=== PATIENT | male | born 1940 | race Caucasian/White ===

== ENCOUNTER 2018-11-08 16:32 | Inpatient (IN) ==
[2018-11-08] MEDS ORDERED: ONDANSETRON INJ 2 MG/ML 2 ML VIAL IV STA (17:02)
[2018-11-08] MEDS ORDERED: PIPERACILLIN/TAZOBACTAM 4.5 GM/120 ML BAG IV STA (17:02)
[2018-11-08] MEDS ORDERED: ACETAMINOPHEN 500 MG TAB PO STA (17:02)
[2018-11-08] MEDS ORDERED: SODIUM CHLORIDE 0.9% 1000ML 1,000 ML IV STA (17:05)
[2018-11-08] MEDS ORDERED: HYDROmorphone INJ 0.5 MG/0.5 ML SYR IV PRN (17:07)
[2018-11-08] MEDS ORDERED: SODIUM CHLORIDE 0.9% 1000ML 500 ML IV ONE (17:08)
[2018-11-08] MEDS ORDERED: SODIUM CHLORIDE 0.9% 500 ML IV SCH (17:15)
[2018-11-08] MEDS ORDERED: CLINDAMYCIN 900 MG in DEXTROSE 5% 50 ML IV ONE (17:30)
--- NOTE | 2018-11-08 17:55 | XRay Report ---
XR chest 1V portable HISTORY: 78 years-old Male fever acute fever COMPARISON: None available TECHNIQUE: Portable AP view of the chest FINDINGS: Cardiomediastinal and hilar silhouettes are within normal limits. Calcification of the thoracic arch. No pneumothorax, pleural effusion, focal airspace consolidation or overt pulmonary edema. Degenerati ve changes of the shoulders and spine. IMPRESSION: No acute process. The above report was generated using voice recognition software. It may contain grammatical, syntax o r spelling errors. Electronically signed by: Skyler Crooks M.D. 11/08/2018 5:54 PM
--- NOTE | 2018-11-08 17:55 | XRay Report ---
XR foot LT min 3V routine HISTORY: 78 years-old Male left great toe gangrene and foot cellulitis chronic wound of the left eliceo t COMPARISON: None available TECHNIQUE: 3 views of the left foot FINDINGS: Moderate degenerative changes about the first MTP joint. There are mild degenerative changes noted ab out the interphalangeal joints. Healed remote fracture about the mid shaft third metatarsal. No acute fracture, dislocation or opaque foreign body. There is mild to moderate soft tissue swelling about t he first digit with associated deep tissue air surrounding the first proximal phalanx. No bony erosiv e changes to suggest acute osteomyelitis. Pes planus deformity with marginal spurring noted about the calcaneus and midfoot. Peripheral arterial calcifications are noted. Small ankle joint effusion. IMPRESSION: 1. Mild to moderate soft tissue swelling about the first digit with deep tissue air surrounding the f irst proximal phalanx suggestive of gas forming organism. 2. No acute fracture, dislocation or bony erosive changes to suggest acute osteomyelitis. 3. Healed remote third metatarsal fracture. 4. Degenerative changes as above with pes planus deformity. The above report was generated using voice recognition software. It may contain grammatical, syntax o r spelling errors. Electronically signed by: Skyler Crooks M.D. 11/08/2018 5:53 PM
[2018-11-08 18:07] LABS: Albumin Level 2.5 gm/dl (3.4-5.0); BUN Creatinine Ratio 16.6 (10-20); Calcium 8.9 mg/dl (8.5-10.1); Creatinine Clr Calc Pharmacy 42.5 ml/min; Est GFR (African American) 51.8; Est GFR (Non-African American) 44.7; Potassium 4.3 mmol/L (3.5-5.1)
[2018-11-08] MEDS: DAPTOmycin 500 MG in SYRINGE 0 ML IV STA ×2 (18:11→18:47)
[2018-11-08 18:12] LABS: Albumin Globulin Ratio 0.5 (0.9-2); Bilirubin,Total 0.7 mg/dl (0.2-1); C Reactive Protein 18.1 mg/dl (0-0.29); Globulin 4.7 gm/dl (2.5-4.0); Total Protein 7.2 gm/dl (6.4-8.2); Troponin I 0.022 ng/ml (0-0.045)
[2018-11-08 18:22] LABS: Hematocrit (blood only) 33.7 % (42-52); Hemoglobin 11.5 g/dL (14.0-18.0); Mean Corpuscular Hgb Conc 34.1 g/dL (32-36); Mean Corpuscular Volume 85.1 fL (80-100); Mean Platelet Volume 10.1 fL (7.4-10.4); Platelet Count 367 K/uL (130-400); RDW Coefficient of Variation 13.3 % (11.5-14.5); RDW Standard Deviation 41.4 fL (36.4-46.3); Red Blood Count 3.96 M/uL (4.7-6.1); White Blood Count 14.55 K/uL (4.8-10.8)
[2018-11-08 18:53] LABS: Basophils # (auto) 0.03 K/uL (0-0.2); Basophils % (auto) 0.2 %; Eosinophils # (auto) 0.02 K/uL (0-0.5); Eosinophils % (auto) 0.1 %; Immature Granulocytes # (auto) 0.06 K/uL (0.00-0.02); Immature Granulocytes % (auto) 0.4 %; Lymphocytes # (auto) 0.77 K/uL (1.2-3.4); Lymphocytes % (auto) 5.3 %; Monocytes # (auto) 0.75 K/uL (0.11-0.59); Monocytes % (auto) 5.2 %; Neutrophils # (auto) 12.92 K/uL (1.4-6.5); Neutrophils % (auto) 88.8 %
--- NOTE | 2018-11-08 19:26 | CT Scan Report ---
CT OF THE LEFT FOOT WITHOUT CONTRAST CLINICAL HISTORY: Left great toe gangrene, cellulitis. COMPARISON STUDY: Left foot radiograph November 08, 2018. TECHNIQUE: Axial images of the left foot were obtained without IV contrast. Sagittal and coronal danuta nstructions were viewed. Study was performed utilizing automated exposure control for dose reduction and according to ALARA principles. FINDINGS: Tarsometatarsal joints are intact. There is no acute fracture within the left foot. There i s moderate soft tissue gas within the left first toe that extends to the level of the metatarsophalan geal joint. There is a wound of the left first toe. In addition, there is gas within the distal phala nx of the left first toe. There is no gas within the proximal phalanx. No bony destruction is identif ied. No abscess is identified although sensitivity is diminished on this unenhanced CT. There is jacob a of the left first toe which suggests cellulitis. There is extensive vascular calcification. IMPRESSION: 1. Wound of the left first toe with soft tissue gas that extends to the level of the metatarsophalang eal joint which suggest a gas-forming infectious organism. In addition, gas within the medullary spac e of the distal phalanx of the left first toe consistent with osteomyelitis. 2. Left first toe edema consistent with cellulitis. No abscess identified on this unenhanced CT. Electronically signed by: Ruben Tenorio M.D. 11/08/2018 7:25 PM
--- NOTE | 2018-11-08 21:14 | History & Physical Report ---
Date of Service November 08, 2018 Assessment & Plan (1) Gangrene of left foot: Patient febrile, hemodynamically stable. Non-toxic in appearance. Presence of rigors from earlier today concerning. Patient with history of IDDM. No known CAD, CHF or arrhythmia. Active and independent, no exertional CP or SOB. Will obtain pre-operative EKG. Patient medically optimized for surgery. -Admit to medical floor -Follow results of blood cultures -Zosyn, Daptomycin and Clindamycin -Consult ID for assistance with antibiotic management - appreciate assistance -Consult Podiatry for possible amputation in the AM. -Obtain EKG -Keep NPO after midnight for possible surgery tomorrow Present on Admission?: Yes (2) Cellulitis of left foot: As above. -Marcial area of cellulitis daily to assess for progression -Dapto/Clinda/Zosyn -ID and Podiatry consults Present on Admission?: Yes (3) Osteomyelitis: As above Present on Admission?: Yes (4) Diabetes: Patient reports poor blood sugar control. Is presenlty on Lantus 22u qHS and Humalog sliding scale. States that his sugars are typically over 300. He was on 36u of Lantus but reported feeling weak with that dose. -Lantus 11u BID -Insulin sliding scale -Check AIC -Consider diabetes education consultation F/E/N - NSS at 125mL/hr x 1 liter, monitor electrolytes and replete as needed, CC diet as tolerated for dinner and NPO after midnight for possible surgery in AM Ppx - ambulation, IVF Code - Full Dispo - Admit to med/surge Case management to assist with establishing PCP from [facility] system at family request History of Present Illness Chief Complaint: gangrene, left great toe Primary Care Provider: José Manuel Esparza Mr. Jacobo is a 78yo C male with history of DM on insulin presenting with gangrene of the left great toe. Patient states that on 10/15/18 after fishing he noted a small black spot on his toe. Denies trauma or break in the skin of his foot. He reports soaking his feet in iodine solution and bandaging his toe twice daily since that time, however, the black spot continued to expand. Also with redness on the dorsum of the foot. Minimal amount of pain. +foul smell and occasional discharge. Patient had episode of fever and rigors today. Otherwise no complaints. ER Course: Tylenol, Clindamycin, Daptomycin, Zosyn, Dilaudid, NSS, Zofran Allergies Allergy/AdvReac Type Severity Reaction Status Date / Time No Known Allergies Allergy Verified 11/08/18 17:32 Home Medications Home Medications Medication Instructions Recorded Confirmed Type acetaminophen [Tylenol Extra 500 - 1,000 mg PO DIRECTED PRN 11/08/18 11/08/18 History Strength] ibuprofen [Advil] 200 - 400 mg PO DIRECTED PRN 11/08/18 11/08/18 History insulin aspart U-100 [Novolog 10 - 12 unit SUBCUT TIDM 11/08/18 11/08/18 History U-100 Insulin aspart] insulin glargine [Lantus U-100 22 unit SUBCUT HS 11/08/18 11/08/18 History Insulin] Past Med/Surg History Medical History Diabetes (Chronic) Surgical History S/P carotid endarterectomy Family History Other Coronary heart disease Diabetes Social History Preferred Language: [place]an marital status: current occupational status: retired Review of Systems Review of Systems: All systems reviewed & are unremarkable except as noted in HPI & below +rigors, fevers, chills +difficulty ambulating +leg cramping Physical Exam Physical Exam: General: patient resting comfortably, NAD, non-toxic in appearance, AA&O x 4 Skin: warm, dry, intact, see extremity exam below for foot exam HEENT: NC/AT, PERRL, EOMI, anicteric sclera, conjunctiva without injection, external ear normal to inspection and nontender, nares patent, moist mucus membranes, dentition intact, no oropharyngeal lesions, neck supple, trachea midline, no LAD, no thyromegaly, no JVD Heart: +S1/S2, regular, no m/r/g Lungs: equal air entry bilaterally, no rales/rhonchi/wheezes Abd: +BS, soft, NT/ND, no masses/organomegaly/ascites, small reducible umbilical hernia Ext: warm, 2+ pulses in UE and 1+ pulses in LE bilaterally. Left foot with black/necrotic gangrene of the great toe, foul smelling, no discharge or exposed bone appreciated, warmth and redness of the dorsum of the foot, small area of fluctuance on arch which was aspirated by ER physician, no crepitus/bullae/streaking or pain in the leg/thigh Neuro: nonfocal, patient AA&O x 4, speech intact, no facial droop, moving all extremities on command with equal strength 5/5 Results & Data Vital Signs (Past 12 Hours) Vital Signs Temp Pulse Pulse Resp BP BP Pulse Ox 11/08/18 18:56 88 16 132/69 97 11/08/18 16:36 38.9 C H 111 H 20 108/63 99 Laboratory Results Lab Results 11/08/18 11/08/18 11/08/18 Range/Units 17:18 17:18 17:18 WBC 14.55 H (4.8-10.8) K/uL RBC 3.96 L (4.7-6.1) M/uL Hgb 11.5 L (14.0-18.0) g/dL Hct 33.7 L (42-52) % MCV 85.1 (80-100) fL MCH 29.0 (25-34) pg MCHC 34.1 (32-36) g/dL RDW Std Deviation 41.4 (36.4-46.3) fL RDW Coeff of Deepak 13.3 (11.5-14.5) % Plt Count 367 (130-400) K/uL MPV 10.1 (7.4-10.4) fL Immature Gran % (Auto) 0.4 % Neut % (Auto) 88.8 % Lymph % (Auto) 5.3 % [place] % (Auto) 5.2 % Eos % (Auto) 0.1 % Baso % (Auto) 0.2 % Immature Gran # (Auto) 0.06 H (0.00-0.02) K/uL Neut # (Auto) 12.92 H (1.4-6.5) K/uL Lymph # (Auto) 0.77 L (1.2-3.4) K/uL [place] # (Auto) 0.75 H (0.11-0.59) K/uL Eos # (Auto) 0.02 (0-0.5) K/uL Baso # (Auto) 0.03 (0-0.2) K/uL ESR 78 H (0-14) mm/hr Sodium 133 L (136-145) mmol/L Potassium 4.3 (3.5-5.1) mmol/L Chloride 101 (98-107) mmol/L Carbon Dioxide 26 (21-32) mmol/L Anion Gap 6.0 (3-11) BUN 25 H (7-18) mg/dl Creatinine 1.48 H (0.6-1.4) mg/dl Est Cr Clr Drug Dosing 42.5 ml/min Est GFR ( Amer) 51.8 Est GFR (Non-Af Amer) 44.7 BUN/Creatinine Ratio 16.6 (10-20) Glucose 145 H (70-99) mg/dl POC Lactic Acid Chase (0.90-1.70) mmol/L Calcium 8.9 (8.5-10.1) mg/dl Total Bilirubin 0.7 (0.2-1) mg/dl AST 24 (15-37) U/L ALT 31 (12-78) U/L Alkaline Phosphatase 109 (45-117) U/L Troponin I 0.022 (0-0.045) ng/ml C-Reactive Protein 18.10 H (0-0.29) mg/dl Total Protein 7.2 (6.4-8.2) gm/dl Albumin 2.5 L (3.4-5.0) gm/dl Globulin 4.7 H (2.5-4.0) gm/dl Albumin/Globulin Ratio 0.5 L (0.9-2) 11/08/18 Range/Units 17:32 WBC (4.8-10.8) K/uL RBC (4.7-6.1) M/uL Hgb (14.0-18.0) g/dL Hct (42-52) % MCV (80-100) fL MCH (25-34) pg MCHC (32-36) g/dL RDW Std Deviation (36.4-46.3) fL RDW Coeff of Deepak (11.5-14.5) % Plt Count (130-400) K/uL MPV (7.4-10.4) fL Immature Gran % (Auto) % Neut % (Auto) % Lymph % (Auto) % [place] % (Auto) % Eos % (Auto) % Baso % (Auto) % Immature Gran # (Auto) (0.00-0.02) K/uL Neut # (Auto) (1.4-6.5) K/uL Lymph # (Auto) (1.2-3.4) K/uL [place] # (Auto) (0.11-0.59) K/uL Eos # (Auto) (0-0.5) K/uL Baso # (Auto) (0-0.2) K/uL ESR (0-14) mm/hr Sodium (136-145) mmol/L Potassium (3.5-5.1) mmol/L Chloride (98-107) mmol/L Carbon Dioxide (21-32) mmol/L Anion Gap (3-11) BUN (7-18) mg/dl Creatinine (0.6-1.4) mg/dl Est Cr Clr Drug Dosing ml/min Est GFR ( Amer) Est GFR (Non-Af Amer) BUN/Creatinine Ratio (10-20) Glucose (70-99) mg/dl POC Lactic Acid Chase 1.94 H (0.90-1.70) mmol/L Calcium (8.5-10.1) mg/dl Total Bilirubin (0.2-1) mg/dl AST (15-37) U/L ALT (12-78) U/L Alkaline Phosphatase (45-117) U/L Troponin I (0-0.045) ng/ml C-Reactive Protein (0-0.29) mg/dl Total Protein (6.4-8.2) gm/dl Albumin (3.4-5.0) gm/dl Globulin (2.5-4.0) gm/dl Albumin/Globulin Ratio (0.9-2) Diagnostic Findings CT OF THE LEFT FOOT WITHOUT CONTRAST CLINICAL HISTORY: Left great toe gangrene, cellulitis. COMPARISON STUDY: Left foot radiograph November 08, 2018. TECHNIQUE: Axial images of the left foot were obtained without IV contrast. Sagittal and coronal reconstructions were viewed. Study was performed utilizing automated exposure control for dose reduction and according to ALARA principles. FINDINGS: Tarsometatarsal joints are intact. There is no acute fracture within the left foot. There is moderate soft tissue gas within the left first toe that extends to the level of the metatarsophalangeal joint. There is a wound of the left first toe. In addition, there is gas within the distal phalanx of the left first toe. There is no gas within the proximal phalanx. No bony destruction is identified. No abscess is identified although sensitivity is diminished on this unenhanced CT. There is edema of the left first toe which suggests cellulitis. There is extensive vascular calcification. IMPRESSION: 1. Wound of the left first toe with soft tissue gas that extends to the level of the metatarsophalangeal joint which suggest a gas-forming infectious organism. In addition, gas within the medullary space of the distal phalanx of the left first toe consistent with osteomyelitis. 2. Left first toe edema consistent with cellulitis. No abscess identified on this unenhanced CT. Electronically signed by: Ruben Tenorio M.D. 11/08/2018 7:25 PM Dictated: 11/08/181916 Transcribed: 11/08/181916 XR foot LT min 3V routine HISTORY: 78 years-old Male left great toe gangrene and foot cellulitis chronic wound of the left foot COMPARISON: None available TECHNIQUE: 3 views of the left foot FINDINGS: Moderate degenerative changes about the first MTP joint. There are mild degenerative changes noted about the interphalangeal joints. Healed remote fracture about the mid shaft third metatarsal. No acute fracture, dislocation or opaque foreign body. There is mild to moderate soft tissue swelling about the first digit with associated deep tissue air surrounding the first proximal phalanx. No bony erosive changes to suggest acute osteomyelitis. Pes planus deformity with marginal spurring noted about the calcaneus and midfoot. Peripheral arterial calcifications are noted. Small ankle joint effusion. IMPRESSION: 1. Mild to moderate soft tissue swelling about the first digit with deep tissue air surrounding the first proximal phalanx suggestive of gas forming organism. 2. No acute fracture, dislocation or bony erosive changes to suggest acute osteomyelitis. 3. Healed remote third metatarsal fracture. 4. Degenerative changes as above with pes planus deformity. The above report was generated using voice recognition software. It may contain grammatical, syntax or spelling errors. Electronically signed by: Skyler Crooks M.D. 11/08/2018 5:53 PM Dictated: 11/08/181750 Transcribed: 11/08/181750 XR chest 1V portable HISTORY: 78 years-old Male fever acute fever COMPARISON: None available TECHNIQUE: Portable AP view of the chest FINDINGS: Cardiomediastinal and hilar silhouettes are within normal limits. Calcification of the thoracic arch. No pneumothorax, pleural effusion, focal airspace consolidation or overt pulmonary edema. Degenerative changes of the shoulders and spine. IMPRESSION: No acute process. The above report was generated using voice recognition software. It may contain grammatical, syntax or spelling errors. Electronically signed by: Skyler Crooks M.D. 11/08/2018 5:54 PM Dictated: 11/08/181752 Transcribed: 11/08/181752 Code Status & VTE Plan Code Status FULL VTE Prophylaxis Plan VTE Prophylaxis will be ordered: Yes Critical Care Time Critical Care Time: No (1) Osteomyelitis Laterality: left Osteomyelitis location: foot Osteomyelitis type: unspecified type Qualified Code(s): M86.9 - Osteomyelitis, unspecified (2) Diabetes Diabetes mellitus type: type 2 Diabetes mellitus test borer insulin use: with test borer use Diabetes mellitus complication status: with unspecified complications Qualified Code(s): E11.8 - Type 2 diabetes mellitus with unspecified complications; Z79.4 - penitentiary (current) use of insulin
--- NOTE | 2018-11-08 21:24 | Anesthesiology Consultation ---
Date of Service November 08, 2018 Assessment & Plan Chart Review Chart Review: Acceptable Risk for Surgery (emergency; pt with gagrene of toe) and Patient NOT seen in Pre Admission Testing Consults Requested none ASA [id number] Proposed Anesthesia Anesthesia Type: General Risk / Benefits Reviewed With: PT / POA / Parent / Guardian, Accepts Plan and Informed Consent Obtained History Surgery Operation Date: 11/08/18 21:15 Proposed Procedures p Amputation Toe - Adarsh Mirza MD Height/Weight Height: 1.78 m Weight: 84 kg Allergies Allergy/AdvReac Type Severity Reaction Status Date / Time No Known Allergies Allergy Verified 11/08/18 17:32 Medications Home Medications Medication Instructions Recorded Confirmed Last Taken acetaminophen [Tylenol Extra 500 - 1,000 mg PO DIRECTED PRN 11/08/18 11/08/18 Unknown Strength] ibuprofen [Advil] 200 - 400 mg PO DIRECTED PRN 11/08/18 11/08/18 Unknown insulin aspart U-100 [Novolog 10 - 12 unit SUBCUT TIDM 11/08/18 11/08/18 Unknown U-100 Insulin aspart] insulin glargine [Lantus U-100 22 unit SUBCUT HS 11/08/18 11/08/18 Unknown Insulin] Active Medications Generic Name Dose Route Start Last Admin Trade Name Freq PRN Reason Stop Dose Admin Hydromorphone HCl 0.5 mg 11/08/18 17:07 11/08/18 17:47 Dilaudid IV 11/22/18 17:06 0.5 mg Q15M PRN Administration Pain NPO Date Last Intake of Fluids: 11/08/18 Time Last Intake of Fluids: 15:30 Date Last Intake of Solids: 11/08/18 Time Last Intake of Solids: 15:00 Past Medical History Medical History Gangrene of left foot (Acute) Cellulitis of left foot (Acute) Sepsis (Acute) Osteomyelitis (Acute) Diabetes (Chronic) Ingrown nail Denies h/o stroke. Took 12 units of insulin this am Exercise / Class Metabolic Activity II 4-5 Yardwork/Stairs/Walk up hill (Working carrying rios) Past Family History Family History Other Coronary heart disease Diabetes Past Surgical History Surgical History H/O lumbar discectomy S/P carotid endarterectomy 2017 S/P knee surgery Right knee Past Anesthesia History No Hx of Anesthesia Complications and No Family Hx of Anesthesia Complications History of PONV No Hx of PONV and No Hx of Motion Sickness Social History Smoking Status: Never smoker Do You Dip or Chew Tobacco: No Hx Alcohol Use: No Hx Substance Use: No Review of Systems Respiratory: no dyspnea Cardiovascular: no chest pain with activity and no dyspnea on exertion Gastrointestinal: no nausea and no vomiting Physical Exam Vital Signs Last Vital Signs Temp 38.9 C H 11/08/18 16:36 Pulse 88 11/08/18 18:56 Resp 16 11/08/18 18:56 BP 132/69 11/08/18 18:56 Pulse Ox 97 11/08/18 18:56 ENMT Mouth: + dentures (Full upper and lower) and + edentulous; no TMJ abnormality and no TMJ clicking Thyromental Distance: > or= 3.5 Finger Breadths Mallampati Class: II Neck normal visual inspection; neck extension not limited Respiratory Auscultation: lungs clear to auscultation bilaterally Cardiovascular Rate/Rhythm: regular rate and regular rhythm Psychiatric Orientation: alert and oriented x 3 Testing Electrocardiogram Date: 11/08/18 Findings: + NSR @ (94 bpm) Chest X-Ray Date: 11/08/18 Findings: + NAD Laboratory Results 11/08/18 17:18 11/08/18 17:18
[2018-11-08] MEDS ORDERED: BUPIVACAINE 0.5 % 5 MG/1 ML MPF 30ML VIAL ONE (21:28)
[2018-11-08] MEDS ORDERED: LIDOCAINE HCL 1% 20 ML VIAL ONE (21:28)
[2018-11-08] MEDS ORDERED: MIDAZOLAM HCL 1 MG/ML 2ML VIAL ONE (21:31)
[2018-11-08] MEDS ORDERED: fentaNYL citrate 100 MCG/2 ML VIAL ONE (21:31)
[2018-11-08] MEDS ORDERED: ePHEDrine sulfate 50 MG/ML AMP IV PRN (21:36)
[2018-11-08] MEDS ORDERED: HYDROmorphone INJ 1 MG/ML SYRINGE IV PRN (21:36)
[2018-11-08] MEDS ORDERED: fentaNYL citrate 100 MCG/2 ML VIAL IV PRN (21:36)
[2018-11-08] MEDS ORDERED: ONDANSETRON INJ 2 MG/ML 2 ML VIAL IV PRN ×3 (21:36→23:31)
[2018-11-08] MEDS ORDERED: ATROPINE SULFATE 0.1 MG/ML 10ML SYR IV PRN (21:36)
[2018-11-08] MEDS ORDERED: PHENYLEPHRINE 100MCG/ML 5ML SYR IV PRN (21:36)
--- NOTE | 2018-11-08 21:57 | History and Physical Report ---
DATE OF ADMISSION: 11/08/2018 I was consulted to see the patient for a problem involving his left big toe. The patient reports approximately 3 weeks ago he developed a black spot on the tip of his toe. He thought it was a callus and treated it with some creams. It seemed to be get better, but then gradually got worse. He at one point thought he might have hurt his foot fishing, but at this point is denying any type of traumatic injury. He reports feeling feverish but has not taken a temperature. He has had some chills at night and nausea with loss of appetite. He came to the ER because of increased pain, foul smell and redness. PAST MEDICAL HISTORY: Significant for diabetes. PAST SURGICAL HISTORY: Carotid endarterectomy on the right side last year. He has no allergies. MEDICATIONS: He takes insulin and baby aspirin. He denies problems with bleeding, blood clots, infections, metal sensitivity, heart attack, stroke, lung, liver, kidney disease or cancer. PHYSICAL EXAMINATION: Exam of the foot reveals black discoloration of the toe from about the proximal phalanx and distal. He can wiggle the toe, but it actually appears a little shriveled. The toe has a foul smell to it. There is a blister proximal and dorsal. There are no palpable pulses. He can wiggle his toes and flex and extend the ankle. There is some erythema on the dorsum of the foot. I do not palpate any gas or bubbles within the viable soft tissues of the dorsal or plantar foot. There is mild swelling and some erythema on the dorsum of the foot. There is nothing going proximal. He has intact sensation in the foot. He can flex and extend the ankle and toes with normal or nearly normal strength. He does not move the big toe much. Radiographs show no acute bony injury, but there is a suggestion of gas in the soft tissues. This is actually confirmed on the CT scan where there is abundant gas within the soft tissue surrounding the proximal phalanx and there is actually gas within the distal phalanx of the big toe. 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 PLAN: My findings are discussed with the patient. I spoke with his daughter, Dr. Ortiz as well as Dr. Gao. I recommend that he have an urgent amputation of his big toe as he has a gas gangrene consistent with Clostridium perfringens or a group B strep infection. He has received Zosyn, daptomycin and clindamycin which I am told should cover the clostridial and strep organisms. He agrees to proceed and informed consent is obtained, and will be taken to the operating room for debridement. The plan moving forward would be to do an amputation through the zone of viable tissue. At this point, it seems like this will be in the distal to mid portion of the metatarsal. I discussed with the patient that this is potentially a life threatening infection and that further surgery could be necessary, which could include amputation at a higher level. Further surgery would likely be necessary to at least close the wound if not perform further debridements. The wound will be packed and left open. He will likely need a vascular consultation for potential revascularization of the foot. Poor circulation I think has contributed to the gangrene of the big toe.
[2018-11-08] MEDS ORDERED: ACETAMINOPHEN 1,000 MG/100 ML VIAL IV ONE (22:00)
[2018-11-08] MEDS ORDERED: POVIDONE-IODINE OP SOLN 30 ML BTL ONE (22:19)
[2018-11-08] MEDS ORDERED: ONDANSETRON INJ 2 MG/ML 2 ML VIAL ONE (22:24)
[2018-11-08] MEDS ORDERED: SUCCINYLCHOLINE CHLORIDE 20 MG/ML 10 ML VIAL ONE (22:25)
[2018-11-08] MEDS ORDERED: LIDOCAINE HCL 2% 2 ML VIAL/AMP(20MG/ML) INFIL ONE (22:25)
[2018-11-08] MEDS ORDERED: PROPOFOL IV EMULSION 10 MG/ML 20 ML VIAL IV ONE (22:25)
[2018-11-08] MEDS ORDERED: BACITRACIN INJ 50,000 UNIT VIAL ONE (22:39)
[2018-11-08] MEDS ORDERED: DEXTROSE 50% 50 ML SYRINGE IV PRN (23:16)
[2018-11-08] MEDS ORDERED: GLUCAGON FOR INJ 1 MG VIAL SQ PRN (23:16)
[2018-11-08] MEDS ORDERED: PIPERACILL/TAZOBAC CONSULT ACTIVE PRN (23:16)
[2018-11-08] MEDS ORDERED: LANTUS PER UNIT CHARGE SQ SCH (23:16)
[2018-11-08] MEDS ORDERED: CARBOHYDRATES FOR HYPOGLYCEMIA PO PRN (23:16)
[2018-11-08] MEDS ORDERED: GLUCOSE 10 TABS/TUBE PO PRN (23:16)
[2018-11-08] MEDS ORDERED: POLYETHYLENE (MIRALAX) 17 GM PACK PO PRN (23:16)
[2018-11-08] MEDS ORDERED: GLUCOSE 40% GEL 15 GM TUBE PO PRN (23:16)
[2018-11-08] MEDS ORDERED: BISACODYL 10 MG SUPP PR PRN (23:31)
[2018-11-08] MEDS ORDERED: SODIUM CHLORIDE 0.9% 1000ML 1,000 ML IV SCH (23:31)
[2018-11-08] MEDS ORDERED: MAGNESIUM HYDROXIDE SUSP 30 ML UDC PO PRN (23:31)
[2018-11-08] MEDS ORDERED: METOCLOPRAMIDE HCL INJ 5 MG/ML 2 ML VIAL IV PRN (23:31)
[2018-11-08] MEDS ORDERED: DiphenhydrAMINE HCL 50 MG/ML VIAL IV PRN (23:31)
[2018-11-08] MEDS ORDERED: PHARMACY GLYCEMIC MGMT CONSULT STA (23:31)
[2018-11-08] MEDS ORDERED: NALOXONE HCL 0.4 MG/1 ML VIAL/CARP IV PRN (23:31)
--- NOTE | 2018-11-08 23:32 | Post Operative Brief Note ---
Immediate Post Op Note v1 Date of Surgery November 08, 2018 Pre & Post Diagnosis Operation Date: 11/08/18 21:15 Pre-Op Diagnosis: Gangrene of left toe Post-Op Diagnosis: Gangrene of left toe Procedure Operation Date: 11/08/18 21:15 Actual Procedures p Amputation of Left Toe(Left) - Adarsh Mirza MD Surgeon Adarsh Mirza MD Digester Operator rohan noel Estimated Blood Loss 1 Findings Consistent with Post-Op Diagnosis Specimens left big toe, culture Anesthesia Type General Complications none Disposition Accompanied Patient To Recovery: No Disposition: Recovery Room
--- NOTE | 2018-11-08 23:37 | Operative Report ---
Post Operative Report Pre & Post Diagnosis Operation Date: 11/08/18 21:15 Pre-Op Diagnosis: Gangrene of left toe Post-Op Diagnosis: Gangrene of left toe Procedure Operation Date: 11/08/18 21:15 Actual Procedures p Amputation of Left Toe(Left) - Adarsh Mirza MD Surgeon Adarsh Mirza Sander [employer] Buffer rohan noel Estimated Blood Loss 1 Findings Consistent with Post-Op Diagnosis Specimens bone and soft tissue Complications none Indications See Dr Mirza operative report for full details. Description of Procedure See Dr Mirza operative report for full details. I was desk assistant during entire case to include, prepping, draping, limb and instrument handling, wound p acking, dressings. I attest to the content of the Intraoperative Record and any orders documented therein. Any exceptions are noted below.
[2018-11-09] MEDS ORDERED: SODIUM CHLORIDE 0.9% 1000ML 1,000 ML IV SCH
--- NOTE | 2018-11-09 00:02 | Emergency Department Note ---
Entered by Milena Chavarria acting as a scribe for ED Provider Note CHIEF COMPLAINT: Foot infection HISTORY OF PRESENT ILLNESS: The patient is a 78 year old male with a history of diabetes who presents to the Emergency Room with complaints of a worsening left foot infection starting 2 weeks ago. The patient reports that he was out fishing with his family when he stumbled on a root while walking down a muddy bank to the [place]. He states that he noticed his left foot turn red 3 days later and subsequently turn black and f oul-smelling within a week. He notes that he has been soaking and cleaning it nearly every day in addition to taking Tylenol and Advil. He states that his last dose of Tylenol was 4-5 days ago and that he has not taken Advil yet today. He further reports that he is able to ambulate on his foot, and he currently rates his pain a 5/10. The patient also complains of some left leg discomfort, nausea, shakes, fevers, lightheadedness, and a loss of appetite. He notes that he has not urinated for the past day. He states that his PCP is Dr. José Manuel Esparza in [place]. He denies being admitted to [facility] before. Pt denies LOC, headache, chills, diaphoresis, visual changes, neck pain, chest pain, breathing difficulties, vomiting, abdominal pain, back pain, melena, hematochezia, urinary symptoms, numbness, weakness, lymphadenopathy, rash, or other complaints. REVIEW OF SYSTEMS: See HPI for pertinent positives and negatives. A total of ten systems were reviewed and were otherwise negative. PMHx/PSHx: Diabetes SOCIAL HISTORY: Patient lives at home. He is and retired. PHYSICAL EXAM: GENERAL: Awake, alert, uncomfortable-appearing, in no distress. HENT: Normocephalic, atraumatic. Oropharynx unremarkable. EYES: PERRL. Normal conjunctiva. Sclera non-icteric. NECK: Inspection normal. Non-tender. Supple. No nuchal rigidity. FROM. No masses. RESPIRATORY: Clear to auscultation. No wheezes. No rales. Normal respiratory effort. CARDIAC: Borderline tachycardic rate. Normal rhythm. No murmurs. No rubs. Extremities warm and well perfused. Pulses equal. No JVD. GI: Soft, non-distended. No tenderness to palpation. No rebound or guarding. No masses. RECTAL: Deferred. MUSCULOSKELETAL: Atraumatic. Chest examination reveals no tenderness. The back is symmetrical on inspection without obvious abnormality. There is no CVA tenderness to palpation. No joint edema. LOWER EXTREMITIES: Calves are equal size bilaterally and non-tender. Gangrenous, erythematous, and fluctuant over the first MTP joint of the left foot. Streaking erythema going up the left leg. NEURO: Normal sensorium. No sensory or motor deficits noted. SKIN: No other rash or jaundice noted. EMERGENCY DEPARTMENT COURSE: 1647: Past medical records reviewed. The patient was evaluated in room A9B, and a complete history and physical examination were performed. I also performed an I&D procedure at this time. 1734: I reassessed the patient. His IVs and blood work are done and he is currently receiving antibiotics. His lactate is 1.94. 1829: I called out to the [facility] hospitalist at this time. 183: On reevaluation, the patient is resting. I discussed the results and admission with him. He verbalized agreement of the treatment plan. 0: I reviewed the patient's case with Dr. Mirza - Orthopedic Surgery, [facility]. Dr. Mirza agrees with antibiotics. 1900: I reviewed the patient's case with Dr. Gao - Hospitalist, [facility]. Dr. Gao will evaluate the patient for further management. PROCEDURE: Incision & Drainage Indication: Abscess. Location: Foot Verbal consent was obtained after the risks and benefits were explained, including but not limited to bleeding, scarring, infection, pain, and bone/joint/nerve damage. At this time, the risks of the procedure are less than the risks of NOT performing the procedure. A time out was taken and the correct patient and site identified. The skin was prepped with alcohol and a sterile field set. The fluid cavity was entered with a number 18 gauge needle and purulent material expressed. Debridement was not performed. No complications and the patient tolerated the procedure well. MEDICAL DECISION MAKING: Triage Nursing notes reviewed and agree them. Additional history obtained from the family. The patient's history was concerning for swelling and redness of the skin. Differential diagnosis: Etiologies such as cellulitis, necrotizing fasciitis, abscess, MRSA infection, ischemia, as well as others were entertained.. Physical examination: The physical examination was consistent with cellulitis and gangrene ER treatment provided: IV saline hydration IV Dilaudid IV daptomycin IV Zosyn IV clindamycin On reassessment the patient felt better. Diagnostics interpreted by me: The labs revealed a moderate leukocytosis on CBC. Mild anemia. Chemistry panel revealed mild hyperglycemia. Inflammatory markers are markedly elevated. Cultures are pending. Lactate is mildly elevated. Imaging studies: X-ray imaging revealed subcutaneous air around the first toe. CT imaging was performed. Cellulitis and osteomyelitis noted. Subcutaneous air noted. Consultation: Consultation was placed with orthopedics. Case was discussed. Patient was evaluated by orthopedics in the emergency department. A consultation was placed with the hospitalist. The case was discussed and diagnostics were reviewed. The patient was evaluated in the ER for further treatment. Due to the gas-forming infection orthopedics took the patient to the operating room and internal medicine will admit. IMPRESSION: Gangrene of left foot, cellulitis of left foot, sepsis, osteomyelitis PLAN: Admitted as inpatient CRITICAL CARE: I have personally spent 30 minutes of critical care time in the direct management of this patient. This includes bedside care, interpretation of diagnostic studies, and testing, discussion with consultants, patient, and family members, and other required patient management activities. This 30 minutes is in excess of all separately billable procedures. The scribe's documentation has been prepared under my direction and personally reviewed by me in its entirety. I confirm that the note above accurately reflects all work, treatment, procedures, and medical decision making performed by me. Impression & Plan Gangrene of left foot, Cellulitis of left foot, Sepsis, Osteomyelitis Past Med/Surg History Medical History Gangrene of left foot (Acute) Cellulitis of left foot (Acute) Sepsis (Acute) Osteomyelitis (Acute) Diabetes (Chronic) Ingrown nail Surgical History H/O lumbar discectomy S/P carotid endarterectomy 2017 S/P knee surgery Right knee Family History Other Coronary heart disease Diabetes Social History Preferred Language: Hebrew marital status: current occupational status: retired Smoking Status: Never smoker Do You Dip or Chew Tobacco: No Hx Alcohol Use: No Hx Substance Use: No Results & Data Vital Signs Vital Signs - 24 hr 11/08/18 16:36 11/08/18 18:56 11/08/18 23:20 Temperature 38.9 C H 37.0 C Temperature Source Oral Temporal Artery Scan Sepsis Recent Fever Within 48 Hours No Sepsis Action Taken by Nursing No Action Required Pulse Rate 111 H Pulse Rate [Right Finger] 88 95 H Pulse Rhythm [Right Finger] Regular Pulse Strength [Right Finger] Normal Respiratory Rate 20 16 16 Respiratory Effort / Characteristics Non-Labored Spontaneous Non-Labored Respiratory Depth Normal Normal Respiratory Pattern Regular Blood Pressure 108/63 Blood Pressure [Right Arm] 132/69 160/89 H Blood Pressure Mean 78 Blood Pressure Mean [Right Arm] 90 112 Blood Pressure Position [Right Arm] Lying Pulse Oximetry 99 97 99 Oxygen Delivery Method Room Air Room Air Oxymask Oxygen Flow Rate 6 11/08/18 23:30 11/08/18 23:40 Temperature Temperature Source Sepsis Recent Fever Within 48 Hours Sepsis Action Taken by Nursing Pulse Rate Pulse Rate [Right Finger] 96 H 111 H Pulse Rhythm [Right Finger] Pulse Strength [Right Finger] Respiratory Rate 18 18 Respiratory Effort / Characteristics Respiratory Depth Respiratory Pattern Blood Pressure Blood Pressure [Right Arm] 152/73 H 148/84 H Blood Pressure Mean Blood Pressure Mean [Right Arm] 99 105 Blood Pressure Position [Right Arm] Pulse Oximetry 100 100 Oxygen Delivery Method Oxymask Oxymask Oxygen Flow Rate 6 3 Home Medications Current Medication List: was personally reviewed by me Laboratory Data Attestation: I reviewed the patient's lab results. Result diagrams: 11/08/18 17:18 11/08/18 17:18 Lab Results 11/08/18 11/08/18 11/08/18 Range/Units 17:18 17:18 17:18 WBC 14.55 H (4.8-10.8) K/uL RBC 3.96 L (4.7-6.1) M/uL Hgb 11.5 L (14.0-18.0) g/dL Hct 33.7 L (42-52) % MCV 85.1 (80-100) fL MCH 29.0 (25-34) pg MCHC 34.1 (32-36) g/dL RDW Std Deviation 41.4 (36.4-46.3) fL RDW Coeff of Deepak 13.3 (11.5-14.5) % Plt Count 367 (130-400) K/uL MPV 10.1 (7.4-10.4) fL Immature Gran % (Auto) 0.4 % Neut % (Auto) 88.8 % Lymph % (Auto) 5.3 % [place] % (Auto) 5.2 % Eos % (Auto) 0.1 % Baso % (Auto) 0.2 % Immature Gran # (Auto) 0.06 H (0.00-0.02) K/uL Neut # (Auto) 12.92 H (1.4-6.5) K/uL Lymph # (Auto) 0.77 L (1.2-3.4) K/uL [place] # (Auto) 0.75 H (0.11-0.59) K/uL Eos # (Auto) 0.02 (0-0.5) K/uL Baso # (Auto) 0.03 (0-0.2) K/uL ESR 78 H (0-14) mm/hr Sodium 133 L (136-145) mmol/L Potassium 4.3 (3.5-5.1) mmol/L Chloride 101 (98-107) mmol/L Carbon Dioxide 26 (21-32) mmol/L Anion Gap 6.0 (3-11) BUN 25 H (7-18) mg/dl Creatinine 1.48 H (0.6-1.4) mg/dl Est Cr Clr Drug Dosing 42.5 ml/min Est GFR ( Amer) 51.8 Est GFR (Non-Af Amer) 44.7 BUN/Creatinine Ratio 16.6 (10-20) Glucose 145 H (70-99) mg/dl POC Glucose (70-99) POC Lactic Acid Chase (0.90-1.70) mmol/L Calcium 8.9 (8.5-10.1) mg/dl Total Bilirubin 0.7 (0.2-1) mg/dl AST 24 (15-37) U/L ALT 31 (12-78) U/L Alkaline Phosphatase 109 (45-117) U/L Troponin I 0.022 (0-0.045) ng/ml C-Reactive Protein 18.10 H (0-0.29) mg/dl Total Protein 7.2 (6.4-8.2) gm/dl Albumin 2.5 L (3.4-5.0) gm/dl Globulin 4.7 H (2.5-4.0) gm/dl Albumin/Globulin Ratio 0.5 L (0.9-2) 11/08/18 11/08/18 Range/Units 17:32 23:29 WBC (4.8-10.8) K/uL RBC (4.7-6.1) M/uL Hgb (14.0-18.0) g/dL Hct (42-52) % MCV (80-100) fL MCH (25-34) pg MCHC (32-36) g/dL RDW Std Deviation (36.4-46.3) fL RDW Coeff of Deepak (11.5-14.5) % Plt Count (130-400) K/uL MPV (7.4-10.4) fL Immature Gran % (Auto) % Neut % (Auto) % Lymph % (Auto) % [place] % (Auto) % Eos % (Auto) % Baso % (Auto) % Immature Gran # (Auto) (0.00-0.02) K/uL Neut # (Auto) (1.4-6.5) K/uL Lymph # (Auto) (1.2-3.4) K/uL [place] # (Auto) (0.11-0.59) K/uL Eos # (Auto) (0-0.5) K/uL Baso # (Auto) (0-0.2) K/uL ESR (0-14) mm/hr Sodium (136-145) mmol/L Potassium (3.5-5.1) mmol/L Chloride (98-107) mmol/L Carbon Dioxide (21-32) mmol/L Anion Gap (3-11) BUN (7-18) mg/dl Creatinine (0.6-1.4) mg/dl Est Cr Clr Drug Dosing ml/min Est GFR ( Amer) Est GFR (Non-Af Amer) BUN/Creatinine Ratio (10-20) Glucose (70-99) mg/dl POC Glucose 168 H (70-99) POC Lactic Acid Chase 1.94 H (0.90-1.70) mmol/L Calcium (8.5-10.1) mg/dl Total Bilirubin (0.2-1) mg/dl AST (15-37) U/L ALT (12-78) U/L Alkaline Phosphatase (45-117) U/L Troponin I (0-0.045) ng/ml C-Reactive Protein (0-0.29) mg/dl Total Protein (6.4-8.2) gm/dl Albumin (3.4-5.0) gm/dl Globulin (2.5-4.0) gm/dl Albumin/Globulin Ratio (0.9-2) Administered Medications Discontinued Medications Acetaminophen (Tylenol) 1,000 mg PO ONE STA Stop: 11/08/18 17:03 Last Admin: 11/08/18 18:30 Dose: Not Given Documented by: [id number] Bacitracin (Bacitracin) Confirm Administered Dose 50,000 units .ROUTE .STK-MED ONE Stop: 11/08/18 22:40 Last Admin: 11/08/18 22:59 Dose: 50,000 units Documented by: [id number] Bupivacaine HCl (Marcaine 0.5% Mpf) Confirm Administered Dose 30 ml .ROUTE .STK- MED ONE Stop: 11/08/18 21:29 Last Admin: 11/08/18 23:05 Dose: Not Given Documented by: [id number] Hydromorphone HCl (Dilaudid) 0.5 mg IV Q15M PRN PRN Reason: Pain Stop: 11/22/18 17:06 Last Admin: 11/08/18 17:47 Dose: 0.5 mg Documented by: [id number] Piperacillin Sod/Tazobactam Sod (Zosyn) 4.5 gm in 120 mls @ 200 mls/hr IV NOW STA Stop: 11/08/18 17:37 Last Infusion: 11/08/18 18:35 Dose: 0 mls/hr Documented by: [id number] Admin: 11/08/18 17:47 Dose: 200 mls/hr Documented by: [id number] Sodium Chloride (Nss) 500 mls @ 999 mls/hr IV .Q31M EMELINA Stop: 11/08/18 17:45 Last Admin: 11/08/18 19:03 Dose: Not Given Documented by: [id number] Daptomycin 500 mg/ Syringe 10 mls @ 0 mls/min IV NOW STA; Protocol Stop: 11/08/18 17:03 Last Admin: 11/08/18 18:47 Dose: 6 mls/min Documented by: [id number] Sodium Chloride (Nss 1000ml) 500 mls @ 999 mls/hr IV .Q31M ONE Stop: 11/08/18 17:38 Last Admin: 11/08/18 19:03 Dose: Not Given Documented by: [id number] Clindamycin Phosphate 900 mg/ (Dextrose) 56 mls @ 112 mls/hr IV ONE ONE Stop: 11/08/18 17:59 Last Infusion: 11/08/18 18:58 Dose: 0 mls/hr Documented by: [id number] Admin: 11/08/18 18:11 Dose: 112 mls/hr Documented by: [id number] Acetaminophen (Ofirmev) 1,000 mg in 100 mls @ 400 mls/hr IV ONE ONE Stop: 11/08/18 22:14 Last Admin: 11/08/18 23:49 Dose: 400 mls/hr Documented by: [id number] Lidocaine HCl (Xylocaine 1% (Local)) Confirm Administered Dose 20 ml .ROUTE .STK-MED ONE Stop: 11/08/18 21:29 Last Admin: 11/08/18 23:05 Dose: Not Given Documented by: [id number] Ondansetron HCl (Zofran) 4 mg IV NOW STA Stop: 11/08/18 17:03 Last Admin: 11/08/18 17:47 Dose: 4 mg Documented by: [id number] Povidone Iodine (Betadine Ophthalmic Prep) Confirm Administered Dose 30 ml .ROUTE .STK-MED ONE Stop: 11/08/18 22:20 Last Admin: 11/08/18 22:58 Dose: 30 ml Documented by: [id number] Imaging Data Radiologist's Impression: Radiology results as stated below per my review and the radiologist's interpretation: XR chest 1V portable HISTORY: 78 years-old Male fever acute fever COMPARISON: None available TECHNIQUE: Portable AP view of the chest FINDINGS: Cardiomediastinal and hilar silhouettes are within normal limits. Calcification of the thoracic arch. No pneumothorax, pleural effusion, focal airspace consolidation or overt pulmonary edema. Degenerative changes of the shoulders and spine. IMPRESSION: No acute process. The above report was generated using voice recognition software. It may contain grammatical, syntax or spelling errors. Electronically signed by: Skyler Crooks M.D. 11/08/2018 5:54 PM XR foot LT min 3V routine HISTORY: 78 years-old Male left great toe gangrene and foot cellulitis chronic wound of the left foot COMPARISON: None available TECHNIQUE: 3 views of the left foot FINDINGS: Moderate degenerative changes about the first MTP joint. There are mild degenerative changes noted about the interphalangeal joints. Healed remote fracture about the mid shaft third metatarsal. No acute fracture, dislocation or opaque foreign body. There is mild to moderate soft tissue swelling about the first digit with associated deep tissue air surrounding the first proximal phalanx. No bony erosive changes to suggest acute osteomyelitis. Pes planus deformity with marginal spurring noted about the calcaneus and midfoot. Peripheral arterial calcifications are noted. Small ankle joint effusion. IMPRESSION: 1. Mild to moderate soft tissue swelling about the first digit with deep tissue air surrounding the first proximal phalanx suggestive of gas forming organism. 2. No acute fracture, dislocation or bony erosive changes to suggest acute osteomyelitis. 3. Healed remote third metatarsal fracture. 4. Degenerative changes as above with pes planus deformity. The above report was generated using voice recognition software. It may contain grammatical, syntax or spelling errors. Electronically signed by: Skyler Crooks M.D. 11/08/2018 5:[address] OF THE LEFT FOOT WITHOUT CONTRAST CLINICAL HISTORY: Left great toe gangrene, cellulitis. COMPARISON STUDY: Left foot radiograph November 08, 2018. TECHNIQUE: Axial images of the left foot were obtained without IV contrast. Sagittal and coronal reconstructions were viewed. Study was performed utilizing automated exposure control for dose reduction and according to ALARA principles. FINDINGS: Tarsometatarsal joints are intact. There is no acute fracture within the left foot. There is moderate soft tissue gas within the left first toe that extends to the level of the metatarsophalangeal joint. There is a wound of the left first toe. In addition, there is gas within the distal phalanx of the left first toe. There is no gas within the proximal phalanx. No bony destruction is identified. No abscess is identified although sensitivity is diminished on this unenhanced CT. There is edema of the left first toe which suggests cellulitis. There is extensive vascular calcification. IMPRESSION: 1. Wound of the left first toe with soft tissue gas that extends to the level of the metatarsophalangeal joint which suggest a gas-forming infectious organism. In addition, gas within the medullary space of the distal phalanx of the left first toe consistent with osteomyelitis. 2. Left first toe edema consistent with cellulitis. No abscess identified on this unenhanced CT. Electronically signed by: Ruben Tenorio M.D. 11/08/2018 7:25 PM ECG Data Attestation: I personally reviewed and interpreted this ECG as follows: Indication: other (foot infection) Rate (beats per minute): 94 Rhythm: normal sinus Findings: no PAC, no PVC, no ST depression and no ST elevation Blood Pressure Blood Pressure Findings: Normal blood pressure Discharge Plan Visit Data *Final* Discharge Date/Time: 11/08/18 21:41 Chief Complaint: Hyperglycemia Stated Complaint: BLACK TOES- HX DIABETIC ED Provider: Cj Ortiz Discharge Problem: Gangrene of left foot, Cellulitis of left foot, Sepsis, Osteomyelitis Patient Disposition: Admitted As Inpatient Discharge Instructions Interventions: ED Discharge Assessment Last Done: 11/08/18 21:41 Discharge Problem: Sepsis Qualifiers: Sepsis type: sepsis due to unspecified organism Qualified Code(s): A41.9 - Sepsis, unspecified organism Osteomyelitis Qualifiers: Osteomyelitis type: unspecified type Osteomyelitis location: foot Laterality: left Qualified Code(s): M86.9 - Osteomyelitis, unspecified The scribe's documentation has been prepared under my direction and personally reviewed by me in its entirety. I confirm that the note above accurately reflects all work, treatment, procedures, and medical decision making performed by me.
[2018-11-09 00:13] LABS: Magnesium 2.2 mg/dl (1.8-2.4); Phosphorus 2.7 mg/dl (2.5-4.9)
--- NOTE | 2018-11-09 00:33 | Anesthesiology Progress Note ---
Date of Service November 09, 2018 Anesthesia Post Procedure Vital Signs Vital Signs: Temp Pulse Pulse Resp BP BP Pulse Ox 11/09/18 00:19 38.4 C H 94 H 18 117/52 L 93 11/08/18 23:50 37.5 C 112 H 18 155/77 H 96 11/08/18 23:40 111 H 18 148/84 H 100 11/08/18 23:30 96 H 18 152/73 H 100 11/08/18 23:20 37.0 C 95 H 16 160/89 H 99 11/08/18 18:56 88 16 132/69 97 11/08/18 16:36 38.9 C H 111 H 20 108/63 99 Transfer of Care Handoff Completed per policy Notes Mental Status: alert / awake / arousable Patient Amnestic to Procedure: Yes Nausea / Vomiting: adequately controlled Pain: adequately controlled Airway Patency, RR, SpO2: stable & adequate BP & HR: stable & adequate Hydration State: stable & adequate Anesthetic Complications: no major complications apparent
[2018-11-09] MEDS: PIPERACILLIN/TAZOBACTAM 3.375 GM in DEXTROSE 5% 100 ML IV SCH ×4 (00:35→23:53)
[2018-11-09] MEDS: OXYCODONE HCL IR 5 MG TAB (IMMEDIATE RELEASE) PO PRN (00:36)
[2018-11-09] MEDS: INSULIN ASPART 100 UNITS/ML 3 ML PEN SC SCH ×5 (00:40→20:28)
[2018-11-09] MEDS: INSULIN GLARGINE SOLOSTAR 100 UNITS/ML 3 ML PEN SC SCH ×4 (00:41→22:15)
--- NOTE | 2018-11-09 01:49 | Operative Report ---
DATE OF OPERATION: 11/08/2018 PREOPERATIVE DIAGNOSIS: Gas gangrene of the left big toe. POSTOPERATIVE DIAGNOSIS: Gas gangrene of the left big toe. PROCEDURE: Partial amputation of the left big toe. SURGEON: Adarsh Mirza MD EMBOSSED OR IMPRESSED LETTERING PAINTER: LOUANN Son ANESTHESIA: General. INDICATIONS OF PROCEDURE: The patient is a 78-year-old male with a three-week history of progressive necrosis of the left big toe. In the past several days, he has experienced chills and sweats, particularly yesterday and has had a loss of appetite. Clinical examination shows a black discoloration with atrophy of the big toe. There is erythema on the dorsum of the foot. There are bullae forming on the proximal portion of the big toe near the metatarsophalangeal joint. Radiographs and CT scan show evidence of osteomyelitis of the distal phalanx with gas within the bone and gas within the subcutaneous tissues extending to the distal portion of the metatarsal. I think the patient potentially could have gas gangrene secondary to beta strep or Clostridium species. I have recommended an urgent amputation and he and his family agreed to proceed. I have coordinated care with the Emergency Room physician as well as Medicine. PROCEDURE IN DETAIL: Informed consent was obtained. The patient was identified. He identified the operative site as the left big toe, which I marked with my initials. A preoperative surgical time out was performed and a preoperative dose of I.V. antibiotics was given in the Emergency Room to cover multiple organisms including beta strep and Clostridium species. The examination is as mentioned above. He was positioned supine with a tourniquet on the left thigh, which was not inflated during the case. The leg was prepped with Betadine after Betadine scrubb. Deep venous thrombosis prophylaxis will be done with early mobility and mechanical devices postoperatively. I made a longitudinal incision down the medial border of the foot paralleling the first ray and then a hockey stick incision around the first ray at the level of the metatarsophalangeal joint. I excised all of the blackened tissue as well as all of the bullae that had formed on the medial side. Bleeding was scant throughout the entire procedure. I carried this sharply down to the bone. I dissected out the flexor and extensor tendons and resected them proximally. I identified the junction of the middle and distal third of the metatarsal and amputated it here and beveled the bone. I took a culture of the deep tissues, particularly in the webspace and then up underneath the proximal phalanx and metatarsal from proximally and deep. The toe was then resected and sent for specimen. The sesamoids were sent were resected with the specimen Bleeding as I mentioned was scant. I did not encounter any purulence. The tissue overall did not appear to be very healthy particularly in the webspace area where further sharp excisional debridement was performed. There was some punctate bleeding throughout the wound including the bone. I then irrigated with Betadine lavage 500 mL followed by a liter of sterile saline with antibiotics. I then dried and packed with one inch iodoform gauze leaving the wound open and covering this with ABDs, gauze and an Jamie wrap. A postoperative shoe was applied. The patient was sent to the Recovery Room in a stable condition. He was awakened from anesthesia without difficulty. The resected toe was sent for specimen along with a culture. Counts were correct. Blood loss was approximately 1 mL. At the conclusion of the operation, I spoke to the patient's family and informed them of my findings. Postoperative instructions were given. We discussed the postoperative plan. He will be admitted to Medicine Service under either Intensive Care or Telemetry Care per Medicine. He will continue his antibiotics. Infectious Disease will be consulted along with Vascular Surgery. No dishwater pus or abcess, some first webspace fat looked necrotic and was debrided, visualized veins in wound looked thrombosed. I attest to the content of the Intraoperative Record and any orders documented therein. Any exceptions are noted below. MICHELLE
[2018-11-09] MEDS: CLINDAMYCIN 600 MG in DEXTROSE 5% 50 ML IV SCH ×3 (02:08→17:19)
[2018-11-09] MEDS ORDERED: INSULIN ASPART 100 UNITS/ML 3 ML PEN SC SCH (04:00)
[2018-11-09 06:05] LABS: Basophils # (auto) 0.02 K/uL (0-0.2); Basophils % (auto) 0.2 %; Eosinophils # (auto) 0.08 K/uL (0-0.5); Eosinophils % (auto) 0.8 %; Hematocrit (blood only) 29.3 % (42-52); Hemoglobin 9.8 g/dL (14.0-18.0); Immature Granulocytes # (auto) 0.02 K/uL (0.00-0.02); Immature Granulocytes % (auto) 0.2 %; Lymphocytes # (auto) 1.35 K/uL (1.2-3.4); Lymphocytes % (auto) 13.7 %; Mean Corpuscular Hgb Conc 33.4 g/dL (32-36); Mean Corpuscular Volume 85.4 fL (80-100); Mean Platelet Volume 9.6 fL (7.4-10.4); Monocytes # (auto) 0.63 K/uL (0.11-0.59); Monocytes % (auto) 6.4 %; Neutrophils # (auto) 7.78 K/uL (1.4-6.5); Neutrophils % (auto) 78.7 %; Platelet Count 299 K/uL (130-400); RDW Coefficient of Variation 13.6 % (11.5-14.5); RDW Standard Deviation 42.6 fL (36.4-46.3); Red Blood Count 3.43 M/uL (4.7-6.1); White Blood Count 9.88 K/uL (4.8-10.8)
--- NOTE | 2018-11-09 06:38 | Fluoroscopy Report ---
FL toe LT 2V CLINICAL HISTORY: LT. GREATER TOE AMPUTATION COMPARISON STUDY: 11/08/2018 FLUOROSCOPY TIME: 2 seconds. NUMBER OF FLUOROSCOPIC IMAGES: 1 FINDINGS: A single intraoperative fluoroscopic spot image demonstrates amputation of the great toe at the mid to distal metatarsal level. IMPRESSION: Transmetatarsal amputation of the great toe. Electronically signed by: Tony Vazquez M.D. 11/09/2018 6:37 AM
[2018-11-09 06:47] LABS: BUN Creatinine Ratio 14.7 (10-20); Creatinine Clr Calc Pharmacy 48.9 ml/min; Est GFR (African American) 55.4; Est GFR (Non-African American) 47.8; Potassium 3.9 mmol/L (3.5-5.1)
[2018-11-09] MEDS ORDERED: DAPTOmycin 500 MG VIAL IV SCH (09:00)
--- NOTE | 2018-11-09 09:03 | Orthopedic Progress Note ---
Date of Service November 09, 2018 Assessment & Plan (1) Gangrene of left foot: POD 1 - s/p transmetatarsal amputation left great toe performed by Dr. Mirza 11/08/18 May be out of bed, weight bear as tolerated left lower extremity Post op shoe on left foot at all times. Use walker to assist with ambulation. PT/OT. Regular diet as ordered. Encouraged strict elevation left foot Will keep dressings on left foot today. Possibly plan for repeat I&D left great toe with Dr. Mirza on 03/23. Will discuss findings with Dr. Mirza. All questions answered. Will plan to make NPO p MN if plans for repeat surgery tomorrow. Depending on Dr Miller's plan we may postpone surgery. conversion to transmet possible. today no further bullae or sub q air on exam. some marginal wound necrosis dorsally, no red streaking, swelling minimal, redness dorsal foot slightly better to the same, other toes ok. cultures pending, continue antibiotics. Subjective Sitting up in chair at bedside. Feeling fine, tolerating regular diet. Elevated left foot. Post op shoe in place. Physical Exam Physical Exam: Dressings clean, dry, intact left foot, post op shoe in place. Did not remove dressings. Readjusted post op shoe. Elevated on stool. Results & Data Vital Signs (Past 12 Hours) Vital Signs Temp Pulse Resp BP BP Pulse Ox 11/09/18 07:11 38.1 C H 87 13 122/92 96 11/09/18 03:44 37.0 C 73 16 94 11/09/18 02:01 109/52 L 11/09/18 01:14 76 16 84/32 L 97 11/09/18 00:45 37.4 C 92 H 18 109/51 L 94 11/09/18 00:30 92 H 18 108/57 L 96 11/09/18 00:19 38.4 C H 94 H 18 117/52 L 93 11/08/18 23:50 37.5 C 112 H 18 155/77 H 96 11/08/18 23:40 111 H 18 148/84 H 100 11/08/18 23:30 96 H 18 152/73 H 100 11/08/18 23:20 37.0 C 95 H 16 160/89 H 99 Laboratory Results 11/09/18 11/09/18 11/09/18 Range/Units 07:16 05:35 05:35 WBC (4.8-10.8) K/uL RBC (4.7-6.1) M/uL Hgb (14.0-18.0) g/dL Hct (42-52) % MCV (80-100) fL MCH (25-34) pg MCHC (32-36) g/dL RDW Std Deviation (36.4-46.3) fL RDW Coeff of Deepak (11.5-14.5) % Plt Count (130-400) K/uL MPV (7.4-10.4) fL Immature Gran % (Auto) % Neut % (Auto) % Lymph % (Auto) % Toole % (Auto) % Eos % (Auto) % Baso % (Auto) % Immature Gran # (Auto) (0.00-0.02) K/uL Neut # (Auto) (1.4-6.5) K/uL Lymph # (Auto) (1.2-3.4) K/uL Toole # (Auto) (0.11-0.59) K/uL Eos # (Auto) (0-0.5) K/uL Baso # (Auto) (0-0.2) K/uL ESR (0-14) mm/hr Sodium 136 (136-145) mmol/L Potassium 3.9 (3.5-5.1) mmol/L Chloride 106 (98-107) mmol/L Carbon Dioxide 25 (21-32) mmol/L Anion Gap 5.0 (3-11) BUN 21 H (7-18) mg/dl Creatinine 1.40 (0.6-1.4) mg/dl Est Cr Clr Drug Dosing 48.9 ml/min Est GFR ( Amer) 55.4 Est GFR (Non-Af Amer) 47.8 BUN/Creatinine Ratio 14.7 (10-20) Glucose 159 H (70-99) mg/dl POC Glucose 175 H (70-99) Estimat Average Glucose Pending Hemoglobin A1c Pending POC Lactic Acid Chase (0.90-1.70) mmol/L Calcium 8.0 L (8.5-10.1) mg/dl Phosphorus (2.5-4.9) mg/dl Magnesium (1.8-2.4) mg/dl Total Bilirubin (0.2-1) mg/dl AST (15-37) U/L ALT (12-78) U/L Alkaline Phosphatase (45-117) U/L Total Creatine Kinase (39-308) U/L Troponin I (0-0.045) ng/ml C-Reactive Protein (0-0.29) mg/dl Total Protein (6.4-8.2) gm/dl Albumin (3.4-5.0) gm/dl Globulin (2.5-4.0) gm/dl Albumin/Globulin Ratio (0.9-2) 11/09/18 11/09/18 11/09/18 Range/Units 05:35 03:49 00:29 WBC 9.88 (4.8-10.8) K/uL RBC 3.43 L (4.7-6.1) M/uL Hgb 9.8 L (14.0-18.0) g/dL Hct 29.3 L (42-52) % MCV 85.4 (80-100) fL MCH 28.6 (25-34) pg MCHC 33.4 (32-36) g/dL RDW Std Deviation 42.6 (36.4-46.3) fL RDW Coeff of Deepak 13.6 (11.5-14.5) % Plt Count 299 (130-400) K/uL MPV 9.6 (7.4-10.4) fL Immature Gran % (Auto) 0.2 % Neut % (Auto) 78.7 % Lymph % (Auto) 13.7 % Toole % (Auto) 6.4 % Eos % (Auto) 0.8 % Baso % (Auto) 0.2 % Immature Gran # (Auto) 0.02 (0.00-0.02) K/uL Neut # (Auto) 7.78 H (1.4-6.5) K/uL Lymph # (Auto) 1.35 (1.2-3.4) K/uL Toole # (Auto) 0.63 H (0.11-0.59) K/uL Eos # (Auto) 0.08 (0-0.5) K/uL Baso # (Auto) 0.02 (0-0.2) K/uL ESR (0-14) mm/hr Sodium (136-145) mmol/L Potassium (3.5-5.1) mmol/L Chloride (98-107) mmol/L Carbon Dioxide (21-32) mmol/L Anion Gap (3-11) BUN (7-18) mg/dl Creatinine (0.6-1.4) mg/dl Est Cr Clr Drug Dosing ml/min Est GFR ( Amer) Est GFR (Non-Af Amer) BUN/Creatinine Ratio (10-20) Glucose (70-99) mg/dl POC Glucose 162 H 163 H (70-99) Estimat Average Glucose Hemoglobin A1c POC Lactic Acid Chase (0.90-1.70) mmol/L Calcium (8.5-10.1) mg/dl Phosphorus (2.5-4.9) mg/dl Magnesium (1.8-2.4) mg/dl Total Bilirubin (0.2-1) mg/dl AST (15-37) U/L ALT (12-78) U/L Alkaline Phosphatase (45-117) U/L Total Creatine Kinase (39-308) U/L Troponin I (0-0.045) ng/ml C-Reactive Protein (0-0.29) mg/dl Total Protein (6.4-8.2) gm/dl Albumin (3.4-5.0) gm/dl Globulin (2.5-4.0) gm/dl Albumin/Globulin Ratio (0.9-2) 11/08/18 11/08/18 11/08/18 Range/Units 23:29 17:32 17:18 WBC (4.8-10.8) K/uL RBC (4.7-6.1) M/uL Hgb (14.0-18.0) g/dL Hct (42-52) % MCV (80-100) fL MCH (25-34) pg MCHC (32-36) g/dL RDW Std Deviation (36.4-46.3) fL RDW Coeff of Deepak (11.5-14.5) % Plt Count (130-400) K/uL MPV (7.4-10.4) fL Immature Gran % (Auto) % Neut % (Auto) % Lymph % (Auto) % Toole % (Auto) % Eos % (Auto) % Baso % (Auto) % Immature Gran # (Auto) (0.00-0.02) K/uL Neut # (Auto) (1.4-6.5) K/uL Lymph # (Auto) (1.2-3.4) K/uL Toole # (Auto) (0.11-0.59) K/uL Eos # (Auto) (0-0.5) K/uL Baso # (Auto) (0-0.2) K/uL ESR (0-14) mm/hr Sodium 133 L (136-145) mmol/L Potassium 4.3 (3.5-5.1) mmol/L Chloride 101 (98-107) mmol/L Carbon Dioxide 26 (21-32) mmol/L Anion Gap 6.0 (3-11) BUN 25 H (7-18) mg/dl Creatinine 1.48 H (0.6-1.4) mg/dl Est Cr Clr Drug Dosing 42.5 ml/min Est GFR ( Amer) 51.8 Est GFR (Non-Af Amer) 44.7 BUN/Creatinine Ratio 16.6 (10-20) Glucose 145 H (70-99) mg/dl POC Glucose 168 H (70-99) Estimat Average Glucose Hemoglobin A1c POC Lactic Acid Chase 1.94 H (0.90-1.70) mmol/L Calcium 8.9 (8.5-10.1) mg/dl Phosphorus 2.7 (2.5-4.9) mg/dl Magnesium 2.2 (1.8-2.4) mg/dl Total Bilirubin 0.7 (0.2-1) mg/dl AST 24 (15-37) U/L ALT 31 (12-78) U/L Alkaline Phosphatase 109 (45-117) U/L Total Creatine Kinase 51 (39-308) U/L Troponin I 0.022 (0-0.045) ng/ml C-Reactive Protein 18.10 H (0-0.29) mg/dl Total Protein 7.2 (6.4-8.2) gm/dl Albumin 2.5 L (3.4-5.0) gm/dl Globulin 4.7 H (2.5-4.0) gm/dl Albumin/Globulin Ratio 0.5 L (0.9-2) 11/08/18 11/08/18 Range/Units 17:18 17:18 WBC 14.55 H (4.8-10.8) K/uL RBC 3.96 L (4.7-6.1) M/uL Hgb 11.5 L (14.0-18.0) g/dL Hct 33.7 L (42-52) % MCV 85.1 (80-100) fL MCH 29.0 (25-34) pg MCHC 34.1 (32-36) g/dL RDW Std Deviation 41.4 (36.4-46.3) fL RDW Coeff of Deepak 13.3 (11.5-14.5) % Plt Count 367 (130-400) K/uL MPV 10.1 (7.4-10.4) fL Immature Gran % (Auto) 0.4 % Neut % (Auto) 88.8 % Lymph % (Auto) 5.3 % Toole % (Auto) 5.2 % Eos % (Auto) 0.1 % Baso % (Auto) 0.2 % Immature Gran # (Auto) 0.06 H (0.00-0.02) K/uL Neut # (Auto) 12.92 H (1.4-6.5) K/uL Lymph # (Auto) 0.77 L (1.2-3.4) K/uL Toole # (Auto) 0.75 H (0.11-0.59) K/uL Eos # (Auto) 0.02 (0-0.5) K/uL Baso # (Auto) 0.03 (0-0.2) K/uL ESR 78 H (0-14) mm/hr Sodium (136-145) mmol/L Potassium (3.5-5.1) mmol/L Chloride (98-107) mmol/L Carbon Dioxide (21-32) mmol/L Anion Gap (3-11) BUN (7-18) mg/dl Creatinine (0.6-1.4) mg/dl Est Cr Clr Drug Dosing ml/min Est GFR ( Amer) Est GFR (Non-Af Amer) BUN/Creatinine Ratio (10-20) Glucose (70-99) mg/dl POC Glucose (70-99) Estimat Average Glucose Hemoglobin A1c POC Lactic Acid Chase (0.90-1.70) mmol/L Calcium (8.5-10.1) mg/dl Phosphorus (2.5-4.9) mg/dl Magnesium (1.8-2.4) mg/dl Total Bilirubin (0.2-1) mg/dl AST (15-37) U/L ALT (12-78) U/L Alkaline Phosphatase (45-117) U/L Total Creatine Kinase (39-308) U/L Troponin I (0-0.045) ng/ml C-Reactive Protein (0-0.29) mg/dl Total Protein (6.4-8.2) gm/dl Albumin (3.4-5.0) gm/dl Globulin (2.5-4.0) gm/dl Albumin/Globulin Ratio (0.9-2) Diagnostic Findings FL toe LT 2V CLINICAL HISTORY: LT. GREATER TOE AMPUTATION COMPARISON STUDY: 11/08/2018 FLUOROSCOPY TIME: 2 seconds. NUMBER OF FLUOROSCOPIC IMAGES: 1 FINDINGS: A single intraoperative fluoroscopic spot image demonstrates amputation of the great toe at the mid to distal metatarsal level. IMPRESSION: Transmetatarsal amputation of the great toe.
[2018-11-09] MEDS: DOCUSATE SODIUM 100 MG CAP PO SCH ×2 (09:09→20:19)
[2018-11-09] MEDS: SACCHAROMYCES BOULARDII 250 MG CAP PO SCH (09:09)
[2018-11-09] MEDS: MULTIVITAMIN TAB PO SCH (09:09)
[2018-11-09 09:12] LABS: Estimated Average Glucose 329 mg/dl; Hemoglobin A1C 13.1 % (4.5-5.6)
[2018-11-09] MEDS: SODIUM CHLORIDE 0.9% 1000ML 1,000 ML IV SCH ×2 (09:35→22:16)
--- NOTE | 2018-11-09 11:22 | Infectious Disease Consult ---
Date of Consultation November 09, 2018 Assessment & Plan (1) Gangrene of left foot: continue IV abx for now pending OR cultures, blood cultures. undergoing ultrasound to assess blood supply, await results. will follow. (2) Osteomyelitis: History of Present Illness Attending Physician: Masoud Cade pt admitted with rigors x 1 day. Has had black left first toe x 3 weeks, states he has been taking care of this at home on his own and has not sought medicial care for this. 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 He states he was told that once someone reaches the age of 75 they are no longer able to properly control diabetes and that it will "take over their body", states he was expecting that he would have problems with his feet and his circulation so was not worried about discoloration in toe. Prior to yesterday, no f/c, became concerned when he had fever, came to Er. underwent ct foot, gas in first toe, with extension and evidence for osteo. ESR elevated. Was evaluated by ortho in ER and taken to OR for partial amp, tolerated well. blood cultures pending, OR cultures pending as well, gpc on gram stain. Started on broad spectrum abx, tolerating well. currently denies fevers, but has had fever since admission. States pain in foot well controlled, had dressing change this am. Exam in ultrasound today. 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 denies abd pain, no n/v/d, no cp, sob, parisi, wheeze. eating well. no gu symptoms. wbc initially 14, now 9. Allergies Allergy/AdvReac Type Severity Reaction Status Date / Time No Known Allergies Allergy Verified 11/08/18 17:32 Home Medications Home Medications Medication Instructions Recorded Confirmed Type acetaminophen [Tylenol Extra 500 - 1,000 mg PO DIRECTED PRN 11/08/18 11/08/18 History Strength] ibuprofen [Advil] 200 - 400 mg PO DIRECTED PRN 11/08/18 11/08/18 History insulin aspart U-100 [Novolog 10 - 12 unit SUBCUT TIDM 11/08/18 11/08/18 History U-100 Insulin aspart] insulin glargine [Lantus U-100 22 unit SUBCUT HS 11/08/18 11/08/18 History Insulin] Patient History Medical History Gangrene of left foot (Acute) Cellulitis of left foot (Acute) Sepsis (Acute) Osteomyelitis (Acute) Diabetes (Chronic) Ingrown nail Surgical History H/O lumbar discectomy S/P carotid endarterectomy 2017 S/P knee surgery Right knee Family History Other Coronary heart disease Diabetes Social History Preferred Language: Honduran Communication Ability: Effective Beliefs That Will Affect Care: Spiritism Spiritism Beliefs: mu-ism marital status: Current Living Situation: Alone current occupational status: retired Other Information That Helps Us Care for You: No Feels Safe at Home: Yes Safety Concerns: Feels Safe At This Time Smoking Status: Never smoker Do You Dip or Chew Tobacco: No Hx Alcohol Use: No Hx Substance Use: No Review of Systems Review of Systems: All systems reviewed & are unremarkable except as noted in HPI & below Physical Exam Constitutional: WD/WN, vitals as above Eyes: PERRL, conjunctivae normal, anicteric sclerae ENMT: external ear and nose normal, oropharynx normal Neck: normal visual inspection Respiratory: normal respiratory effort, lungs clear to auscultation Cardiovascular: RRR, no murmur, no edema Gastrointestinal (Abdomen): normal bowel sounds, soft, nontender, no hepatosplenomegaly Musculoskeletal: no cyanosis or clubbing, extremities motor strength 5/5 Skin: no rashes, warm and dry left foot dressing c/d/i Psychiatric: A+Ox3, euthymic affect Results & Data Vital Signs (Past 12 Hours) Vital Signs Temp Pulse Resp BP BP Pulse Ox 11/09/18 07:11 38.1 C H 87 13 122/92 96 11/09/18 03:44 37.0 C 73 16 94 11/09/18 02:01 109/52 L 11/09/18 01:14 76 16 84/32 L 97 11/09/18 00:45 37.4 C 92 H 18 109/51 L 94 11/09/18 00:30 92 H 18 108/57 L 96 11/09/18 00:19 38.4 C H 94 H 18 117/52 L 93 11/08/18 23:50 37.5 C 112 H 18 155/77 H 96 11/08/18 23:40 111 H 18 148/84 H 100 11/08/18 23:30 96 H 18 152/73 H 100 11/08/18 23:20 37.0 C 95 H 16 160/89 H 99 (1) Osteomyelitis Laterality: left Osteomyelitis location: foot Osteomyelitis type: unspecified type Qualified Code(s): M86.9 - Osteomyelitis, unspecified
[2018-11-09] MEDS: ACETAMINOPHEN 325 MG TAB PO PRN ×2 (12:46→23:04)
--- NOTE | 2018-11-09 12:55 | Consultation ---
Date of Consultation November 09, 2018 Assessment & Plan (1) Peripheral arterial disease: LLE with likely PAD. Arterial US reviewed, shows significant disease, mostly infrapopliteal. Pt also seen by Dr Hicks today. Recommends LLE angio with intervention on WEDNESDAY, 11/11. Pt agreeable. Patient was seen, examined, and chart reviewed. Agree with exam and treatment plan of the Vascular PA. ejs Present on Admission?: Yes History of Present Illness Reason for Consultation: PAD, L toe gangrene Attending Physician: Masoud Cade History of Present Illness 78 yo m with hx of DMII, admitted with L great toe gangrene, seen in consultation today for probable PAD d/t minimal bleeding noted during L great toe amputation yesterday. Pt admits pain in L toe surgical area now, but states did not cause him severe pain at home [employer]. Pt states has been outside doing a lot of work outside and did not have calf claudication. States he noted a small black spot on his L great toe about 2-3 weeks ago. He attempted to treat this at home himself, but noted worsening of the toe. He finally came to [facility] d/t worsening of his toe. Underwent amputation L great toe yesterday by Dr Mirza, who noted only minimal bleeding during surgery. Consulted vascular d/t likely PAD. Denies HOFF, fever, chills, chest pain, sOB,, abd pain, N/V, rest pain, claudication, other complaints. Pt just returned from arterial US, will be reviewed by Dr Hicks. Allergies Allergy/AdvReac Type Severity Reaction Status Date / Time No Known Allergies Allergy Verified 11/08/18 17:32 Home Medications Home Medications Medication Instructions Recorded Confirmed Type acetaminophen [Tylenol Extra 500 - 1,000 mg PO DIRECTED PRN 11/08/18 11/08/18 History Strength] ibuprofen [Advil] 200 - 400 mg PO DIRECTED PRN 11/08/18 11/08/18 History insulin aspart U-100 [Novolog 10 - 12 unit SUBCUT TIDM 11/08/18 11/08/18 History U-100 Insulin aspart] insulin glargine [Lantus U-100 22 unit SUBCUT HS 11/08/18 11/08/18 History Insulin] Patient History Medical History Gangrene of left foot (Acute) Cellulitis of left foot (Acute) Sepsis (Acute) Osteomyelitis (Acute) Diabetes (Chronic) Poorly controlled. Atrial flutter with RVR. Requiring cardioversion Ingrown nail PVD (peripheral vascular disease) Surgical History S/P carotid endarterectomy 2016 H/O lumbar discectomy S/P knee surgery Right knee History of cardioversion 11/10/18x 3. Pt back in AFib and on cardizem drip Status post amputation of left great toe 11/08/18 under GETA. Mac 3, gr I Family History Other Coronary heart disease Diabetes Social History Preferred Language: Spanish Communication Ability: Effective Beliefs That Will Affect Care: Taoism Taoism Beliefs: cheondoism marital status: Current Living Situation: Alone current occupational status: retired Other Information That Helps Us Care for You: No Feels Safe at Home: Yes Safety Concerns: Feels Safe At This Time Smoking Status: Never smoker Do You Dip or Chew Tobacco: No Hx Alcohol Use: No Hx Substance Use: No Review of Systems Constitutional: no fever, no chills, no sweats, no fatigue, no malaise and no weight loss Eyes: no blind spots and no problem reported Ear, Nose, Mouth, Throat: no hearing loss and no sore throat Respiratory: no cough, no dyspnea, no dyspnea on exertion and no hemoptysis Cardiovascular: no chest pain, no palpitations, no syncope, no claudication and no problem reported Gastrointestinal: no abdominal pain, no nausea, no vomiting, no change in bowel habits and no blood in stools Musculoskeletal: no back pain Integumentary: + non-healing lesions (L great toe) and + change in skin color (l great toe); no rash Neurologic: + numbness; no localized weakness, no generalized weakness, no paralysis, no tingling, no paresthesia, no syncope, no headache(s) and no confusion Psychiatric: as per Subjective / HPI Hematologic / Lymphatic: no easy bleeding, no easy bruising, no coagulopathy, no night sweats and no unexplained weight loss Physical Exam Constitutional: WD/WN, vitals as above well developed, well nourished, healthy appearing, well groomed, cooperative and comfortable; not disheveled, not in distress and not combative Eyes: PERRL, conjunctivae normal, anicteric sclerae EOM intact bilaterally ENMT: external ear and nose normal, oropharynx normal Ears: no hearing impairment Nose: no nasal discharge Neck: trachea midline, no thyromegaly no tracheal deviation, no neck crepitus and neck nontender Respiratory: normal respiratory effort, lungs clear to auscultation able to speak in complete sentences; does not use accessory muscles and no cough Auscultation: lungs clear to auscultation bilaterally and + diminished lung sounds; no rhonchi and no wheezes Cardiovascular: RRR, no murmur, no edema Heart Sounds: no gallop and no murmur Vessels: femoral pulses present, posterior tibial pulses present (unable to palpate LLE d/t dressing), dorsalis pedis pulses present (unable to palpate LLE d/t dressings), brachial pulses present and radial pulses present; no carotid bruit, no femoral bruit and + abnormal peripheral pulses Extremities: + abnormal capillary refill (delayed to LLE toes) and no pedal edema Gastrointestinal (Abdomen): normal bowel sounds, soft, nontender, no hepatosplenomegaly Inspection/Auscultation: abdomen normal to inspection and normal bowel sounds; abdomen not distended Percussion/Palpation: abdomen soft; abdomen nontender, no guarding, abdomen not rigid and no abdominal mass Musculoskeletal: no cyanosis or clubbing, extremities motor strength 5/5 Head/Neck/Chest: normocephalic, head atraumatic and neck supple Extremities: + limited ROM of extremities (L toes) and + amputation noted (L great toe); no lower leg abnormality and no foot abnormality Skin: no rashes, warm and dry normal turgor and + wound (L foot); no rashes, no lesions, no erythema, no eschar and no mottling Neurologic: moves all extremities and awake; no focal motor deficits and not confused Speech / Cognition: no expressive aphasia and no receptive aphasia Motor/Sensory: no tremor and no sensory deficit Cranial Nerves: EOM intact bilaterally and normal facial strength Gait: not gait assisted Psychiatric: Orientation: alert, oriented x 3 and cooperative Apperance: appropriately dressed, appropriately groomed and appeared stated age; not disheveled Affect: + anxious affect, + irritable affect and + angry affect Thought Process: goal directed thought process, linear/logical thought process and clear/coherent thought process Cognition: recent memory grossly intact, r emote memory grossly intact, attention grossly intact and language grossly intact Estimated Intelligence: average estimated intelligence Results & Data Vital Signs (Past 12 Hours) Vital Signs Temp Pulse Resp BP BP Pulse Ox 11/09/18 07:11 38.1 C H 87 13 122/92 96 11/09/18 03:44 37.0 C 73 16 94 11/09/18 02:01 109/52 L 11/09/18 01:14 76 16 84/32 L 97 11/09/18 00:45 37.4 C 92 H 18 109/51 L 94
[2018-11-09] MEDS ORDERED: METOPROLOL TARTRATE 1 MG/ML VIAL IV STA (13:13)
--- NOTE | 2018-11-09 13:24 | Ultrasound Report ---
US arterial duplex LE BI CLINICAL HISTORY: Left toe gangrene COMPARISON STUDY: No previous studies for comparison. FINDINGS: The left brachial artery systolic pressure measured 140 mmHg. The right posterior tibial artery was occluded. The left posterior tibial artery systolic pressure me asured 131 mmHg. The right dorsalis pedis arterial pressure measured 115 mmHg. The left dorsalis pedis arterial pressu re measured 122 mmHg. This yields ankle brachial indices of 1.1 on the right and 0.9 on the left. On the right there is triphasic flow within the common femoral superficial femoral and popliteal zachary ry. On the left there was triphasic flow within the left common femoral, superficial femoral, and pop liteal arteries. The mid and distal right anterior tibial artery are occluded. The mid and distal right posterior tibi al artery are occluded. There is a focal occlusion of the mid right peroneal artery with distal recon stitution. The left mid and distal anterior tibial artery are occluded. The left posterior tibial artery is occl uded with distal reconstitution. IMPRESSION: 1. Peripheral vascular disease with areas of occlusion involving both anterior tibial arteries and dallin th posterior tibial arteries. 2. No ultrasonographic evidence of hemodynamically significant stenosis within either common femoral, superficial femoral or popliteal artery. 3. Ankle brachial indices measuring 1.1 on the right and 0.9 on the left Electronically signed by: Tony Vazquez M.D. 11/09/2018 1:23 PM
[2018-11-09] MEDS ORDERED: METOPROLOL TARTRATE 1 MG/ML VIAL IV ONE (13:29)
[2018-11-09] MEDS ORDERED: dilTIAZem HCl 5 MG/ML 5 ML VIAL IV STA (14:26)
[2018-11-09] MEDS ORDERED: dilTIAZem HCl 125 MG in DEXTROSE 5% 100 ML IV SCH (14:30)
[2018-11-09] MEDS: DAPTOmycin 425 MG in SYRINGE 0 ML IV SCH (17:19)
[2018-11-09] MEDS ORDERED: AMIODARONE IV BOLUS / DRIP IV STA (17:49)
--- NOTE | 2018-11-09 17:50 | Hospitalist Progress Note ---
Date of Service November 09, 2018 Assessment & Plan (1) Gangrene of left foot: left great toe s/p amputation by Dr Mirza - POD#1. Continue broad-spectrum IV abx including daptomycin, clindamycin, and zosyn. Add probiotics. Possibly more surgical intervention tomorrow by Dr Mirza (TMA, washout, etc). (2) Atrial flutter with rapid ventricular response: Was in NSR since admission then converted to a.flutter with variable block at fast rates of up to 160 BPM at about 1245pm today. He has had NO response to AV didi agents including lopressor IV and IV cardizem. Spoke with cardiology - plan to start amiodarone drip with bolus since we know the exact start time of his rapid a flutter. Stop IV cardizem. Plan to check troponins and TSH. K and mag have been normal. ECHO pending. His BP is mildly low but fortunately he is not symptomatic from such and largely does not feel the rapid a flutter either. (3) Peripheral arterial disease: As seen on arterial dopplers today. Dr Miller has seen - arteriogram with possible intervention on Wednesday of this week. Check lipids in am. At minimum should be on aspirin therapy as well. (4) Sepsis: 2nd to gangrene of left great toe s/p amputation. Blood cx's thus far negative. (5) Osteomyelitis: Left great toe s/p amputation. See above. (6) Diabetes mellitus type 2, uncontrolled: Tighten lantus to 13 units BID. Leave novolog as is. DM education. Patient quite reluctant to change his lifestyle, glycemic goals, etc. (7) DVT prophylaxis: Post-op add heparin SC. Family updated. Subjective resting comfortably in bed during the visit. multiple family at bedside. mild left foot pain. no palpitations, cp, dyspnea, or other chest symptoms. at 1245pm today - shortly after returning from u/s - patient went from NSR into rapid a flutter never has had a.fib/flutter to his knowledge Review of Systems Constitutional: + fever and + sweats; no anorexia Respiratory: no cough, no dyspnea and no dyspnea on exertion Cardiovascular: no chest pain Gastrointestinal: no abdominal pain, no nausea and no vomiting Physical Exam Constitutional: well developed and well nourished; no acute distress and not ill appearing ENMT: external ear and nose normal, oropharynx normal Respiratory: normal respiratory effort, lungs clear to auscultation Cardiovascular: Rate/Rhythm: + tachycardic; + abnormal rhythm (irregular) Heart Sounds: normal S1 and normal S2; no murmur Vessels: no JVD Extremities: normal capillary refill (toes left foot) DP/post tib pulses 2+ on right, 1+ or less on left Gastrointestinal (Abdomen): normal bowel sounds, soft, nontender, no hepat osplenomegaly Musculoskeletal: left foot wrapped in dressing along with surgical shoe Psychiatric: A+Ox3, euthymic affect Results & Data Vital Signs (Past 12 Hours) Vital Signs Temp Pulse Pulse Resp BP BP Pulse Ox 11/09/18 15:40 37.4 C 138 H 18 95/62 L 95 11/09/18 13:31 160 H 174/84 H 11/09/18 07:11 38.1 C H 87 13 122/92 96 Laboratory Results Laboratory Results - last 24 hr 11/08/18 11/08/18 11/09/18 17:18 23:29 00:29 WBC RBC Hgb Hct MCV MCH MCHC RDW Std Deviation RDW Coeff of Deepak Plt Count MPV Immature Gran % (Auto) Neut % (Auto) Lymph % (Auto) [place] % (Auto) Eos % (Auto) Baso % (Auto) Immature Gran # (Auto) Neut # (Auto) Lymph # (Auto) [place] # (Auto) Eos # (Auto) Baso # (Auto) Sodium Potassium Chloride Carbon Dioxide Anion Gap BUN Creatinine Est Cr Clr Drug Dosing Est GFR ( Amer) Est GFR (Non-Af Amer) BUN/Creatinine Ratio Glucose POC Glucose 168 H 163 H Estimat Average Glucose Hemoglobin A1c Calcium Phosphorus 2.7 Magnesium 2.2 Total Creatine Kinase 51 11/09/18 11/09/18 11/09/18 03:49 05:35 05:35 WBC 9.88 RBC 3.43 L Hgb 9.8 L Hct 29.3 L MCV 85.4 MCH 28.6 MCHC 33.4 RDW Std Deviation 42.6 RDW Coeff of Deepak 13.6 Plt Count 299 MPV 9.6 Immature Gran % (Auto) 0.2 Neut % (Auto) 78.7 Lymph % (Auto) 13.7 [place] % (Auto) 6.4 Eos % (Auto) 0.8 Baso % (Auto) 0.2 Immature Gran # (Auto) 0.02 Neut # (Auto) 7.78 H Lymph # (Auto) 1.35 [place]kin # (Auto) 0.63 H Eos # (Auto) 0.08 Baso # (Auto) 0.02 Sodium 136 Potassium 3.9 Chloride 106 Carbon Dioxide 25 Anion Gap 5.0 BUN 21 H Creatinine 1.40 Est Cr Clr Drug Dosing 48.9 Est GFR ( Amer) 55.4 Est GFR (Non-Af Amer) 47.8 BUN/Creatinine Ratio 14.7 Glucose 159 H POC Glucose 162 H Estimat Average Glucose Hemoglobin A1c Calcium 8.0 L Phosphorus Magnesium Total Creatine Kinase 11/09/18 11/09/18 11/09/18 05:35 07:16 12:49 WBC RBC Hgb Hct MCV MCH MCHC RDW Std Deviation RDW Coeff of Deepak Plt Count MPV Immature Gran % (Auto) Neut % (Auto) Lymph % (Auto) [place] % (Auto) Eos % (Auto) Baso % (Auto) Immature Gran # (Auto) Neut # (Auto) Lymph # (Auto) [place] # (Auto) Eos # (Auto) Baso # (Auto) Sodium Potassium Chloride Carbon Dioxide Anion Gap BUN Creatinine Est Cr Clr Drug Dosing Est GFR ( Amer) Est GFR (Non-Af Amer) BUN/Creatinine Ratio Glucose POC Glucose 175 H 216 H Estimat Average Glucose 329 Hemoglobin A1c 13.1 H Calcium Phosphorus Magnesium Total Creatine Kinase 11/09/18 11/09/18 16:20 20:01 WBC RBC Hgb Hct MCV MCH MCHC RDW Std Deviation RDW Coeff of Deepak Plt Count MPV Immature Gran % (Auto) Neut % (Auto) Lymph % (Auto) [place] % (Auto) Eos % (Auto) Baso % (Auto) Immature Gran # (Auto) Neut # (Auto) Lymph # (Auto) [place] # (Auto) Eos # (Auto) Baso # (Auto) Sodium Potassium Chloride Carbon Dioxide Anion Gap BUN Creatinine Est Cr Clr Drug Dosing Est GFR ( Amer) Est GFR (Non-Af Amer) BUN/Creatinine Ratio Glucose POC Glucose 211 H 208 H Estimat Average Glucose Hemoglobin A1c Calcium Phosphorus Magnesium Total Creatine Kinase (1) Sepsis Sepsis type: sepsis due to unspecified organism Qualified Code(s): A41.9 - Sepsis, unspecified organism (2) Osteomyelitis Laterality: left Osteomyelitis location: foot Osteomyelitis type: unspecified type Qualified Code(s): M86.9 - Osteomyelitis, unspecified (3) Diabetes mellitus type 2, uncontrolled Glycemic state: with hyperglycemia Qualified Code(s): E11.65 - Type 2 diabetes mellitus with hyperglycemia
[2018-11-09] MEDS ORDERED: AMIODARONE / D5W 150 MG/100 ML BAG IV ONE (18:15)
[2018-11-09] MEDS ORDERED: AMIODARONE / D5W 360 MG/200 ML BAG IV SCH (18:25)
[2018-11-09] MEDS: SENNA 8.6 MG TAB PO SCH (20:19)
[2018-11-09] MEDS ORDERED: INSULIN GLARGINE SOLOSTAR 100 UNITS/ML 3 ML PEN SC ONE (21:00)
[2018-11-09 21:58] LABS: Troponin I 0.017 ng/ml (0-0.045)
[2018-11-10] MEDS ORDERED: AMIODARONE / D5W 360 MG/200 ML BAG IV SCH (00:25)
[2018-11-10] MEDS: CLINDAMYCIN 600 MG in DEXTROSE 5% 50 ML IV SCH ×3 (02:10→17:17)
[2018-11-10 07:01] LABS: Hematocrit (blood only) 31.9 % (42-52); Hemoglobin 10.7 g/dL (14.0-18.0); Mean Corpuscular Hgb Conc 33.5 g/dL (32-36); Mean Corpuscular Volume 84.8 fL (80-100); Mean Platelet Volume 9.5 fL (7.4-10.4); Platelet Count 303 K/uL (130-400); RDW Coefficient of Variation 13.4 % (11.5-14.5); RDW Standard Deviation 41.6 fL (36.4-46.3); Red Blood Count 3.76 M/uL (4.7-6.1); White Blood Count 12.27 K/uL (4.8-10.8)
[2018-11-10 07:29] LABS: Basophils # (auto) 0.02 K/uL (0-0.2); Basophils % (auto) 0.2 %; Echinocytes 1+; Eosinophils # (auto) 0.18 K/uL (0-0.5); Eosinophils % (auto) 1.5 %; Immature Granulocytes # (auto) 0.03 K/uL (0.00-0.02); Immature Granulocytes % (auto) 0.2 %; Lymphocytes # (auto) 1.38 K/uL (1.2-3.4); Lymphocytes % (auto) 11.2 %; Monocytes # (auto) 0.97 K/uL (0.11-0.59); Monocytes % (auto) 7.9 %; Neutrophils # (auto) 9.69 K/uL (1.4-6.5)
[2018-11-10 07:33] LABS: BUN Creatinine Ratio 9.4 (10-20); Calcium 7.9 mg/dl (8.5-10.1); Creatinine Clr Calc Pharmacy 52.8 ml/min; Est GFR (Non-African American) 51.8; Potassium 3.5 mmol/L (3.5-5.1)
[2018-11-10 07:37] LABS: T4 Free Thyroxine 1.53 ng/dl (0.8-1.6); Troponin I 0.018 ng/ml (0-0.045)
[2018-11-10] MEDS: INSULIN ASPART 100 UNITS/ML 3 ML PEN SC SCH ×4 (08:34→21:07)
[2018-11-10] MEDS: DOCUSATE SODIUM 100 MG CAP PO SCH ×2 (08:35→21:05)
[2018-11-10] MEDS: MULTIVITAMIN TAB PO SCH (08:36)
[2018-11-10] MEDS: SACCHAROMYCES BOULARDII 250 MG CAP PO SCH (08:36)
[2018-11-10] MEDS: PIPERACILLIN/TAZOBACTAM 3.375 GM in DEXTROSE 5% 100 ML IV SCH ×3 (08:39→22:42)
[2018-11-10] MEDS: INSULIN GLARGINE SOLOSTAR 100 UNITS/ML 3 ML PEN SC SCH ×2 (08:39→21:08)
--- NOTE | 2018-11-10 08:50 | Anesthesiology Consultation ---
Date of Service November 10, 2018 Assessment & Plan Chart Review Chart Review: Acceptable Risk for Surgery and Patient NOT seen in Pre Admission Testing Consults Requested none Pt is under Dr. Calvillo care for his AFib. Was cardioverted x 3 this am but was unsuccessful and went back to Afib. Currently on cardizem drip. Spoke to Dr. Page and he feels that the patient is optimized for sugery. Pt is currently NSR with HR of 76. ASA ASA3 Proposed Anesthesia Anesthesia Type: General Risk / Benefits Reviewed With: PT / POA / Parent / Guardian, Accepts Plan and Informed Consent Obtained History Surgery Operation Date: 11/08/18 21:15 Proposed Procedures p Amputation Toe - Adarsh Mirza MD Operation Date: 11/10/18 10:00 Proposed Procedures p Cardioversion Retail Business Manager w/Anesthesia - Escobar Page MD Operation Date: 11/10/18 10:30 Proposed Procedures p Left Foot Incision and Drainage, Wound Closure, Possible Wound Vac, - Adarsh Mirza MD s Possible Transmetatarsal Amputation - Adarsh Mirza MD Operation Date: 11/11/18 09:50 Proposed Procedures p Left Lower Extremity Angiogram with Intervention - Richie Miller MD Height/Weight Height: 1.78 m Weight: 91.3 kg Allergies Allergy/AdvReac Type Severity Reaction Status Date / Time No Known Allergies Allergy Verified 11/08/18 17:32 Medications Home Medications Medication Instructions Recorded Confirmed Last Taken acetaminophen [Tylenol Extra 500 - 1,000 mg PO DIRECTED PRN 11/08/18 11/08/18 Unknown Strength] ibuprofen [Advil] 200 - 400 mg PO DIRECTED PRN 11/08/18 11/08/18 Unknown insulin aspart U-100 [Novolog 10 - 12 unit SUBCUT TIDM 11/08/18 11/08/18 Unknown U-100 Insulin aspart] insulin glargine [Lantus U-100 22 unit SUBCUT HS 11/08/18 11/08/18 Unknown Insulin] Active Medications Generic Name Dose Route Start Last Admin Trade Name Freq PRN Reason Stop Dose Admin Acetaminophen 650 mg 11/08/18 23:16 11/09/18 23:04 Tylenol PO 12/08/18 23:15 650 mg Q4H PRN Administration pain/fever Docusate Sodium 100 mg 11/09/18 09:00 11/10/18 08:35 Colace PO 12/09/18 08:59 100 mg BID EMELINA Administration Clindamycin Phosphate 600 mg/ 54 mls @ 100 mls/hr 11/09/18 00:00 11/10/18 11:11 Dextrose IV 12/21/18 00:00 Infused Q8H EMELINA Infusion Piperacillin Sod/Tazobactam 115 mls @ 30 mls/hr 11/09/18 00:00 11/10/18 12:11 Sod 3.375 gm/ Dextrose IV 12/21/18 00:00 Infused Q8H EMELINA Infusion Protocol Daptomycin 425 mg/ Syringe 8.5 mls @ 4.25 mls/min 11/09/18 18:00 11/09/18 17:19 IV 12/21/18 17:59 4.25 mls/min Q24H EMELINA Administration Protocol Sodium Chloride 1,000 mls @ 80 mls/hr 11/09/18 09:15 11/10/18 08:51 Nss 1000ml IV 12/09/18 09:14 80 mls/hr .[id number] EMELINA Administration Diltiazem HCl 125 mg/ Dextrose 125 mls @ 5 mls/hr 11/10/18 11:30 11/10/18 12:29 IV 12/10/18 11:29 5 mg/hr .Q24H EMELINA 5 mls/hr Titration Protocol 5 MG/HR Insulin Aspart 0 units 11/09/18 00:00 11/10/18 11:13 Novolog Flexpen SC 12/09/18 00:00 3 units ACHS EMELINA Administration Insulin Glargine 13 units 11/09/18 21:00 11/10/18 08:39 Lantus Solostar Pen SC 12/09/18 20:59 Not Given BID EMELINA Multivitamins 1 tab 11/09/18 09:00 11/10/18 08:36 Multivitamin Tab PO 12/09/18 08:59 1 tab QAM EMELINA Administration Oxycodone HCl 5 - 10 mg 11/08/18 23:31 11/09/18 00:36 Roxicodone Immediate Rel PO 11/22/18 23:30 10 mg Q4H PRN Administration Pain Saccharomyces Boulardii 250 mg 11/09/18 09:00 11/10/18 08:36 Florastor PO 12/09/18 08:59 250 mg DAILY EMELINA Administration Sennosides 17.2 mg 11/09/18 21:00 11/09/18 20:19 Senokot PO 12/09/18 20:59 17.2 mg HS EMELINA Administration NPO Date Last Intake of Fluids: 11/10/18 Time Last Intake of Fluids: 09:00 Last Intake of Fluids Comment: Sips of water with meds Date Last Intake of Solids: 11/09/18 Time Last Intake of Solids: 22:00 Past Medical History Medical History Gangrene of left foot (Acute) Cellulitis of left foot (Acute) Sepsis (Acute) Osteomyelitis (Acute) Diabetes (Chronic) Poorly controlled. Atrial flutter with RVR. Requiring cardioversion Ingrown nail PVD (peripheral vascular disease) Exercise / Class Metabolic Activity II 4-5 Yardwork/Stairs/Walk up hill (Active; working carrying [employer]) Past Family History Family History Other Coronary heart disease Diabetes Past Surgical History Surgical History S/P carotid endarterectomy 2016 H/O lumbar discectomy S/P knee surgery Right knee History of cardioversion 11/10/18x 3. Pt back in AFib and on cardizem drip Status post amputation of left great toe 11/08/18 under GETA. Mac 3, gr I Past Anesthesia History No Hx of Anesthesia Complications and No Family Hx of Anesthesia Complications History of PONV No Hx of PONV and No Hx of Motion Sickness Social History Smoking Status: Never smoker Do You Dip or Chew Tobacco: No Hx Alcohol Use: No Hx Substance Use: No Physical Exam Vital Signs Last Vital Signs Temp 37.1 C 11/10/18 10:35 Pulse 96 H 11/10/18 12:21 Resp 20 11/10/18 12:21 BP 135/71 11/10/18 12:21 Pulse Ox 98 11/10/18 11:15 ENMT Mouth: + dentures (Full upper and lower) and + edentulous; no TMJ abnormality and no TMJ clicking Thyromental Distance: > or= 3.5 Finger Breadths Mallampati Class: II Neck normal visual inspection; neck extension not limited Respiratory Auscultation: lungs clear to auscultation bilaterally Cardiovascular Rate/Rhythm: regular rate and regular rhythm Psychiatric Orientation: alert and oriented x 3 Testing Electrocardiogram Date: 11/08/18 Findings: + NSR @ (94 bpm) Chest X-Ray Date: 11/08/18 Findings: + NAD Laboratory Results 11/10/18 06:27 11/10/18 06:27 Hemoglobin A1c 13.1 % (4.5-5.6) H 11/09/18 05:35 11/08/18 17:40 Gram Stain - Final Foot Wound Culture - Preliminary Coag negative Staphylococcus Gram positive cocci 11/08/18 22:50 Gram Stain - Final Toe,Left Great Aerobic and Anaerobic Culture - Preliminary Gram negative bacilli Staphylococcus aureus Streptococcus species 11/08/18 17:25 Blood Culture - Preliminary Blood No growth to date. 11/08/18 17:32 Blood Culture - Preliminary Blood No growth to date. 11/10/18 11/10/18 11:10 07:19 POC Glucose 191 H 187 H
[2018-11-10] MEDS: SODIUM CHLORIDE 0.9% 1000ML 1,000 ML IV SCH (08:51)
--- NOTE | 2018-11-10 08:52 | Cardiology Consultation ---
Date of Consultation November 10, 2018 Assessment & Plan (1) Atrial flutter with rapid ventricular response: He has been identified as having fibrillation and flutter (at times it looks very regular like atrial flutter but other times quite irregular like atrial fibrillation) but quite fast even on amiodarone drip. His symptoms are very difficult to sort out, he is not really having a lot of symptoms now and what he describes as "hyperventilating" which he relates to his heart and which has evidently occurred ever since his carotid surgery year and a half ago could be paroxysmal atrial arrhythmias. In any case this episode started promptly at 1245 yesterday and he is remained in it. He is not a good anticoagulation candidate at the moment due to his recent surgery and need for further surgery. I discussed options with him, there is a stroke risk if we convert him now but it is low, if we wait several days and either he converts on his we convert him electrically the risk will be higher. We could try to control the rate although that might be problematic and if he converts he could be very slow. It may be preferable to cardiovert now. I discussed this with him and he is agreeable. I will try to arrange that for this morning anesthesia. As a long-term consideration he should be on an anticoagulant, he was on warfarin past and that could be used or 1 of the newer agents. We should also try to get some idea of how often he has atrial fibrillation or flutter, that may require some sort of. For now in the perioperative. I would continue amiodarone to minimize the risk of recurrence of his arrhythmia following cardioversion. 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 Although he has not had a microinfarction based on symptoms and electrocardiography I suspect he probably has coronary artery disease to some extent. At this point I do not think we need to do stress testing since he does not have symptoms, however would like to get an echocardiogram since it seems that he has not had that in some time and he should be on risk factor modification for his atherosclerosis. This would normally include high-dose statins and aspirin, neither of which he seems to be on. As far as I know he does not have intolerance to statins. I do not think these things need to be started now perhaps shortly after surgery we should do so. History of Present Illness Reason for Consultation: Atrial fibrillation and flutter Attending Physician: Masoud Cade History of Present Illness This is a very pleasant 78-year-old gentleman who seems to be a very poor historian with a history of diabetes mellitus and vascular disease including carotid disease (endarterectomy in the past) and peripheral vascular disease. As far as I know he has not been diagnosed with coronary artery disease. He presented with gangrene of the left great toe for which he had surgery on November 08, 2018 with an amputation. When asked about his cardiac history he does not recall having any recent cardiac tests such as echocardiography or stress testing. He denies exertional symptoms. He tells me that ever since he had his carotid surgery which he believes was May 2017 he has been having what he describes as "hyperventilating" which he relates to his heart. He describes a rapid heart rate at those times, he is not very clear about actual cardiac symptoms and he thinks the episodes last 15 minutes to half an hour it is possible this represents paroxysmal atrial arrhythmias. When asked if he is having symptoms now he is not at all clear, he states that he was "hyperventilating" when he came into the hospital but he does not seem to be now. I do not know if these actually represent prior episodes of atrial fibrillation or not, evidently they were not diagnosed in any case. He had been in sinus rhythm on admission, however at 12:45 PM yesterday he went into fibrillation and atrial flutter (he seems to switch between these rhythms). Amiodarone was tried through the night to control his rate and rhythm however he remains in atrial fibrillation this morning. The rate has been fast. Allergies Allergy/AdvReac Type Severity Reaction Status Date / Time No Known Allergies Allergy Verified 11/08/18 17:32 Home Medications Home Medications Medication Instructions Recorded Confirmed Type acetaminophen [Tylenol Extra 500 - 1,000 mg PO DIRECTED PRN 11/08/18 11/08/18 History Strength] ibuprofen [Advil] 200 - 400 mg PO DIRECTED PRN 11/08/18 11/08/18 History insulin aspart U-100 [Novolog 10 - 12 unit SUBCUT TIDM 11/08/18 11/08/18 History U-100 Insulin aspart] insulin glargine [Lantus U-100 22 unit SUBCUT HS 11/08/18 11/08/18 History Insulin] Patient History Medical History Gangrene of left foot (Acute) Cellulitis of left foot (Acute) Sepsis (Acute) Osteomyelitis (Acute) Diabetes (Chronic) Ingrown nail Surgical History H/O lumbar discectomy S/P carotid endarterectomy 2017 S/P knee surgery Right knee Status post amputation of left great toe 11/08/18 under GETA. Mac 3, gr I Family History Other Coronary heart disease Diabetes Social History Preferred Language: Y[place]ut Communication Ability: Effective Beliefs That Will Affect Care: Worship Worship Beliefs: muslim marital status: Current Living Situation: Alone current occupational status: retired Other Information That Helps Us Care for You: No Feels Safe at Home: Yes Safety Concerns: Feels Safe At This Time Smoking Status: Never smoker Do You Dip or Chew Tobacco: No Hx Alcohol Use: No Hx Substance Use: No Review of Systems Review of Systems: All systems reviewed & are unremarkable except as noted in HPI & below Foot pain Physical Exam Physical Exam: Constitutional: Alert, cooperative and in no distress. HEENT: Unremarkable Neck: No jugular venous distention, carotid pulses are irregular but otherwise normal and equal bilaterally without bruits. Pulmonary: Clear to auscultation bilaterally. Cardiac: Irregular rapid rhythm with no murmur, gallop or rub. Abdomen: Soft, nontender with normal bowel sounds. Extremities: No edema. Left foot bandaged. Neurologic: No focal findings. Gait not tested. Skin: No rash, ecchymoses or petechiae. Results & Data Vital Signs (Past 12 Hours) Vital Signs Temp Pulse Resp BP Pulse Ox 11/10/18 08:23 37.4 C 133 H 20 115/79 96 11/10/18 03:17 37.1 C 127 H 18 115/67 97 11/09/18 23:52 38.3 C H 11/09/18 23:24 37.9 C H 153 H 23 104/70 95 11/09/18 22:58 38.4 C H 147 H 18 114/74 95 Diagnostic Findings His electrocardiogram done November 08, 2018 at 1712 shows sinus rhythm at 94 bpm and is normal. His electrocardiogram done November 09, 2018 at 1324 shows atrial flutter with a variable and rapid heart rate of 148 bpm. Telemetry: Sinus rhythm initially, atrial fibrillation flutter with a rapid heart rate starting at 1245 on November 09, 2018. Heart rate in the 140 bpm range, no significant drop on IV amiodarone.
--- NOTE | 2018-11-10 09:51 | Anesthesiology Consultation ---
Date of Service November 10, 2018 Assessment & Plan (1) Encounter for pre-operative examination: Chart Review Chart Review: Acceptable Risk for Surgery and Patient NOT seen in Pre Admission Testing Consults Requested none History Surgery Operation Date: 11/08/18 21:15 Proposed Procedures p Amputation Toe - Adarsh Mirza MD Operation Date: 11/10/18 10:30 Proposed Procedures p Left Foot Incision and Drainage, Wound Closure, Possible Wound Vac, - Adarsh Mirza MD s Possible Transmetatarsal Amputation - Adarsh Mirza MD Operation Date: 11/11/18 09:50 Proposed Procedures p Left Lower Extremity Angiogram with Intervention - Richie Miller MD Height/Weight Height: 5 ft 10 in Weight: 91.3 kg Allergies Allergy/AdvReac Type Severity Reaction Status Date / Time No Known Allergies Allergy Verified 11/08/18 17:32 Medications Home Medications Medication Instructions Recorded Confirmed Last Taken acetaminophen [Tylenol Extra 500 - 1,000 mg PO DIRECTED PRN 11/08/18 11/08/18 Unknown Strength] ibuprofen [Advil] 200 - 400 mg PO DIRECTED PRN 11/08/18 11/08/18 Unknown insulin aspart U-100 [Novolog 10 - 12 unit SUBCUT TIDM 11/08/18 11/08/18 Unknown U-100 Insulin aspart] insulin glargine [Lantus U-100 22 unit SUBCUT HS 11/08/18 11/08/18 Unknown Insulin] Active Medications Generic Name Dose Route Start Last Admin Trade Name Freq PRN Reason Stop Dose Admin Acetaminophen 650 mg 11/08/18 23:16 11/09/18 23:04 Tylenol PO 12/08/18 23:15 650 mg Q4H PRN Administration pain/fever Docusate Sodium 100 mg 11/09/18 09:00 11/10/18 08:35 Colace PO 12/09/18 08:59 100 mg BID EMELINA Administration Clindamycin Phosphate 600 mg/ 54 mls @ 100 mls/hr 11/09/18 00:00 11/10/18 02:53 Dextrose IV 12/21/18 00:00 Infused Q8H EMELINA Infusion Piperacillin Sod/Tazobactam 115 mls @ 30 mls/hr 11/09/18 00:00 11/10/18 08:39 Sod 3.375 gm/ Dextrose IV 12/21/18 00:00 30 mls/hr Q8H EMELINA Administration Protocol Daptomycin 425 mg/ Syringe 8.5 mls @ 4.25 mls/min 11/09/18 18:00 11/09/18 17:19 IV 12/21/18 17:59 4.25 mls/min Q24H EMELINA Administration Protocol Sodium Chloride 1,000 mls @ 80 mls/hr 11/09/18 09:15 11/10/18 08:51 Nss 1000ml IV 12/09/18 09:14 80 mls/hr .[id number] EMELINA Administration Amiodarone HCl/Dextrose 360 mg in 200 mls @ 16.667 mls/hr 11/10/18 00:25 11/10/18 07:27 Nexterone / D5w IV 12/10/18 00:24 0.5 mg/min .Q12H EMELINA 16.7 mls/hr Infusion 0.5 MG/MIN Insulin Aspart 0 units 11/09/18 00:00 11/10/18 08:34 Novolog Flexpen SC 12/09/18 00:00 2 units ACHS EMELINA Administration Insulin Glargine 13 units 11/09/18 21:00 11/10/18 08:39 Lantus Solostar Pen SC 12/09/18 20:59 Not Given BID EMELINA Multivitamins 1 tab 11/09/18 09:00 11/10/18 08:36 Multivitamin Tab PO 12/09/18 08:59 1 tab QAM EMELINA Administration Oxycodone HCl 5 - 10 mg 11/08/18 23:31 11/09/18 00:36 Roxicodone Immediate Rel PO 11/22/18 23:30 10 mg Q4H PRN Administration Pain Saccharomyces Boulardii 250 mg 11/09/18 09:00 11/10/18 08:36 Florastor PO 12/09/18 08:59 250 mg DAILY EMELINA Administration Sennosides 17.2 mg 11/09/18 21:00 11/09/18 20:19 Senokot PO 12/09/18 20:59 17.2 mg HS EMELINA Administration NPO Date Last Intake of Fluids: 11/08/18 Time Last Intake of Fluids: 15:30 Date Last Intake of Solids: 11/08/18 Time Last Intake of Solids: 15:00 Past Medical History Medical History Gangrene of left foot (Acute) Cellulitis of left foot (Acute) Sepsis (Acute) Osteomyelitis (Acute) Diabetes (Chronic) Poorly controlled. Atrial flutter with RVR. 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 Mac 3, gr I Past Anesthesia History No Hx of Anesthesia Complications and No Family Hx of Anesthesia Complications History of PONV No Hx of PONV and No Hx of Motion Sickness Social History Smoking Status: Never smoker Do You Dip or Chew Tobacco: No Hx Alcohol Use: No Hx Substance Use: No Physical Exam Vital Signs Last Vital Signs Temp 37.4 C 11/10/18 08:23 Pulse 133 H 11/10/18 08:23 Resp 20 11/10/18 08:23 BP 115/79 11/10/18 08:23 Pulse Ox 96 11/10/18 08:23 Testing Electrocardiogram Date: 11/08/18 Findings: + NSR @ (94 bpm) Patient currently in A flutter with RVR. Chest X-Ray Date: 11/08/18 Findings: + NAD Laboratory Results 11/10/18 06:27 11/10/18 06:27 Hemoglobin A1c 13.1 % (4.5-5.6) H 11/09/18 05:35 11/08/18 22:50 Gram Stain - Final Toe,Left Great Aerobic and Anaerobic Culture - Preliminary Gram negative bacilli Staphylococcus aureus Streptococcus species 11/08/18 17:25 Blood Culture - Preliminary Blood No growth to date. 11/08/18 17:32 Blood Culture - Preliminary Blood No growth to date. 11/08/18 17:40 Gram Stain - Final Foot Wound Culture - Preliminary Coag negative Staphylococcus 11/10/18 07:19 POC Glucose 187 H
[2018-11-10] MEDS ORDERED: PROPOFOL IV EMULSION 10 MG/ML 20 ML VIAL IV ONE ×2 (09:53→13:59)
[2018-11-10] MEDS ORDERED: fentaNYL citrate 100 MCG/2 ML VIAL ONE ×2 (10:15→14:28)
--- NOTE | 2018-11-10 10:17 | Cardioversion ---
Date of Service November 10, 2018 Electrical Cardioversion Rpt Electrical Cardioversion Report The patient was brought to the laboratory being NPO after midnight and was identified in the laboratory, connected to the recording apparatus including electrocardiographic monitoring, noninvasive blood pressure monitoring and pulse oximetry. Anteroposterior patch electrodes were placed. The patient was anesthetized by the anesthesia department. Once adequate anesthesia was obtained a synchronized biphasic shock was delivered using 200 J with conversion to a sinus rhythm with frequent atrial ectopy, this held for perhaps 20 to 30 seconds before he went back into his atrial arrhythmia. Another 200 J shock was delivered with no success. A 360 J shock was therefore delivered with conversion to sinus rhythm with frequent atrial ectopy. The patient awoke from the anesthetic without sequela, will be observed briefly and then returned to his room.
--- NOTE | 2018-11-10 10:26 | Anesthesiology Progress Note ---
Date of Service November 10, 2018 Anesthesia Post Procedure Vital Signs Vital Signs: Temp Pulse Pulse Resp BP BP Pulse Ox 11/10/18 08:23 37.4 C 133 H 20 115/79 96 11/10/18 03:17 37.1 C 127 H 18 115/67 97 11/09/18 23:52 38.3 C H 11/09/18 23:24 37.9 C H 153 H 23 104/70 95 11/09/18 22:58 38.4 C H 147 H 18 114/74 95 11/09/18 19:14 37.5 C 141 H 18 101/75 96 11/09/18 15:40 37.4 C 138 H 18 95/62 L 95 11/09/18 13:31 160 H 174/84 H Transfer of Care Handoff Completed per policy Notes Mental Status: alert / awake / arousable and participated in evaluation Patient Amnestic to Procedure: Yes Nausea / Vomiting: adequately controlled Pain: adequately controlled Airway Patency, RR, SpO2: stable & adequate BP & HR: stable & adequate Hydration State: stable & adequate Anesthetic Complications: no major complications apparent and Pt Satisfied with anesthetic care
[2018-11-10] MEDS ORDERED: LIDOCAINE HCL 1% 20 ML VIAL ONE (10:52)
[2018-11-10] MEDS ORDERED: BACITRACIN INJ 50,000 UNIT VIAL ONE (10:52)
[2018-11-10] MEDS ORDERED: BUPIVACAINE/EPINEPHRINE 0.5% MPF 1:200,000 30 ML VIAL ONE (10:52)
--- NOTE | 2018-11-10 11:07 | Infectious Disease Progress Nt ---
Date of Service November 10, 2018 Assessment & Plan (1) Gangrene of left foot: continue current abx pending additional micro data. blood cultures remain negative (2) Osteomyelitis: Subjective pt remains on broad spectrum abx for gangrene/osteo. s/p amputation. fevers overnight ,tmax 38.4, currently afebrile. found to have afib with rvr, cardio eval, s/p conversion earlier today. OR cutlures growing ADMISSION LIAISON and GNR, final pending. blood cultures negative to date. tolerating abx [id number]. 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 Results & Data Vital Signs (Past 12 Hours) Vital Signs Temp Pulse Resp BP Pulse Ox 11/10/18 11:01 112 H 109/64 95 11/10/18 10:50 116 H 110/88 11/10/18 10:46 84/66 L 11/10/18 10:42 127 H 20 114/85 92 11/10/18 10:35 37.1 C 110 H 20 88/67 L 97 11/10/18 08:23 37.4 C 133 H 20 115/79 96 11/10/18 03:17 37.1 C 127 H 18 115/67 97 11/09/18 23:52 38.3 C H 11/09/18 23:24 37.9 C H 153 H 23 104/70 95 Laboratory Results Microbiology 11/08/18 22:50 Toe,Left Great Gram Stain - Final 11/08/18 22:50 Toe,Left Great Aerobic and Anaerobic Culture - Preliminary Gram negative bacilli Staphylococcus aureus Streptococcus species 11/08/18 17:25 Blood Blood Culture - Preliminary No growth to date. 11/08/18 17:32 Blood Blood Culture - Preliminary No growth to date. 11/08/18 17:40 Foot Gram Stain - Final 11/08/18 17:40 Foot Wound Culture - Preliminary Coag negative Staphylococcus (1) Osteomyelitis Laterality: left Osteomyelitis location: foot Osteomyelitis type: unspecified type Qualified Code(s): M86.9 - Osteomyelitis, unspecified
[2018-11-10] MEDS ORDERED: dilTIAZem HCl 5 MG/ML 5 ML VIAL IV STA (11:19)
[2018-11-10] MEDS: dilTIAZem HCl 125 MG in DEXTROSE 5% 100 ML IV SCH (11:31)
[2018-11-10] MEDS ORDERED: Nursing to Pharmacy Communication ONE (12:10)
--- NOTE | 2018-11-10 12:47 | History & Physical Bridge Note ---
Date of Service November 10, 2018 History & Physical Bridge Note I have examined the patient, reviewed the History & Physical and in the interval since the performance of the History & Physical I have noted the following changes of clinical significance: no changes noted events noted. arrythmia s/p cardioversion. spoke w dr whitley. hemodynamically stable and rate controlled. plan to proceed with surgery.
[2018-11-10] MEDS ORDERED: ATROPINE SULFATE 0.1 MG/ML 10ML SYR IV PRN (12:50)
[2018-11-10] MEDS ORDERED: HYDROmorphone INJ 1 MG/ML SYRINGE IV PRN (12:50)
[2018-11-10] MEDS ORDERED: ONDANSETRON INJ 2 MG/ML 2 ML VIAL IV PRN (12:50)
[2018-11-10] MEDS ORDERED: PHENYLEPHRINE 100MCG/ML 5ML SYR IV PRN (12:50)
[2018-11-10] MEDS ORDERED: ePHEDrine sulfate 50 MG/ML AMP IV PRN (12:50)
[2018-11-10] MEDS ORDERED: POVIDONE-IODINE OP SOLN 30 ML BTL ONE (13:03)
[2018-11-10] MEDS ORDERED: PHENYLEPHRINE HCL 10 MG/ML VIAL ONE (13:59)
[2018-11-10] MEDS ORDERED: ONDANSETRON INJ 2 MG/ML 2 ML VIAL ONE (13:59)
[2018-11-10] MEDS ORDERED: ESMOLOL HCL INJ 10 MG/ML 10ML VIAL IV ONE (14:17)
--- NOTE | 2018-11-10 14:34 | Post Operative Brief Note ---
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 Post-Op Diagnosis: Left Foot Gas Gangrene Status Post Left Big Toe Amputation Operation Date: 11/11/18 09:50 <No data on this case meets the specified criteria> Procedure Operation Date: 11/08/18 21:15 Actual Procedures p Amputation of Left Toe(Left) - Adarsh Mirza MD Operation Date: 11/10/18 10:00 Actual Procedures p Cardioversion - Escobar Page MD Operation Date: 11/10/18 10:30 Actual Procedures p Left Foot Incision and Drainage, Wound Closure(Left) - Adarsh Mirza MD s Left 2nd Transmetatarsal Amputation(Left) - Adarsh Mirza MD Operation Date: 11/11/18 09:50 <No data on this case meets the specified criteria> Surgeon Adarsh Mirza MD Photographic Plate Maker lorrie marinelli Estimated Blood Loss 5 Findings Consistent with Post-Op Diagnosis Specimens left second toe Drains Hemovac Drain Anesthesia Type General Complications none Disposition Accompanied Patient To Recovery: No Disposition: Recovery Room
--- NOTE | 2018-11-10 14:42 | Operative Report ---
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 Post-Op Diagnosis: Left Foot Gas Gangrene Status Post Left Big Toe Amputation Operation Date: 11/11/18 09:50 <No data on this case meets the specified criteria> Procedure Operation Date: 11/08/18 21:15 Actual Procedures p Amputation of Left Toe(Left) - Adarsh Mirza MD Operation Date: 11/10/18 10:00 Actual Procedures p Cardioversion - Escobar Page MD Operation Date: 11/10/18 10:30 Actual Procedures p Left Foot Incision and Drainage, Wound Closure(Left) - Adarsh Mirza MD s Left 2nd Transmetatarsal Amputation(Left) - Adarsh Mirza MD Operation Date: 11/11/18 09:50 <No data on this case meets the specified criteria> Surgeon Adarsh Mirza MD Warehouse Operations Manager lorrie marinelli Estimated Blood Loss 5 Findings Consistent with Post-Op Diagnosis Specimens Left second metatarsal Drains Hemovac drain placed Complications none Disposition Accompanied Patient To Recovery: Yes Disposition: Recovery Room Description of Procedure I was present during the entire case assisting with wound closure and dressing application. Please see Dr. Mirza procedure note for specifics of the case. I attest to the content of the Intraoperative Record and any orders documented therein. Any exceptions are noted below.
--- NOTE | 2018-11-10 15:11 | Operative Report ---
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 Post-Op Diagnosis: Left Foot Gas Gangrene Status Post Left Big Toe Amputation Operation Date: 11/11/18 09:50 <No data on this case meets the specified criteria> Procedure Operation Date: 11/08/18 21:15 Actual Procedures p Amputation of Left Toe(Left) - Adarsh Mirza MD Operation Date: 11/10/18 10:00 Actual Procedures p Cardioversion - Escobar Page MD Operation Date: 11/10/18 10:30 Actual Procedures p Left Foot Incision and Drainage, Wound Closure(Left) - Adarsh Mirza MD s Left 2nd Transmetatarsal Amputation(Left) - Adarsh Mirza MD Operation Date: 11/11/18 09:50 <No data on this case meets the specified criteria> Surgeon Adarsh Mirza MD Wire Stitcher Operator lorrie marinelli Estimated Blood Loss 5 Findings Consistent with Post-Op Diagnosis Specimens Left second toe Drains Hemovac Anesthesia Type General Complications none Disposition Accompanied Patient To Recovery: No Indications Patient is 78 years old. He is 2 days status post partial amputation of the left foot great toe secondary to gas gangrene. The wound is been left open. He is taken back to the OR today for exploration irrigation debridement wound closure possible wound VAC and possible revision amputation. I discussed with the patient and his family preoperatively that in order to close the wound if indicated further amputation surgery may be necessary to balance the bone and soft tissue. He had cardiac arrhythmia yesterday. He had a cardioversion this morning. I coordinated care with Dr. Foster and Dr. Page and it was felt that it was okay to proceed. He is scheduled for revascularization evaluation tomorrow with Dr. Miller. He is on antibiotics ID and medicine have been evaluating the patient as well. Description of Procedure Informed consent obtained. Patient identified. He identified the operative site of the left foot. I marked with my initials. Preoperative surgical timeout performed. Preop dose of IV antibiotics was given as he was already on intravenous antibiotics. He was positioned supine on the OR table with a tourniquet on the left thigh which was not inflated. A bump was placed under the left hip. The dressing on the left leg was removed. There was some marginal necrosis mostly dorsally and this was 1 to 2 mm of the wound margin. There is no purulence or foul smell and no significant drainage. There is no notable bleeding and I did not see any obvious tissue necrosis. Erythema on the foot had largely dissipated. The packing was removed and the foot was scrubbed with Betadine. It was then sterilely prepped with Betadine paint including the wound. DVT prophylaxis with foot pumps intraoperatively and postoperatively with early mobility and mechanical devices. The necrotic wound margins 1 to 2 mm in the midportion and distal portion of the dorsal skin flap was debrided. There was some darkish discoloration of the midportion of the dorsal flap measuring about 1 to 1-1/2 cm wide and 3 cm long. Some sloughed epidermal tissue was removed dorsally and volarly. The options were to close as is which would easily cover the first metatarsal but because of the demarcation of healthy tissue within the first webspace immediately adjacent to the second toe prior to the first surgery this would relieve a large area 3 to 4 cm long and 2 to 3 cm essentially the medial portion of the second metatarsal phalangeal joint with some fatty tissue and joint capsule to heal over with a wound VAC. Another option would be to do a transmetatarsal amputation. I elected to proceed with more minimal surgery and to achieve adeq uate soft tissue coverage by doing a transmetatarsal amputation of the second toe. 6 L of pulse lavage were done for the irrigation followed by debriding with rongeur and curette. The muscle tissue plantar lead did not bleed well. I then outlined a tennis racquet style incision over the second toe out to about the level of the PIP joint. I made a circumferential incision down to the extensor mechanism at this level and then a medial mid lateral incision back down towards the base. I then elevated full-thickness flaps up dorsally and volarly dissected between the subcutaneous tissues and joint capsule. The flexor and extensor tendons were identified and transected as far proximal as possible. The second metatarsal was subperiosteally exposed through the medial incision. The level resection was based upon fluoroscopic imaging just distal to the first ray resection. This cut was made angle plantar wart. It was a smooth cut. The remainder of the second ray was then subperiosteally removed at the level of the metatarsal and in the joint capsule was dissected free of the subcutaneous tissues about the level of the distal amputation and the digit was removed. This was sent for specimen. No cultures were done. I did not think that stimulan beads would be of any assistance. I beveled the first ray resection with a rasp and saw to smooth out the edges further. It was just distal to this area where the dorsal marginal wound necrosis was. I then irrigated with Betadine lavage and then followed that up with 3 more liters of sterile saline. There was actually decent bleeding involving the second ray resection to the point where I need to do to do some electrocautery. I then trimmed the skin flap distally and ended a primary closure over a medium Hemovac drain. A left spaces in between the incision stitches for drainage to occur. The foot seem to be in a good plantigrade position without any excessive pressure at any area. 3-0 nylon was utilized to close the skin. Fluffs were placed between the toes Xeroform 4 x 4's ABD wrap with Mary and Jamie wrap followed by postop shoe. The second toe sent for specimen. There were no complications. Counts were correct. Blood loss was 5 cc. At the conclusion operation I spoke patient's family informed of my findings and give detailed postoperative instructions. He will elevate. He may weight-bear as tolerated for limited mobility using postop shoe and walker. PT will be consulted. Wound will be monitored and there is certainly the the of needing further surgery or even a revision amputation. I attest to the content of the Intraoperative Record and any orders documented therein. Any exceptions are noted below.
[2018-11-10] MEDS: fentaNYL citrate 100 MCG/2 ML VIAL IV PRN ×4 (15:13→15:35)
--- NOTE | 2018-11-10 15:22 | Fluoroscopy Report ---
FL foot LT 2V CLINICAL HISTORY: LEFT TRAMSMETATARSAL AMPUTATION COMPARISON STUDY: 11/08/2018 FLUOROSCOPY TIME: 0 seconds. NUMBER OF FLUOROSCOPIC IMAGES: 1 FINDINGS: A single intraoperative fluoroscopic spot image reveals interval transmetatarsal amputation of the second toe. IMPRESSION: Interval transmetatarsal amputation of the second toe. Electronically signed by: Tony Vazquez M.D. 11/10/2018 3:20 PM
--- NOTE | 2018-11-10 15:25 | Anesthesiology Progress Note ---
Date of Service November 10, 2018 Anesthesia Post Procedure Vital Signs Vital Signs: Temp Pulse Pulse Resp BP Pulse Ox 11/10/18 14:55 67 15 154/77 H 100 11/10/18 14:45 68 14 157/73 H 100 11/10/18 14:39 36.4 C L 69 16 141/73 H 100 11/10/18 12:21 96 H 20 135/71 11/10/18 12:00 113 H 20 113/76 11/10/18 11:45 93 H 119/72 11/10/18 11:42 110 H 20 143/65 H 11/10/18 11:36 115 H 116/74 11/10/18 11:15 118 H 20 98/65 L 98 11/10/18 11:01 112 H 109/64 95 11/10/18 10:50 116 H 110/88 11/10/18 10:46 84/66 L 11/10/18 10:42 127 H 20 114/85 92 11/10/18 10:35 37.1 C 110 H 20 88/67 L 97 11/10/18 08:23 37.4 C 133 H 20 115/79 96 11/10/18 03:17 37.1 C 127 H 18 115/67 97 11/09/18 23:52 38.3 C H 11/09/18 23:24 37.9 C H 153 H 23 104/70 95 11/09/18 22:58 38.4 C H 147 H 18 114/74 95 11/09/18 19:14 37.5 C 141 H 18 101/75 96 11/09/18 15:40 37.4 C 138 H 18 95/62 L 95 Pain Intensity Left Foot: Pain Intensity: 0 Transfer of Care Handoff Completed per policy Notes Mental Status: alert / awake / arousable Patient Amnestic to Procedure: Yes Nausea / Vomiting: adequately controlled Pain: adequately controlled Airway Patency, RR, SpO2: stable & adequate BP & HR: stable & adequate Hydration State: stable & adequate Anesthetic Complications: no major complications apparent Notes: Awake, doing well, no complaints. VSS. Currently still in NSR
[2018-11-10] MEDS ORDERED: ACETAMINOPHEN 500 MG TAB PO PRN (16:50)
[2018-11-10] MEDS ORDERED: NON-FORMULARY MEDICATION (Insulin Aspart U-100 0 UNITS) SQ SCH (17:00)
[2018-11-10] MEDS: HYDROmorphone INJ 0.5 MG/0.5 ML SYR IV PRN ×2 (17:17→22:41)
[2018-11-10] MEDS: DAPTOmycin 425 MG in SYRINGE 0 ML IV SCH (17:17)
--- NOTE | 2018-11-10 20:19 | Progress Note ---
DATE: 11/10/2018 He is resting comfortably in bed. Appetite is good. Heart is irregular but the rate is controlled. I discussed with him the findings of the operation. His remaining toes appear pink and viable. Plan is for him to undergo revascularization tomorrow if possible.
[2018-11-10] MEDS: dilTIAZem HCL 30 MG TAB PO SCH (21:04)
[2018-11-10] MEDS: POLYETHYLENE (MIRALAX) 17 GM PACK PO SCH (21:04)
[2018-11-10] MEDS: SENNA 8.6 MG TAB PO SCH (21:06)
--- NOTE | 2018-11-10 22:01 | Hospitalist Progress Note ---
Date of Service November 10, 2018 Assessment & Plan (1) Gangrene of left foot: left great toe s/p amputation by Dr Mirza - POD#2. s/p TMA of 2nd digit today -- also by Dr. Mirza. Continue broad-spectrum IV abx including daptomycin, clindamycin, and zosyn. Continue probiotics. Intra-op cultures from 48 hours ago growing GPC and GNR - await final ID. (2) Atrial flutter with rapid ventricular response: Was in NSR since admission then converted to a.flutter with variable block at fast rates of up to 160 BPM starting 11/09/2018. NO response to AV didi agents including lopressor IV and IV cardizem. Did not chemically cardiovert with amiodarone drip. Elective cardioversion performed by Dr Page today. Multiple attempts performed. A. flutter resolved but he remained in a.fib following the procedure. Then, post-cardioversion, he was placed back on cardizem infusion for a.fib rate control. fortunately he has converted back to NSR this afternoon. can stop cardizem drip. use cardizem 30mg q6h by mouth - this should provide some rate control if he converts back to rapid a.fib. defer on anticoagulation for now. appreciate Dr Page's expertise. (3) Peripheral arterial disease: As seen on arterial dopplers. Dr Miller has seen - arteriogram with possible intervention tomorrow. LDL on lipids check today -- 77. Would initiate statin and aspirin. (4) Sepsis: 2nd to gangrene of left great toe s/p amputation. Blood cx's thus far negative. sepsis resolved. (5) Osteomyelitis: Left great toe s/p amputation. See above. (6) Diabetes mellitus type 2, uncontrolled: Improving with lantus and novolog. DM education. Patient quite reluctant to change his lifestyle, glycemic goals, etc. (7) DVT prophylaxis: Post-op tomorrow add heparin SC. IVC was dilated on echo - he is 5+ liters of fluid positive since admission. would stop basal fluids to avoid fluid overload state. Subjective saw the patient post-op from his left 2nd TMA procedure he converted to NSR this afternoon he reported feeling well except mild pain of his left foot again no chest pain, dyspnea or abdominal pain has not had a bowel movement in several days events of this AM (attempts at cardioversion) reviewed Review of Systems Constitutional: no fever and no chills Respiratory: no cough and no dyspnea Cardiovascular: no chest pain, no orthopnea and no paroxysmal nocturnal dyspnea Gastrointestinal: no abdominal pain Physical Exam Constitutional: well developed and well nourished; no acute distress and not ill appearing ENMT: external ear and nose normal, oropharynx normal Respiratory: normal respiratory effort, lungs clear to auscultation Cardiovascular: Rate/Rhythm: regular rate and regular rhythm Heart Sounds: normal S1 and normal S2; no murmur Vessels: no JVD Extremities: normal capillary refill (toes left foot) pulses left foot about 1+ Gastrointestinal (Abdomen): normal bowel sounds, soft, nontender, no hepatosplenomegaly Inspection/Auscultation: + abdomen distended (mild) Skin: left foot dressings intact; remaining 3 digits left foot with <2 sec cap refill Psychiatric: A+Ox3, euthymic affect Results & Data Vital Signs (Past 12 Hours) Vital Signs Temp Pulse Pulse Resp BP Pulse Ox 11/10/18 19:40 36.8 C 72 20 101/49 L 96 11/10/18 18:06 36.9 C 79 18 106/54 L 99 11/10/18 17:28 79 20 116/66 99 11/10/18 17:04 74 20 122/66 95 11/10/18 16:42 73 20 117/56 L 96 11/10/18 16:33 71 20 127/68 99 11/10/18 16:23 36.7 C 74 20 125/62 97 11/10/18 15:55 36.6 C 70 15 130/75 97 11/10/18 15:45 67 12 142/68 H 96 11/10/18 15:35 67 12 142/89 H 96 11/10/18 15:25 71 12 142/77 H 95 11/10/18 15:15 74 12 150/73 H 98 11/10/18 15:05 67 19 139/81 100 11/10/18 14:55 67 15 154/77 H 100 11/10/18 14:45 68 14 157/73 H 100 11/10/18 14:39 36.4 C L 69 16 141/73 H 100 11/10/18 12:21 96 H 20 135/71 11/10/18 12:00 113 H 20 113/76 11/10/18 11:45 93 H 119/72 11/10/18 11:42 110 H 20 143/65 H 11/10/18 11:36 115 H 116/74 11/10/18 11:15 118 H 20 98/65 L 98 11/10/18 11:01 112 H 109/64 95 11/10/18 10:50 116 H 110/88 11/10/18 10:46 84/66 L 11/10/18 10:42 127 H 20 114/85 92 11/10/18 10:35 37.1 C 110 H 20 88/67 L 97 Laboratory Results Laboratory Results - last 24 hr 11/10/18 11/10/18 11/10/18 06:27 06:27 06:27 WBC 12.27 H RBC 3.76 L Hgb 10.7 L Hct 31.9 L MCV 84.8 MCH 28.5 MCHC 33.5 RDW Std Deviation 41.6 RDW Coeff of Deepak 13.4 Plt Count 303 MPV 9.5 Immature Gran % (Auto) 0.2 Neut % (Auto) 79.0 Lymph % (Auto) 11.2 Winn % (Auto) 7.9 Eos % (Auto) 1.5 Baso % (Auto) 0.2 Immature Gran # (Auto) 0.03 H Neut # (Auto) 9.69 H Lymph # (Auto) 1.38 Winn # (Auto) 0.97 H Eos # (Auto) 0.18 Baso # (Auto) 0.02 Echinocytes 1+ Sodium 136 Potassium 3.5 Chloride 106 Carbon Dioxide 25 Anion Gap 5.0 BUN 12 Creatinine 1.31 Est Cr Clr Drug Dosing 52.8 Est GFR ( Amer) 60.0 Est GFR (Non-Af Amer) 51.8 BUN/Creatinine Ratio 9.4 L Glucose 174 H POC Glucose Calcium 7.9 L Magnesium 2.0 Troponin I 0.018 Triglycerides 179 H Cholesterol 137 LDL Cholesterol, Calc 77 VLDL Cholesterol, Calc 36 HDL Cholesterol 24 Cholesterol/HDL Ratio 6 Free T4 1.53 11/10/18 11/10/18 11/10/18 07:19 11:10 14:47 WBC RBC Hgb Hct MCV MCH MCHC RDW Std Deviation RDW Coeff of Deepak Plt Count MPV Immature Gran % (Auto) Neut % (Auto) Lymph % (Auto) Winn % (Auto) Eos % (Auto) Baso % (Auto) Immature Gran # (Auto) Neut # (Auto) Lymph # (Auto) Winn # (Auto) Eos # (Auto) Baso # (Auto) Echinocytes Sodium Potassium Chloride Carbon Dioxide Anion Gap BUN Creatinine Est Cr Clr Drug Dosing Est GFR ( Amer) Est GFR (Non-Af Amer) BUN/Creatinine Ratio Glucose POC Glucose 187 H 191 H 168 H Calcium Magnesium Troponin I Triglycerides Cholesterol LDL Cholesterol, Calc VLDL Cholesterol, Calc HDL Cholesterol Cholesterol/HDL Ratio Free T4 11/10/18 11/10/18 16:22 20:45 WBC RBC Hgb Hct MCV MCH MCHC RDW Std Deviation RDW Coeff of Deepak Plt Count MPV Immature Gran % (Auto) Neut % (Auto) Lymph % (Auto) Winn % (Auto) Eos % (Auto) Baso % (Auto) Immature Gran # (Auto) Neut # (Auto) Lymph # (Auto) Winn # (Auto) Eos # (Auto) Baso # (Auto) Echinocytes Sodium Potassium Chloride Carbon Dioxide Anion Gap BUN Creatinine Est Cr Clr Drug Dosing Est GFR ( Amer) Est GFR (Non-Af Amer) BUN/Creatinine Ratio Glucose POC Glucose 174 H 218 H Calcium Magnesium Troponin I Triglycerides Cholesterol LDL Cholesterol, Calc VLDL Cholesterol, Calc HDL Cholesterol Cholesterol/HDL Ratio Free T4 (1) Diabetes mellitus type 2, uncontrolled Glycemic state: with hyperglycemia Qualified Code(s): E11.65 - Type 2 diabetes mellitus with hyperglycemia (2) Sepsis Sepsis type: sepsis due to unspecified organism Qualified Code(s): A41.9 - Sepsis, unspecified organism (3) Osteomyelitis Laterality: left Osteomyelitis location: foot Osteomyelitis type: unspecified type Qualified Code(s): M86.9 - Osteomyelitis, unspecified
[2018-11-11] MEDS: CLINDAMYCIN 600 MG in DEXTROSE 5% 50 ML IV SCH ×3 (02:16→19:54)
[2018-11-11] MEDS: HYDROmorphone INJ 0.5 MG/0.5 ML SYR IV PRN ×4 (04:50→23:29)
[2018-11-11 05:43] LABS: Hemoglobin 9.3 g/dL (14.0-18.0); Mean Corpuscular Hgb Conc 33.2 g/dL (32-36); Mean Corpuscular Volume 85.1 fL (80-100); Mean Platelet Volume 9.4 fL (7.4-10.4); Platelet Count 289 K/uL (130-400); RDW Coefficient of Variation 13.6 % (11.5-14.5); RDW Standard Deviation 42.5 fL (36.4-46.3); Red Blood Count 3.29 M/uL (4.7-6.1); White Blood Count 12.54 K/uL (4.8-10.8)
[2018-11-11 06:14] LABS: BUN Creatinine Ratio 10.1 (10-20); Creatinine Clr Calc Pharmacy 50.9 ml/min; Est GFR (African American) 57.4; Est GFR (Non-African American) 49.5; Potassium 3.8 mmol/L (3.5-5.1)
[2018-11-11] MEDS ORDERED: SODIUM CHLORIDE 0.9% 1000ML 1,000 ML IV SCH (08:00)
--- NOTE | 2018-11-11 09:02 | Infectious Disease Progress Nt ---
Date of Service November 11, 2018 Assessment & Plan (1) Gangrene of left foot: suspect both culture with grow MSSA but will maintain broad spectrum abx for now. If both cultures grow MSSA can change abx to clinda and rocephin, 2 g daily, await final. for vascular intervention today. (2) Osteomyelitis: Subjective pt seen in followup, some pain in foot but controlled with pain meds. isolated fever overnight, tmax 37.7. tolerating abx, remains on broad spectrum abx. s/p tma yesterday, drain in place. Initial blood cultures negative, OR cultures now growing MSSA, garcia sensitive E. coli, and strep species. second OR culture initally reported as [employer]IC[employer] now identified as s. aureus and strep, final pending. denies abd pain, no n/v/d, no cp, sob, afib s/p cardioversion yesterday. denies f/c. all remaining ros reviewed and are negative. Review of Systems Review of Systems: All systems reviewed & are unremarkable except as noted in HPI & below Physical Exam Constitutional: WD/WN, vitals as above Eyes: PERRL, conjunctivae normal, anicteric sclerae ENMT: external ear and nose normal, oropharynx normal Neck: normal visual inspection Respiratory: normal respiratory effort, lungs clear to auscultation Cardiovascular: RRR, no murmur, no edema Gastrointestinal (Abdomen): normal bowel sounds, soft, nontender, no he patosplenomegaly Musculoskeletal: no cyanosis or clubbing, extremities motor strength 5/5 Skin: no rashes, warm and dry foot dressing c/d/i, drain in place, bloody fluid Psychiatric: A+Ox3, euthymic affect Results & Data Vital Signs (Past 12 Hours) Vital Signs Temp Pulse Pulse Resp BP Pulse Ox 11/11/18 07:00 37.2 C 71 18 125/62 93 11/11/18 03:44 37.7 C H 76 20 111/58 L 94 11/11/18 00:42 72 11/10/18 23:03 37.2 C 78 16 132/61 98 Laboratory Results Microbiology 11/08/18 22:50 Toe,Left Great Gram Stain - Final 11/08/18 22:50 Toe,Left Great Aerobic and Anaerobic Culture - Preliminary Escherichia coli Staphylococcus aureus Streptococcus species 11/08/18 17:40 Foot Gram Stain - Final 11/08/18 17:40 Foot Wound Culture - Preliminary Staphylococcus aureus Streptococcus species 11/08/18 17:25 Blood Blood Culture - Preliminary No growth to date. 11/08/18 17:32 Blood Blood Culture - Preliminary No growth to date. (1) Osteomyelitis Laterality: left Osteomyelitis location: foot Osteomyelitis type: unspecified type Qualified Code(s): M86.9 - Osteomyelitis, unspecified
[2018-11-11] MEDS: PIPERACILLIN/TAZOBACTAM 3.375 GM in DEXTROSE 5% 100 ML IV SCH ×3 (09:05→23:23)
--- NOTE | 2018-11-11 10:15 | History & Physical Bridge Note ---
Date of Service November 11, 2018 History & Physical Bridge Note Patient for a left lower extremity arteriogram with intervention. I have discussed the risks options and benefits of the procedure with the patient. The patient understands the risks options and benefits and agrees to the procedure. I have examined the patient, reviewed the History & Physical and in the interval since the performance of the History & Physical I have noted the following changes of clinical significance: no changes noted
--- NOTE | 2018-11-11 10:16 | Pre Anesthesia Assessment ---
Date of Service November 11, 2018 Pre Sedation Assessment Vital Signs Temp Pulse Pulse Pulse Pulse Resp BP 11/11/18 09:45 37.2 C 81 20 137/67 11/11/18 08:30 68 11/11/18 07:00 37.2 C 71 18 125/62 11/11/18 03:44 37.7 C H 76 20 111/58 L 11/11/18 00:42 72 11/10/18 23:03 37.2 C 78 16 132/61 11/10/18 19:40 36.8 C 72 20 101/49 L 11/10/18 18:06 36.9 C 79 18 106/54 L 11/10/18 17:28 79 20 116/66 11/10/18 17:04 74 20 122/66 11/10/18 16:42 73 20 117/56 L 11/10/18 16:33 71 20 127/68 11/10/18 16:23 36.7 C 74 20 125/62 11/10/18 15:55 36.6 C 70 15 130/75 11/10/18 15:45 67 12 142/68 H 11/10/18 15:35 67 12 142/89 H 11/10/18 15:25 71 12 142/77 H 11/10/18 15:15 74 12 150/73 H 11/10/18 15:05 67 19 139/81 11/10/18 14:55 67 15 154/77 H 11/10/18 14:45 68 14 157/73 H 11/10/18 14:39 36.4 C L 69 16 141/73 H 11/10/18 12:21 96 H 20 135/71 11/10/18 12:00 113 H 20 113/76 11/10/18 11:45 93 H 119/72 11/10/18 11:42 110 H 20 143/65 H 11/10/18 11:36 115 H 116/74 11/10/18 11:15 118 H 20 98/65 L 11/10/18 11:01 112 H 109/64 11/10/18 10:50 116 H 110/88 11/10/18 10:46 84/66 L 11/10/18 10:42 127 H 20 114/85 11/10/18 10:35 37.1 C 110 H 20 88/67 L Pulse Ox 11/11/18 09:45 95 11/11/18 08:30 11/11/18 07:00 93 11/11/18 03:44 94 11/11/18 00:42 11/10/18 23:03 98 11/10/18 19:40 96 11/10/18 18:06 99 11/10/18 17:28 99 11/10/18 17:04 95 11/10/18 16:42 96 11/10/18 16:33 99 11/10/18 16:23 97 11/10/18 15:55 97 11/10/18 15:45 96 11/10/18 15:35 96 11/10/18 15:25 95 11/10/18 15:15 98 11/10/18 15:05 100 11/10/18 14:55 100 11/10/18 14:45 100 11/10/18 14:39 100 11/10/18 12:21 11/10/18 12:00 11/10/18 11:45 11/10/18 11:42 11/10/18 11:36 11/10/18 11:15 98 11/10/18 11:01 95 11/10/18 10:50 11/10/18 10:46 11/10/18 10:42 92 11/10/18 10:35 97 Cardiovascular RRR, no murmur, no edema Respiratory normal respiratory effort, lungs clear to auscultation Pre-Sedation Airway Assessment Smoking Status: Never smoker Hx Sleep Apnea: No Short, Thick Neck: No Thyromental Distance: > or= 3.5 Finger Breadths Oral Cavity: + Dentures Mallampati Class: I ASA: ASA3 NPO Status Date of Last Intake of Fluids: 11/10/18 Time of Last Intake of Fluids: 21:00 Date of Last Intake of Solid Food: 11/10/18 Time of Last Intake of Solid Foods: 21:00 Procedure Planning Contraindications for Sedation: none Current Medications Reviewed: Yes Notes The planned sedation has been discussed with the patient. Informed Consent was obtained. I have identified the patient, determined the appropriateness of sedation and have assessed the patient immediately prior to the procedure. All medicine(s) and interventions are by my order.
[2018-11-11] MEDS ORDERED: MIDAZOLAM HCL 1 MG/ML 2ML VIAL ONE (10:23)
[2018-11-11] MEDS ORDERED: HEPARIN SOD (PORCINE) 1000 UNIT/ML 10 ML VIAL ONE (10:23)
[2018-11-11] MEDS ORDERED: fentaNYL citrate 100 MCG/2 ML VIAL ONE (10:23)
[2018-11-11] MEDS: dilTIAZem HCL 30 MG TAB PO SCH ×2 (10:45→13:52)
[2018-11-11] MEDS: DOCUSATE SODIUM 100 MG CAP PO SCH ×2 (10:45→19:57)
[2018-11-11] MEDS: POLYETHYLENE (MIRALAX) 17 GM PACK PO SCH ×2 (10:46→19:59)
[2018-11-11] MEDS: SACCHAROMYCES BOULARDII 250 MG CAP PO SCH (10:46)
--- NOTE | 2018-11-11 10:47 | Surgery Progress Note ---
Date of Service November 11, 2018 Assessment & Plan (1) Atrial flutter with rapid ventricular response: The arteriogram was canceled. Patient was transferred the back to the PCU. Radiology was notified. His case was rescheduled for Wednesday at around 10:00. Subjective Patient was placed on the angios table. He was hooked up to the monitor he was found to be in rapid A. fib again at a rate of 140-150. He claims that he felt a funny sensation but was not having any chest pain. Physical Exam Physical Exam: Patient was awake alert oriented x3. His heart rate was 140- 150 and a what appeared to be A. fib. He had not become hypotensive at this point. Results & Data Vital Signs (Past 12 Hours) Vital Signs Temp Pulse Pulse Resp BP Pulse Ox 11/11/18 09:45 37.2 C 81 20 137/67 95 11/11/18 08:30 68 11/11/18 07:00 37.2 C 71 18 125/62 93 11/11/18 03:44 37.7 C H 76 20 111/58 L 94 11/11/18 00:42 72 11/10/18 23:03 37.2 C 78 16 132/61 98
[2018-11-11] MEDS: INSULIN GLARGINE SOLOSTAR 100 UNITS/ML 3 ML PEN SC SCH ×2 (10:53→21:03)
[2018-11-11] MEDS: INSULIN ASPART 100 UNITS/ML 3 ML PEN SC SCH ×4 (10:54→21:03)
[2018-11-11] MEDS: MULTIVITAMIN TAB PO SCH (10:57)
[2018-11-11] MEDS: dilTIAZem HCl 125 MG in DEXTROSE 5% 100 ML IV SCH (11:49)
[2018-11-11] MEDS: OXYCODONE HCL IR 5 MG TAB (IMMEDIATE RELEASE) PO PRN (11:55)
[2018-11-11] MEDS: AMIODARONE / D5W 360 MG/200 ML BAG IV SCH (14:09)
--- NOTE | 2018-11-11 16:06 | Progress Note ---
DATE: 11/11/2018 He has gone back into a cardiac arrhythmia and his vascular procedure has been rescheduled to Wednesday. Foot feels fine. He has been afebrile. His white count is elevated at 12, but hematocrit remains fairly stable at about 28. Drain only put out 5 mL and has pulled and the dressing was changed. There is some purplish discoloration along the margin of the wound. There is some maceration present. No black or obvious ischemia. The remainder of the toes are warm with good capillary refill. The drains pulled and the dressing is changed with a dry dressing to combat the maceration. He will continue to elevate, wear his postop shoe. We will monitor the wound and look forward to hopefully improve the blood supply for his leg. He can be up in a limited fashion and may weightbear as tolerated on his heel with an assistive device. Continue IV antibiotics. SCDs for DVT prophylaxis.
[2018-11-11] MEDS ORDERED: DIGOXIN 125 MCG in SYRINGE 9.5 ML IV STA (16:56)
--- NOTE | 2018-11-11 17:07 | Cardiology Progress Note ---
Date of Service November 11, 2018 Assessment & Plan (1) Atrial flutter with rapid ventricular response: He has been identified as having fibrillation and flutter (at times it looks very regular like atrial flutter but other times quite irregular like atrial fibrillation) but quite fast even on amiodarone drip. His symptoms are very difficult to sort out, he is not really having a lot of symptoms now and what he describes as "hyperventilating" which he relates to his heart and which has evidently occurred ever since his carotid surgery year and a half ago could be paroxysmal atrial arrhythmias. He is not a good anticoagulation candidate at the moment due to his recent surgery and need for further surgery. On the morning of November 10, 2018 we converted his rhythm, it took several tries to maintain sinus rhythm but even then he quickly reverted back to atrial fibrillation. On IV Cardizem and IV amiodarone we were able to control his rate well enough for him to go to surgery. After surgery with discontinuation of his amiodarone he remained in sinus rhythm overnight but this morning went back into atrial fibrillation or flutter, he continues to have these regular rates which might actually be some form of SVT. As a long-term consideration he should be on an anticoagulant, he was on warfarin past and that could be used or one of the newer agents. We should also try to get some idea of how often he has atrial fibrillation or flutter, that may require some sort of monitoring after discharge. For now I would continue amiodarone to try to control his arrhythmia. I am also going to add digoxin to his regimen and he is on intravenous diltiazem. If we are unsuccessful over the weekend we may want to consider electrophysiologic study and ablation looking for a reentrant arrhythmia as well as atrial flutter. 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 Although he has not had a myocardial infarction based on symptoms, echocardiography and electrocardiography I suspect he probably has coronary artery disease to some extent. At this point I do not think we need to do stress testing since he does not have symptoms, he should be on risk factor modification for his atherosclerosis. This would normally include high-dose statins and aspirin, neither of which he seems to be on. As far as I know he does not have intoler ance to statins. I do not think these things need to be started now but perhaps shortly after surgery we should do so. Subjective He is feeling relatively well although he is disappointed that his arteriogram was canceled today. He is aware of going back into his atrial arrhythmia today but does not have hemodynamic symptoms and no chest discomfort. Physical Exam Physical Exam: Constitutional: Alert, cooperative and in no distress. Pulmonary: Clear to auscultation bilaterally. Cardiac: Irregular rapid rhythm with no murmur, gallop or rub. Abdomen: Soft, nontender with normal bowel sounds. Extremities: No edema. Left leg bandaged. Skin: No rash, ecchymoses or petechiae. Results & Data Vital Signs (Past 12 Hours) Vital Signs Temp Pulse Pulse Pulse Resp BP Pulse Ox 11/11/18 16:46 146 H 84/71 L 11/11/18 16:02 116 H 16 99/74 L 95 11/11/18 15:52 152 H 11/11/18 15:27 36.6 C 124 H 22 110/78 96 11/11/18 11:15 152 H 11/11/18 11:09 37.1 C 151 H 22 102/63 94 11/11/18 10:24 142 H 18 124/78 98 11/11/18 09:45 37.2 C 81 20 137/67 95 11/11/18 08:30 68 11/11/18 07:00 37.2 C 71 18 125/62 93 Diagnostic Findings Telemetry: He reverted to sinus rhythm yesterday after his surgery, however this morning after going down for his arteriogram he evidently went into atrial fibrillation down there resulting in a fast heart rate. His heart rate has been fast since despite restarting amiodarone and intravenous diltiazem.
[2018-11-11 17:41] LABS: Appearance Urine Clear (Clear); Bilirubin Urine Negative (Negative); Blood Urine Negative (Negative); Color Urine Yellow; Glucose Urine UA 3+ (Negative); Ketones Urine 1+ (Negative); Leukocyte Esterase Urine Negative (Negative); Nitrite Urine Negative (Negative); Protein Urine Trace (Negative); RBC Urine Automated 0-4 /hpf (0-4); Specific Gravity Urine 1.022 (1.000-1.030); Urobilinogen Urine Negative (Negative)
[2018-11-11] MEDS: DAPTOmycin 425 MG in SYRINGE 0 ML IV SCH (17:43)
[2018-11-11 17:59] LABS: Bacteria Urine Automated 1+ (Negative)
--- NOTE | 2018-11-11 19:01 | Hospitalist Progress Note ---
Date of Service November 11, 2018 Assessment & Plan (1) Gangrene of left foot: left great toe s/p amputation by Dr Mirza - POD#3. s/p TMA of left 2nd digit - POD #1 - also by Dr. Mirza. Continue broad-spectrum IV abx including daptomycin, clindamycin, and zosyn. Culture results noted; ID to narrow the abx selection soon. Appreciate ortho/vascular/ID consults and recs. Continue probiotics. (2) Atrial flutter with rapid ventricular response: Has been difficult to control despite AV didi agents, cardioversion, and amiodarone. Spoke with Dr Page - some how amiodarone infusion got inadvertantly canceled. Will restart amiodarone drip. Restart cardizem infusion. Also adding digoxin. Keep mag/K wnl. Dig level am. (3) Atrial fibrillation with rapid ventricular response: as above in "a flutter w/ RVR" fortunately echo shows preserved EF and no significant valvular disease additionally he remains compensated from volume standpoint appreciate cardiology assistance could potentially need EP study (4) Peripheral arterial disease: As seen on arterial dopplers. Dr Miller has seen - arteriogram planned for WEDNESDAY (today's case cancelled due to a.fib w/ RVR). LDL on lipids check today -- 77. Would initiate statin and aspirin this admission. (5) Sepsis: 2nd to gangrene of left great toe s/p amputation. Blood cx's negative. sepsis resolved. (6) Osteomyelitis: Left great toe s/p amputation. See above. (7) Diabetes mellitus type 2, uncontrolled: Improving but still not optimal. Increase lantus tomorrow am to 17 units BID. Adjust novolog again. (8) DVT prophylaxis: add heparin SC. Subjective patient had remained in NSR all night then, when he went to pre-op area for arteriogram with Dr Miller, he was found to be in rapid a.fib and his case was canceled rates have been very fast -- up to 170s with minimal activity and even at rest looks to be combination of a flutter (2:1?) and a.fib patient w/ good appetite denies cp or dyspnea but seems to have, albeit intermittently, palpitations at times mild left foot pain Review of Systems Constitutional: no fever and no chills Respiratory: no cough and no dyspnea Cardiovascular: no chest pain Gastrointestinal: + constipation (but did have small BM this am); no abdominal pain Physical Exam Constitutional: well developed and well nourished; no acute distress and not ill appearing ENMT: external ear and nose normal, oropharynx normal Respiratory: normal respiratory effort, lungs clear to auscultation Cardiovascular: Rate/Rhythm: + tachycardic and + irregularly irregular Heart Sounds: normal S1 and normal S2; no murmur Vessels: no JVD pulses right foot 2+; left foot 1+ Gastrointestinal (Abdomen): normal bowel sounds, soft, nontender, no hepatosplenomegaly Inspection/Auscultation: + abdomen distended (mild) Skin: cap refill left foot <2 seconds 1st/2nd digits removed left foot Psychiatric: A+Ox3, euthymic affect Results & Data Vital Signs (Past 12 Hours) Vital Signs Temp Pulse Pulse Pulse Resp BP Pulse Ox 11/11/18 17:41 120 H 115 H 110/65 11/11/18 16:46 146 H 84/71 L 11/11/18 16:02 116 H 16 99/74 L 95 11/11/18 15:52 152 H 11/11/18 15:27 36.6 C 124 H 22 110/78 96 11/11/18 11:15 152 H 11/11/18 11:09 37.1 C 151 H 22 102/63 94 11/11/18 10:24 142 H 18 124/78 98 11/11/18 09:45 37.2 C 81 20 137/67 95 11/11/18 08:30 68 Laboratory Results Laboratory Results - last 24 hr 11/10/18 11/11/18 11/11/18 20:45 05:30 05:30 WBC 12.54 H RBC 3.29 L Hgb 9.3 L Hct 28.0 L MCV 85.1 MCH 28.3 MCHC 33.2 RDW Std Deviation 42.5 RDW Coeff of Deepak 13.6 Plt Count 289 MPV 9.4 Sodium 138 Potassium 3.8 Chloride 106 Carbon Dioxide 25 Anion Gap 7.0 BUN 14 Creatinine 1.36 Est Cr Clr Drug Dosing 50.9 Est GFR ( Amer) 57.4 Est GFR (Non-Af Amer) 49.5 BUN/Creatinine Ratio 10.1 Glucose 191 H POC Glucose 218 H Calcium 8.0 L Urine Color Urine Appearance Urine pH Ur Specific [place] Urine Protein Urine Glucose (UA) Urine Ketones Urine Blood Urine Nitrite Urine Bilirubin Urine Urobilinogen Ur Leukocyte Esterase Urine WBC (Auto) Urine RBC (Auto) U Hyaline Cast (Auto) U Epithel Cells (Auto) Urine Bacteria (Auto) Urine Yeast 11/11/18 11/11/18 11/11/18 07:23 11:08 16:43 WBC RBC Hgb Hct MCV MCH MCHC RDW Std Deviation RDW Coeff of Deepak Plt Count MPV Sodium Potassium Chloride Carbon Dioxide Anion Gap BUN Creatinine Est Cr Clr Drug Dosing Est GFR ( Amer) Est GFR (Non-Af Amer) BUN/Creatinine Ratio Glucose POC Glucose 190 H 208 H 162 H Calcium Urine Color Urine Appearance Urine pH Ur Specific [place] Urine Protein Urine Glucose (UA) Urine Ketones Urine Blood Urine Nitrite Urine Bilirubin Urine Urobilinogen Ur Leukocyte Esterase Urine WBC (Auto) Urine RBC (Auto) U Hyaline Cast (Auto) U Epithel Cells (Auto) Urine Bacteria (Auto) Urine Yeast 11/11/18 17:10 WBC RBC Hgb Hct MCV MCH MCHC RDW Std Deviation RDW Coeff of Deepak Plt Count MPV Sodium Potassium Chloride Carbon Dioxide Anion Gap BUN Creatinine Est Cr Clr Drug Dosing Est GFR ( Amer) Est GFR (Non-Af Amer) BUN/Creatinine Ratio Glucose POC Glucose Calcium Urine Color Yellow Urine Appearance Clear Urine pH 5.0 Ur Specific [place] 1.022 Urine Protein Trace H Urine Glucose (UA) 3+ H Urine Ketones 1+ H Urine Blood Negative Urine Nitrite Negative Urine Bilirubin Negative Urine Urobilinogen Negative Ur Leukocyte Esterase Negative Urine WBC (Auto) 1-5 Urine RBC (Auto) 0-4 U Hyaline Cast (Auto) 1-5 U Epithel Cells (Auto) 10-20 H Urine Bacteria (Auto) 1+ H Urine Yeast Not Reportable Diagnostic Findings cultures left foot - MSSA, garcia-sens enterococcus, garcia-sens e.coli, bacteroides (1) Diabetes mellitus type 2, uncontrolled Glycemic state: with hyperglycemia Qualified Code(s): E11.65 - Type 2 diabetes mellitus with hyperglycemia (2) Sepsis Sepsis type: sepsis due to unspecified organism Qualified Code(s): A41.9 - Sepsis, unspecified organism (3) Osteomyelitis Laterality: left Osteomyelitis location: foot Osteomyelitis type: unspecified type Qualified Code(s): M86.9 - Osteomyelitis, unspecified
[2018-11-11] MEDS: SENNA 8.6 MG TAB PO SCH (19:57)
[2018-11-11] MEDS ORDERED: DIGOXIN 0.25 MG TAB PO SCH (21:00)
[2018-11-12] MEDS: AMIODARONE / D5W 360 MG/200 ML BAG IV SCH ×3 (00:48→23:47)
[2018-11-12] MEDS: dilTIAZem HCl 125 MG in DEXTROSE 5% 100 ML IV SCH ×2 (02:32→15:29)
[2018-11-12] MEDS: CLINDAMYCIN 600 MG in DEXTROSE 5% 50 ML IV SCH ×3 (02:40→17:48)
[2018-11-12] MEDS: HYDROmorphone INJ 0.5 MG/0.5 ML SYR IV PRN ×4 (06:46→20:37)
[2018-11-12 07:09] LABS: Hematocrit (blood only) 28.2 % (42-52); Hemoglobin 9.7 g/dL (14.0-18.0); Mean Corpuscular Hgb Conc 34.4 g/dL (32-36); Mean Corpuscular Volume 83.2 fL (80-100); Mean Platelet Volume 9.4 fL (7.4-10.4); Platelet Count 314 K/uL (130-400); RDW Coefficient of Variation 13.7 % (11.5-14.5); RDW Standard Deviation 42.3 fL (36.4-46.3); Red Blood Count 3.39 M/uL (4.7-6.1); White Blood Count 11.95 K/uL (4.8-10.8)
[2018-11-12 07:16] LABS: INR 1.5 (0.9-1.1)
[2018-11-12 07:43] LABS: BUN Creatinine Ratio 9.1 (10-20); Calcium 8.2 mg/dl (8.5-10.1); Est GFR (African American) 62.9; Est GFR (Non-African American) 54.3; Potassium 3.4 mmol/L (3.5-5.1)
[2018-11-12] MEDS: INSULIN ASPART 100 UNITS/ML 3 ML PEN SC SCH ×4 (09:25→20:39)
[2018-11-12] MEDS: INSULIN GLARGINE SOLOSTAR 100 UNITS/ML 3 ML PEN SC SCH ×2 (09:27→20:38)
[2018-11-12] MEDS: MULTIVITAMIN TAB PO SCH (09:27)
[2018-11-12] MEDS: SACCHAROMYCES BOULARDII 250 MG CAP PO SCH (09:28)
[2018-11-12] MEDS: DOCUSATE SODIUM 100 MG CAP PO SCH ×2 (09:28→20:42)
[2018-11-12] MEDS: POLYETHYLENE (MIRALAX) 17 GM PACK PO SCH ×2 (09:29→20:42)
[2018-11-12] MEDS: PIPERACILLIN/TAZOBACTAM 3.375 GM in DEXTROSE 5% 100 ML IV SCH ×3 (09:32→23:46)
[2018-11-12] MEDS ORDERED: POTASSIUM CHLORIDE 10 MEQ TABCR PO STA (09:53)
--- NOTE | 2018-11-12 10:49 | Cardiology Progress Note ---
Date of Service November 12, 2018 Assessment & Plan (1) Atrial flutter with rapid ventricular response: He has been identified as having fibrillation and flutter (at times it looks very regular like atrial flutter but other times quite irregular like atrial fibrillation) but quite fast even on amiodarone drip. His symptoms are very difficult to sort out, he is not really having a lot of symptoms now and what he describes as "hyperventilating" which he relates to his heart and which has evidently occurred ever since his carotid surgery year and a half ago could be paroxysmal atrial arrhythmias. He is not a good anticoagulation candidate at the moment due to his recent surgery and need for further surgery. On the morning of November 10, 2018 we converted his rhythm, it took several tries to maintain sinus rhythm but even then he quickly reverted back to atrial fibrillation. On IV Cardizem and IV amiodarone we were able to control his rate well enough for him to go to surgery. After surgery with discontinuation of his amiodarone he remained in sinus rhythm overnight but this morning went back into atrial fibrillation or flutter, he continues to have these regular rates which might actually be some form of SVT. As a long-term consideration he should be on an anticoagulant, he was on warfarin past and that could be used or one of the newer agents. We should also try to get some idea of how often he has atrial fibrillation or flutter, that may require some sort of monitoring after discharge. For now I would continue amiodarone to try to control his arrhythmia. I did add digoxin to his regimen (his level is 0.4 this morning) and he is on intravenous diltiazem to titrate (c urrently 10 mg/hr). I will give additional digoxin today and add a daily dose. If we are unsuccessful in controlling his rate or rhythm over the weekend we may want to consider electrophysiologic study and ablation looking for a reentrant arrhythmia as well as atrial flutter, possibly Wednesday. 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 Although he has not had a myocardial infarction based on symptoms, echocardiography and electrocardiography I suspect he probably has coronary artery disease to some extent. At this point I do not think we need to do stress testing since he does not have symptoms, he should be on risk factor modification for his atherosclerosis. This would normally include high-dose statins and aspirin, neither of which he seems to be on. As far as I know he does not have intolerance to statins. I do not think these things need to be started now but perhaps shortly after surgery we should do so. Subjective He feels pretty well, no cardiovascular complaints. Physical Exam Physical Exam: Constitutional: Alert, cooperative and in no distress. Pulmonary: Clear to auscultation bilaterally. Cardiac: Irregular rapid rhythm with no murmur, gallop or rub. Abdomen: Soft, nontender with normal bowel sounds. Extremities: No edema. Left leg bandaged. Skin: No rash, ecchymoses or petechiae. Results & Data Vital Signs (Past 12 Hours) Vital Signs Temp Pulse Pulse Resp BP Pulse Ox 11/12/18 07:47 36.6 C 69 20 106/46 L 95 11/12/18 03:07 100 H 11/12/18 02:45 37.1 C 99 H 18 129/71 94 11/11/18 23:23 106/69 11/11/18 23:08 37.7 C H 100 H 18 97/74 L 95 Diagnostic Findings Telemetry: Still in and out of SR, rate still fast when in AF but better. Dig level 0.4
[2018-11-12] MEDS ORDERED: DIGOXIN 0.25 MG TAB PO ONE (11:00)
--- NOTE | 2018-11-12 13:42 | Orthopedic Progress Note ---
Date of Service November 12, 2018 Assessment & Plan (1) Gangrene of left foot: POD 2 - s/p I&D, revision transmetatarsal amputation left great toe/left 2nd toe performed by Dr. Mirza 11/10/18 May be out of bed, weight bear as tolerated left lower extremity Post op shoe on left foot at all times. Use walker to assist with ambulation. PT/OT. Regular diet as ordered. Encouraged strict elevation left foot Dressings changed today. Findings discussed with Dr. Mirza. Pain medication as ordered. All questions answered. Will continue to follow during hospitalization. Subjective Patient lying in bed, complaining of pain in left foot today, but improved with oral pain medication. Tolerating regular diet. Gets out of bed to bathroom as needed. Physical Exam Physical Exam: Left foot elevated on pillows, dressings, post op shoe in place. Dressings removed today. Incision clean, dry, intact. Scant bloody drainage on dressings, skin/incision less macerated today, sutures retained, skin edges approximated, mild edema, tenderness with palpation around incision, but not evidence of surrounding fluctuance suggesting seroma, abscess or hematoma. Deep purplish bruising. New dressings applied. Results & Data Vital Signs (Past 12 Hours) Vital Signs Temp Pulse Pulse Resp BP Pulse Ox 11/12/18 12:00 116 H 11/12/18 11:20 37.1 C 113 H 18 115/80 96 11/12/18 07:47 36.6 C 69 20 106/46 L 95 11/12/18 03:07 100 H 11/12/18 02:45 37.1 C 99 H 18 129/71 94
[2018-11-12] MEDS: HEPARIN SOD 5,000 UNIT/0.5 ML VIAL SQ SCH ×2 (16:05→20:38)
[2018-11-12] MEDS: DIGOXIN 0.125 MG TAB PO SCH (16:37)
[2018-11-12] MEDS: DAPTOmycin 425 MG in SYRINGE 0 ML IV SCH (17:48)
[2018-11-12] MEDS: SENNA 8.6 MG TAB PO SCH (20:42)
--- NOTE | 2018-11-12 21:47 | Hospitalist Progress Note ---
Date of Service November 12, 2018 Assessment & Plan (1) Gangrene of left foot: left great toe s/p amputation by Dr Mirza - POD#4. s/p TMA of left 2nd digit - POD #2 - also by Dr. Mirza. Continue broad-spectrum IV abx including daptomycin, clindamycin, and zosyn. Culture results - MSSA, pansensitive enterococcus, bacteroides. pansensitive e.coli - defer final abx selection to ID. Cont probiotics. Vascular to perform arteriogram tomorrow AM if a.fib is controlled. Appreciate ortho/vascular/ID consults and recs. (2) Atrial flutter with rapid ventricular response: Has been difficult to control despite AV didi agents, cardioversion, and amiodarone. Fortunately it appears most of his tachycardia is a.fib at this time. Remains on amiodarone, cardizem, and digoxin. Appreciate Dr Page's recommendations. (3) Atrial fibrillation with rapid ventricular response: continue amiodarone, cardizem and digoxin. rates improved today. ultimately will need anticoagulation following all of his procedures. fortunately echo shows preserved EF and no significant valvular disease additionally he remains compensated from volume standpoint appreciate cardiology assistance could potentially need EP study if atrial dysrhythmia proves difficult to control (4) Peripheral arterial disease: As seen on arterial dopplers. Dr Miller has seen - arteriogram planned for WEDNESDAY. LDL on lipids check today -- 77. Would initiate statin and aspirin this admission. (5) Sepsis: 2nd to gangrene of left great toe s/p amputation. Blood cx's negative. sepsis resolved. (6) Osteomyelitis: Left great toe s/p amputation. See above. (7) Diabetes mellitus type 2, uncontrolled: Still uncontrolled. Increase lantus. Increase novolog. (8) DVT prophylaxis: heparin SC q8h. daughter updated by phone. Subjective patient w/o significant complaints. had bowel movement today. a. fib rates much better on amiodarone/cardizem. was in NSR for brief period of time early today. mild left foot pain. Review of Systems Constitutional: no fever and no chills Respiratory: no cough and no dyspnea Cardiovascular: no chest pain Gastrointestinal: no abdominal pain, no nausea and no vomiting Physical Exam Constitutional: well developed and well nourished; no acute distress and not ill appearing ENMT: external ear and nose normal, oropharynx normal Respiratory: normal respiratory effort, lungs clear to auscultation Cardiovascular: Rate/Rhythm: regular rate and + irregularly irregular Heart Sounds: normal S1 and normal S2; no murmur Vessels: no JVD Extremities: normal capillary refill (toes left foot) pulses left foot 1+ Gastrointestinal (Abdomen): normal bowel sounds, soft, nontender, no hepatosplenomegaly Musculoskeletal: left foot - dressings intact; 1st/2nd toes absent; no bl eeding; cap refill brisk Psychiatric: A+Ox3, euthymic affect Results & Data Vital Signs (Past 12 Hours) Vital Signs Temp Pulse Pulse Resp BP Pulse Ox 11/12/18 19:47 37.2 C 84 16 126/65 93 11/12/18 16:37 106 H 11/12/18 15:09 37.2 C 77 18 110/69 96 11/12/18 12:30 116 H 11/12/18 12:00 116 H 11/12/18 11:20 37.1 C 113 H 18 115/80 96 Laboratory Results Laboratory Results - last 24 hr 11/12/18 11/12/18 11/12/18 06:39 06:39 06:39 WBC 11.95 H RBC 3.39 L Hgb 9.7 L Hct 28.2 L MCV 83.2 MCH 28.6 MCHC 34.4 RDW Std Deviation 42.3 RDW Coeff of Deepak 13.7 Plt Count 314 MPV 9.4 PT INR Sodium 137 Potassium 3.4 L Chloride 106 Carbon Dioxide 24 Anion Gap 8.0 BUN 12 Creatinine 1.26 Est Cr Clr Drug Dosing 55.0 Est GFR ( Amer) 62.9 Est GFR (Non-Af Amer) 54.3 BUN/Creatinine Ratio 9.1 L Glucose 205 H POC Glucose Calcium 8.2 L Digoxin 0.4 L 11/12/18 11/12/18 11/12/18 06:39 07:27 11:17 WBC RBC Hgb Hct MCV MCH MCHC RDW Std Deviation RDW Coeff of Deepak Plt Count MPV PT 15.0 H INR 1.5 H Sodium Potassium Chloride Carbon Dioxide Anion Gap BUN Creatinine Est Cr Clr Drug Dosing Est GFR ( Amer) Est GFR (Non-Af Amer) BUN/Creatinine Ratio Glucose POC Glucose 207 H 335 H* Calcium Digoxin 05/11/19 05/11/19 05/11/19 11:17 13:52 16:12 WBC RBC Hgb Hct MCV MCH MCHC RDW Std Deviation RDW Coeff of Deepak Plt Count MPV PT INR Sodium Potassium Chloride Carbon Dioxide Anion Gap BUN Creatinine Est Cr Clr Drug Dosing Est GFR ( Amer) Est GFR (Non-Af Amer) BUN/Creatinine Ratio Glucose POC Glucose 334 H* 204 H 123 H Calcium Digoxin 11/12/18 20:04 WBC RBC Hgb Hct MCV MCH MCHC RDW Std Deviation RDW Coeff of Deepak Plt Count MPV PT INR Sodium Potassium Chloride Carbon Dioxide Anion Gap BUN Creatinine Est Cr Clr Drug Dosing Est GFR ( Amer) Est GFR (Non-Af Amer) BUN/Creatinine Ratio Glucose POC Glucose 153 H Calcium Digoxin (1) Diabetes mellitus type 2, uncontrolled Glycemic state: with hyperglycemia Qualified Code(s): E11.65 - Type 2 diabetes mellitus with hyperglycemia (2) Sepsis Sepsis type: sepsis due to unspecified organism Qualified Code(s): A41.9 - Sepsis, unspecified organism (3) Osteomyelitis Laterality: left Osteomyelitis location: foot Osteomyelitis type: unspecified type Qualified Code(s): M86.9 - Osteomyelitis, unspecified
[2018-11-13] MEDS: HYDROmorphone INJ 0.5 MG/0.5 ML SYR IV PRN ×5 (00:31→20:57)
[2018-11-13] MEDS: CLINDAMYCIN 600 MG in DEXTROSE 5% 50 ML IV SCH ×3 (01:49→16:39)
[2018-11-13] MEDS: HEPARIN SOD 5,000 UNIT/0.5 ML VIAL SQ SCH ×3 (05:17→20:58)
[2018-11-13] MEDS: dilTIAZem HCl 125 MG in DEXTROSE 5% 100 ML IV SCH ×2 (05:23→21:28)
[2018-11-13 06:58] LABS: BUN Creatinine Ratio 7.6 (10-20); Calcium 7.9 mg/dl (8.5-10.1); Creatinine Clr Calc Pharmacy 58.2 ml/min; Est GFR (African American) 68.1; Est GFR (Non-African American) 58.8; Potassium 3.2 mmol/L (3.5-5.1)
[2018-11-13] MEDS ORDERED: POTASSIUM CHLORIDE 10 MEQ TABCR PO STA (07:26)
[2018-11-13] MEDS: DOCUSATE SODIUM 100 MG CAP PO SCH ×2 (07:58→20:52)
[2018-11-13] MEDS: POLYETHYLENE (MIRALAX) 17 GM PACK PO SCH ×2 (07:58→20:53)
[2018-11-13] MEDS: SACCHAROMYCES BOULARDII 250 MG CAP PO SCH (07:59)
[2018-11-13] MEDS: MULTIVITAMIN TAB PO SCH (07:59)
[2018-11-13] MEDS: INSULIN GLARGINE SOLOSTAR 100 UNITS/ML 3 ML PEN SC SCH ×2 (08:00→20:58)
[2018-11-13] MEDS: INSULIN ASPART 100 UNITS/ML 3 ML PEN SC SCH ×4 (08:01→20:57)
[2018-11-13] MEDS: PIPERACILLIN/TAZOBACTAM 3.375 GM in DEXTROSE 5% 100 ML IV SCH ×3 (08:07→23:43)
[2018-11-13] MEDS: AMIODARONE / D5W 360 MG/200 ML BAG IV SCH (11:52)
[2018-11-13] MEDS: POTASSIUM CHLORIDE 20 MEQ TABCR PO SCH ×2 (15:29→20:57)
[2018-11-13] MEDS: DIGOXIN 0.125 MG TAB PO SCH (15:31)
[2018-11-13] MEDS: DAPTOmycin 425 MG in SYRINGE 0 ML IV SCH (16:39)
--- NOTE | 2018-11-13 19:21 | Hospitalist Progress Note ---
Date of Service November 13, 2018 Assessment & Plan (1) Gangrene of left foot: left great toe s/p amputation by Dr Mirza - POD#5. s/p TMA of left 2nd digit - POD #3 - also by Dr. Mirza. Culture results - MSSA, pansensitive enterococcus, bacteroides, pansensitive e.coli. Can d/c daptomycin since no MRSA. Can d/c clindamycin. Will continue zosyn - will cover above pathogens including anaerobes. Defer final abx selection to ID tomorrow - alternatives? unasyn? other? Vascular to perform arteriogram tomorrow AM if a.fib is controlled. Appreciate ortho/vascular/ID consults and recs. (2) Atrial flutter with rapid ventricular response: Has been difficult to control despite AV didi agents, cardioversion, and amiodarone. Last 36 hours or so has been mainly a.fib. Remains on amiodarone, cardizem, and digoxin. Appreciate Dr Page's recommendations. (3) Atrial fibrillation with rapid ventricular response: continue amiodarone, cardizem and digoxin. rates controlled overnight. ultimately will need anticoagulation following all of his procedures. fortunately echo shows preserved EF and no significant valvular disease additionally he continues to remain compensated from volume standpoint appreciate cardiology assistance (4) Peripheral arterial disease: Left leg - PAD inferior to the popliteal artery. See arterial doppler report. Dr Miller to perform arteriogram on 11/14/18. Would initiate statin and aspirin this admission. (5) Sepsis: 2nd to gangrene of left great toe s/p amputation. Blood cx's negative. sepsis resolved. (6) Osteomyelitis: Left great toe s/p amputation. See above. (7) Diabetes mellitus type 2, uncontrolled: Still uncontrolled. Increase novolog correction. Leave lantus as is. (8) Hypokalemia: Replace - 20meq Kdur TID. Repeat BMP and mag in am. (9) Other symptoms involving respiratory system and chest: Patient refers to numerous episodes at home of vague chest discomfort, legs giving way, and occasional left arm pain. He "hyperventilates" with these spells. Difficult to say if these symptoms are from rapid a.fib/flutter or ischemic. Echo w/o wall motion abnormalities. However, in light of carotid disease, PAD of legs, uncontrolled T2DM - recommend statin/asa and ultimately outpatient stress test. (10) DVT prophylaxis: heparin SC q8h. daughter updated by phone - 11/12/18. Subjective a fib rates largely accepted over last 24 hours. minimal pain left foot. ambulating to bathroom. denies dyspnea or cough. denies chest pain. some mild abdominal bloating but no nausea or emesis. had BM yesterday. Review of Systems Constitutional: no fever, no chills, no fatigue and no anorexia Respiratory: no cough and no dyspnea Cardiovascular: no chest pain, no orthopnea and no paroxysmal nocturnal dyspnea Gastrointestinal: no abdominal pain and no diarrhea/loose stools Physical Exam Constitutional: well developed and well nourished; no acute distress and not ill appearing ENMT: external ear and nose normal, oropharynx normal Respiratory: normal respiratory effort, lungs clear to auscultation Auscultation: + diminished lung sounds (with slight crackle bases) Cardiovascular: Rate/Rhythm: regular rate and + irregularly irregular Heart Sounds: normal S1 and normal S2; no murmur Vessels: no JVD Extremities: normal capillary refill (toes left foot) pulses left foot 1+; right foot 2+ Gastrointestinal (Abdomen): normal bowel sounds, soft, nontender, no hepatosplenomegaly Inspection/Auscultation: + abdomen distended (mild - no change from prior exam) Psychiatric: A+Ox3, euthymic affect Results & Data Vital Signs (Past 12 Hours) Vital Signs Temp Pulse Pulse Pulse Resp BP Pulse Ox 11/13/18 18:58 36.6 C 107 H 92 H 20 115/73 98 11/13/18 15:31 94 H 11/13/18 15:16 37.2 C 86 20 124/61 97 11/13/18 11:58 113/73 11/13/18 11:32 36.7 C 103 H 18 89/67 L 94 11/13/18 07:45 36.7 C 106 H 18 128/75 95 (1) Diabetes mellitus type 2, uncontrolled Glycemic state: with hyperglycemia Qualified Code(s): E11.65 - Type 2 diabetes mellitus with hyperglycemia (2) Sepsis Sepsis type: sepsis due to unspecified organism Qualified Code(s): A41.9 - Sepsis, unspecified organism (3) Osteomyelitis Laterality: left Osteomyelitis location: foot Osteomyelitis type: unspecified type Qualified Code(s): M86.9 - Osteomyelitis, unspecified
[2018-11-13] MEDS: SENNA 8.6 MG TAB PO SCH (20:53)
[2018-11-14] MEDS: AMIODARONE / D5W 360 MG/200 ML BAG IV SCH ×3 (01:01→22:45)
[2018-11-14] MEDS: HYDROmorphone INJ 0.5 MG/0.5 ML SYR IV PRN ×4 (01:04→22:46)
[2018-11-14] MEDS ORDERED: CEFAZOLIN 2000MG 2,000 MG/15 ML SYR IV SCH (06:00)
[2018-11-14 06:18] LABS: INR 1.5 (0.9-1.1); Prothrombin Time 14.5 Seconds (9.0-12.0)
[2018-11-14 06:21] LABS: BUN Creatinine Ratio 6.8 (10-20); Calcium 8.4 mg/dl (8.5-10.1); Creatinine Clr Calc Pharmacy 52.5 ml/min; Est GFR (Non-African American) 51.8; Magnesium 1.9 mg/dl (1.8-2.4); Potassium 3.8 mmol/L (3.5-5.1)
[2018-11-14] MEDS: HEPARIN SOD 5,000 UNIT/0.5 ML VIAL SQ SCH ×3 (06:39→20:46)
--- NOTE | 2018-11-14 08:38 | Hospitalist Progress Note ---
Date of Service November 14, 2018 Assessment & Plan (1) Gangrene of left foot: left great toe s/p amputation by Dr Mirza - 11/08 s/p TMA of left 2nd digit -11/10 - also by Dr. Mirza. Culture results - MSSA, pansensitive enterococcus, bacteroides, pansensitive e.coli. Can d/c daptomycin since no MRSA. Can d/c clindamycin. Will continue zosyn - will cover above pathogens including anaerobes. Defer final abx selection to ID Vascular to perform arteriogram however this is been postponed patient remains in sinus rhythm Appreciate ortho/vascular/ID consults and recs. (2) Atrial flutter with rapid ventricular response: Has been difficult to control despite AV didi agents, cardioversion, and amiodarone. Has converted to sinus rhythm Remains on amiodarone, cardizem, and digoxin. Dr Page's is following (3) Atrial fibrillation with rapid ventricular response: continue amiodarone, cardizem and digoxin. ultimately will need anticoagulation following all of his procedures. fortunately echo shows preserved EF and no significant valvular disease remains compensated from volume standpoint (4) Peripheral arterial disease: Left leg - PAD inferior to the popliteal artery. Dr Miller to perform arteriogram with possible intervention initiate statin and aspirin (5) Sepsis: 2nd to gangrene of left great toe s/p amputation. Blood cx's negative. sepsis resolved. (6) Osteomyelitis: Left great toe s/p amputation. See above. (7) Diabetes mellitus type 2, uncontrolled: basal bolus insulin with adjustment (8) Hypokalemia: replete and follow (9) Other symptoms involving respiratory system and chest: Patient refers to numerous episodes at home of vague chest discomfort, legs giving way, and occasional left arm pain. He "hyperventilates" with these spells. Difficult to say if these symptoms are from rapid a.fib/flutter or ischemic, however cardiology feels no need to puruse in patient stress testing but will have outpt event monitoring Echo w/o wall motion abnormalities. However, in light of carotid disease, PAD of legs, uncontrolled T2DM - recommend statin/asa (10) DVT prophylaxis: heparin SC q8h. Subjective Patient has no new complaints or problems he is scheduled for a left leg angiogram today by Dr. Miller however Dr. Miller became ill and canceled the surgical day. This is to try to improve blood flow and healing to his left leg for which he had a recent diabetic surgery x2 to anastomotic feet Review of Systems Review of Systems: ROS: well nourished well developed. No double vision blurry vision No problems with speech or swallowing No palpitations, chest pain or pressure No Wheezing or breathing issues No abdominal pain nausea vomiting diarrhea changes in appetite or weight No burning urine urine frequency or changes in color No skin rashes or oral lesions No unusual bruising or bleeding No focused back pain or diabetic neuropathy No changes in memory or confusion Physical Exam Physical Exam: The patient appeared well nourished and normally developed. Vital signs as documented. Head exam is unremarkable. normocephalic, atraumatic Neck is without jugular venous distension, thyromegaly, or lymphademopathy Lungs are clear to auscultation and percussion. Cardiac exam reveals Rhythm is regular. He is in sinus rhythm on the monitor first and second heart sounds normal. Abdominal exam reveals normal bowel sounds, no masses, no organomegaly Extremities are nonedematous bandage in postop boot is in place in the left foot from which he had his amputations Neurologic exam is A&Ox3, diabetic neuropathy is in place to bilateral lower extremities Psychologically seems neither anxious or depressed Results & Data Vital Signs (Past 12 Hours) Vital Signs Temp Pulse Resp BP Pulse Ox 11/14/18 07:57 37.1 C 81 18 119/48 L 94 11/14/18 03:49 37.4 C 96 H 16 138/57 L 91 11/13/18 23:46 36.6 C 96 H 16 123/83 95 (1) Diabetes mellitus type 2, uncontrolled Glycemic state: with hyperglycemia Qualified Code(s): E11.65 - Type 2 diabetes mellitus with hyperglycemia (2) Sepsis Sepsis type: sepsis due to unspecified organism Qualified Code(s): A41.9 - Sepsis, unspecified organism (3) Osteomyelitis Laterality: left Osteomyelitis location: foot Osteomyelitis type: unspecified type Qualified Code(s): M86.9 - Osteomyelitis, unspecified
[2018-11-14] MEDS: POLYETHYLENE (MIRALAX) 17 GM PACK PO SCH ×2 (09:27→20:35)
[2018-11-14] MEDS: SODIUM CHLORIDE 0.9% 1000ML 1,000 ML IV SCH ×2 (09:27→16:57)
[2018-11-14] MEDS: DOCUSATE SODIUM 100 MG CAP PO SCH ×2 (09:27→20:35)
[2018-11-14] MEDS: SACCHAROMYCES BOULARDII 250 MG CAP PO SCH (09:30)
[2018-11-14] MEDS: MULTIVITAMIN TAB PO SCH (09:30)
[2018-11-14] MEDS: POTASSIUM CHLORIDE 20 MEQ TABCR PO SCH (09:30)
[2018-11-14] MEDS: INSULIN GLARGINE SOLOSTAR 100 UNITS/ML 3 ML PEN SC SCH ×2 (09:31→20:45)
[2018-11-14] MEDS: INSULIN ASPART 100 UNITS/ML 3 ML PEN SC SCH ×4 (09:32→20:46)
[2018-11-14] MEDS: PIPERACILLIN/TAZOBACTAM 3.375 GM in DEXTROSE 5% 100 ML IV SCH ×3 (09:33→23:40)
--- NOTE | 2018-11-14 09:45 | Communication Note ---
Date of Service: November 14, 2018 Pt procedure cx today d/t unforeseen circumstances. Will reschedule as soon as possible. Pt aware and agreeable.
--- NOTE | 2018-11-14 10:06 | Progress Note ---
DATE: 11/14/2018 His rate has been relatively well controlled. Unfortunately, due to circumstances beyond control, his vascular procedure is postponed today. White count is 12, hemoglobin 10, hematocrit 28. INR 1.5. PRP is noted. Dressing is changed. There is some erythema on the dorsum of the foot, but no palpable pulses. The remaining toes are warm. There is a purplish to black discoloration along the entire wound margin. There is some serous drainage present. Wound margins are of questionable viability. His sensation is diminished. He can wiggle his toes and move the ankle. He is getting subQ heparin for DVT prophylaxis. Mechanical device is SCDs. We will continue to monitor and do dressing changes. Await the vascular intervention to try to improve blood flow. It is possible that further amputation surgery at a higher level may be necessary if the wound necrosis is substantial. Continue IV antibiotics. His cultures are noted and they have grown out E. coli, Staph aureus, methicillin-sensitive Enterococcus and bacteroides.
--- NOTE | 2018-11-14 10:09 | Infectious Disease Progress Nt ---
Date of Service November 14, 2018 Assessment & Plan (1) Gangrene of left foot: would continue with zosyn for now. can consider po options upon d/c but somewhat limited with on amiodarone due to ddi, would give 21 post op total. blood cultures negative (2) Osteomyelitis: Subjective pt seen in followup, remains on zosyn. polymicrobial culture from foot. blood cultures remain negative, afebrile since 11/11. wbc normal. awaiting angiogram. some pain in foot. well controlled. no f/c. no abd pain, no n/v/d. no cp, sob, cough. still in afib on amio drip. all remaining ros reviewed and are negative. Review of Systems Review of Systems: All systems reviewed & are unremarkable except as noted in HPI & below Physical Exam Constitutional: WD/WN, vitals as above Eyes: PERRL, conjunctivae normal, anicteric sclerae ENMT: external ear and nose normal, oropharynx normal Neck: normal visual inspection Respiratory: normal respiratory effort, lungs clear to auscultation Cardiovascular: RRR, no murmur, no edema Gastrointestinal (Abdomen): normal bowel sounds, soft, nontender, no hepatosplenomegaly Musculoskeletal: no cyanosis or clubbing, extremities motor strength 5/5 Skin: no rashes, warm and dry Psychiatric: A+Ox3, euthymic affect Results & Data Vital Signs (Past 12 Hours) Vital Signs Temp Pulse Resp BP Pulse Ox 11/14/18 07:57 37.1 C 81 18 119/48 L 94 11/14/18 03:49 37.4 C 96 H 16 138/57 L 91 11/13/18 23:46 36.6 C 96 H 16 123/83 95 Laboratory Results Microbiology 11/08/18 17:32 Blood Blood Culture - Final No growth 11/08/18 17:25 Blood Blood Culture - Final No growth 11/08/18 22:50 Toe,Left Great Gram Stain - Final 11/08/18 22:50 Toe,Left Great Aerobic and Anaerobic Culture - Preliminary Escherichia coli Staphylococcus aureus Enterococcus faecalis Bacteroides fragilis 11/11/18 17:10 Urine,Clean Catch Urine Culture - Final No growth - less than 1,000 colonies/mL. 11/08/18 17:40 Foot Gram Stain - Final 11/08/18 17:40 Foot Wound Culture - Final Staphylococcus aureus Enterococcus faecalis (1) Osteomyelitis Laterality: left Osteomyelitis location: foot Osteomyelitis type: unspecified type Qualified Code(s): M86.9 - Osteomyelitis, unspecified
[2018-11-14] MEDS: DIGOXIN 0.125 MG TAB PO SCH (16:56)
[2018-11-14] MEDS ORDERED: DIGOXIN 0.125 MG TAB PO ONE (17:43)
--- NOTE | 2018-11-14 17:48 | Cardiology Progress Note ---
Date of Service November 14, 2018 Assessment & Plan (1) Atrial flutter with rapid ventricular response: He has been identified as having fibrillation and flutter (at times it looks very regular like atrial flutter but other times quite irregular like atrial fibrillation) but quite fast even on amiodarone drip. His symptoms are very difficult to sort out, he is not really having a lot of symptoms now and what he describes as "hyperventilating" which he relates to his heart and which has evidently occurred ever since his carotid surgery year and a half ago could be paroxysmal atrial arrhythmias. He is not a good anticoagulation candidate at the moment due to his recent surgery and need for further surgery. On the morning of November 10, 2018 we converted his rhythm, it took several tries to maintain sinus rhythm but even then he quickly reverted back to atrial fibrillation. On IV Cardizem and IV amiodarone we were able to control his rate well enough for him to go to surgery. After surgery with discontinuation of his amiodarone he remained in sinus rhythm overnight but this morning went back into atrial fibrillation or flutter, he continues to have these regular rates which might actually be some form of SVT. As a long-term consideration he should be on an anticoagulant, he was on warfarin past and that could be used or one of the newer agents. For now I would continue amiodarone to try to control his arrhythmia. I did add digoxin to his regimen (his level is 0.8 this morning) and he is no longer on diltiazem. I will give additional digoxin today. I am also going to add diltiazem as a low dosage orally tomorrow morning. Soon we may be able to transition his IV amiodarone to oral. 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 Although he has not had a myocardial infarction based on symptoms, echocardiography and electrocardiography I suspect he probably has coronary artery disease to some extent. At this point I do not think we need to do stress testing since he does not have symptoms, he should be on risk factor modification for his atherosclerosis. This would normally include high-dose statins and aspirin, neither of which he seems to be on. As far as I know he does not have intolerance to statins. I do not think these things need to be started now but perhaps shortly after surgery we should do so. Subjective From the cardiovascular standpoint he has been feeling well the last several days. He no longer has any sensation of his atrial arrhythmia. He is still awaiting his arteriogram. Physical Exam Physical Exam: Constitutional: Alert, cooperative and in no distress. Pulmonary: Clear to auscultation bilaterally. Cardiac: Irregular rapid rhythm with no murmur, gallop or rub. Abdomen: Soft, nontender with normal bowel sounds. Extremities: No edema. Left leg bandaged. Skin: No rash, ecchymoses or petechiae. Results & Data Vital Signs (Past 12 Hours) Vital Signs Temp Pulse Pulse Resp BP Pulse Ox 11/14/18 16:56 84 11/14/18 15:23 37.2 C 85 16 149/70 H 98 11/14/18 11:14 37.0 C 79 17 129/95 97 11/14/18 07:57 37.1 C 81 18 119/48 L 94 Diagnostic Findings Telemetry: Sinus rhythm and paroxysmal atrial fibrillation and probably flutter, rate much better controlled than before but still a little bit rapid at times. Digoxin level this morning 0.8
[2018-11-14] MEDS: SENNA 8.6 MG TAB PO SCH (20:35)
[2018-11-15] MEDS: HYDROmorphone INJ 0.5 MG/0.5 ML SYR IV PRN ×5 (03:45→20:59)
[2018-11-15] MEDS: HEPARIN SOD 5,000 UNIT/0.5 ML VIAL SQ SCH ×3 (05:42→20:24)
[2018-11-15 07:28] LABS: Hematocrit (blood only) 28.3 % (42-52); Hemoglobin 9.4 g/dL (14.0-18.0); Mean Corpuscular Hgb Conc 33.2 g/dL (32-36); Mean Corpuscular Volume 85.2 fL (80-100); Platelet Count 377 K/uL (130-400); Red Blood Count 3.32 M/uL (4.7-6.1)
[2018-11-15] MEDS: SACCHAROMYCES BOULARDII 250 MG CAP PO SCH (08:18)
[2018-11-15] MEDS: DOCUSATE SODIUM 100 MG CAP PO SCH ×2 (08:18→20:23)
[2018-11-15] MEDS: MULTIVITAMIN TAB PO SCH (08:19)
[2018-11-15] MEDS: INSULIN ASPART 100 UNITS/ML 3 ML PEN SC SCH ×4 (08:25→20:22)
[2018-11-15] MEDS: INSULIN GLARGINE SOLOSTAR 100 UNITS/ML 3 ML PEN SC SCH ×2 (08:26→20:23)
--- NOTE | 2018-11-15 08:26 | Cardiology Progress Note ---
Date of Service November 15, 2018 Assessment & Plan (1) Atrial flutter with rapid ventricular response: He has been identified as having fibrillation and flutter (at times it looks very regular like atrial flutter but other times quite irregular like atrial fibrillation) but quite fast even on amiodarone drip. His symptoms are very difficult to sort out, he is not really having a lot of symptoms now and what he describes as "hyperventilating" which he relates to his heart and which has evidently occurred ever since his carotid surgery year and a half ago could be paroxysmal atrial arrhythmias. He is not a good anticoagulation candidate at the moment due to his recent surgery and need for further surgery. On the morning of November 10, 2018 we converted his rhythm, it took several tries to maintain sinus rhythm but even then he quickly reverted back to atrial fibrillation. On IV Cardizem and IV amiodarone we were able to control his rate well enough for him to go to surgery. After surgery with discontinuation of his amiodarone he remained in sinus rhythm overnight but this morning went back into atrial fibrillation or flutter, he continues to have these regular rates which might actually be some form of SVT. As a long-term consideration he should be on an anticoagulant, he was on warfarin past and that could be used or one of the newer agents. For now I would continue amiodarone to try to control his arrhythmia, however I would like to convert him to oral. I am going to start 200 mg twice daily today and overlap with intravenous until tomorrow. I did add digoxin to his regimen (his level is 0.8 on his current dose) and I started oral diltiazem this morning. 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 Although he has not had a myocardial infarction based on symptoms, echocardiography and electrocardiography I suspect he probably has coronary artery disease to some extent. At this point I do not think we need to do stress testing since he does not have symptoms, he should be on risk factor modification for his atherosclerosis. This would normally include high-dose statins and aspirin, neither of which he seems to be on. As far as I know he does not have intolerance to statins. I do not think these things need to be started now but perhaps shortly after surgery we should do so. Subjective He is feeling quite well, he has no cardiovascular complaints. No palpitations or chest discomfort. Physical Exam Physical Exam: Constitutional: Alert, cooperative and in no distress. Pulmonary: Clear to auscultation bilaterally. Cardiac: Irregular rapid rhythm with no murmur, gallop or rub. Abdomen: Soft, nontender with normal bowel sounds. Extremities: No edema. Left leg bandaged. Skin: No rash, ecchymoses or petechiae. Results & Data Vital Signs (Past 12 Hours) Vital Signs Temp Pulse Resp BP Pulse Ox 11/15/18 07:14 37 C 72 18 139/80 95 11/15/18 03:36 37.2 C 73 20 142/73 H 96 11/14/18 23:42 37.2 C 80 20 150/74 H 96 Diagnostic Findings Telemetry: His rhythm has been stable for about 48 hours, he has been in sinus rhythm. Rate controlled.
[2018-11-15] MEDS: POLYETHYLENE (MIRALAX) 17 GM PACK PO SCH ×2 (08:27→20:23)
[2018-11-15] MEDS: PIPERACILLIN/TAZOBACTAM 3.375 GM in DEXTROSE 5% 100 ML IV SCH ×3 (08:41→23:45)
[2018-11-15] MEDS: dilTIAZem HCL 120 MG CAPCR PO SCH (08:41)
--- NOTE | 2018-11-15 10:19 | Surgery Progress Note ---
Date of Service November 15, 2018 Assessment & Plan (1) Peripheral arterial disease: Pt with PAD and poorly healing surgical wound. Unfortunately, Dr Miller will be unable to perform pt's procedure in near future, so consult placed to Dr Feliciano Guillen for possible LLE angio this week. Discussed with Dr Guillen, he will see pt later today. Also discussed with Dr Klein and pt. Please call if needed. Subjective 78 yo m with multiple medical problems, admitted with severe L foot gangrene, seen in f/u today regarding LLE PAD. Pt underwent LLE great toe TMA and debridement by ortho last week, and poor bleeding was noted. Poor healing has been noted since. Pt also with new onset a fib with RVR, currently under control with meds. Plan was for LLE angio yesterday by Dr Miller, however, this was cx d/t Dr Miller having a medical emergency. Pt denies any new complaints today. Review of Systems Integumentary: + non-healing lesions (L great toe) and + change in skin color (l great toe); no rash Neurologic: + numbness; no localized weakness, no generalized weakness, no paralysis, no tingling, no paresthesia, no syncope, no headache(s) and no confusion Psychiatric: as per Subjective / HPI Physical Exam Constitutional: WD/WN, vitals as above Cardiovascular: Vessels: femoral pulses present, posterior tibial pulses present (unable to palpate LLE d/t dressing), dorsalis pedis pulses present (unable to palpate LLE d/t dressings), brachial pulses present and radial pulses present; no carotid bruit, no femoral bruit and + abnormal peripheral pulses Extremities: + abnormal capillary refill (delayed to LLE toes) and no pedal edema Musculoskeletal: Extremities: + limited ROM of extremities (L toes) and + amputation noted (L great toe) Skin: + wound (L foot) Psychiatric: Orientation: alert, oriented x 3 and cooperative Results & Data Vital Signs (Past 12 Hours) Vital Signs Temp Pulse Resp BP Pulse Ox 11/15/18 07:14 37 C 72 18 139/80 95 11/15/18 03:36 37.2 C 73 20 142/73 H 96 11/14/18 23:42 37.2 C 80 20 150/74 H 96
[2018-11-15] MEDS: AMIODARONE / D5W 360 MG/200 ML BAG IV SCH ×2 (10:57→20:58)
[2018-11-15] MEDS: AMIODARONE 200 MG TAB PO SCH ×2 (10:59→20:23)
--- NOTE | 2018-11-15 11:29 | Infectious Disease Progress Nt ---
Date of Service November 15, 2018 Assessment & Plan (1) Gangrene of left foot: would continue with zosyn for now. can consider po options upon d/c but somewhat limited with on amiodarone due to ddi, would give 21 post op total. blood cultures negative (2) Osteomyelitis: Subjective remains on zosyn, tolerating well. afebrile. remains on amio, converting to po for afib with rvr. wbc 10 today. awating angiogram. no new micro to review. Results & Data Vital Signs (Past 12 Hours) Vital Signs Temp Pulse Pulse Resp BP Pulse Ox 11/15/18 10:35 37.1 C 82 14 121/72 96 11/15/18 10:00 75 11/15/18 07:14 37 C 72 18 139/80 95 11/15/18 03:36 37.2 C 73 20 142/73 H 96 11/14/18 23:42 37.2 C 80 20 150/74 H 96 Laboratory Results Microbiology 11/08/18 22:50 Toe,Left Great Gram Stain - Final 11/08/18 22:50 Toe,Left Great Aerobic and Anaerobic Culture - Final Escherichia coli Staphylococcus aureus Enterococcus faecalis Bacteroides fragilis 11/08/18 17:32 Blood Blood Culture - Final No growth 11/08/18 17:25 Blood Blood Culture - Final No growth 11/11/18 17:10 Urine,Clean Catch Urine Culture - Final No growth - less than 1,000 colonies/mL. 11/08/18 17:40 Foot Gram Stain - Final 11/08/18 17:40 Foot Wound Culture - Final Staphylococcus aureus Enterococcus faecalis (1) Osteomyelitis Laterality: left Osteomyelitis location: foot Osteomyelitis type: unspecified type Qualified Code(s): M86.9 - Osteomyelitis, unspecified
--- NOTE | 2018-11-15 12:56 | Hospitalist Progress Note ---
Date of Service November 15, 2018 Assessment & Plan (1) Gangrene of left foot: left great toe s/p amputation by Dr Mirza - 11/08 s/p TMA of left 2nd digit -11/10 - also by Dr. Mirza. Culture results - MSSA, pansensitive enterococcus, bacteroides, pansensitive e.coli. d/c daptomycin since no MRSA. d/c clindamycin. Continue zosyn - will cover above pathogens including anaerobes. Defer final abx selection to ID Vascular to perform arteriogram however this is been postponed, will be eval uated by interventional cardiology, patient remains in sinus rhythm in addition to amiodarone p.o. by elective physiology Appreciate ortho/vascular/ID consults and recs. (2) Atrial flutter with rapid ventricular response: Had been difficult to control despite AV didi agents, did have cardioversion, and amiodarone. Has converted to sinus rhythm Remains on amiodarone, cardizem, and digoxin. Dr Page's is following converting amiodarone to oral medication on 11/15 (3) Atrial fibrillation with rapid ventricular response: continue amiodarone, cardizem and digoxin. ultimately will need anticoagulation following all of his procedures. fortunately echo shows preserved EF and no significant valvular disease remains compensated from volume standpoint (4) Peripheral arterial disease: Left leg - PAD inferior to the popliteal artery. Guillen now evaluating for arteriogram possible intervention initiate statin and aspirin (5) Sepsis: 2nd to gangrene of left great toe s/p amputation. Blood cx's negative. sepsis resolved. Patient remains on Zosyn (6) Osteomyelitis: Left great toe s/p amputation. See above. (7) Diabetes mellitus type 2, uncontrolled: basal bolus insulin with adjustment (8) Hypokalemia: replete and follow (9) Other symptoms involving respiratory system and chest: Patient refers to numerous episodes at home of vague chest discomfort, legs giving way, and occasional left arm pain. He "hyperventilates" with these spells. Difficult to say if these symptoms are from rapid a.fib/flutter or ischemic, however cardiology feels no need to puruse in patient stress testing but will have outpt event monitoring Echo w/o wall motion abnormalities. However, in light of carotid disease, PAD of legs, uncontrolled T2DM - recommend statin/asa (10) DVT prophylaxis: heparin SC q8h. Subjective Patient is without distress she is being converted from intravenous amiodarone to oral amiodarone by electrophysiology. Because of the illness of the vascular surgeon peripheral study may be considered to be done by her kaitara taraka. Dr. Guillen will evaluate the patient's afternoon to evaluate whether he is a candidate for his skill set. Otherwise we will transition to amiodarone p.o. the patient is currently in sinus rhythm he will need rehabilitation after his medical stay is done due to his need for wound care and his gait disturbance created by his amputations Review of Systems Review of Systems: ROS: well nourished well developed. No double vision blurry vision No problems with speech or swallowing No palpitations, chest pain or pressure No Wheezing or breathing issues No abdominal pain nausea vomiting diarrhea changes in appetite or weight No burning urine urine frequency or changes in color Due to his neuropathy he has no foot pain however he does have some change in his gait given the fact that he had 2 toes emptied off of his foot No skin rashes or oral lesions No new bruising or bleeding No focused back pain, no change in his diabetic numbness or loss of strength No changes in memory or confusion Physical Exam Physical Exam: The patient appeared well nourished and normally developed. Vital signs as documented. Head exam is unremarkable. normocephalic, atraumatic Neck is without jugular venous distension, thyromegaly, or lymphademopathy Lungs are clear to auscultation and percussion. Cardiac exam reveals Rhythm is regular. First and second heart sounds normal. Abdominal exam reveals normal bowel sounds, no masses, no organomegaly Extremities are nonedematous left foot is a bandage in place capillary refill is diminished Neurologic exam is A&Ox3, peripheral neuropathy from diabetes is present, strength is equal bilateral Psychologically seems neither anxious or depressed Skin is warm Dry Results & Data Vital Signs (Past 12 Hours) Vital Signs Temp Pulse Pulse Resp BP Pulse Ox 11/15/18 10:35 37.1 C 82 14 121/72 96 11/15/18 10:00 75 11/15/18 07:14 37 C 72 18 139/80 95 11/15/18 03:36 37.2 C 73 20 142/73 H 96 (1) Diabetes mellitus type 2, uncontrolled Glycemic state: with hyperglycemia Qualified Code(s): E11.65 - Type 2 diabete s mellitus with hyperglycemia (2) Sepsis Sepsis type: sepsis due to unspecified organism Qualified Code(s): A41.9 - Sepsis, unspecified organism (3) Osteomyelitis Laterality: left Osteomyelitis location: foot Osteomyelitis type: unspecified type Qualified Code(s): M86.9 - Osteomyelitis, unspecified
--- NOTE | 2018-11-15 17:28 | Cardiology Consultation ---
Date of Consultation November 15, 2018 Assessment & Plan (1) Peripheral arterial disease: 2. LLE gangrene/osteomyelitis 3. PAF with RVR 4. Poorly controlled type 2 DM Reviewed patient's LE arterial duplex remarkable for severe occlusive tibial vessel disease. Discussed LE angiogram and possible endovascular intervention with patient along with risks, benefits and alternatives. Patient willing to proceed and procedure to be scheduled for tomorrow AM. History of Present Illness Attending Physician: Graham Klein MD History of Present Illness Interventional Cardiology asked to see patient for consideration of bilateral LE angiogram. Mr. Jacobo is a 78 year old man with a history of type 2 DM on insulin admitted with LT great toe gas green/osteomyelitis and sepsis. He underwent partial great toe amputation on 11/08/2018 and later I/D + 2nd transmetatarsal amputation on 11/10/2018. Wound cultures growing staph aureus, enterococcus, bacteroides and EColi and on zosyn per ID. Underwent LE arterial duplex on 11/09 which showed R CHELI 1.1, L 0.9 and severe bilateral tibial artery disease. Hospital course complicated by AF+RVR and underwent cardioversion on 11/10. Was scheduled to undergo angiogram with Dr. Miller on 11/11 but procedure canceled when found to be in AF+RVR again. He is now on IV amiodarone being transitioned to PO along with digoxin, diltiazem and in NSR.. Today patient feeling well. Denies significant pain at foot. No prior claudication symptoms or ulcerations prior to 3 weeks ago. No prior vascular procedures. Allergies Allergy/AdvReac Type Severity Reaction Status Date / Time No Known Allergies Allergy Verified 11/08/18 17:32 Home Medications Home Medications Medication Instructions Recorded Confirmed Type acetaminophen [Tylenol Extra 500 - 1,000 mg PO DIRECTED PRN 11/08/18 11/08/18 History Strength] ibuprofen [Advil] 200 - 400 mg PO DIRECTED PRN 11/08/18 11/08/18 History insulin aspart U-100 [Novolog 10 - 12 unit SUBCUT TIDM 11/08/18 11/08/18 History U-100 Insulin aspart] insulin glargine [Lantus U-100 22 unit SUBCUT HS 11/08/18 11/08/18 History Insulin] Patient History Medical History Gangrene of left foot (Acute) Cellulitis of left foot (Acute) Sepsis (Acute) Osteomyelitis (Acute) Diabetes (Chronic) Poorly controlled. Atrial flutter with RVR. Requiring cardioversion Ingrown nail PVD (peripheral vascular disease) Surgical History S/P carotid endarterectomy 2016 H/O lumbar discectomy S/P knee surgery Right knee History of cardioversion 11/10/18x 3. Pt back in AFib and on cardizem drip Status post amputation of left great toe 11/08/18 under GETA. Mac 3, gr I Family History Other Coronary heart disease Diabetes Social History Preferred Language: Qatari Communication Ability: Effective Beliefs That Will Affect Care: Taoism Taoism Beliefs: church marital status: Current Living Situation: Alone current occupational status: retired Other Information That Helps Us Care for You: No Feels Safe at Home: Yes Safety Concerns: Feels Safe At This Time Smoking Status: Never smoker Do You Dip or Chew Tobacco: No Hx Alcohol Use: No Hx Substance Use: No Review of Systems Review of Systems: All systems reviewed & are unremarkable except as noted in HPI & below Physical Exam 2 Physical Exam: General: Comfortable, no acute distress Eyes: Sclerae anicteric, extraocular movements intact HENT: Oropharynx clear mucous membranes moist Neck: Normal carotid upstrokes, no bruits. No JVD. Lungs: Clear to auscultation bilaterally, no rhonchi or wheezes Cardiac: Regular rate and rhythm, no murmurs, rubs or gallops. Abdomen: Soft, nontender, nondistended, positive bowel sounds. Neuro: Nonfocal Psych: Alert orient x3, normal affect and mood Extremities/Vascular: -- 2+ radial bilaterally -- Non-palpable DP/PT pulses -- LLE dressing intact C/D/I Results & Data Vital Signs (Past 12 Hours) Vital Signs Temp Pulse Pulse Resp BP Pulse Ox 11/15/18 15:05 37.1 C 74 20 108/56 L 96 11/15/18 10:35 37.1 C 82 14 121/72 96 11/15/18 10:00 75 11/15/18 07:14 37 C 72 18 139/80 95
[2018-11-15] MEDS: DIGOXIN 0.125 MG TAB PO SCH (17:44)
[2018-11-15] MEDS: SENNA 8.6 MG TAB PO SCH (20:23)
[2018-11-16] MEDS: HYDROmorphone INJ 0.5 MG/0.5 ML SYR IV PRN ×4 (01:20→19:29)
[2018-11-16] MEDS: HEPARIN SOD 5,000 UNIT/0.5 ML VIAL SQ SCH ×3 (05:49→20:34)
[2018-11-16] MEDS: INSULIN ASPART 100 UNITS/ML 3 ML PEN SC SCH ×4 (07:19→20:32)
--- NOTE | 2018-11-16 07:58 | Cardiology Progress Note ---
Date of Service November 16, 2018 Assessment & Plan (1) Peripheral arterial disease: 2. LLE gangrene/osteomyelitis 3. PAF with RVR 4. Poorly controlled type 2 DM Proceed with BLE angiogram. Subjective Feeling well. In sinus rhythm. LE pain controlled. Review of Systems Review of Systems: All systems reviewed & are unremarkable except as noted in HPI & below Physical Exam Constitutional: WD/WN, vitals as above Eyes: + anicteric sclerae Respiratory: normal respiratory effort, lungs clear to auscultation Cardiovascular: Rate/Rhythm: regular rate Heart Sounds: no murmur Gastrointestinal (Abdomen): Percussion/Palpation: abdomen soft; abdomen nontender Skin: no rashes, warm and dry Neurologic: no focal motor deficits Psychiatric: A+Ox3, euthymic affect Results & Data Vital Signs (Past 12 Hours) Vital Signs Temp Pulse Pulse Resp BP BP Pulse Ox 11/16/18 07:38 37.0 C 76 18 168/71 H 95 11/16/18 06:48 37 C 60 18 142/71 H 96 11/16/18 03:52 37.1 C 66 18 138/73 95 11/15/18 23:32 37.1 C 74 22 166/74 H 98
--- NOTE | 2018-11-16 07:59 | Pre Anesthesia Assessment ---
Date of Service November 16, 2018 Pre Sedation Assessment Vital Signs Temp Pulse Pulse Pulse Resp BP BP 11/16/18 07:38 37.0 C 76 18 168/71 H 11/16/18 06:48 37 C 60 18 142/71 H 11/16/18 03:52 37.1 C 66 18 138/73 11/15/18 23:32 37.1 C 74 22 166/74 H 11/15/18 19:11 36.6 C 71 16 115/54 L 11/15/18 16:00 79 11/15/18 15:05 37.1 C 74 20 108/56 L 11/15/18 10:35 37.1 C 82 14 121/72 11/15/18 10:00 75 Pulse Ox 11/16/18 07:38 95 11/16/18 06:48 96 11/16/18 03:52 95 11/15/18 23:32 98 11/15/18 19:11 93 11/15/18 16:00 11/15/18 15:05 96 11/15/18 10:35 96 11/15/18 10:00 Cardiovascular RRR, no murmur, no edema Respiratory normal respiratory effort, lungs clear to auscultation Pre-Sedation Airway Assessment Smoking Status: Never smoker Hx Sleep Apnea: No Hx Difficult Intubation: No Short, Thick Neck: No Thyromental Distance: > or= 3.5 Finger Breadths Oral Cavity: + Dentures Mallampati Class: I ASA: ASA3 NPO Status Date of Last Intake of Fluids: 11/15/18 Time of Last Intake of Fluids: 21:00 Date of Last Intake of Solid Food: 11/15/18 Time of Last Intake of Solid Foods: 21:00 Procedure Planning Contraindications for Sedation: none Current Medications Reviewed: Yes Notes The planned sedation has been discussed with the patient. Informed Consent was obtained. I have identified the patient, determined the appropriateness of sedation and have assessed the patient immediately prior to the procedure. All medicine(s) and interventions are by my order.
[2018-11-16] MEDS ORDERED: fentaNYL citrate 100 MCG/2 ML VIAL ONE (08:56)
[2018-11-16] MEDS ORDERED: MIDAZOLAM HCL 1 MG/ML 2ML VIAL ONE ×2 (08:56→10:16)
[2018-11-16] MEDS ORDERED: HEPARIN SOD (PORCINE) 1000 UNIT/ML 10 ML VIAL ONE (08:56)
[2018-11-16] MEDS ORDERED: NITROGLYCERIN/D5W 100MCG/ML 20ML SYR ONE (10:10)
[2018-11-16] MEDS ORDERED: NITROGLYCERIN/D5W 100MCG/ML 20ML SYR IART ONE (10:53)
[2018-11-16] MEDS ORDERED: LIDOCAINE HCL 1% 20 ML VIAL INJ ONE (10:53)
[2018-11-16] MEDS ORDERED: VISIPAQUE IV PRN (10:53)
--- NOTE | 2018-11-16 10:55 | Post Anesthesia Assessment ---
Date of Service November 16, 2018 Post Sedation Assessment Vital Signs Temp Pulse Pulse Pulse Resp BP BP 11/16/18 10:27 65 16 122/63 11/16/18 10:22 63 16 134/66 11/16/18 10:17 67 16 137/73 11/16/18 10:12 67 16 160/79 H 11/16/18 10:07 66 16 161/81 H 11/16/18 10:02 68 16 160/78 H 11/16/18 09:57 60 18 130/76 11/16/18 09:52 61 15 136/82 11/16/18 09:47 62 15 136/74 11/16/18 09:42 63 16 137/71 11/16/18 09:37 65 16 144/70 H 11/16/18 09:32 65 17 138/74 11/16/18 09:27 66 15 142/70 H 11/16/18 09:22 66 15 133/67 11/16/18 09:17 67 17 155/82 H 11/16/18 09:12 69 16 144/78 H 11/16/18 09:07 67 16 144/74 H 11/16/18 09:02 70 16 156/75 H 11/16/18 08:57 69 17 157/80 H 11/16/18 08:52 70 17 169/85 H 11/16/18 08:47 72 17 162/89 H 11/16/18 08:13 74 18 173/81 H 11/16/18 07:38 37.0 C 76 18 168/71 H 11/16/18 06:48 37 C 60 18 142/71 H 11/16/18 03:52 37.1 C 66 18 138/73 11/15/18 23:32 37.1 C 74 22 166/74 H 11/15/18 19:11 36.6 C 71 16 115/54 L 11/15/18 16:00 79 11/15/18 15:05 37.1 C 74 20 108/56 L Pulse Ox 11/16/18 10:27 98 11/16/18 10:22 98 11/16/18 10:17 98 11/16/18 10:12 99 11/16/18 10:07 98 11/16/18 10:02 99 11/16/18 09:57 99 11/16/18 09:52 99 11/16/18 09:47 99 11/16/18 09:42 98 11/16/18 09:37 99 11/16/18 09:32 98 11/16/18 09:27 98 11/16/18 09:22 98 11/16/18 09:17 97 11/16/18 09:12 97 11/16/18 09:07 98 11/16/18 09:02 100 11/16/18 08:57 99 11/16/18 08:52 98 11/16/18 08:47 100 11/16/18 08:13 100 11/16/18 07:38 95 11/16/18 06:48 96 11/16/18 03:52 95 11/15/18 23:32 98 11/15/18 19:11 93 11/15/18 16:00 11/15/18 15:05 96 Recovery Score Activity: Moves 4 extremities Respiration: Deep Breath/Cough Circulation: +/-20% PreAnes Value Consciousness: Arouseable (by name) Oxygen Saturation: > 92% On Room Air Post Anesthesia Score: 9 Discharge Sedation Level of Care: Fast Track Phase II Post Sedation Plan On clinical assessment, the patient appears to have tolerated the sedation without complications. Patient is recovering as anticipated. Patient will continue to be monitored by nursing and may be discharged when sedation discharge criteria are met per below protocol. Upon Completions of procedure and additional 15 minutes continue every 5 minute vital signs and the P.A.R. score; then discharge to a Phase I or Fast Track to Phase II per the following guidelines: * Discharge Patient to appropriate Phase II area if PAR is 8 or greater or return to pre- procedure baseline. The post - procedure orders will be as directed. * If PAR score is less than 8 or not return to pre-procedure baseline then patient will follow Phase I monitoring till PAR is reached for Phase II. The Phase I may be done in procedure room or may call to secure a Phase I area. * �If naloxone or flumazenil are used for reversal, hold in Phase I for continued monitoring from when last reversal dose was given for a minimum of 60 minutes or longer pending the nurse and/or physician discretion of patient condition before discharge to Phase II.� Please call the Sedation Physician to re-evaluate and complete post-note for discharge to Phase II area. Do NOT discharge from procedure sedation or Phase 1 until post- sedation evaluation note is complete by procedure /sedation MD Sedation Discharge Instructions to be given to the patient at discharge to home.
--- NOTE | 2018-11-16 10:58 | Post Operative Brief Note ---
Immediate Post Op Note v1 Date of Surgery November 16, 2018 Pre & Post Diagnosis Operation Date: 11/16/18 08:00 Pre-Op Diagnosis: Peripheral Artery Disease Post-Op Diagnosis: Peripheral Artery Disease Procedure Operation Date: 11/16/18 08:00 Actual Procedures p Bilateral Lower Extremity Angiogram, Percutaneous Transluminal Angioplasty Left Perineal Artery, Mechanical Closure Right Femoral Artery, Moderate Concious Sedation 0847 to(Right) - Hakan Guillen MD Summary: 1. Severe bilateral tibial artery disease. - LT proximal VEENA occluded - LT proximal PNEUMATIC PRESS HAND occluded - LT Peroneal patent to foot with sequential 95% stenosis in mid to distal segments. - Peroneal provides collaterals to distal PNEUMATIC PRESS HAND. Distal PNEUMATIC PRESS HAND patent into foot and gives of patent medial and lateral plantar arteries which extent to forefoot. 2. Successful PNEUMATIC PRESS HAND of peroneal artery with 2.0 and 2.5 balloons. Surgeon Feliciano Guillen MD Inspector Repairer lorrie marinelli Estimated Blood Loss 20 Findings Consistent with Post-Op Diagnosis Specimens left second toe Drains Hemovac Drain Anesthesia Type General
[2018-11-16] MEDS ORDERED: ONDANSETRON INJ 2 MG/ML 2 ML VIAL IV PRN (11:05)
[2018-11-16] MEDS ORDERED: SODIUM CHLORIDE 0.9% 1000ML 1,000 ML IV SCH (11:15)
--- NOTE | 2018-11-16 11:29 | Infectious Disease Progress Nt ---
Date of Service November 16, 2018 Assessment & Plan (1) Gangrene of left foot: would continue with zosyn for now. can consider po options upon d/c but somewhat limited with on amiodarone due to ddi, would give 21 post op total. blood cultures negative (2) Osteomyelitis: Subjective continues on zoysn, po amio, now in sinus. afebrile. no new cultures, awaiting angiogram. Results & Data Vital Signs (Past 12 Hours) Vital Signs Temp Pulse Pulse Pulse Resp BP BP 11/16/18 11:26 60 16 126/60 11/16/18 11:05 36.5 C 61 16 127/87 11/16/18 10:59 64 16 138/74 11/16/18 10:54 65 16 136/70 11/16/18 10:52 65 16 136/70 11/16/18 10:47 68 16 153/77 H 11/16/18 10:42 65 16 137/69 11/16/18 10:37 94 H 16 116/65 11/16/18 10:32 63 14 109/67 11/16/18 10:27 65 16 122/63 11/16/18 10:22 63 16 134/66 11/16/18 10:17 67 16 137/73 11/16/18 10:12 67 16 160/79 H 11/16/18 10:07 66 16 161/81 H 11/16/18 10:02 68 16 160/78 H 11/16/18 09:57 60 18 130/76 11/16/18 09:52 61 15 136/82 11/16/18 09:47 62 15 136/74 11/16/18 09:42 63 16 137/71 11/16/18 09:37 65 16 144/70 H 11/16/18 09:32 65 17 138/74 11/16/18 09:27 66 15 142/70 H 11/16/18 09:22 66 15 133/67 11/16/18 09:17 67 17 155/82 H 11/16/18 09:12 69 16 144/78 H 11/16/18 09:07 67 16 144/74 H 11/16/18 09:02 70 16 156/75 H 11/16/18 08:57 69 17 157/80 H 11/16/18 08:52 70 17 169/85 H 05/15/19 08:47 72 17 162/89 H 11/16/18 08:13 74 18 173/81 H 11/16/18 07:38 37.0 C 76 18 168/71 H 11/16/18 06:48 37 C 60 18 142/71 H 11/16/18 03:52 37.1 C 66 18 138/73 11/15/18 23:32 37.1 C 74 22 166/74 H Pulse Ox 11/16/18 11:26 93 11/16/18 11:05 11/16/18 10:59 95 11/16/18 10:54 94 11/16/18 10:52 94 11/16/18 10:47 95 11/16/18 10:42 96 11/16/18 10:37 97 11/16/18 10:32 98 11/16/18 10:27 98 11/16/18 10:22 98 11/16/18 10:17 98 11/16/18 10:12 99 11/16/18 10:07 98 11/16/18 10:02 99 11/16/18 09:57 99 11/16/18 09:52 99 11/16/18 09:47 99 11/16/18 09:42 98 11/16/18 09:37 99 11/16/18 09:32 98 11/16/18 09:27 98 11/16/18 09:22 98 11/16/18 09:17 97 11/16/18 09:12 97 11/16/18 09:07 98 11/16/18 09:02 100 11/16/18 08:57 99 11/16/18 08:52 98 11/16/18 08:47 100 11/16/18 08:13 100 11/16/18 07:38 95 11/16/18 06:48 96 11/16/18 03:52 95 11/15/18 23:32 98 Laboratory Results Microbiology 11/08/18 22:50 Toe,Left Great Gram Stain - Final 11/08/18 22:50 Toe,Left Great Aerobic and Anaerobic Culture - Final Escherichia coli Staphylococcus aureus Enterococcus faecalis Bacteroides fragilis 11/08/18 17:32 Blood Blood Culture - Final No growth 11/08/18 17:25 Blood Blood Culture - Final No growth 11/11/18 17:10 Urine,Clean Catch Urine Culture - Final No growth - less than 1,000 colonies/mL. 11/08/18 17:40 Foot Gram Stain - Final 11/08/18 17:40 Foot Wound Culture - Final Staphylococcus aureus Enterococcus faecalis (1) Osteomyelitis Laterality: left Osteomyelitis location: foot Osteomyelitis type: unspecified type Qualified Code(s): M86.9 - Osteomyelitis, unspecified
[2018-11-16] MEDS: DOCUSATE SODIUM 100 MG CAP PO SCH ×2 (13:26→20:33)
[2018-11-16] MEDS: AMIODARONE 200 MG TAB PO SCH ×2 (13:26→20:33)
[2018-11-16] MEDS: MULTIVITAMIN TAB PO SCH (13:26)
[2018-11-16] MEDS: SACCHAROMYCES BOULARDII 250 MG CAP PO SCH (13:27)
[2018-11-16] MEDS: dilTIAZem HCL 120 MG CAPCR PO SCH (13:27)
[2018-11-16] MEDS: INSULIN GLARGINE SOLOSTAR 100 UNITS/ML 3 ML PEN SC SCH ×2 (13:29→20:33)
[2018-11-16] MEDS: POLYETHYLENE (MIRALAX) 17 GM PACK PO SCH ×2 (13:34→20:34)
[2018-11-16] MEDS: PIPERACILLIN/TAZOBACTAM 3.375 GM in DEXTROSE 5% 100 ML IV SCH ×2 (14:18→17:02)
--- NOTE | 2018-11-16 15:50 | Hospitalist Progress Note ---
Date of Service November 16, 2018 Assessment & Plan (1) Gangrene of left foot: left great toe s/p amputation by Dr Mirza - 11/08 s/p TMA of left 2nd digit -11/10 - also by Dr. Mirza. Culture results - MSSA, pansensitive enterococcus, bacteroides, pansensitive e.coli. d/c daptomycin since no MRSA. d/c clindamycin. Continue zosyn - will cover above pathogens including anaerobes. Defer final abx selection to ID Her tibial artery angioplasty was performed on 11/16 with good results to improve blood flow to his left foot with Dr. Feliciano Guillen Appreciate ortho/vascular/ID consults and recs. (2) Atrial flutter with rapid ventricular response: Had been difficult to control despite AV didi agents, did have cardioversion, and amiodarone. Mainly is in and out of sinus rhythm Remains on amiodarone, cardizem, and digoxin. Dr Page's is following converting amiodarone to oral medication on 11/15 (3) Atrial fibrillation with rapid ventricular response: continue amiodarone, cardizem and digoxin. ultimately will need anticoagulation look to start anticoagulation on the morning of 11/17 fortunately echo shows preserved EF and no significant valvular disease remains compensated from volume standpoint (4) Peripheral arterial disease: Left leg - PAD inferior to the popliteal artery angioplasty left posterior tibial artery. initiate statin and aspirin (5) Sepsis: 2nd to gangrene of left great toe s/p amputation. Blood cx's negative. sepsis resolved. Patient remains on Zosyn (6) Osteomyelitis: Left great toe s/p amputation. See above. (7) Diabetes mellitus type 2, uncontrolled: basal bolus insulin with adjustment (8) Hypokalemia: replete and follow (9) Other symptoms involving respiratory system and chest: Patient refers to numerous episodes at home of vague chest discomfort, legs giving way, and occasional left arm pain. He "hyperventilates" with these spells. Difficult to say if these symptoms are from rapid a.fib/flutter or ischemic, however cardiology feels no need to puruse in patient stress testing but will have outpt event monitoring Echo w/o wall motion abnormalities. However, in light of carotid disease, PAD of legs, uncontrolled T2DM - recommend statin/asa (10) DVT prophylaxis: Subjective Patient was seen post procedure he still somewhat sedated complaining of pain in his left groin access site and he says it was a painful procedure at all however it was a successful procedure procedure as they did do a balloon angio plasty of his left posterior tibial artery to improve blood flow to his foot Review of Systems Review of Systems: ROS: well nourished well developed. No double vision blurry vision No problems with speech or swallowing No palpitations, chest pain or pressure No Wheezing or breathing issues No abdominal pain nausea vomiting diarrhea changes in appetite or weight No burning urine urine frequency or changes in color Has some pain in his left leg and left foot No skin rashes or oral lesions with only small drop of blood on it No unusual bruising or bleeding No focused back pain has peripheral neuropathy baseline but no loss of strength No changes in memory or confusion Physical Exam Physical Exam: The patient appeared well nourished and normally developed. Vital signs as documented. Head exam is unremarkable. normocephalic, atraumatic Neck is without jugular venous distension, thyromegaly, or lymphademopathy Lungs are clear to auscultation and percussion. Cardiac exam reveals Rhythm is regular. He is transitioning from amiodarone IV to amiodarone p.o. Abdominal exam reveals normal bowel sounds, no masses, no organomegaly Extremities bandages on his left foot he is also bandage of his right groin Neurologic exam is A&Ox3, distal peripheral neuropathy, strength is equal bilateral Psychologically seems neither anxious or depressed Skin is warm / Dry Results & Data Vital Signs (Past 12 Hours) Vital Signs Temp Pulse Pulse Pulse Resp BP BP 11/16/18 15:16 36.7 C 66 18 123/57 L 11/16/18 13:21 36.5 C 66 16 158/67 H 11/16/18 11:26 60 16 126/60 11/16/18 11:05 36.5 C 61 16 127/87 11/16/18 10:59 64 16 138/74 11/16/18 10:54 65 16 136/70 11/16/18 10:52 65 16 136/70 11/16/18 10:47 68 16 153/77 H 11/16/18 10:42 65 16 137/69 11/16/18 10:37 94 H 16 116/65 11/16/18 10:32 63 14 109/67 11/16/18 10:27 65 16 122/63 11/16/18 10:22 63 16 134/66 11/16/18 10:17 67 16 137/73 11/16/18 10:12 67 16 160/79 H 11/16/18 10:07 66 16 161/81 H 11/16/18 10:02 68 16 160/78 H 11/16/18 09:57 60 18 130/76 11/16/18 09:52 61 15 136/82 11/16/18 09:47 62 15 136/74 11/16/18 09:42 63 16 137/71 11/16/18 09:37 65 16 144/70 H 11/16/18 09:32 65 17 138/74 11/16/18 09:27 66 15 142/70 H 11/16/18 09:22 66 15 133/67 11/16/18 09:17 67 17 155/82 H 11/16/18 09:12 69 16 144/78 H 11/16/18 09:07 67 16 144/74 H 11/16/18 09:02 70 16 156/75 H 11/16/18 08:57 69 17 157/80 H 11/16/18 08:52 70 17 169/85 H 11/16/18 08:47 72 17 162/89 H 11/16/18 08:13 74 18 173/81 H 11/16/18 08:00 66 11/16/18 07:38 37.0 C 76 18 168/71 H 11/16/18 06:48 37 C 60 18 142/71 H 11/16/18 03:52 37.1 C 66 18 138/73 Pulse Ox 11/16/18 15:16 94 11/16/18 13:21 98 11/16/18 11:26 93 11/16/18 11:05 11/16/18 10:59 95 11/16/18 10:54 94 11/16/18 10:52 94 11/16/18 10:47 95 11/16/18 10:42 96 11/16/18 10:37 97 11/16/18 10:32 98 11/16/18 10:27 98 11/16/18 10:22 98 11/16/18 10:17 98 11/16/18 10:12 99 11/16/18 10:07 98 11/16/18 10:02 99 11/16/18 09:57 99 11/16/18 09:52 99 11/16/18 09:47 99 11/16/18 09:42 98 11/16/18 09:37 99 11/16/18 09:32 98 11/16/18 09:27 98 11/16/18 09:22 98 11/16/18 09:17 97 11/16/18 09:12 97 11/16/18 09:07 98 11/16/18 09:02 100 11/16/18 08:57 99 11/16/18 08:52 98 11/16/18 08:47 100 11/16/18 08:13 100 11/16/18 08:00 11/16/18 07:38 95 11/16/18 06:48 96 11/16/18 03:52 95 (1) Diabetes mellitus type 2, uncontrolled Glycemic state: with hyperglycemia Qualified Code(s): E11.65 - Type 2 diabetes mellitus with hyperglycemia (2) Sepsis Sepsis type: sepsis due to unspecified organism Qualified Code(s): A41.9 - Sepsis, unspecified organism (3) Osteomyelitis Laterality: left Osteomyelitis location: foot Osteomyelitis type: unspecified type Qualified Code(s): M86.9 - Osteomyelitis, unspecified
[2018-11-16] MEDS: DIGOXIN 0.125 MG TAB PO SCH (17:02)
--- NOTE | 2018-11-16 17:49 | Progress Note ---
DATE: 11/16/2018 He had the angiogram and vascular procedure done today with Dr. Guillen. Report is noted. We will discuss with Dr. Guillen regarding what impact this may have on his healing potential. Mr. Jacobo reports that the foot is less painful. He has been afebrile. Rate is well controlled. I spoke with Dr. Page. White count yesterday was 10. No new labs today. Dressing is changed. There is a significant marginal wound necrosis, particularly dorsally for 5-10 mm away from the wound margin. All of the dorsal wound margin is purplish or black in coloration. The very proximal and distal portions of the wound appeared to be at least partially united together, but in the central portion, there is no significant bridging across the incision site. There is some skin plantarly, which is debrided. There is some erythema on the foot. Swelling is mild. Pedal pulses are not palpable. Capillary refill less than 2 seconds. IMPRESSION: Gangrene of the left big toe secondary to peripheral artery disease status post amputation. PLAN: Findings are discussed. At this time, I recommend that we continue the present course of treatment. We will see if Dr. Guillen' procedure will impact healing. Unfortunately, whatever tissue is already compromised is unlikely to turn back into healthy tissue. We will discuss further with Dr. Guillen. I did discuss with the patient that the wound is not healing as well as we would like. There is a significant unhealthy tissue present. Although I hope that this does heal, I think practicality it is not likely too and that further surgery would likely be necessary. I had a general discussion with the patient that further surgery at the level of his foot is probably likely to result in the same issue. Furthermore, there is poor delivery of medication and antibiotic to this area due to the poor blood supply and that would likely contribute to infection. He does have some drainage of the wound currently but nothing purulent. I have not discussed with the patient, but I think a below-knee amputation may be the ultimate treatment for him. We will continue to monitor for now. MTDD
--- NOTE | 2018-11-16 18:21 | Operative Report ---
Post Operative Report Pre & Post Diagnosis Operation Date: 11/16/18 08:00 Pre-Op Diagnosis: Peripheral Artery Disease Post-Op Diagnosis: Peripheral Artery Disease Procedure Operation Date: 11/16/18 08:00 Actual Procedures p Bilateral Lower Extremity Angiogram, Percutaneous Transluminal Angioplasty Left Perineal Artery, Mechanical Closure Right Femoral Artery, Moderate Concious Sedation 0847 to 1059(Right) - Hakan Guillen MD Surgeon Feliciano Guillen MD Civil Laboratory Technician Angelica Estimated Blood Loss 20 Findings Consistent with Post-Op Diagnosis Aorta: No significant stenotic or aneurysmal disease. Left lower extremity: Common iliac - Minimal disease External iliac - Minimal disease Internal iliac - Minimal disease SHOE STAINER - Minimal disease Profunda - Minimal disease SFA -30 to 40% distal stenosis, no significant gradient on pullback Popliteal-mild disease TPT -mild disease AT -occluded proximally PT -occluded near ostium Peroneal -multiple 90 to 95% stenosis in mid to distal segment. Gives off collaterals to distal SEPTIC PUMP TRUCK DRIVER. SEPTIC PUMP TRUCK DRIVER patent at the ankle and gives off patent medial and lateral plantar arteries which extend to forefoot. Right lower extremity: Common iliac - Minimal disease External iliac - Minimal disease Internal iliac - Minimal disease SHOE STAINER - Minimal disease Profunda - Minimal disease SFA - Mild diffuse atherosclerosis Popliteal -mild disease TPT -mild disease AT -occluded proximally PT - occluded proximally Peroneal -severe sequential disease Specimens None Drains None Complications none Disposition Accompanied Patient To Recovery: No Disposition: PCU Description of Procedure Right common femoral access obtained, short 5Fr sheath place Aortogram/LLE angiogram performed with RIM catheter Up and over with RIM and glideadvantage wire Angiogram of distal LLE with quickcross catheter placed into popliteal. No pullback gradient across mild-moderate distal SFA stenosis. 6Fr 65 cm destination sheath placed to distal SFA. Attempt to cross proximal SEPTIC PUMP TRUCK DRIVER occlusion but unsuccsseful with command wire. Command wire, 0.14 trailblazer catheter directed into peroneal and navigated to distal vessel at the ankle. Post procedure single vessel run-off to the ankle, peroneal lesions well- expanded with OLIVIA 3 flow. Contrast used: 130 Access closure: Angio-seal Summary: 1. Severe bilateral tibial artery disease. - LT proximal VEENA occluded - LT proximal SEPTIC PUMP TRUCK DRIVER occluded - LT Peroneal patent to foot with sequential 95% stenosis in mid to distal segments. - Peroneal provides collaterals to distal SEPTIC PUMP TRUCK DRIVER. Distal SEPTIC PUMP TRUCK DRIVER patent into foot and gives of patent medial and lateral plantar arteries which extent to forefoot. - RT SEPTIC PUMP TRUCK DRIVER, VEENA occluded proximally. Peroneal with severe disesae. 2. Successful SEPTIC PUMP TRUCK DRIVER of peroneal artery with 2.0 and 2.5 balloons. Recommendations: - antiplatelet therapy with ASA alone in setting of potential need for additional orthopedic surgery and anticoagulation. - With persistent impaired wound healing feel may benefit from attempt at further intervention to LT SEPTIC PUMP TRUCK DRIVER - would need retrograde approach. Will discuss further with Dr. Mirza. I attest to the content of the Intraoperative Record and any orders documented therein. Any exceptions are noted below.
[2018-11-16] MEDS: ASPIRIN 325 MG ECTAB PO SCH (19:21)
[2018-11-16] MEDS: DOCUSATE SODIUM 100 MG CAP PO PRN (20:33)
[2018-11-16] MEDS: SENNA 8.6 MG TAB PO SCH (20:35)
[2018-11-17] MEDS: PIPERACILLIN/TAZOBACTAM 3.375 GM in DEXTROSE 5% 100 ML IV SCH ×4 (00:07→23:50)
[2018-11-17] MEDS: HYDROmorphone INJ 0.5 MG/0.5 ML SYR IV PRN ×5 (00:12→20:34)
[2018-11-17] MEDS: HEPARIN SOD 5,000 UNIT/0.5 ML VIAL SQ SCH ×3 (05:19→21:39)
[2018-11-17] MEDS: INSULIN ASPART 100 UNITS/ML 3 ML PEN SC SCH ×4 (07:41→21:42)
--- NOTE | 2018-11-17 08:24 | Cardiology Progress Note ---
Date of Service November 17, 2018 Assessment & Plan (1) Atrial flutter with rapid ventricular response: He has been identified as having fibrillation and flutter (at times it looks very regular like atrial flutter but other times quite irregular like atrial fibrillation) but quite fast even on amiodarone drip. His symptoms are very difficult to sort out, he is not having a lot of symptoms now and what he describes as "hyperventilating preadmission" which he relates to his heart and which has evidently occurred ever since his carotid surgery a year and a half ago could be paroxysmal atrial arrhythmias. He is not a good anticoagulation candidate at the moment due to his recent surgery and need for further surgery. On the morning of November 10, 2018 we converted his rhythm, it took several tries to maintain sinus rhythm but even then he quickly reverted back to atrial fibrillation. On IV Cardizem and IV amiodarone we were able to control his rate well enough for him to go to surgery. After surgery with discontinuation of his amiodarone he remained in sinus rhythm overnight but in the morning went back into atrial fibrillation or flutter, he continued to have the regular rates which might actually be some form of SVT. As a long-term consideration he should be on an anticoagulant, he was on warfarin past and that could be used or one of the newer agents. For now I would continue oral amiodarone to try to control his arrhythmia. I am going to continue 200 mg twice daily for now. I did add digoxin to his regimen (his level is 0.8 on his current dose) and I started oral diltiazem as well. I would continue his amiodarone, digoxin and Cardizem for now, this will help protect him from rapid heart rates if he goes back into atrial fibrillation, flutter or his SVT. I am not sure what we should continue over the long run. 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 Although he has not had a myocardial infarction based on symptoms, echocardiography and electrocardiography I suspect he probably has coronary artery disease to some extent. At this point I do not think we need to do stress testing since he does not have symptoms, he should be on risk factor modification for his atherosclerosis. This would normally include high-dose statins and aspirin, he is now on aspirin. As far as I know he does not have intolerance to statins. I do not think statins need to be started now but perhaps we should do so while he is here. I would normally start atorvastatin 20 mg. His liver function tests were normal November 08, 2018 on admission. Subjective He feels well today, he is not having any palpitations or cardiovascular symptoms. His foot pain seems better. Physical Exam Physical Exam: Constitutional: Alert, cooperative and in no distress. Pulmonary: Clear to auscultation bilaterally. Cardiac: Regular rhythm with no murmur, gallop or rub. Abdomen: Soft, nontender with normal bowel sounds. Extremities: No edema. Left foot bandaged. Skin: No rash, ecchymoses or petechiae. Results & Data Vital Signs (Past 12 Hours) Vital Signs Temp Pulse Pulse Resp BP Pulse Ox 11/17/18 06:57 37.1 C 63 18 127/66 93 11/17/18 03:36 37.2 C 73 16 141/104 H 97 11/16/18 22:55 36.6 C 79 20 134/86 97 Diagnostic Findings Telemetry: Sinus rhythm for about 72 hours, no atrial arrhythmias significance.
[2018-11-17 08:26] LABS: Basophils # (auto) 0.04 K/uL (0-0.2); Basophils % (auto) 0.3 %; Eosinophils # (auto) 0.31 K/uL (0-0.5); Eosinophils % (auto) 2.6 %; Hematocrit (blood only) 29.1 % (42-52); Hemoglobin 9.8 g/dL (14.0-18.0); Immature Granulocytes # (auto) 0.04 K/uL (0.00-0.02); Immature Granulocytes % (auto) 0.3 %; Lymphocytes # (auto) 1.53 K/uL (1.2-3.4); Lymphocytes % (auto) 13.1 %; Mean Corpuscular Hgb Conc 33.7 g/dL (32-36); Mean Corpuscular Volume 85.1 fL (80-100); Monocytes # (auto) 0.79 K/uL (0.11-0.59); Monocytes % (auto) 6.7 %; Platelet Count 423 K/uL (130-400); RDW Coefficient of Variation 14.2 % (11.5-14.5); RDW Standard Deviation 44.1 fL (36.4-46.3); Red Blood Count 3.42 M/uL (4.7-6.1); White Blood Count 11.71 K/uL (4.8-10.8)
[2018-11-17 08:57] LABS: BUN Creatinine Ratio 9.8 (10-20); Calcium 8.9 mg/dl (8.5-10.1); Creatinine Clr Calc Pharmacy 50.9 ml/min; Est GFR (African American) 58.4; Est GFR (Non-African American) 50.4; Potassium 3.8 mmol/L (3.5-5.1)
[2018-11-17] MEDS: dilTIAZem HCL 120 MG CAPCR PO SCH (09:00)
[2018-11-17] MEDS: ASPIRIN 325 MG ECTAB PO SCH (09:01)
[2018-11-17] MEDS: POLYETHYLENE (MIRALAX) 17 GM PACK PO SCH ×2 (09:01→20:33)
[2018-11-17] MEDS: MULTIVITAMIN TAB PO SCH (09:01)
[2018-11-17] MEDS: AMIODARONE 200 MG TAB PO SCH ×2 (09:01→20:33)
[2018-11-17] MEDS: SACCHAROMYCES BOULARDII 250 MG CAP PO SCH (09:01)
[2018-11-17] MEDS: DOCUSATE SODIUM 100 MG CAP PO SCH (09:01)
[2018-11-17] MEDS: INSULIN GLARGINE SOLOSTAR 100 UNITS/ML 3 ML PEN SC SCH ×2 (09:02→21:35)
--- NOTE | 2018-11-17 13:53 | Infectious Disease Progress Nt ---
Date of Service November 17, 2018 Assessment & Plan (1) Gangrene of left foot: would continue with zosyn for now. can consider po options upon d/c but somewhat limited with on amiodarone due to ddi, would give 21 post op total. blood cultures negative and final. Degree of occlusion likely impeding delivery of abx to foot wound. continue wound care. ? need for additional surgery (2) Osteomyelitis: Subjective angiogram results noted, pt with necrosis at wound at dressing change yesterday. remains afebrile. toleraitng zosyn. no new micro to review Results & Data Vital Signs (Past 12 Hours) Vital Signs Temp Pulse Pulse Pulse Resp BP Pulse Ox 11/17/18 10:45 37.1 C 69 17 156/74 H 96 11/17/18 08:00 65 11/17/18 06:57 37.1 C 63 18 127/66 93 11/17/18 03:36 37.2 C 73 16 141/104 H 97 Laboratory Results Microbiology 11/08/18 22:50 Toe,Left Great Gram Stain - Final 11/08/18 22:50 Toe,Left Great Aerobic and Anaerobic Culture - Final Escherichia coli Staphylococcus aureus Enterococcus faecalis Bacteroides fragilis 11/08/18 17:32 Blood Blood Culture - Final No growth 11/08/18 17:25 Blood Blood Culture - Final No growth 11/11/18 17:10 Urine,Clean Catch Urine Culture - Final No growth - less than 1,000 colonies/mL. 11/08/18 17:40 Foot Gram Stain - Final 11/08/18 17:40 Foot Wound Culture - Final Staphylococcus aureus Enterococcus faecalis (1) Osteomyelitis Laterality: left Osteomyelitis location: foot Osteomyelitis type: unspecified type Qualified Code(s): M86.9 - Osteomyelitis, unspecified
--- NOTE | 2018-11-17 15:09 | Hospitalist Progress Note ---
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 Mirza. Culture results - MSSA, pansensitive enterococcus, bacteroides, pansensitive e.coli. d/c daptomycin since no MRSA. d/c clindamycin. Continue zosyn - will cover above pathogens including anaerobes. Defer final abx selection to ID Her tibial artery angioplasty was performed on 11/16 with good results to improve blood flow to his left foot with Dr. Feliciano Guillen, possible additional procedures this week, attemptiong oral pain control Appreciate ortho/vascular/ID consults and recs. (2) Atrial flutter with rapid ventricular response: Had been difficult to control despite AV didi agents, did have cardioversion, and amiodarone. Mainly is in and out of sinus rhythm Remains on amiodarone, cardizem, and digoxin. Dr Page changed to oral amiodarone 11/15 (3) Atrial fibrillation with rapid ventricular response: continue amiodarone, cardizem and digoxin. ultimately will need anticoagulation look to start anticoagulation after interventional procedures are past fortunately echo shows preserved EF and no significant valvular disease remains compensated from volume standpoint (4) Peripheral arterial disease: Left leg - PAD inferior to the popliteal artery angioplasty left posterior tibial artery. initiate statin and aspirin (5) Sepsis: 2nd to gangrene of left great toe s/p amputation. Blood cx's negative. sepsis resolved. Patient remains on Zosyn (6) Osteomyelitis: Left great toe s/p amputation. See above. (7) Diabetes mellitus type 2, uncontrolled: basal bolus insulin with adjustment (8) Hypokalemia: replete and follow (9) Other symptoms involving respiratory system and chest: Patient refers to numerous episodes at home of vague chest discomfort, legs giving way, and occasional left arm pain. He "hyperventilates" with these spells. Difficult to say if these symptoms are from rapid a.fib/flutter or ischemic, however cardiology feels no need to puruse in patient stress testing but will have outpt event monitoring Echo w/o wall motion abnormalities. However, in light of carotid disease, PAD of legs, uncontrolled T2DM - recommend statin/asa (10) DVT prophylaxis: heparin SC q8h. Subjective pt states that hes still has a burning pain to the foot and leg, potential additional interventional procedure to the blood supply to his leg he is resistent to taking po pain meds but is willing to try as right now he is only taking iv pain medication to help with his leg pain Review of Systems Constitutional: + fatigue and + weakness Respiratory: no cough, no chest congestion and no dyspnea Cardiovascular: no chest pain and no dyspnea on exertion Gastrointestinal: no abdominal pain, no nausea and no vomiting Musculoskeletal: + joint pain (pain to left foot is burning and or searing pain); no swelling Integumentary: no rash and no lesions Physical Exam Constitutional: well developed and average body habitus Eyes: no conjunctival abnormality and no scleral abnormality Neck: normal visual inspection and trachea midline Respiratory: normal respiratory effort; no respiratory distress Auscultation: lungs clear to auscultation bilaterally Cardiovascular: Rate/Rhythm: + irregularly irregular (controlled rate) Gastrointestinal (Abdomen): normal bowel sounds, soft, nontender, no hepatosplenomegaly Musculoskeletal: left foot with bandage in place, delayed capillary refill and tenderness to examination Results & Data Vital Signs (Past 12 Hours) Vital Signs Temp Pulse Pulse Pulse Resp BP Pulse Ox 11/17/18 10:45 37.1 C 69 17 156/74 H 96 11/17/18 08:00 65 11/17/18 06:57 37.1 C 63 18 127/66 93 11/17/18 03:36 37.2 C 73 16 141/104 H 97 (1) Sepsis Sepsis type: sepsis due to unspecified organism Qualified Code(s): A41.9 - Sepsis, unspecified organism (2) Osteomyelitis Laterality: left Osteomyelitis location: foot Osteomyelitis type: unspecified type Qualified Code(s): M86.9 - Osteomyelitis, unspecified (3) Diabetes mellitus type 2, uncontrolled Glycemic state: with hyperglycemia Qualified Code(s): E11.65 - Type 2 diabetes mellitus with hyperglycemia
[2018-11-17] MEDS: DIGOXIN 0.125 MG TAB PO SCH (15:33)
[2018-11-17] MEDS: DOCUSATE SODIUM 100 MG CAP PO PRN (20:32)
[2018-11-17] MEDS: SENNA 8.6 MG TAB PO SCH (20:33)
[2018-11-17] MEDS: GABAPENTIN 100 MG CAP PO SCH (20:33)
--- NOTE | 2018-11-17 22:31 | Cardiology Progress Note ---
Date of Service November 17, 2018 Assessment & Plan (1) Peripheral arterial disease: Patient post successful left peroneal artery angioplasty yesterday. Persistent wound necrosis. Discussed with Dr. Mirza today. At risk for needing BKA and will try to open occluded left posterior tibial artery with goal to provide two-vessel runoff/in-line flow to foot. Planning on procedure tomorrow afternoon. Subjective Seen this AM/afternoon. No pain at right GROOVING MACHINE OPERATOR access site. Unchanged pain at LLE wound. No other new concerns. Remains in sinus rhythm Review of Systems Review of Systems: All systems reviewed & are unremarkable except as noted in HPI & below Physical Exam Physical Exam: General: Comfortable, no acute distress HEENT: Sclerae anicteric, mucous membranes moist Lungs: Clear to auscultation bilaterally, no rhonchi or wheezes Cardiac: Regular rate and rhythm, no murmurs. No JVD. Abdomen: Soft, nontender, nondistended, positive bowel sounds. Extremities: Right common femoral artery access site tender but no significant ecchymosis/hematoma, pulse intact. Left foot warm, dressed, no surrounding erythema. DP/PT pulses nonpalpable Neuro: Nonfocal Psych: Alert orient x3, normal affect and mood Results & Data Vital Signs (Past 12 Hours) Vital Signs Temp Pulse Pulse Resp BP Pulse Ox 11/17/18 15:56 36.9 C 66 18 122/63 95 11/17/18 15:33 65 11/17/18 10:45 37.1 C 69 17 156/74 H 96
[2018-11-18 06:21] LABS: Hematocrit (blood only) 28.5 % (42-52); Hemoglobin 9.4 g/dL (14.0-18.0); Mean Corpuscular Volume 86.6 fL (80-100); Mean Platelet Volume 9.3 fL (7.4-10.4); Platelet Count 406 K/uL (130-400); RDW Coefficient of Variation 14.2 % (11.5-14.5); RDW Standard Deviation 45.3 fL (36.4-46.3); Red Blood Count 3.29 M/uL (4.7-6.1); White Blood Count 9.99 K/uL (4.8-10.8)
[2018-11-18] MEDS: HEPARIN SOD 5,000 UNIT/0.5 ML VIAL SQ SCH ×3 (06:26→21:47)
[2018-11-18] MEDS: PIPERACILLIN/TAZOBACTAM 3.375 GM in DEXTROSE 5% 100 ML IV SCH (08:35)
[2018-11-18] MEDS: INSULIN ASPART 100 UNITS/ML 3 ML PEN SC SCH ×4 (08:42→20:39)
[2018-11-18] MEDS: SENNA 8.6 MG TAB PO SCH ×2 (08:43→20:18)
[2018-11-18] MEDS: POLYETHYLENE (MIRALAX) 17 GM PACK PO SCH ×2 (08:43→20:18)
[2018-11-18] MEDS: OXYCODONE HCL IR 5 MG TAB (IMMEDIATE RELEASE) PO PRN (08:46)
[2018-11-18] MEDS: SACCHAROMYCES BOULARDII 250 MG CAP PO SCH (08:48)
[2018-11-18] MEDS: ASPIRIN 325 MG ECTAB PO SCH (08:48)
[2018-11-18] MEDS: AMIODARONE 200 MG TAB PO SCH ×2 (08:48→20:16)
[2018-11-18] MEDS: dilTIAZem HCL 120 MG CAPCR PO SCH (08:48)
[2018-11-18] MEDS: INSULIN GLARGINE SOLOSTAR 100 UNITS/ML 3 ML PEN SC SCH ×2 (08:49→20:38)
[2018-11-18] MEDS: HYDROmorphone INJ 0.5 MG/0.5 ML SYR IV PRN ×2 (08:54→20:13)
--- NOTE | 2018-11-18 10:12 | Infectious Disease Progress Nt ---
Date of Service November 18, 2018 Assessment & Plan (1) Gangrene of left foot: would continue with zosyn for now. can consider po options upon d/c but somewhat limited with on amiodarone due to ddi, would give 21 post op total. blood cultures negative and final. Degree of occlusion likely impeding delivery of abx to foot wound. continue wound care. (2) Osteomyelitis: Subjective pt off of floor at time of rounds. afebrile overnight. Remains on zoysn. afebrile overnight. s/p angioplasty this week. wbc 9.9 today. Results & Data Vital Signs (Past 12 Hours) Vital Signs Temp Pulse Pulse Resp BP Pulse Ox 11/18/18 07:02 36.6 C 64 16 142/66 H 94 11/18/18 03:16 36.9 C 60 16 130/63 94 11/18/18 00:00 66 11/17/18 23:12 37.1 C 71 18 140/78 95 Laboratory Results Microbiology 11/08/18 22:50 Toe,Left Great Gram Stain - Final 11/08/18 22:50 Toe,Left Great Aerobic and Anaerobic Culture - Final Escherichia coli Staphylococcus aureus Enterococcus faecalis Bacteroides fragilis 11/08/18 17:32 Blood Blood Culture - Final No growth 11/08/18 17:25 Blood Blood Culture - Final No growth 11/11/18 17:10 Urine,Clean Catch Urine Culture - Final No growth - less than 1,000 colonies/mL. 11/08/18 17:40 Foot Gram Stain - Final 11/08/18 17:40 Foot Wound Culture - Final Staphylococcus aureus Enterococcus faecalis (1) Osteomyelitis Laterality: left Osteomyelitis location: foot Osteomyelitis type: unspec ified type Qualified Code(s): M86.9 - Osteomyelitis, unspecified
[2018-11-18] MEDS ORDERED: fentaNYL citrate 100 MCG/2 ML VIAL ONE ×2 (10:25→15:19)
[2018-11-18] MEDS ORDERED: MIDAZOLAM HCL 1 MG/ML 2ML VIAL ONE ×2 (10:26→15:20)
--- NOTE | 2018-11-18 11:15 | Pre Anesthesia Assessment ---
Date of Service November 18, 2018 Pre Sedation Assessment Vital Signs Temp Pulse Pulse Resp BP Pulse Ox 11/18/18 10:09 37.2 C 77 16 164/71 H 99 11/18/18 07:02 36.6 C 64 16 142/66 H 94 11/18/18 03:16 36.9 C 60 16 130/63 94 11/18/18 00:00 66 11/17/18 23:12 37.1 C 71 18 140/78 95 11/17/18 20:00 70 20 141/71 H 95 11/17/18 15:56 36.9 C 66 18 122/63 95 11/17/18 15:33 65 Cardiovascular RRR, no murmur, no edema Respiratory normal respiratory effort, lungs clear to auscultation Pre-Sedation Airway Assessment Smoking Status: Never smoker Hx Sleep Apnea: No Hx Difficult Intubation: No Short, Thick Neck: No Thyromental Distance: > or= 3.5 Finger Breadths Oral Cavity: + Chipped Teeth, + Dentures and + Dental Abnormalities Mallampati Class: II ASA: ASA3 NPO Status Date of Last Intake of Fluids: 11/18/18 Time of Last Intake of Fluids: 09:00 Date of Last Intake of Solid Food: 11/17/18 Time of Last Intake of Solid Foods: 20:30 Notes The planned sedation has been discussed with the patient. Informed Consent was obtained. I have identified the patient, determined the appropriateness of gisele tion and have assessed the patient immediately prior to the procedure. All medicine(s) and interventions are by my order.
--- NOTE | 2018-11-18 11:17 | Cardiology Progress Note ---
Date of Service November 18, 2018 Assessment & Plan (1) Peripheral arterial disease: Proceed with LLE angiogram with attempted intervention to Left NURSING FACULTY today. Subjective No issues overnight. No new complaints. Sinus rhythm on telemetry. Review of Systems Review of Systems: All systems reviewed & are unremarkable except as noted in HPI & below Physical Exam Constitutional: WD/WN, vitals as above Eyes: + anicteric sclerae ENMT: Mallampati Class: II Respiratory: normal respiratory effort, lungs clear to auscultation Cardiovascular: RRR, no murmur, no edema Rate/Rhythm: regular rate Heart Sounds: no murmur Gastrointestinal (Abdomen): Percussion/Palpation: abdomen soft; abdomen nontender Skin: no rashes, warm and dry Neurologic: no focal motor deficits Psychiatric: A+Ox3, euthymic affect Results & Data Vital Signs (Past 12 Hours) Vital Signs Temp Pulse Pulse Resp BP Pulse Ox 11/18/18 10:09 37.2 C 77 16 164/71 H 99 11/18/18 07:02 36.6 C 64 16 142/66 H 94 11/18/18 03:16 36.9 C 60 16 130/63 94 11/18/18 00:00 66
[2018-11-18] MEDS ORDERED: NiCARDipine HCL INJ 2.5 MG/ML 10 ML AMP ONE (11:43)
[2018-11-18] MEDS ORDERED: NITROGLYCERIN/D5W 100MCG/ML 20ML SYR ONE (11:45)
--- NOTE | 2018-11-18 12:51 | Cardiology Progress Note ---
Date of Service November 18, 2018 Assessment & Plan (1) Atrial flutter with rapid ventricular response: He has been identified as having fibrillation and flutter (at times it looks very regular like atrial flutter but other times quite irregular like atrial fibrillation) but quite fast even on amiodarone drip. His symptoms are very difficult to sort out, he is not having a lot of symptoms now and what he describes as "hyperventilating preadmission" which he relates to his heart and which has evidently occurred ever since his carotid surgery a year and a half ago could be paroxysmal atrial arrhythmias. He is not a good anticoagulation candidate at the moment due to his recent surgery and need for further surgery. On the morning of November 10, 2018 we converted his rhythm, it took several tries to maintain sinus rhythm but even then he quickly reverted back to atrial fibrillation. On IV Cardizem and IV amiodarone we were able to control his rate well enough for him to go to surgery. After surgery with discontinuation of his amiodarone he remained in sinus rhythm overnight but in the morning went back into atrial fibrillation or flutter, he continued to have the regular rates which might actually be some form of SVT. As a long-term consideration he should be on an anticoagulant, he was on warfarin past and that could be used or one of the newer agents. For now I would continue oral amiodarone to try to control his arrhythmia. I am going to continue 200 mg twice daily for now. I did add digoxin to his regimen (his level is 0.8 on his current dose) and I started oral diltiazem as well. I would continue his amiodarone, digoxin and Cardizem for now, this will help protect him from rapid heart rates if he goes back into atrial fibrillation, flutter or his SVT. I am not sure what we should continue over the long run. His heart rate has been under very good control for about 4 days, several days on oral amiodarone. 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 Although he has not had a myocardial infarction based on symptoms, echocardiography and electrocardiography I suspect he probably has coronary artery disease to some extent. At this point I do not think we need to do stress testing since he does not have symptoms, he should be on risk factor modification for his atherosclerosis. This would normally include high-dose statins and aspirin, he is now on aspirin. As far as I know he does not have intolerance to statins. I do not think statins need to be started now but perhaps we should do so while he is here. I would normally start atorvastatin 20 mg. His liver function tests were normal November 08, 2018 on admission. Subjective He is having a little bit of left foot pain this morning, but otherwise is feeling well. He is expecting his procedure on his foot today. Physical Exam Physical Exam: Constitutional: Alert, cooperative and in no distress. Pulmonary: Clear to auscultation bilaterally. Cardiac: Regular rhythm with no murmur, gallop or rub. Abdomen: Soft, nontender with normal bowel sounds. Extremities: No edema. Left leg bandaged. Skin: No rash, ecchymoses or petechiae. Results & Data Vital Signs (Past 12 Hours) Vital Signs Temp Pulse Pulse Resp BP Pulse Ox 11/18/18 12:45 63 20 148/71 H 97 11/18/18 12:40 65 15 144/68 H 99 11/18/18 12:35 64 17 150/67 H 98 11/18/18 12:30 66 16 149/68 H 99 11/18/18 12:25 71 24 154/69 H 99 11/18/18 12:20 66 18 150/68 H 100 11/18/18 12:15 68 20 147/69 H 98 11/18/18 12:10 71 20 150/67 H 100 11/18/18 12:07 70 17 123/69 100 11/18/18 10:09 37.2 C 77 16 164/71 H 99 11/18/18 07:02 36.6 C 64 16 142/66 H 94 11/18/18 03:16 36.9 C 60 16 130/63 94 Diagnostic Findings Telemetry: Sinus rhythm, good heart rate on his current medications
[2018-11-18] MEDS: HEPARIN SOD (PORCINE) 1000 UNIT/ML 10 ML VIAL ONE (15:11)
[2018-11-18] MEDS ORDERED: HEPARIN SOD (PORCINE) 1000 UNIT/ML 10 ML VIAL ONE (16:18)
--- NOTE | 2018-11-18 16:59 | Hospitalist Progress Note ---
Date of Service November 18, 2018 Assessment & Plan (1) Gangrene of left foot: left great toe s/p amputation by Dr Mirza - 11/08 s/p TMA of left 2nd digit -11/10 - also by Dr. Mirza. Culture results - MSSA, pansensitive enterococcus, bacteroides, pansensitive e.coli. d/c daptomycin since no MRSA. d/c clindamycin. Continue zosyn - will cover above pathogens including anaerobes. Infectious disease recommends 21-day course Her tibial artery angioplasty was performed on 11/16 with good results to improve blood flow to his left foot with Dr. Feliciano Guillen, possible additional procedures this week, attempting oral pain control patient feels his drug reactions with limit his oral (2) Atrial flutter with rapid ventricular response: Had been difficult to control despite AV didi agents, did have cardioversion, and amiodarone. Remains on amiodarone, cardizem, and digoxin. Dr Page changed to oral amiodarone 11/15 with good rate control (3) Atrial fibrillation with rapid ventricular response: continue amiodarone, cardizem and digoxin. ultimately will need anticoagulation look to start anticoagulation after interventional procedures are past, if no interventional procedures are schedul ed for the week and we may institute Lovenox therapy at this time or at least heparin drip, currently is on subcutaneous heparin for DVT prevention fortunately echo shows preserved EF and no significant valvular disease remains compensated from volume standpoint (4) Peripheral arterial disease: Left leg - PAD inferior to the popliteal artery angioplasty left posterior tibial artery. initiate statin and aspirin (5) Sepsis: 2nd to gangrene of left great toe s/p amputation. Blood cx's negative. sepsis resolved. Patient remains on Zosyn 21 day course (6) Osteomyelitis: Left great toe s/p amputation. 3rd toe amputation See above. (7) Diabetes mellitus type 2, uncontrolled: basal bolus insulin with adjustment (8) Hypokalemia: replete and follow (9) Other symptoms involving respiratory system and chest: Patient refers to numerous episodes at home of vague chest discomfort, legs giving way, and occasional left arm pain. He "hyperventilates" with these spells. Difficult to say if these symptoms are from rapid a.fib/flutter or ischemic, however cardiology feels no need to puruse in patient stress testing but will have outpt event monitoring Echo w/o wall motion abnormalities. However, in light of carotid disease, PAD of legs, uncontrolled T2DM - recommend statin/asa (10) DVT prophylaxis: heparin SC q8h. Subjective Patient has no new complaints or problems it appears his procedure may have been delayed due to scheduling issues. Infectious disease has noted concern for drug delivery to his foot given his stenosis. The scheduling is not yet clear in the chart Review of Systems Review of Systems: ROS: well nourished well developed. No double vision blurry vision No problems with speech or swallowing No subjective complaints of palpitations, chest pain or pressure No Wheezing or breathing issues No abdominal pain nausea vomiting diarrhea changes in appetite or weight No burning urine urine frequency or changes in color Patient still has some persistent foot pain associate with surgery Wounds from surgery are still present being attended to No unusual bruising or bleeding No focused back pain or numbness or loss of strength No changes in memory or confusion Physical Exam Physical Exam: The patient appeared well nourished and normally developed. Vital signs as documented. Head exam is unremarkable. normocephalic, atraumatic Neck is without jugular venous distension, thyromegaly, or lymphademopathy Lungs are clear to auscultation and percussion. Cardiac exam reveals irregular but rate controlled rhythm. Abdominal exam reveals normal bowel sounds, no masses, no organomegaly Extremities there is a dressing in place on his foot he does have changes of chronic venous stasis and decreased capillary refill distally Neurologic exam is A&Ox3, peripheral neuropathy strength is equal bilateral but decreased from baseline Psychologically seems neither anxious or depressed Skin is warm / Dry Results & Data Vital Signs (Past 12 Hours) Vital Signs Temp Pulse Pulse Resp BP Pulse Ox 11/18/18 16:50 66 16 151/82 H 96 11/18/18 16:45 64 18 144/75 H 98 11/18/18 16:40 69 19 165/82 H 99 11/18/18 16:35 67 16 144/79 H 99 11/18/18 16:30 64 16 119/72 99 11/18/18 16:25 59 L 16 135/75 98 11/18/18 16:20 58 L 20 139/75 98 11/18/18 16:15 63 24 141/74 H 99 11/18/18 16:10 60 16 124/73 99 11/18/18 16:05 59 L 18 141/73 H 100 11/18/18 16:00 60 26 H 142/72 H 100 11/18/18 15:55 58 L 16 142/74 H 98 11/18/18 15:50 58 L 12 143/70 H 99 11/18/18 15:45 59 L 16 153/75 H 100 11/18/18 15:40 58 L 12 146/84 H 100 11/18/18 15:35 57 L 12 129/74 98 11/18/18 15:30 59 L 20 129/74 98 11/18/18 15:25 59 L 16 144/70 H 99 11/18/18 15:20 62 17 131/78 100 11/18/18 15:15 58 L 12 138/65 99 11/18/18 15:10 60 23 159/74 H 96 11/18/18 15:05 62 16 157/76 H 100 11/18/18 15:00 62 14 154/77 H 100 11/18/18 14:55 62 14 151/76 H 11/18/18 14:51 62 14 151/76 H 99 11/18/18 14:50 63 16 164/96 H 100 11/18/18 14:45 62 16 142/77 H 100 11/18/18 14:40 60 12 151/79 H 11/18/18 14:35 59 L 12 162/77 H 11/18/18 14:30 63 26 H 162/77 H 11/18/18 14:25 62 12 132/64 97 11/18/18 14:20 65 20 141/70 H 99 11/18/18 14:15 67 24 138/93 100 11/18/18 14:10 65 19 143/72 H 100 11/18/18 14:05 65 17 151/70 H 99 11/18/18 14:00 71 20 148/72 H 96 11/18/18 13:55 70 20 151/80 H 99 11/18/18 13:53 70 11 L 137/75 96 11/18/18 13:30 36.5 C 66 20 133/67 95 11/18/18 13:20 69 23 152/93 H 96 11/18/18 13:15 68 23 153/76 H 100 11/18/18 13:10 67 16 148/75 H 99 11/18/18 13:05 69 21 150/71 H 99 11/18/18 13:00 65 17 147/68 H 99 11/18/18 12:55 64 17 145/68 H 99 11/18/18 12:50 66 17 153/68 H 98 11/18/18 12:45 63 20 148/71 H 97 11/18/18 12:40 65 15 144/68 H 99 11/18/18 12:35 64 17 150/67 H 98 11/18/18 12:30 66 16 149/68 H 99 11/18/18 12:25 71 24 154/69 H 99 11/18/18 12:20 66 18 150/68 H 100 11/18/18 12:15 68 20 147/69 H 98 11/18/18 12:10 71 20 150/67 H 100 11/18/18 12:07 70 17 123/69 100 11/18/18 10:09 37.2 C 77 16 164/71 H 99 11/18/18 07:02 36.6 C 64 16 142/66 H 94 (1) Sepsis Sepsis type: sepsis due to unspecified organism Qualified Code(s): A41.9 - Sepsis, unspecified organism (2) Osteomyelitis Laterality: left Osteomyelitis location: foot Osteomyelitis type: uns pecified type Qualified Code(s): M86.9 - Osteomyelitis, unspecified (3) Diabetes mellitus type 2, uncontrolled Glycemic state: with hyperglycemia Qualified Code(s): E11.65 - Type 2 diabetes mellitus with hyperglycemia
--- NOTE | 2018-11-18 17:48 | Post Anesthesia Assessment ---
Date of Service November 18, 2018 Post Sedation Assessment Vital Signs Temp Pulse Pulse Resp BP Pulse Ox 11/18/18 17:45 65 20 142/72 H 100 11/18/18 17:40 70 16 135/81 98 11/18/18 17:35 70 19 110/69 98 11/18/18 17:30 62 12 148/75 H 98 11/18/18 17:25 59 L 16 157/77 H 99 11/18/18 17:20 63 16 160/84 H 100 11/18/18 17:15 64 18 175/83 H 100 11/18/18 17:10 66 20 156/80 H 100 11/18/18 17:05 67 18 163/82 H 100 11/18/18 17:00 67 18 160/85 H 98 11/18/18 16:55 64 22 155/80 H 98 11/18/18 16:50 66 16 151/82 H 96 11/18/18 16:45 64 18 144/75 H 98 11/18/18 16:40 69 19 165/82 H 99 11/18/18 16:35 67 16 144/79 H 99 11/18/18 16:30 64 16 119/72 99 11/18/18 16:25 59 L 16 135/75 98 11/18/18 16:20 58 L 20 139/75 98 11/18/18 16:15 63 24 141/74 H 99 11/18/18 16:10 60 16 124/73 99 11/18/18 16:05 59 L 18 141/73 H 100 11/18/18 16:00 60 26 H 142/72 H 100 11/18/18 15:55 58 L 16 142/74 H 98 11/18/18 15:50 58 L 12 143/70 H 99 11/18/18 15:45 59 L 16 153/75 H 100 11/18/18 15:40 58 L 12 146/84 H 100 11/18/18 15:35 57 L 12 129/74 98 11/18/18 15:30 59 L 20 129/74 98 11/18/18 15:25 59 L 16 144/70 H 99 11/18/18 15:20 62 17 131/78 100 11/18/18 15:15 58 L 12 138/65 99 11/18/18 15:10 60 23 159/74 H 96 11/18/18 15:05 62 16 157/76 H 100 11/18/18 15:00 62 14 154/77 H 100 11/18/18 14:55 62 14 151/76 H 99 11/18/18 14:51 62 14 151/76 H 99 11/18/18 14:50 63 16 164/96 H 100 11/18/18 14:45 62 16 142/77 H 100 11/18/18 14:40 60 12 151/79 H 99 11/18/18 14:35 59 L 12 162/77 H 99 11/18/18 14:30 63 26 H 162/77 H 99 11/18/18 14:25 62 12 132/64 97 11/18/18 14:20 65 20 141/70 H 99 11/18/18 14:15 67 24 138/93 100 11/18/18 14:10 65 19 143/72 H 100 11/18/18 14:05 65 17 151/70 H 99 11/18/18 14:00 71 20 148/72 H 96 11/18/18 13:55 70 20 151/80 H 99 11/18/18 13:53 70 11 L 137/75 96 11/18/18 13:30 36.5 C 66 20 133/67 95 11/18/18 13:20 69 23 152/93 H 96 11/18/18 13:15 68 23 153/76 H 100 11/18/18 13:10 67 16 148/75 H 99 11/18/18 13:05 69 21 150/71 H 99 11/18/18 13:00 65 17 147/68 H 99 11/18/18 12:55 64 17 145/68 H 99 11/18/18 12:50 66 17 153/68 H 98 11/18/18 12:45 63 20 148/71 H 97 11/18/18 12:40 65 15 144/68 H 99 11/18/18 12:35 64 17 150/67 H 98 11/18/18 12:30 66 16 149/68 H 99 11/18/18 12:25 71 24 154/69 H 99 11/18/18 12:20 66 18 150/68 H 100 11/18/18 12:15 68 20 147/69 H 98 11/18/18 12:10 71 20 150/67 H 100 11/18/18 12:07 70 17 123/69 100 11/18/18 10:09 37.2 C 77 16 164/71 H 99 11/18/18 07:02 36.6 C 64 16 142/66 H 94 11/18/18 03:16 36.9 C 60 16 130/63 94 11/18/18 00:00 66 11/17/18 23:12 37.1 C 71 18 140/78 95 11/17/18 20:00 70 20 141/71 H 95 Recovery Score Activity: Moves 4 extremities Respiration: Deep Breath/Cough Circulation: +/-20% PreAnes Value Consciousness: Fully Awake Oxygen Saturation: > 92% On Room Air Post Anesthesia Score: 10 Discharge Sedation Level of Care: Fast Track Phase II Post Sedation Plan On clinical assessment, the patient appears to have tolerated the sedation without complications. Patient is recovering as anticipated. Patient will continue to be monitored by nursing and may be discharged when sedation discharge criteria are met per below protocol. Upon Completions of procedure and additional 15 minutes continue every 5 minute vital signs and the P.A.R. score; then discharge to a Phase I or Fast Track to Phase II per the following guidelines: * Discharge Patient to appropriate Phase II area if PAR is 8 or greater or return to pre- procedure baseline. The post - procedure orders will be as directed. * If PAR score is less than 8 or not return to pre-procedure baseline then patient will follow Phase I monitoring till PAR is reached for Phase II. The Phase I may be done in procedure room or may call to secure a Phase I area. * �If naloxone or flumazenil are used for reversal, hold in Phase I for continued monitoring from when last reversal dose was given for a minimum of 60 minutes or longer pending the nurse and/or physician discretion of patient condition before discharge to Phase II.� Please call the Sedation Physician to re-evaluate and complete post-note for discharge to Phase II area. Do NOT discharge from procedure sedation or Phase 1 until post- sedation evaluation note is complete by procedure /sedation MD Sedation Discharge Instructions to be given to the patient at discharge to home.
[2018-11-18] MEDS ORDERED: CLOPIDOGREL BISULFATE 300 MG TAB PO STA (17:53)
--- NOTE | 2018-11-18 17:53 | Post Operative Brief Note ---
Immediate Post Op Note v1 Date of Surgery November 18, 2018 Pre & Post Diagnosis Operation Date: 11/18/18 13:20 <No data on this case meets the specified criteria> Operation Date: 11/18/18 15:40 Pre-Op Diagnosis: Gangrene of left foot, Osteomlyelitis Post-Op Diagnosis: Gangrene of left foot, Osteomlyelitis Procedure Operation Date: 11/18/18 15:40 Actual Procedures p Left Lower Extremity Angiogram, Percutaneous Transluminal Angioplasty Moderate Concious Sedation 1415 to(Left) - Hakan Guillen MD Surgeon Feliciano Guillen MD Custodial Engineer Angelica Estimated Blood Loss 35 Findings Consistent with Post-Op Diagnosis Successful angioplasty and stenting of LT posterior tibial artery with (3.0 x 38 mm Xience SAE). Successful angioplasty of peroneal artery. Post procedure 2 vessel runoff to the foot. Good in-line flow to toes via posterior tibial and plantar arteries. Drains Hemovac Drain Anesthesia Type General
[2018-11-18] MEDS ORDERED: VISIPAQUE IV PRN (17:55)
[2018-11-18] MEDS ORDERED: LIDOCAINE HCL 1% 20 ML VIAL INJ ONE (17:55)
[2018-11-18] MEDS ORDERED: NITROGLYCERIN/D5W 100MCG/ML 20ML SYR IART ONE (17:55)
[2018-11-18] MEDS ORDERED: SODIUM CHLORIDE 0.9% 1000ML 1,000 ML IV SCH (18:00)
[2018-11-18] MEDS: PIPERACILLIN/TAZOBACTAM 4.5 GM in DEXTROSE 5% 100 ML IV SCH ×2 (18:49→23:38)
[2018-11-18] MEDS: DIGOXIN 0.125 MG TAB PO SCH (20:14)
[2018-11-18] MEDS: GABAPENTIN 100 MG CAP PO SCH (20:18)
[2018-11-18] MEDS ORDERED: CLOPIDOGREL BISULFATE 300 MG TAB ONE (20:32)
--- NOTE | 2018-11-18 22:15 | Operative Report ---
Post Operative Report Pre & Post Diagnosis Operation Date: 11/18/18 15:40 Pre-Op Diagnosis: peripheral artery disease Post-Op Diagnosis: peripheral artery disease Procedure Operation Date: 11/18/18 15:40 Actual Procedures p Left Lower Extremity Angiogram, Percutaneous Transluminal Angioplasty of posterior tibial artery and perineal artery, stenting of posterior tibial artery, Mechanical closure left femoral artery, ultrasound guided access left posterior tibial artery, Moderate Concious Sedation 1415 to 1800(Left) - Hakan Guillen MD Surgeon Feliciano Guillen MD Sleeve Sewer Angelica Estimated Blood Loss 35 Findings Consistent with Post-Op Diagnosis Specimens none Complications none Disposition Disposition: PCU Description of Procedure Patient underwent angioplasty to left peroneal artery 2 days ago. Patient brought back today for attempted intervention to occluded posterior tibial artery. Under ultrasound guidance retrograde posterior tibial artery access obtained with placement of 4 Fr later 5 Fr sheath. Under ultrasound guidance antegrade left common femoral artery access obtained with placement of 5 Fr short sheath. V18 0.18 wire navigated retrograde from posterior tibial artery at the ankle back across severe stenosis at origin to the PAINT TESTER and into popliteal artery. 018 wire snared in SFA with use of gooseneck snare and wire externalized through 5 [place] left [employer]AT[employer]DER [employer] sheath Posterior tibial artery dilated with multiple 3 mm balloon inflations both from the ankle and from [employer] Residual severe, flow-limiting dissection at ostium of PAINT TESTER Ostium of posterior tibial artery stented with 3.0 x 38 mm Xience Anastasiya drug- eluting stent 5 [place] Citizen ankle sheath removed and hemostasis with compression 014 command wire navigated antegrade through PAINT TESTER into plantar artery in the foot Distal PAINT TESTER and proximal plantar artery dilated with 2.0 balloon Wire removed from PAINT TESTER and navigated down peroneal across significant restenosis/occlusion in the midsegment. Mid peroneal predilated with 3.0 compliant balloon IA vasodilators administered for spasm Postprocedure good angiographic result with brisk two-vessel runoff via peroneal, PAINT TESTER to the ankle with PAINT TESTER extending into plantar arteries which continued to the toes. Mynx device placed to left common femoral artery access site Summary: 1. Successful angioplasty/stenting (3.0 x 38 mm Xience drug-eluting stent) of occluded left posterior tibial artery. 2. Successful angioplasty and redilation of left mid peroneal artery with 3.0 balloon 3. Post procedures left lower extremity has brisk two-vessel runoff to the ankle with direct in-line flow to the toes via posterior tibial artery and plantar arteries in the foot. Recommendations: Recommend DAPT with aspirin/clopidogrel for at least one month. After 1 month consider replacing clopidogrel with low-dose rivaroxaban long-term Plavix can be held as needed if requires additional orthopedic surgery/debridement in the short-term. Continue ASCVD risk factor modification Follow-up ultrasound in 1 month. I attest to the content of the Intraoperative Record and any orders documented therein. Any exceptions are noted below.
[2018-11-19] MEDS: HYDROmorphone INJ 0.5 MG/0.5 ML SYR IV PRN ×3 (04:02→12:02)
[2018-11-19] MEDS: HEPARIN SOD 5,000 UNIT/0.5 ML VIAL SQ SCH ×3 (06:30→20:48)
--- NOTE | 2018-11-19 07:20 | Hospitalist Progress Note ---
Date of Service November 19, 2018 Assessment & Plan (1) Gangrene of left foot: left great toe s/p amputation by Dr Mirza - 11/08 s/p TMA of left 2nd digit -11/10 - also by Dr. Mirza. Culture results - MSSA, pansensitive enterococcus, bacteroides, pansensitive e.coli. d/c daptomycin since no MRSA. d/c clindamycin. Continue zosyn - will cover above pathogens including anaerobes. Infectious disease recommends 21-day course Her tibial artery angioplasty was performed on 11/16 with good results to improve blood flow to his left foot with Dr. Feliciano Guillen, performed percutaneous angioplasty to his left leg on 11/18 with good clinical results pending a repeat arterial Doppler study to evaluate patient remains on antibiotic's per infectious disease (2) Atrial flutter with rapid ventricular response: Had been difficult to control despite AV didi agents, did have cardioversion, and amiodarone. Calcium is to be in better control with amiodarone, cardizem, and digoxin. Dr Page changed to oral amiodarone 11/15 with good rate control once we are sure intervention will percutaneous procedures are complete we will reinstitute chronic anticoagulation (3) Atrial fibrillation with rapid ventricular response: continue amiodarone, cardizem and digoxin. ultimately will need anticoagulation look to start anticoagulation after interventional procedures are past, if no interventional procedures are scheduled for the week and we may institute Lovenox therapy at this time or at least heparin drip, currently is on subcutaneous heparin for DVT prevention fortunately echo shows preserved EF and no significant valvular disease Continues to remain compensated from volume standpoint (4) Peripheral arterial disease: Left leg - PAD inferior to the popliteal artery angioplasty left posterior tibial artery. Currently on statin and aspirin (5) Sepsis: 2nd to gangrene of left great toe s/p amputation. Blood cx's negative. sepsis resolved. Patient remains on Zosyn 21 day course last dose 11/29 (6) Osteomyelitis: Left great toe s/p amputation. 3rd toe amputation (7) Diabetes mellitus type 2, uncontrolled: basal bolus insulin with adjustment (8) Hypokalemia: replete and follow (9) Other symptoms involving respiratory system and chest: Patient refers to numerous episodes at home of vague chest discomfort, legs giving way, and occasional left arm pain. He "hyperventilates" with these spells. Difficult to say if these symptoms are from rapid a.fib/flutter or ischemic, however cardiology feels no need to puruse in patient stress testing but will have outpt event monitoring has had no recurrence of these events while in the hospital since his atrial fibrillation has been controlled Echo w/o wall motion abnormalities. However, in light of carotid disease, PAD of legs, uncontrolled T2DM - recommend statin/asa (10) DVT prophylaxis: heparin SC q8h. Subjective Patient has much less pain in his foot his foot is also more warm he did undergo an additional percutaneous arteriography graphic and angioplasty procedure yesterday 11/18. His atrial fibrillation is in good control he is pending a repeat arterial Doppler to evaluate the improvement of his blood flow. Review of Systems Review of Systems: ROS: well nourished well developed. No double vision blurry vision No problems with speech or swallowing No palpitations, chest pain or pressure No Wheezing or breathing issues No abdominal pain nausea vomiting diarrhea changes in appetite or weight No burning urine urine frequency or changes in color Still with some foot pain on the left No skin rashes or oral lesions No unusual bruising or bleeding No focused back pain or numbness or loss of strength No changes in memory or confusion Physical Exam Physical Exam: The patient appeared well nourished and normally developed. Vital signs as documented. Head exam is unremarkable. normocephalic, atraumatic Neck is without jugular venous distension, thyromegaly, or lymphademopathy Lungs remain clear with good air movement Cardiac exam reveals Rhythm is regular. Systolic ejection murmurs heard Abdominal exam reveals normal bowel sounds, no masses, no organomegaly Extremities are nonedematous and his left distal extremity is more warm to touch with better color pulses are dopplerable Neurologic exam is A&Ox3, peripheral neuropathy, strength is equal bilateral Psychologically seems neither anxious or depressed Skin is warm / Dry Results & Data Vital Signs (Past 12 Hours) Vital Signs Temp Pulse Pulse Resp BP BP Pulse Ox 11/19/18 07:03 36.9 C 63 16 120/69 94 11/19/18 03:48 37.1 C 73 138/70 97 11/19/18 00:00 37.2 C 68 64 17 132/56 L 95 11/18/18 21:47 80 16 102/57 L 96 11/18/18 21:45 75 14 95 11/18/18 21:31 72 20 116/48 L 95 11/18/18 21:30 71 16 96 11/18/18 21:15 65 16 112/50 L 95 11/18/18 21:00 71 14 118/55 L 95 11/18/18 20:47 77 14 114/66 96 11/18/18 20:45 76 9 L 97 11/18/18 20:31 69 16 130/73 95 11/18/18 20:30 74 14 97 11/18/18 20:15 65 16 152/77 H 94 11/18/18 20:14 65 11/18/18 20:01 63 13 136/62 96 11/18/18 20:00 63 17 94 11/18/18 19:45 63 15 144/70 H 98 11/18/18 19:31 64 15 117/64 96 11/18/18 19:30 65 23 95 (1) Diabetes mellitus type 2, uncontrolled Glycemic state: with hyperglycemia Qualified Code(s): E11.65 - Type 2 diabetes mellitus with hyperglycemia (2) Sepsis Sepsis type: sepsis due to unspecified organism Qualified Code(s): A41.9 - Sepsis, unspecified organism (3) Osteomyelitis Laterality: left Osteomyelitis location: foot Osteomyelitis type: unspecified type Qualified Code(s): M86.9 - Osteomyelitis, unspecified
[2018-11-19] MEDS: INSULIN ASPART 100 UNITS/ML 3 ML PEN SC SCH ×4 (08:03→20:47)
[2018-11-19] MEDS: INSULIN GLARGINE SOLOSTAR 100 UNITS/ML 3 ML PEN SC SCH ×2 (08:04→20:48)
[2018-11-19] MEDS: PIPERACILLIN/TAZOBACTAM 4.5 GM in DEXTROSE 5% 100 ML IV SCH ×3 (08:10→23:48)
[2018-11-19] MEDS: POLYETHYLENE (MIRALAX) 17 GM PACK PO SCH ×2 (08:11→20:49)
[2018-11-19] MEDS: dilTIAZem HCL 120 MG CAPCR PO SCH (08:11)
[2018-11-19] MEDS: SACCHAROMYCES BOULARDII 250 MG CAP PO SCH (08:12)
[2018-11-19] MEDS: ASPIRIN 325 MG ECTAB PO SCH (08:12)
[2018-11-19] MEDS: AMIODARONE 200 MG TAB PO SCH ×2 (08:12→20:49)
[2018-11-19] MEDS: CLOPIDOGREL BISULFATE 75 MG TAB PO SCH (08:13)
[2018-11-19] MEDS: SENNA 8.6 MG TAB PO SCH ×2 (08:13→20:49)
--- NOTE | 2018-11-19 15:34 | Ultrasound Report ---
US ankle/brachial index comp CLINICAL HISTORY: post intervention, check CHELI COMPARISON STUDY: Bilateral lower extremity arterial Doppler ultrasound November 09, 2018. TECHNIQUE: Left ankle to brachial index was obtained. The right was not requested. FINDINGS: The left ankle-brachial index measured 1.14 when using the posterior tibial artery. This is improved since exam of November 2018 when it measured 0.94. The left ankle-brachial index measured 0.80 w hen using dorsalis pedis. IMPRESSION: Left ankle brachial index of 1.14 when using the posterior tibial artery which is improv ed since ultrasound of November 2018 when it measured 0.94. Electronically signed by: Ruben Tenorio M.D. 11/19/2018 3:32 PM
[2018-11-19] MEDS: DIGOXIN 0.125 MG TAB PO SCH (16:05)
[2018-11-19] MEDS: GABAPENTIN 100 MG CAP PO SCH (20:49)
[2018-11-19] MEDS: OXYCODONE HCL IR 5 MG TAB (IMMEDIATE RELEASE) PO PRN (20:53)
[2018-11-20 06:07] LABS: Creatinine Clr Calc Pharmacy 41.9 ml/min
[2018-11-20] MEDS: HEPARIN SOD 5,000 UNIT/0.5 ML VIAL SQ SCH ×2 (06:14→13:12)
--- NOTE | 2018-11-20 07:22 | Hospitalist Progress Note ---
Date of Service November 20, 2018 Assessment & Plan (1) Gangrene of left foot: left great toe s/p amputation by Dr Mirza - 11/08 s/p TMA of left 2nd digit -11/10 - also by Dr. Mirza. Culture results - MSSA, pansensitive enterococcus, bacteroides, pansensitive e.coli. d/c daptomycin since no MRSA. d/c clindamycin. Continue zosyn - will cover above pathogens including anaerobes. Infectious disease recommends 21-day course Her tibial artery angioplasty was performed on 11/16 with good results to improve blood flow to his left foot with Dr. Feliciano Guillen, performed percutaneous angioplasty to his left leg on 11/18 with good clinical results pending a repeat arterial Doppler study shows improved ankle-brachial index (2) Atrial flutter with rapid ventricular response: Had been difficult to control despite AV didi agents, did have cardi oversion, and amiodarone. Calcium is to be in better control with amiodarone, cardizem, and digoxin. Dr Page changed to oral amiodarone 11/15 with good rate control once we are sure intervention will percutaneous procedures are complete we will reinstitute chronic anticoagulation on 11/20 with Eliquis (3) Atrial fibrillation with rapid ventricular response: continue amiodarone, cardizem and digoxin. ultimately will need anticoagulation look to start anticoagulation after interventional procedures are past, if no interventional procedures are sc heduled for the week and we may institute Lovenox therapy at this time or at least heparin drip, currently transition Eliquis from subcu heparin fortunately echo shows preserved EF and no significant valvular disease Continues to remain compensated from volume standpoint (4) Peripheral arterial disease: Left leg - PAD inferior to the popliteal artery angioplasty left posterior tibial artery. Status post peripheral intervention with improved ankle-brachial index Currently on statin and aspirin (5) Sepsis: 2nd to gangrene of left great toe s/p amputation. Blood cx's negative. sepsis resolved. Patient remains on Zosyn 21 day course last dose 11/29 (6) Osteomyelitis: Left great toe s/p amputation. 3rd toe amputation (7) Diabetes mellitus type 2, uncontrolled: basal bolus insulin with adjustment (8) Hypokalemia: replete and follow (9) Other symptoms involving respiratory system and chest: Patient refers to numerous episodes at home of vague chest discomfort, legs giving way, and occasional left arm pain. He "hyperventilates" with these spells. Difficult to say if these symptoms are from rapid a.fib/flutter or ischemic, however cardiology feels no need to puruse in patient stress testing but will have outpt event monitoring has had no recurrence of these events while in the hospital since his atrial fibrillation has been controlled Echo w/o wall motion abnormalities. However, in light of carotid disease, PAD of legs, uncontrolled T2DM - recommend statin/asa (10) DVT prophylaxis: Eliquis Subjective Patient continues have improved experience with his foot pain discomfort since his circulation is been improved. He still is requesting consideration for rehab given his ambulation and wound care needs. Atrial fibrillation has been good control we will institute Eliquis therapy and ask cardiology to comment on the dual antiplatelets duration Review of Systems Review of Systems: ROS: well nourished well developed. No double vision blurry vision No problems with speech or swallowing No palpitations, chest pain or pressure No Wheezing or breathing issues No abdominal pain nausea vomiting diarrhea changes in appetite or weight No burning urine urine frequency or changes in color As of some persistent left foot discomfort No skin rashes or oral lesions No unusual bruising or bleeding No focused back pain does have numbness to his feet or loss of strength No changes in memory or confusion Physical Exam Physical Exam: The patient appeared well nourished and normally developed. Vital signs as documented. Head exam is unremarkable. normocephalic, atraumatic Neck is without jugular venous distension, thyromegaly, or lymphademopathy Lungs are clear to auscultation and percussion. Cardiac exam reveals rate controlled atrial fibrillation first and second heart sounds normal. Abdominal exam reveals normal bowel sounds, no masses, no organomegaly Extremitie on the right is better color is warm to touch capillary refill is improved his wounds which are dressed Neurologic exam is A&Ox3, neuropathy, strength is equal bilateral Psychologically seems neither anxious or depressed Skin is warm / Dry Results & Data Vital Signs (Past 12 Hours) Vital Signs Temp Pulse Pulse Resp BP BP Pulse Ox 11/20/18 07:13 37.0 C 63 18 133/64 94 11/20/18 03:42 37.0 C 64 16 128/58 L 95 11/20/18 00:00 66 05/18/19 23:48 37.0 C 72 18 128/63 96 (1) Diabetes mellitus type 2, uncontrolled Glycemic state: with hyperglycemia Qualified Code(s): E11.65 - Type 2 diabetes mellitus with hyperglycemia (2) Sepsis Sepsis type: sepsis due to unspecified organism Qualified Code(s): A41.9 - Sepsis, unspecified organism (3) Osteomyelitis Laterality: left Osteomyelitis location: foot Osteomyelitis type: unspecified type Qualified Code(s): M86.9 - Osteomyelitis, unspecified
[2018-11-20] MEDS: ASPIRIN 325 MG ECTAB PO SCH (07:58)
[2018-11-20] MEDS: AMIODARONE 200 MG TAB PO SCH ×2 (07:58→21:02)
[2018-11-20] MEDS: dilTIAZem HCL 120 MG CAPCR PO SCH (07:58)
[2018-11-20] MEDS: CLOPIDOGREL BISULFATE 75 MG TAB PO SCH (07:58)
[2018-11-20] MEDS: SENNA 8.6 MG TAB PO SCH ×2 (07:59→21:23)
[2018-11-20] MEDS: INSULIN GLARGINE SOLOSTAR 100 UNITS/ML 3 ML PEN SC SCH ×2 (08:00→21:04)
[2018-11-20] MEDS: INSULIN ASPART 100 UNITS/ML 3 ML PEN SC SCH ×4 (08:00→21:05)
[2018-11-20] MEDS: POLYETHYLENE (MIRALAX) 17 GM PACK PO SCH ×2 (08:00→21:00)
[2018-11-20] MEDS: PIPERACILLIN/TAZOBACTAM 4.5 GM in DEXTROSE 5% 100 ML IV SCH ×2 (08:11→17:06)
[2018-11-20] MEDS: HYDROmorphone INJ 0.5 MG/0.5 ML SYR IV PRN (08:16)
[2018-11-20] MEDS: SACCHAROMYCES BOULARDII 250 MG CAP PO SCH (08:59)
--- NOTE | 2018-11-20 14:11 | Progress Note ---
DATE: 11/20/2018 SUBJECTIVE: Pain is minimal. He has been up and about. He is status post the further vascular surgery on Wednesday with good reported results. OBJECTIVE: He is afebrile. His vital signs are stable. His rate is controlled. Last white count on the was normal. Dressing is changed. Minimal erythema on the dorsum of the foot. Minimal swelling. Dorsalis pedis is not palpable, but he does have a 1+ posterior tibial pulse. Brisk capillary refill 2-3 seconds with warm toes throughout. There remains a fairly extensive marginal wound necrosis along the prior surgical incision with failure of the wound margins to unite. IMPRESSION: Gangrene of the left foot secondary to peripheral vascular disease and diabetes status post surgery. PLAN: Findings are discussed. It is terrific that he has improved blood flow into the foot. I think at this point we can try to proceed with a revision mid foot type amputation to attempt to preserve the foot. I discussed with the patient this might not be possible. I did discuss with him today that a more definitive amputation, should any treatments at the foot not work out, would be a below knee amputation. I will look for surgical arrangements early this week. In the meantime, he should continue on his present treatments, wound care, antibiotics.
--- NOTE | 2018-11-20 14:12 | Anesthesiology Consultation ---
Date of Service November 20, 2018 Assessment & Plan Chart Review Chart Review: Acceptable Risk for Surgery and Patient NOT seen in Pre Admission Testing Consults Requested none History Surgery Operation Date: 11/08/18 21:15 Proposed Procedures p Amputation Toe - Adarsh Mirza MD Operation Date: 11/10/18 10:00 Proposed Procedures p Cardioversion Laser Specialist w/Anesthesia - Escobar Page MD Operation Date: 11/10/18 10:30 Proposed Procedures p Left Foot Incision and Drainage, Wound Closure, Possible Wound Vac, - Adarsh Mirza MD s Possible Transmetatarsal Amputation - Adarsh Mirza MD Operation Date: 11/11/18 09:50 Proposed Procedures p Left Lower Extremity Angiogram with Intervention - Richie Miller MD Operation Date: 11/14/18 09:20 Proposed Procedures p Left Lower Extremity Angiogram with Intervention - Richie Miller MD Operation Date: 11/16/18 08:00 Proposed Procedures p Bilateral Lower Extremity Angiogram - Hakan Guillen MD Operation Date: 11/18/18 13:20 Proposed Procedures p Attempted Left Lower Extremity Angiogram and Intervention - Hakan Guillen MD Operation Date: 11/18/18 15:40 Proposed Procedures p Left Attempted Lower Extremity Angiogram with Intervention - Hakan Guillen MD Height/Weight Height: 1.78 m Weight: 88.1 kg Allergies Allergy/AdvReac Type Severity Reaction Status Date / Time No Known Allergies Allergy Verified 11/18/18 10:08 Medications Home Medications Medication Instructions Recorded Confirmed Last Taken acetaminophen [Tylenol Extra 500 - 1,000 mg PO DIRECTED PRN 11/08/18 11/08/18 Unknown Strength] ibuprofen [Advil] 200 - 400 mg PO DIRECTED PRN 11/08/18 11/08/18 Unknown insulin aspart U-100 [Novolog 10 - 12 unit SUBCUT TIDM 11/08/18 11/08/18 Unknown U-100 Insulin aspart] insulin glargine [Lantus U-100 22 unit SUBCUT HS 11/08/18 11/08/18 Unknown Insulin] Active Medications Generic Name Dose Route Start Last Admin Trade Name Freq PRN Reason Stop Dose Admin Acetaminophen 650 mg 11/08/18 23:16 11/09/18 23:04 Tylenol PO 12/08/18 23:15 650 mg Q4H PRN Administration pain/fever Amiodarone HCl 200 mg 11/15/18 09:00 11/20/18 07:58 Cordarone PO 12/15/18 08:59 200 mg BID EMELINA Administration Aspirin 325 mg 11/16/18 18:30 11/20/18 07:58 Ecotrin PO 12/16/18 18:29 325 mg QAM EMELINA Administration Clopidogrel Bisulfate 75 mg 11/19/18 09:00 11/20/18 07:58 Plavix PO 12/19/18 08:59 75 mg QAM EMELIAN Administration Digoxin 0.125 mg 11/12/18 16:00 11/19/18 16:05 Lanoxin PO 12/12/18 15:59 0.125 mg DAILY@1600 EMELINA Administration Diltiazem HCl 120 mg 11/15/18 09:00 11/20/18 07:58 Cardizem Cd PO 12/15/18 08:59 120 mg QAM EMELINA Administration Docusate Sodium 100 mg 11/08/18 23:16 11/17/18 20:32 Colace PO 12/08/18 23:15 100 mg BID PRN Administration Constipation Gabapentin 100 mg 11/17/18 21:00 11/19/18 20:49 Neurontin PO 12/17/18 20:59 100 mg HS EMELINA Administration Heparin Sodium (Porcine) 5,000 units 11/12/18 14:00 11/20/18 13:12 Heparin Sodium (Porcine) SQ 12/12/18 13:59 5,000 units Q8 EMELINA Administration Hydromorphone HCl 0.25 mg 11/10/18 16:58 11/20/18 08:16 Dilaudid IV 11/24/18 16:57 0.25 mg Q4H PRN Administration Pain Diltiazem HCl 125 mg/ Dextrose 125 mls @ 0 mls/hr 11/10/18 11:30 11/14/18 08:12 IV 12/10/18 11:29 0 mg/hr .Q0M EMELINA 0 mls/hr Titration Protocol 0 MG/HR Piperacillin Sod/Tazobactam 120 mls @ 30 mls/hr 11/18/18 16:00 11/20/18 12:11 Sod 4.5 gm/ Dextrose IV 12/21/18 00:00 Infused Q8H EMELINA Infusion Protocol Insulin Aspart 0 units 11/09/18 00:00 11/20/18 11:36 Novolog Flexpen SC 12/09/18 00:00 13 units ACHS EMELINA Administration Insulin Glargine 17 units 11/12/18 09:00 11/20/18 08:00 Lantus Solostar Pen SC 12/12/18 08:59 17 units BID EMELINA Administration Iodixanol 145 ml 11/18/18 17:55 11/18/18 17:58 Visipaque IV 11/22/18 17:54 145 ml UD PRN Administration Radiology Use Oxycodone HCl 10 mg 11/17/18 15:03 11/19/18 20:53 Roxicodone Immediate Rel PO 12/01/18 15:02 10 mg Q4H PRN Administration Pain Polyethylene Glycol 17 gm 11/10/18 21:00 11/20/18 08:00 Miralax Powder Packet PO 12/10/18 20:59 17 gm BID EMELINA Administration Saccharomyces Boulardii 250 mg 11/09/18 09:00 11/20/18 08:59 Florastor PO 12/09/18 08:59 250 mg DAILY EMELINA Administration Sennosides 17.2 mg 11/17/18 21:00 11/20/18 07:59 Senokot PO 12/17/18 20:59 17.2 mg BID EMELINA Administration NPO Date Last Intake of Fluids: 11/17/18 Time Last Intake of Fluids: 21:00 Last Intake of Fluids Comment: Sips of water with meds Date Last Intake of Solids: 11/17/18 Time Last Intake of Solids: 17:00 Past Medical History Medical History Gangrene of left foot (Acute) Cellulitis of left foot (Acute) Sepsis (Acute) Osteomyelitis (Acute) Diabetes (Chronic) Poorly controlled. Atrial flutter with RVR. Requiring cardioversion Being followed by Dr. Page. Currently on regimen of amiodarone, cardizem and digoxin Ingrown nail PVD (peripheral vascular disease) Exercise / Class Metabolic Activity II 4-5 Yardwork/Stairs/Walk up hill Past Family History Family History Other Coronary heart disease Diabetes Past Surgical History Surgical History S/P carotid endarterectomy 2017 H/O lumbar discectomy S/P knee surgery Right knee History of cardioversion 11/10/18x 3. Pt back in AFib and on cardizem drip S/P angiogram of extremity Left lower 11/18/18 Status post amputation of left great toe 11/08/18 under GETA. Mac 3, gr I Status post incision and drainage Left great toe Past Anesthesia History No Hx of Anesthesia Complications and No Family Hx of Anesthesia Complications Social History Smoking Status: Never smoker Do You Dip or Chew Tobacco: No Hx Alcohol Use: No Hx Substance Use: No substance use type: does not use Physical Exam Vital Signs Last Vital Signs Temp 37.1 C 11/20/18 11:31 Pulse 68 11/20/18 11:31 Resp 19 11/20/18 11:31 BP 123/51 L 11/20/18 11:31 Pulse Ox 95 11/20/18 11:31 Testing Laboratory Results 11/18/18 05:56 11/20/18 05:13 11/09/18 11/11/18 11/12/18 05:35 17:10 06:39 PT 15.0 H INR 1.5 H Hemoglobin A1c 13.1 H Urine Color Yellow Urine Appearance Clear Urine pH 5.0 Ur Specific [place] 1.022 Urine Protein Trace H Urine Glucose (UA) 3+ H Urine Ketones 1+ H Urine Nitrite Negative Ur Leukocyte Esterase Negative Urine WBC (Auto) 1-5 Urine RBC (Auto) 0-4 U Hyaline Cast (Auto) 1-5 U Epithel Cells (Auto) 10-20 H Urine Bacteria (Auto) 1+ H 11/14/18 05:21 PT 14.5 H INR 1.5 H Hemoglobin A1c Urine Color Urine Appearance Urine pH Ur Specific [place] Urine Protein Urine Glucose (UA) Urine Ketones Urine Nitrite Ur Leukocyte Esterase Urine WBC (Auto) Urine RBC (Auto) U Hyaline Cast (Auto) U Epithel Cells (Auto) Urine Bacteria (Auto) 11/08/18 22:50 Gram Stain - Final Toe,Left Great Aerobic and Anaerobic Culture - Final Escherichia coli Staphylococcus aureus Enterococcus faecalis Bacteroides fragilis 11/08/18 17:32 Blood Culture - Final Blood No growth 11/08/18 17:25 Blood Culture - Final Blood No growth 11/11/18 17:10 Urine Culture - Final Urine,Clean Catch No growth - less than 1,000 colonies/mL. 11/08/18 17:40 Gram Stain - Final Foot Wound Culture - Final Staphylococcus aureus Enterococcus faecalis Laboratory Tests 11/17/18 08:08 Sodium 140 Potassium 3.8 Chloride 106 Carbon Dioxide 28 BUN 13 Electrocardiogram Date: 11/08/18 Findings: + NSR @ (94 bpm) Patient currently in A flutter with RVR. Chest X-Ray Date: 11/08/18 Findings: + NAD Echocardiogram Date: 11/10/18 EF: 50-55% LV Function: normal Other Findings: + LVH (Mild CLVH) Valvular Disease: + MR (Mild)
[2018-11-20] MEDS: DIGOXIN 0.125 MG TAB PO SCH (17:07)
[2018-11-20] MEDS ORDERED: APIXABAN 5 MG TABLET PO SCH (21:00)
[2018-11-20] MEDS: GABAPENTIN 100 MG CAP PO SCH (21:01)
[2018-11-21] MEDS ORDERED: Nursing to Pharmacy Communication ONE (00:36)
[2018-11-21] MEDS: PIPERACILLIN/TAZOBACTAM 4.5 GM in DEXTROSE 5% 100 ML IV SCH ×4 (00:48→23:41)
[2018-11-21] MEDS: HYDROmorphone INJ 0.5 MG/0.5 ML SYR IV PRN ×2 (00:59→22:15)
[2018-11-21 05:30] LABS: Hemoglobin 8.8 g/dL (14.0-18.0); Mean Corpuscular Hgb Conc 32.6 g/dL (32-36); Mean Platelet Volume 8.8 fL (7.4-10.4); Platelet Count 396 K/uL (130-400); RDW Coefficient of Variation 14.3 % (11.5-14.5); Red Blood Count 3.14 M/uL (4.7-6.1); White Blood Count 8.47 K/uL (4.8-10.8)
[2018-11-21] MEDS ORDERED: INSULIN ASPART 100 UNITS/ML 3 ML PEN SC SCH (06:00)
[2018-11-21] MEDS: ASPIRIN 325 MG ECTAB PO SCH (08:38)
[2018-11-21] MEDS: SACCHAROMYCES BOULARDII 250 MG CAP PO SCH (08:38)
[2018-11-21] MEDS: CLOPIDOGREL BISULFATE 75 MG TAB PO SCH (08:38)
[2018-11-21] MEDS: POLYETHYLENE (MIRALAX) 17 GM PACK PO SCH ×2 (08:38→21:32)
[2018-11-21] MEDS: dilTIAZem HCL 120 MG CAPCR PO SCH (08:38)
[2018-11-21] MEDS: AMIODARONE 200 MG TAB PO SCH ×2 (08:38→21:34)
--- NOTE | 2018-11-21 08:41 | Progress Note ---
DATE: 11/21/2018 Surgery on the left foot was planned for this morning. The OR is not able to start until late morning which represents a scheduling conflict. We will change the surgery date to Wednesday at 7:00 a.m. The patient may eat. Will speak to medicine. He could restart on subQ heparin if necessary. He may continue on his aspirin and Plavix. The plan now is to do either a high revision transmetatarsal amputation or a Chopart amputation. I think the Ch[place] amputation is more likely to be necessary due to the skin necrosis. It is also a more involved surgical procedure. I have discussed with the patient that a below-knee amputation would very likely give him a good result with one operation. He would like to take advantage of the increased circulation due to the recent vascular surgical procedure and preserve his foot. I think that this is reasonable. He is afebrile. His labs from today are noted. Continue dressing changes and intravenous antibiotics. MICHELLE
[2018-11-21] MEDS: INSULIN GLARGINE SOLOSTAR 100 UNITS/ML 3 ML PEN SC SCH ×2 (08:48→21:42)
[2018-11-21] MEDS: INSULIN ASPART 100 UNITS/ML 3 ML PEN SC SCH ×4 (08:48→22:00)
[2018-11-21 09:08] LABS: BUN Creatinine Ratio 9.8 (10-20); Calcium 8.9 mg/dl (8.5-10.1); Creatinine Clr Calc Pharmacy 40.8 ml/min; Est GFR (African American) 44.7; Est GFR (Non-African American) 38.6; Potassium 3.8 mmol/L (3.5-5.1)
[2018-11-21] MEDS: SENNA 8.6 MG TAB PO SCH ×2 (09:42→21:32)
--- NOTE | 2018-11-21 10:34 | Infectious Disease Progress Nt ---
Date of Service November 21, 2018 Assessment & Plan (1) Gangrene of left foot: continue zosyn, for surgery on Wednesday, await findings. length of abx will depend on extent of surgery, suspect he will need at least 10-14 more days post op. will follow. (2) Osteomyelitis: Subjective pt for additional debridement on Wednesday. remains on zosyn, tolerating well. afebrile. wbc 8.4. Results & Data Vital Signs (Past 12 Hours) Vital Signs Temp Pulse Pulse Resp BP Pulse Ox 11/21/18 07:40 37.0 C 78 20 122/64 97 11/20/18 22:45 37.3 C 76 18 149/67 H 93 Laboratory Results Microbiology 11/08/18 22:50 Toe,Left Great Gram Stain - Final 11/08/18 22:50 Toe,Left Great Aerobic and Anaerobic Culture - Final Escherichia coli Staphylococcus aureus Enterococcus faecalis Bacteroides fragilis 11/08/18 17:32 Blood Blood Culture - Final No growth 11/08/18 17:25 Blood Blood Culture - Final No growth 11/11/18 17:10 Urine,Clean Catch Urine Culture - Final No growth - less than 1,000 colonies/mL. 11/08/18 17:40 Foot Gram Stain - Final 11/08/18 17:40 Foot Wound Culture - Final Staphylococcus aureus Enterococcus faecalis (1) Osteomyelitis Laterality: left Osteomyelitis location: foot Osteomyelitis type: unspecified type Qualified Code(s): M86.9 - Osteomyelitis, unspecified
--- NOTE | 2018-11-21 13:45 | Ultrasound Report ---
US ankle/brachial index comp CLINICAL HISTORY: 78 years-old Male presenting with toe pressures eft foot; hx of vascular disease. TECHNIQUE: Ankle brachial indices were obtained. COMPARISON: 11/19/2018. FINDINGS: Brachial: Right: 145 mmHg. Left: 150 mmHg. Digital: Right: mmHg. Left: 49 mmHg. Toe/brachial index: Right: , Left: 0.33. Reference ranges: Normal Ankle/Brachial Index (CHELI) 1.0-1.4; 0.91-0.99 borderline; < or = 0.9 abnormal (0.7-0.89 mild, 0.51-0.69 moderate, < or = 0.5 severe peripheral arterial disease). Normal Toe/Brachial Index (TBI) > or = 0.6; < 0.6 abnormal (0.34-0.59 mild, 0.12-0.34 moderate, < or = 0.11 severe peripheral arterial disease). IMPRESSION: Moderately abnormal toe brachial index. This may represent a slight interval worsening in comparison between toe brachial index ankle-brachial index is imperfect. Electronically signed by: Adarsh Huertas M.D. 11/21/2018 1:44 PM
--- NOTE | 2018-11-21 16:13 | Hospitalist Progress Note ---
Date of Service November 21, 2018 Assessment & Plan (1) Gangrene of left foot: - S/p left great toe amputation on 11/08/[address] Mirza. - S/p TMA of left 2nd digit on 11/10/[address] Mirza. - Wound culture positive for E. coli, Staph aureus, Enterococcus faecalis, Bacteroides fragilis. - ID following, appreciate input. Will likely need 10-14 days post op. - Continue Zosyn for empiric coverage. - Also status post 2 angioplasty procedures of the left lower extremity by cardiology (11/16 and 11/18); repeat ABIs with improved blood flow. - Plan for left foot revision on Wed11/23/18 per orthopedics; will hold anticoagulation. (2) Atrial flutter with rapid ventricular response: - Cardiology following, has been difficult to manage. - Continue Digoxin, Diltiazem, Amiodarone as prescribed. - Holding Eliquis for procedure. (3) Atrial fibrillation with rapid ventricular response: - Continue cardiac meds as prescribed. - Holding Eliquis for procedure. - TTE showed preserved ejection fraction. (4) Peripheral arterial disease: - S/p 2 angioplasty procedures via cardiology on 11/16 and 11/18. - Repeat CHELI on 11/19 was improved; CHELI today showed slight interval worsening. - Cardiology following, appreciate input. - Continue aspirin, plavix; is not currently on statin agent. (5) Sepsis: - Secondary to gangrene of left foot. IV abx as noted above. (6) Osteomyelitis: - Treatment as noted above. (7) Diabetes mellitus type 2, uncontrolled: - Hemoglobin A1C was 13 during this admission. - Basal/bolus insulin -- BG has been well controlled. (8) CKD (chronic kidney disease), stage III: - Renally dose all meds. (9) Acute anemia: - Hgb ~9-11 at baseline; is trending down overall. - Consider iron studies - have not been completed recently. (10) DVT prophylaxis: - Heparin subQ q8hr -- hold starting Wednesday evening; Holding Eliquis for procedure. Dispo: Med/surg for treatment of gangrene of left foot. Will need repeat procedure on Wednesday. Supervising Physician Co-Signing Physician Notes Attending Attestation: Chart reviewed, care plan d/w NEY Turner. I agree w/ the lambert components of her documentation. 78yo male - poorly controlled DM for many years - with left foot gangrene s/p multiple procedures to date including amputation of great toe, TMA of 2nd toe, vascular intervention LLE. Remains on zosyn. Additional revision of left foot planned for 11/23. A.fib/flutter controlled at this time. Masoud Cade MD Subjective Pt. is doing well overall today. Has pain in left foot, unchanged. Plan for revision in OR on Wed. Denies constipation, chest pain, SOB. Review of Systems Review of Systems: All systems reviewed & are unremarkable except as noted in HPI & below Constitutional: no fever, no chills, no fatigue, no weakness and no anorexia Respiratory: no cough, no dyspnea, no dyspnea on exertion and no wheezing Cardiovascular: no chest pain, no palpitations, no lightheadedness, no syncope and no edema Gastrointestinal: no abdominal pain, no nausea, no vomiting, no constipation and no diarrhea/loose stools Genitourinary: no difficulty urinating Musculoskeletal: + joint pain Integumentary: no non-healing lesions Allergy / Immunological: no rash Physical Exam Physical Exam: General: Resting comfortably in no apparent distress HEENT: NC/AT; PERRLA with EOMI; [place] conjunctiva, MMM. No erythema of posterior pharynx Neck: Supple and nontender Cardiac: Irregular, rate controlled Lungs: CTA bilaterally; No rhonchi, wheezing, or rales Abdomen: Bowel normoactive X 4; Nontender to palpation Extremities: Warm. No edema present. Dressing in place over left foot, did not remove. Neuro: No focal weakness Skin: No rash Results & Data Vital Signs (Past 12 Hours) Vital Signs Temp Pulse Pulse Resp BP BP Pulse Ox 11/21/18 15:00 36.9 C 63 17 131/62 95 11/21/18 12:17 36.7 C 74 20 120/58 L 97 11/21/18 07:40 37.0 C 78 20 122/64 97 Laboratory Results 11/21/18 11/21/18 11/21/18 Range/Units 11:59 05:22 05:21 WBC (4.8-10.8) K/uL RBC (4.7-6.1) M/uL Hgb (14.0-18.0) g/dL Hct (42-52) % MCV (80-100) fL MCH (25-34) pg MCHC (32-36) g/dL RDW Std Deviation (36.4-46.3) fL RDW Coeff of Deepak (11.5-14.5) % Plt Count (130-400) K/uL MPV (7.4-10.4) fL Sodium 140 (136-145) mmol/L Potassium 3.8 (3.5-5.1) mmol/L Chloride 107 (98-107) mmol/L Carbon Dioxide 26 (21-32) mmol/L Anion Gap 7.0 (3-11) BUN 16 (7-18) mg/dl Creatinine 1.67 H (0.6-1.4) mg/dl Est Cr Clr Drug Dosing 40.8 ml/min Est GFR ( Amer) 44.7 Est GFR (Non-Af Amer) 38.6 BUN/Creatinine Ratio 9.8 L (10-20) Glucose 111 H (70-99) mg/dl POC Glucose 215 H 118 H (70-99) Calcium 8.9 (8.5-10.1) mg/dl 11/21/18 11/21/18 11/20/18 Range/Units 05:15 01:00 20:31 WBC 8.47 (4.8-10.8) K/uL RBC 3.14 L (4.7-6.1) M/uL Hgb 8.8 L (14.0-18.0) g/dL Hct 27.0 L (42-52) % MCV 86.0 (80-100) fL MCH 28.0 (25-34) pg MCHC 32.6 (32-36) g/dL RDW Std Deviation 45.0 (36.4-46.3) fL RDW Coeff of Deepak 14.3 (11.5-14.5) % Plt Count 396 (130-400) K/uL MPV 8.8 (7.4-10.4) fL Sodium (136-145) mmol/L Potassium (3.5-5.1) mmol/L Chloride (98-107) mmol/L Carbon Dioxide (21-32) mmol/L Anion Gap (3-11) BUN (7-18) mg/dl Creatinine (0.6-1.4) mg/dl Est Cr Clr Drug Dosing ml/min Est GFR ( Amer) Est GFR (Non-Af Amer) BUN/Creatinine Ratio (10-20) Glucose (70-99) mg/dl POC Glucose 114 H 188 H (70-99) Calcium (8.5-10.1) mg/dl 11/20/18 Range/Units 16:54 WBC (4.8-10.8) K/uL RBC (4.7-6.1) M/uL Hgb (14.0-18.0) g/dL Hct (42-52) % MCV (80-100) fL MCH (25-34) pg MCHC (32-36) g/dL RDW Std Deviation (36.4-46.3) fL RDW Coeff of Deepak (11.5-14.5) % Plt Count (130-400) K/uL MPV (7.4-10.4) fL Sodium (136-145) mmol/L Potassium (3.5-5.1) mmol/L Chloride (98-107) mmol/L Carbon Dioxide (21-32) mmol/L Anion Gap (3-11) BUN (7-18) mg/dl Creatinine (0.6-1.4) mg/dl Est Cr Clr Drug Dosing ml/min Est GFR ( Amer) Est GFR (Non-Af Amer) BUN/Creatinine Ratio (10-20) Glucose (70-99) mg/dl POC Glucose 138 H (70-99) Calcium (8.5-10.1) mg/dl (1) Diabetes mellitus type 2, uncontrolled Glycemic state: with hyperglycemia Qualified Code(s): E11.65 - Type 2 diabetes mellitus with hyperglycemia (2) Sepsis Sepsis type: sepsis due to unspecified organism Qualified Code(s): A41.9 - Sepsis, unspecified organism (3) Osteomyelitis Laterality: left Osteomyelitis location: foot Osteomyelitis type: unspecified type Qualified Code(s): M86.9 - Osteomyelitis, unspecified
[2018-11-21] MEDS: DIGOXIN 0.125 MG TAB PO SCH (16:48)
--- NOTE | 2018-11-21 19:11 | Progress Note ---
DATE: 11/21/2018 No pain. He has been up and about. I spoke with Dr. Cade this morning. There is extensive marginal necrosis. This extends just proximal to the medial incision. There is no wound healing and actually the bone is visible within the wound. He has a mild Achilles contracture. The posterior tibial pulse is 1+. Toe pressure today was 0.33. This would be consistent with a moderate index. Findings were discussed with the patient. Ideally, I would like to proceed with a transmetatarsal amputation. I discussed with him that that is probably his best option; however, I think it is unlikely we are going to achieve this level due to a soft tissue coverage and probably necrotic tissue internally. The next best functional result for him is going to be a below knee amputation. The third option to try to save his foot would be a Chopart or Lisfranc type amputation. These require much more surgery. I discussed with him that the Achilles tendon needs to be released. There was a propensity for equinus contracture and ulceration at the tip. There is a need for significant modifications of footwear to use as an AFO with a silicone spacer. Additionally, it requires transfer of the tibialis anterior and peroneus brevis tendons. Functionally, the result is probably better with a below-knee amputation. We weighed out the pros and cons. At this point, he does not want to have the below-knee amputation done. Wednesday, we will proceed likely with a Chopart amputation.
[2018-11-21] MEDS: GABAPENTIN 100 MG CAP PO SCH (21:33)
[2018-11-21] MEDS: HEPARIN SOD 5,000 UNIT/0.5 ML VIAL SQ SCH (21:40)
--- NOTE | 2018-11-21 23:26 | Cardiology Progress Note ---
Date of Service November 21, 2018 Assessment & Plan (1) Peripheral arterial disease: 2. Left lower extremity gangrene/osteomyelitis 3. Poorly controlled diabetes 4. Paroxysmal atrial fibrillation with RVR 5. Chronic kidney disease Patient post SCRIBING MACHINE OPERATOR/stenting to posterior tibial artery and angioplasty to peroneal artery. Post procedure CHELI normal, toe pressure reduced but potentially compatible with wound healing Awaiting additional amputation per Dr. Mirza. ��For now continue DAPT with aspirin, clopidogrel. Clopidogrel can be held as necessary for surgery. ��Long-term would discharge on Xarelto or Eliquis for A. fib and clopidogrel for at least 3 months. ��Follow-up vascular surveillance imaging in 1 month pending final amputation plan Subjective Reports feeling well this afternoon. Pain in lower extremity well controlled. Denies chest pain, shortness of breath, palpitations. Review of Systems Review of Systems: All systems reviewed & are unremarkable except as noted in HPI & below Physical Exam Constitutional: WD/WN, vitals as above Eyes: + anicteric sclerae Respiratory: normal respiratory effort, lungs clear to auscultation Cardiovascular: Rate/Rhythm: regular rate Heart Sounds: no murmur 1-2+ PT pulse on the left. Intact left FOOTBALL SCOUT pulse without significant hematoma Gastrointestinal (Abdomen): Percussion/Palpation: abdomen soft; abdomen nontender Psychiatric: A+Ox3, euthymic affect Results & Data Vital Signs (Past 12 Hours) Vital Signs Temp Pulse Pulse Pulse Resp BP BP 11/21/18 22:56 37.1 C 65 18 110/61 11/21/18 16:48 57 L 11/21/18 15:00 36.9 C 63 17 131/62 11/21/18 12:17 36.7 C 74 20 120/58 L Pulse Ox 11/21/18 22:56 94 11/21/18 16:48 11/21/18 15:00 95 11/21/18 12:17 97
[2018-11-22] MEDS: HEPARIN SOD 5,000 UNIT/0.5 ML VIAL SQ SCH ×2 (05:27→12:51)
[2018-11-22 06:04] LABS: Hematocrit (blood only) 26.3 % (42-52); Hemoglobin 8.6 g/dL (14.0-18.0)
[2018-11-22 06:35] LABS: BUN Creatinine Ratio 12.7 (10-20); Calcium 8.8 mg/dl (8.5-10.1); Creatinine Clr Calc Pharmacy 43.9 ml/min; Est GFR (Non-African American) 42.3; Potassium 3.9 mmol/L (3.5-5.1)
[2018-11-22] MEDS: SACCHAROMYCES BOULARDII 250 MG CAP PO SCH (08:30)
[2018-11-22] MEDS: ASPIRIN 325 MG ECTAB PO SCH (08:30)
[2018-11-22] MEDS: AMIODARONE 200 MG TAB PO SCH ×2 (08:30→21:19)
[2018-11-22] MEDS: dilTIAZem HCL 120 MG CAPCR PO SCH (08:30)
[2018-11-22] MEDS: CLOPIDOGREL BISULFATE 75 MG TAB PO SCH (08:31)
[2018-11-22] MEDS: SENNA 8.6 MG TAB PO SCH ×2 (08:31→21:20)
[2018-11-22] MEDS: INSULIN GLARGINE SOLOSTAR 100 UNITS/ML 3 ML PEN SC SCH ×2 (08:32→21:23)
[2018-11-22] MEDS: INSULIN ASPART 100 UNITS/ML 3 ML PEN SC SCH ×4 (08:35→21:25)
[2018-11-22] MEDS: PIPERACILLIN/TAZOBACTAM 4.5 GM in DEXTROSE 5% 100 ML IV SCH ×2 (08:37→17:09)
[2018-11-22] MEDS: POLYETHYLENE (MIRALAX) 17 GM PACK PO SCH ×2 (09:16→21:35)
--- NOTE | 2018-11-22 11:01 | Hospitalist Progress Note ---
Date of Service November 22, 2018 Assessment & Plan (1) Gangrene of left foot: - S/p left great toe amputation on 11/08/[address] Mirza. - S/p TMA of left 2nd digit on 11/10/[address] Mirza. - Wound culture positive for E. coli, Staph aureus, Enterococcus faecalis, Bacteroides fragilis. - ID following, appreciate input. - Continue Zosyn IV. Will likely need 10-14 days post op. - Also status post 2 angioplasty procedures of the left lower extremity by cardiology (11/16 and 11/18); repeat ABIs with improved blood flow. - Plan for left foot revision on Wed11/23/18 per orthopedics; will hold anticoagulation therapy. (2) Atrial flutter with rapid ventricular response: - Cardiology following, has been difficult to manage. - Continue Digoxin, Diltiazem, Amiodarone as prescribed. - Holding Eliquis for procedure. (3) Atrial fibrillation with rapid ventricular response: - Continue cardiac meds as prescribed. - Holding Eliquis for procedure. - TTE showed preserved ejection fraction. (4) Peripheral arterial disease: - S/p 2 angioplasty procedures via cardiology on 11/16 and 11/18. - Repeat CHELI on 11/19 was improved; CHELI 11/21 showed slight interval worsening. - Cardiology following, appreciate input. - Continue aspirin, plavix (can continue per ortho prior to surgery); will add Atorvastatin 40 mg qAM. (5) Sepsis: - Secondary to gangrene of left foot. IV abx as noted above. (6) Osteomyelitis: - Treatment as noted above. (7) Diabetes mellitus type 2, uncontrolled: - Hemoglobin A1C was 13 during this admission. - Basal/bolus insulin -- BG has been well controlled. (8) CKD (chronic kidney disease), stage III: - Renally dose all meds. (9) Acute anemia: - Hgb ~9-11 at baseline; is below baseline but stable. - Consider iron studies. (10) DVT prophylaxis: - Heparin subQ q8hr -- hold starting this evening; Holding Eliquis for procedure. Dispo: Med/surg for treatment of gangrene of the left foot. Will need repeat procedure on Wednesday. Supervising Physician Co-Signing Physician Notes Attending Attestation: Chart reviewed, care plan d/w NEY Turner. I agree w/ the lambert components of her documentation. 78yo male - poorly controlled DM for many years - with left foot gangrene s/p multiple procedures to date including amputation of great toe, TMA of 2nd toe, vascular intervention LLE. Remains on zosyn. Additional revision of left foot planned for tomorrow. Labs/vitals acceptable at this time. A.fib/flutter controlled at this time as well. Eliquis on hold for procedure on 11/23. Masoud Cade MD Subjective Pt. is doing well. Denies left foot pain. Discharge from wound was serosanguinous this morning, was previously green-yellow purulent discharge. Plan for revision of left foot on 11/23/18. Review of Systems Review of Systems: All systems reviewed & are unremarkable except as noted in HPI & below Constitutional: no fever, no chills, no fatigue, no weakness and no anorexia Respiratory: no cough, no dyspnea, no dyspnea on exertion and no wheezing Cardiovascular: no chest pain, no palpitations, no lightheadedness, no syncope and no edema Gastrointestinal: no abdominal pain, no nausea and no constipation Genitourinary: no difficulty urinating Musculoskeletal: no back pain and no joint pain Integumentary: + lesions and + sores Allergy / Immunological: no rash Physical Exam Physical Exam: General: Resting comfortably in no apparent distress HEENT: NC/AT; PERRLA with EOMI; [place] conjunctiva, MMM. No erythema of posterior pharynx Neck: Supple and nontender Cardiac: Irregular, rate controlled Lungs: CTA bilaterally; No rhonchi, wheezing, or rales Abdomen: Bowel normoactive X 4; Nontender to palpation Extremities: Warm. No edema present. Dressing in place over left foot. Neuro: No focal weakness Skin: No rash Results & Data Vital Signs (Past 12 Hours) Vital Signs Temp Pulse Resp BP Pulse Ox 11/22/18 06:50 36.8 C 60 16 148/71 H 97 11/21/18 22:56 37.1 C 65 18 110/61 94 Laboratory Results 11/22/18 11/22/18 11/22/18 Range/Units 08:10 05:42 05:42 Hgb 8.6 L (14.0-18.0) g/dL Hct 26.3 L (42-52) % Sodium 140 (136-145) mmol/L Potassium 3.9 (3.5-5.1) mmol/L Chloride 106 (98-107) mmol/L Carbon Dioxide 26 (21-32) mmol/L Anion Gap 7.0 (3-11) BUN 20 H (7-18) mg/dl Creatinine 1.55 H (0.6-1.4) mg/dl Est Cr Clr Drug Dosing 43.9 ml/min Est GFR ( Amer) 49.0 Est GFR (Non-Af Amer) 42.3 BUN/Creatinine Ratio 12.7 (10-20) Glucose 179 H (70-99) mg/dl POC Glucose 171 H (70-99) Calcium 8.8 (8.5-10.1) mg/dl 11/21/18 11/21/18 11/21/18 Range/Units 20:45 17:17 11:59 Hgb (14.0-18.0) g/dL Hct (42-52) % Sodium (136-145) mmol/L Potassium (3.5-5.1) mmol/L Chloride (98-107) mmol/L Carbon Dioxide (21-32) mmol/L Anion Gap (3-11) BUN (7-18) mg/dl Creatinine (0.6-1.4) mg/dl Est Cr Clr Drug Dosing ml/min Est GFR ( Amer) Est GFR (Non-Af Amer) BUN/Creatinine Ratio (10-20) Glucose (70-99) mg/dl POC Glucose 97 210 H 215 H (70-99) Calcium (8.5-10.1) mg/dl (1) Diabetes mellitus type 2, uncontrolled Glycemic state: with hyperglycemia Qualified Code(s): E11.65 - Type 2 diabetes mellitus with hyperglycemia (2) Sepsis Sepsis type: sepsis due to unspecified organism Qualified Code(s): A41.9 - Sepsis, unspecified organism (3) Osteomyelitis Laterality: left Osteomyelitis location: foot Osteomyelitis type: unspecified type Qualified Code(s): M86.9 - Osteomyelitis, unspecified
[2018-11-22] MEDS: ATORVASTATIN 40 MG TAB PO SCH (11:35)
--- NOTE | 2018-11-22 13:47 | Infectious Disease Progress Nt ---
Date of Service November 22, 2018 Assessment & Plan (1) Gangrene of left foot: continue zosyn, for surgery tomorrow await findings. length of abx will depend on extent of surgery, suspect he will need at least 10-14 more days post op. will follow. (2) Osteomyelitis: Subjective CHELI repeated, worsened. conitnues with necrosis, for OR in am for TMA, declined bka. remains on zosyn. tolerating well. afebrile. creat slightly elevated but improved today. Results & Data Vital Signs (Past 12 Hours) Vital Signs Temp Pulse Resp BP Pulse Ox 11/22/18 06:50 36.8 C 60 16 148/71 H 97 Laboratory Results Microbiology 11/08/18 22:50 Toe,Left Great Gram Stain - Final 11/08/18 22:50 Toe,Left Great Aerobic and Anaerobic Culture - Final Escherichia coli Staphylococcus aureus Enterococcus faecalis Bacteroides fragilis 11/08/18 17:32 Blood Blood Culture - Final No growth 11/08/18 17:25 Blood Blood Culture - Final No growth 11/11/18 17:10 Urine,Clean Catch Urine Culture - Final No growth - less than 1,000 colonies/mL. 11/08/18 17:40 Foot Gram Stain - Final 11/08/18 17:40 Foot Wound Culture - Final Staphylococcus aureus Enterococcus faecalis (1) Osteomyelitis Laterality: left Osteomyelitis location: foot Osteomyelitis type: unspecified type Qualified Code(s): M86.9 - Osteomyelitis, unspecified
--- NOTE | 2018-11-22 14:00 | Anesthesiology Consultation ---
Date of Service November 22, 2018 Assessment & Plan (1) Encounter for pre-operative examination: Chart Review Chart Review: Acceptable Risk for Surgery and Patient NOT seen in Pre Admission Testing Consults Requested none History Surgery Operation Date: 11/08/18 21:15 Proposed Procedures p Amputation Toe - Adarsh Mirza MD Operation Date: 11/10/18 10:00 Proposed Procedures p Cardioversion Hand Plug Shaper w/Anesthesia - Escobar Page MD Operation Date: 11/10/18 10:30 Proposed Procedures p Left Foot Incision and Drainage, Wound Closure, Possible Wound Vac, - Adarsh Mirza MD s Possible Transmetatarsal Amputation - Adarsh Mirza MD Operation Date: 11/11/18 09:50 Proposed Procedures p Left Lower Extremity Angiogram with Intervention - Richie Miller MD Operation Date: 11/14/18 09:20 Proposed Procedures p Left Lower Extremity Angiogram with Intervention - Richie Miller MD Operation Date: 11/16/18 08:00 Proposed Procedures p Bilateral Lower Extremity Angiogram - Hakan Guillen MD Operation Date: 11/18/18 13:20 Proposed Procedures p Attempted Left Lower Extremity Angiogram and Intervention - Hakan Guillen MD Operation Date: 11/18/18 15:40 Proposed Procedures p Left Attempted Lower Extremity Angiogram with Intervention - Hakan Guillen MD Operation Date: 11/23/18 07:00 Proposed Procedures p Revision Left Transmetatarsal Amputation - Adarsh Mirza MD Height/Weight Height: 1.78 m Weight: 88.1 kg Allergies Allergy/AdvReac Type Severity Reaction Status Date / Time No Known Allergies Allergy Verified 11/18/18 10:08 Medications Home Medications Medication Instructions Recorded Confirmed Last Taken acetaminophen [Tylenol Extra 500 - 1,000 mg PO DIRECTED PRN 11/08/18 11/08/18 Unknown Strength] ibuprofen [Advil] 200 - 400 mg PO DIRECTED PRN 11/08/18 11/08/18 Unknown insulin aspart U-100 [Novolog 10 - 12 unit SUBCUT TIDM 11/08/18 11/08/18 Unknown U-100 Insulin aspart] insulin glargine [Lantus U-100 22 unit SUBCUT HS 11/08/18 11/08/18 Unknown Insulin] Active Medications Generic Name Dose Route Start Last Admin Trade Name Freq PRN Reason Stop Dose Admin Acetaminophen 650 mg 11/08/18 23:16 11/09/18 23:04 Tylenol PO 12/08/18 23:15 650 mg Q4H PRN Administration pain/fever Amiodarone HCl 200 mg 11/15/18 09:00 11/22/18 08:30 Cordarone PO 12/15/18 08:59 200 mg BID EMELINA Administration Aspirin 325 mg 11/16/18 18:30 11/22/18 08:30 Ecotrin PO 12/16/18 18:29 325 mg QAM EMELINA Administration Atorvastatin Calcium 40 mg 11/22/18 10:30 11/22/18 11:35 Lipitor PO 12/22/18 10:29 40 mg QAM EMELINA Administration Clopidogrel Bisulfate 75 mg 11/19/18 09:00 11/22/18 08:31 Plavix PO 12/19/18 08:59 75 mg QAM EMELINA Administration Digoxin 0.125 mg 11/12/18 16:00 11/21/18 16:48 Lanoxin PO 12/12/18 15:59 Not Given DAILY@1600 EMELINA Diltiazem HCl 120 mg 11/15/18 09:00 11/22/18 08:30 Cardizem Cd PO 12/15/18 08:59 120 mg QAM EMELINA Administration Docusate Sodium 100 mg 11/08/18 23:16 11/17/18 20:32 Colace PO 12/08/18 23:15 100 mg BID PRN Administration Constipation Gabapentin 100 mg 11/17/18 21:00 11/21/18 21:33 Neurontin PO 12/17/18 20:59 100 mg HS EMELINA Administration Heparin Sodium (Porcine) 5,000 units 11/21/18 22:00 11/22/18 12:51 Heparin Sodium (Porcine) SQ 11/22/18 21:59 5,000 units Q8 EMELINA Administration Hydromorphone HCl 0.25 mg 11/10/18 16:58 11/21/18 22:15 Dilaudid IV 11/24/18 16:57 0.25 mg Q4H PRN Administration Pain Piperacillin Sod/Tazobactam 120 mls @ 30 mls/hr 11/18/18 16:00 11/22/18 12:43 Sod 4.5 gm/ Dextrose IV 12/21/18 00:00 Infused Q8H EMELINA Infusion Protocol Insulin Aspart 0 units 11/21/18 07:30 11/22/18 12:48 Novolog Flexpen SC 12/21/18 07:29 10 units ACHS EMELINA Administration Insulin Glargine 17 units 11/12/18 09:00 11/22/18 08:32 Lantus Solostar Pen SC 12/12/18 08:59 17 units BID EMELINA Administration Oxycodone HCl 10 mg 11/17/18 15:03 11/19/18 20:53 Roxicodone Immediate Rel PO 12/01/18 15:02 10 mg Q4H PRN Administration Pain Polyethylene Glycol 17 gm 11/10/18 21:00 11/22/18 09:16 Miralax Powder Packet PO 12/10/18 20:59 17 gm BID EMELINA Administration Saccharomyces Boulardii 250 mg 11/09/18 09:00 11/22/18 08:30 Florastor PO 12/09/18 08:59 250 mg DAILY EMELINA Administration Sennosides 17.2 mg 11/17/18 21:00 11/22/18 08:31 Senokot PO 12/17/18 20:59 17.2 mg BID EMELINA Administration NPO Date Last Intake of Fluids: 11/20/18 Time Last Intake of Fluids: 23:59 Last Intake of Fluids Comment: Sips of water with meds Date Last Intake of Solids: 11/20/18 Time Last Intake of Solids: 23:59 Past Medical History Medical History Gangrene of left foot (Acute) Cellulitis of left foot (Acute) Sepsis (Acute) Osteomyelitis (Acute) Diabetes (Chronic) Poorly controlled. Atrial flutter with RVR. Requiring cardioversion Being followed by Dr. Page. Currently on regimen of amiodarone, cardizem and digoxin Ingrown nail PVD (peripheral vascular disease) Exercise / Class Metabolic Activity II 4-5 Yardwork/Stairs/Walk up hill Past Family History Family History Other Coronary heart disease Diabetes Past Surgical History Surgical History S/P carotid endarterectomy 2016 H/O lumbar discectomy S/P knee surgery Right knee History of cardioversion 11/10/18x 3. Pt back in AFib and on cardizem drip S/P angiogram of extremity Left lower 11/18/18 Status post amputation of left great toe 11/08/18 under GETA. Mac 3, gr I Status post incision and drainage Left great toe Past Anesthesia History No Hx of Anesthesia Complications and No Family Hx of Anesthesia Complications History of PONV No Hx of PONV and No Hx of Motion Sickness Social History Smoking Status: Never smoker Do You Dip or Chew Tobacco: No Hx Alcohol Use: No Hx Substance Use: No substance use type: does not use Physical Exam Vital Signs Last Vital Signs Temp 36.8 C 11/22/18 06:50 Pulse 60 11/22/18 06:50 Resp 16 11/22/18 06:50 BP 148/71 H 11/22/18 06:50 Pulse Ox 97 11/22/18 06:50 Testing Laboratory Results Laboratory Tests 11/09/18 11/21/18 11/22/18 05:35 05:15 05:42 WBC 8.47 Hgb 8.6 L Hct 26.3 L Plt Count 396 Sodium Potassium Chloride Carbon Dioxide BUN Creatinine Glucose Hemoglobin A1c 13.1 H 11/22/18 05:42 WBC Hgb Hct Plt Count Sodium 140 Potassium 3.9 Chloride 106 Carbon Dioxide 26 BUN 20 H Creatinine 1.55 H Glucose 179 H Hemoglobin A1c Electrocardiogram Date: 11/08/18 Findings: + NSR @ (94 bpm) Chest X-Ray Date: 11/08/18 Findings: + NAD Echocardiogram Date: 11/10/18 EF: 50-55% LV Function: normal Other Findings: + LVH (Mild CLVH) Valvular Disease: + MR (Mild)
[2018-11-22] MEDS ORDERED: CEFAZOLIN 2000MG 2,000 MG/15 ML SYR IV ONE (15:51)
--- NOTE | 2018-11-22 16:23 | Progress Note ---
DATE: 11/22/2018 I met with the patient and his oldest daughter. I discussed with them the situation regarding circulation, healing, function with different levels of prosthesis. His blood supply currently is in a turpin area. I would prefer to do a transmetatarsal amputation, but I think that this is unlikely and I told him that. I do not think there will be enough healthy tissue to cover the bone. Given his diabetes and poor circulation, I think trying to get this to granulate in using something like a wound VAC would probably not work. A below-knee amputation would give him the best possibility of having one surgery with a good functional outcome. The other option would be a Chopart amputation, which would require transection of the Achilles, transfer the peroneus brevis and tibialis anterior. Use of an AFO and a molded larger insert is necessary. We discussed the pros and cons of each level of amputation. He would like to preserve the foot if possible. I will try the Chopart amputation. If I see at the time of surgery, this is just not going to work due to the health of the tissue coverage, etc., then he has given me permission to do a left below-knee amputation, which is witnessed by his daughter.
[2018-11-22] MEDS: DIGOXIN 0.125 MG TAB PO SCH (17:02)
[2018-11-22] MEDS: GABAPENTIN 100 MG CAP PO SCH (21:20)
[2018-11-23] MEDS: PIPERACILLIN/TAZOBACTAM 4.5 GM in DEXTROSE 5% 100 ML IV SCH ×3 (00:14→15:16)
[2018-11-23] MEDS: HYDROmorphone INJ 0.5 MG/0.5 ML SYR IV PRN ×3 (00:33→21:24)
[2018-11-23] MEDS ORDERED: Nursing to Pharmacy Communication ONE ×2 (06:13→19:22)
[2018-11-23 06:21] LABS: Hematocrit (blood only) 28.1 % (42-52); Hemoglobin 9.1 g/dL (14.0-18.0); Mean Corpuscular Hgb Conc 32.4 g/dL (32-36); Mean Corpuscular Volume 86.2 fL (80-100); Mean Platelet Volume 9.1 fL (7.4-10.4); Platelet Count 391 K/uL (130-400); RDW Coefficient of Variation 14.3 % (11.5-14.5); Red Blood Count 3.26 M/uL (4.7-6.1); White Blood Count 7.75 K/uL (4.8-10.8)
[2018-11-23] MEDS ORDERED: BUPIVACAINE 0.5 % 5 MG/1 ML PF 10ML VIAL ONE (06:26)
[2018-11-23] MEDS: INSULIN ASPART 100 UNITS/ML 3 ML PEN SC SCH ×4 (06:38→21:29)
[2018-11-23] MEDS ORDERED: LIDOCAINE HCL 2% 2 ML VIAL/AMP(20MG/ML) INFIL ONE (06:38)
[2018-11-23] MEDS ORDERED: VANCOMYCIN HCL 1000MG/20ML VIAL ONE (06:38)
[2018-11-23] MEDS ORDERED: LIDOCAINE HCL 1% 20 ML VIAL ONE (06:38)
[2018-11-23] MEDS ORDERED: BUPIVACAINE/EPINEPHRINE 0.5% MPF 1:200,000 30 ML VIAL ONE (06:38)
[2018-11-23] MEDS ORDERED: GENTAMICIN SULFATE 40 MG/ML 2 ML VIAL ONE ×2 (06:38→09:05)
[2018-11-23] MEDS ORDERED: BACITRACIN INJ 50,000 UNIT VIAL ONE ×2 (06:38→08:21)
[2018-11-23] MEDS ORDERED: fentaNYL citrate 100 MCG/2 ML VIAL ONE ×2 (06:38→09:44)
[2018-11-23] MEDS ORDERED: PROPOFOL IV EMULSION 10 MG/ML 20 ML VIAL IV ONE (06:38)
[2018-11-23] MEDS ORDERED: CEFAZOLIN 2,000 MG/15 ML IV PUSH IV ONE (06:43)
[2018-11-23] MEDS ORDERED: MIDAZOLAM HCL 1 MG/ML 2ML VIAL ONE (06:45)
--- NOTE | 2018-11-23 06:45 | History & Physical Bridge Note ---
Date of Service November 23, 2018 History & Physical Bridge Note I have examined the patient, reviewed the History & Physical and in the interval since the performance of the History & Physical I have noted the following changes of clinical significance: no changes noted
[2018-11-23 06:47] LABS: BUN Creatinine Ratio 11.3 (10-20); Calcium 8.5 mg/dl (8.5-10.1); Creatinine Clr Calc Pharmacy 43.1 ml/min; Est GFR (African American) 47.8; Est GFR (Non-African American) 41.3; Magnesium 2.2 mg/dl (1.8-2.4); Potassium 3.6 mmol/L (3.5-5.1)
[2018-11-23] MEDS ORDERED: MEPERIDINE HCL 25 MG/ML CARP IV PRN (06:50)
[2018-11-23] MEDS ORDERED: fentaNYL citrate 100 MCG/2 ML VIAL IV PRN (06:50)
[2018-11-23] MEDS ORDERED: LABETALOL HCL IV 5 MG/ML 20ML IV PRN (06:50)
[2018-11-23] MEDS ORDERED: ATROPINE SULFATE 0.1 MG/ML 10ML SYR IV PRN (06:50)
[2018-11-23] MEDS ORDERED: PHENYLEPHRINE 100MCG/ML 5ML SYR IV PRN (06:50)
[2018-11-23] MEDS ORDERED: HYDROmorphone INJ 1 MG/ML SYRINGE IV PRN (06:50)
[2018-11-23] MEDS ORDERED: ONDANSETRON INJ 2 MG/ML 2 ML VIAL IV PRN ×2 (06:50→11:35)
[2018-11-23] MEDS ORDERED: ePHEDrine sulfate 50 MG/ML AMP IV PRN (06:50)
[2018-11-23] MEDS ORDERED: POVIDONE-IODINE OP SOLN 30 ML BTL ONE (07:05)
[2018-11-23] MEDS ORDERED: CEFAZOLIN 2000MG 2,000 MG/15 ML SYR IV ONE (07:30)
[2018-11-23] MEDS ORDERED: ONDANSETRON INJ 2 MG/ML 2 ML VIAL ONE (09:22)
--- NOTE | 2018-11-23 10:16 | Post Operative Brief Note ---
Immediate Post Op Note v1 Date of Surgery November 23, 2018 Pre & Post Diagnosis Operation Date: 11/08/18 21:15 Pre-Op Diagnosis: Gangrene of left toe Post-Op Diagnosis: Gangrene of left toe Operation Date: 11/10/18 10:00 <No data on this case meets the specified criteria> Operation Date: 11/10/18 10:30 Pre-Op Diagnosis: Left Foot Gas Gangrene Status Post Left Big Toe Amputation Post-Op Diagnosis: Left Foot Gas Gangrene Status Post Left Big Toe Amputation Operation Date: 11/11/18 09:50 <No data on this case meets the specified criteria> Operation Date: 11/14/18 09:20 <No data on this case meets the specified criteria> Operation Date: 11/16/18 08:00 Pre-Op Diagnosis: Peripheral Artery Disease Post-Op Diagnosis: Peripheral Artery Disease Operation Date: 11/18/18 13:20 <No data on this case meets the specified criteria> Operation Date: 11/18/18 15:40 Pre-Op Diagnosis: peripheral artery disease Post-Op Diagnosis: peripheral artery disease Operation Date: 11/23/18 07:00 Pre-Op Diagnosis: GANGRENE,OSTEOMYELITIS Post-Op Diagnosis: GANGRENE,OSTEOMYELITIS Procedure Operation Date: 11/08/18 21:15 Actual Procedures p Amputation of Left Toe(Left) - Adarsh Mirza MD Operation Date: 11/10/18 10:00 Actual Procedures p Cardioversion(Not Applicable) - Escobar Page MD Operation Date: 11/10/18 10:30 Actual Procedures p Left Foot Incision and Drainage, Wound Closure(Left) - Adarsh Mirza MD s Left 2nd Transmetatarsal Amputation(Left) - Adarsh Mirza MD Operation Date: 11/11/18 09:50 Actual Procedures p Cancelled Left Lower Extremity Angiogram (Not Applicable) - Richie Miller MD Operation Date: 11/14/18 09:20 <No data on this case meets the specified criteria> Operation Date: 11/16/18 08:00 Actual Procedures p Bilateral Lower Extremity Angiogram, Percutaneous Transluminal Angioplasty Left Perineal Artery, Mechanical Closure Right Femoral Artery, Moderate Concious Sedation 0847 to 1059(Right) - Hakan Guillen MD Operation Date: 11/18/18 13:20 Actual Procedures p case delayed, no procedures done(Left) - Hakan Guillen MD Operation Date: 11/18/18 15:40 Actual Procedures p Left Lower Extremity Angiogram, Percutaneous Transluminal Angioplasty of posterior tibial artery and perineal artery, stenting of posterior tibial artery, Mechanical closure left femoral artery, ultrasound guided access left posterior tibial artery, Moderate Concious Sedation 1415 to 1800(Left) - Hakan Guillen MD Operation Date: 11/23/18 07:00 Actual Procedures p Left Foot Chopart Amputation(Left) - Adarsh Mirza MD Surgeon Adarsh Mirza MD Dried Yeast Supervisor lorrie [email or web address] Estimated Blood Loss 30 Findings Consistent with Post-Op Diagnosis Specimens left second toe culture Drains Hemovac Drain Anesthesia Type General Complications none Disposition Accompanied Patient To Recovery: No Disposition: Recovery Room
--- NOTE | 2018-11-23 10:41 | Infectious Disease Progress Nt ---
Date of Service November 23, 2018 Assessment & Plan (1) Gangrene of left foot: continue zosyn, in OR currently, await findings. length of abx will depend on extent of surgery, If he has TMA would suggest additional 14 days zosyn post op, If he undergoes bka, surgery will be curative and can stop abx 24 hours post op. will follow. (2) Osteomyelitis: Subjective pt currently in OR. tma vs bka depending on OR findings. 11/23 wound culture pending, few wbc, no organisms on gram stain. remains afebrile. remains on zosyn, tolerating well. wbc 7. Results & Data Vital Signs (Past 12 Hours) Vital Signs Temp Pulse Pulse Resp BP BP Pulse Ox 11/23/18 10:30 65 16 171/68 H 100 11/23/18 10:20 37.0 C 75 16 182/82 H 100 11/23/18 06:31 37 C 65 16 137/67 96 11/23/18 05:43 37 C 60 18 133/63 98 11/22/18 23:38 36.9 C 66 18 129/65 98 Laboratory Results Microbiology 11/23/18 07:30 Foot,Left Gram Stain - Final 11/08/18 22:50 Toe,Left Great Gram Stain - Final 11/08/18 22:50 Toe,Left Great Aerobic and Anaerobic Culture - Final Escherichia coli Staphylococcus aureus Enterococcus faecalis Bacteroides fragilis 11/08/18 17:32 Blood Blood Culture - Final No growth 11/08/18 17:25 Blood Blood Culture - Final No growth 11/11/18 17:10 Urine,Clean Catch Urine Culture - Final No growth - less than 1,000 colonies/mL. 11/08/18 17:40 Foot Gram Stain - Final 11/08/18 17:40 Foot Wound Culture - Final Staphylococcus aureus Enterococcus faecalis (1) Osteomyelitis Laterality: left Osteomyelitis location: foot Osteomyelitis type: unspecified type Qualified Code(s): M86.9 - Osteomyelitis, unspecified
--- NOTE | 2018-11-23 11:07 | Operative Report ---
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 Post-Op Diagnosis: Left Foot Gas Gangrene Status Post Left Big Toe Amputation Operation Date: 11/11/18 09:50 <No data on this case meets the specified criteria> Operation Date: 11/14/18 09:20 <No data on this case meets the specified criteria> Operation Date: 11/16/18 08:00 Pre-Op Diagnosis: Peripheral Artery Disease Post-Op Diagnosis: Peripheral Artery Disease Operation Date: 11/18/18 13:20 <No data on this case meets the specified criteria> Operation Date: 11/18/18 15:40 Pre-Op Diagnosis: peripheral artery disease Post-Op Diagnosis: peripheral artery disease Operation Date: 11/23/18 07:00 Pre-Op Diagnosis: GANGRENE,OSTEOMYELITIS Post-Op Diagnosis: GANGRENE,OSTEOMYELITIS Procedure Operation Date: 11/08/18 21:15 Actual Procedures p Amputation of Left Toe(Left) - Adarsh Mirza MD Operation Date: 11/10/18 10:00 Actual Procedures p Cardioversion(Not Applicable) - Escobar Page MD Operation Date: 11/10/18 10:30 Actual Procedures p Left Foot Incision and Drainage, Wound Closure(Left) - Adarsh Mirza MD s Left 2nd Transmetatarsal Amputation(Left) - Adarsh Mirza MD Operation Date: 11/11/18 09:50 Actual Procedures p Cancelled Left Lower Extremity Angiogram (Not Applicable) - Richie Miller MD Operation Date: 11/14/18 09:20 <No data on this case meets the specified criteria> Operation Date: 11/16/18 08:00 Actual Procedures p Bilateral Lower Extremity Angiogram, Percutaneous Transluminal Angioplasty Left Perineal Artery, Mechanical Closure Right Femoral Artery, Moderate Concious Sedation 0847 to 1059(Right) - Hakan Guillen MD Operation Date: 11/18/18 13:20 Actual Procedures p case delayed, no procedures done(Left) - Hakan Guillen MD Operation Date: 11/18/18 15:40 Actual Procedures p Left Lower Extremity Angiogram, Percutaneous Transluminal Angioplasty of posterior tibial artery and perineal artery, stenting of posterior tibial artery, Mechanical closure left femoral artery, ultrasound guided access left posterior tibial artery, Moderate Concious Sedation 1415 to 1800(Left) - Hakan Guillen MD Operation Date: 11/23/18 07:00 Actual Procedures p Left Foot Chopart Amputation(Left) - Adarsh Mirza MD Surgeon Adarsh Mirza MD Faucets Assembler lorrie monsivais Estimated Blood Loss 30 Findings Consistent with Post-Op Diagnosis Specimens Amputated foot and cultures Drains Hemovac Anesthesia Type General Complications none Disposition Accompanied Patient To Recovery: No Disposition: Recovery Room Indications Patient is a 78-year-old dysvascular diabetic. He is status post a partial first ray resection 2 weeks ago revised to a partial forefoot transmetatarsal amputation for wound closure. He is status post revascularization to the right foot with a patent posterior tibial artery. The wound however has not healed. He is taken to surgery today for possible revision trans-met, show part versus below-knee transtibial amputation. Description of Procedure Informed consent obtained. I identified the patient. He identified the operative site as the left foot. I marked with my initials. Preop surgical timeout was performed and a preop dose of IV antibiotics was given. He was taken to the operating room positioned supine on the operating room table with a bump under the left hip and a tourniquet on the left thigh. Sutures were removed. There was extensive marginal wound necrosis. This was essentially full-thickness and extended half to 1 cm around the prior medial forefoot incision. This was all debrided sharply at the beginning of this procedure after prepping and draping. There was no significant granulation tissue noted. The tissue was unhealthy in appearance and did not have any significant spontaneous bleeding. The foot was prescribed and then prepped and draped with Betadine in the usual sterile fashion. The tourniquet was not inflated during the case. He did not have any Achilles contracture. DVT prophylaxis with SCDs. Postoperatively early mobility mechanical devices and chemoprophylaxis. Fluoroscopic guidance was utilized. After opening and debriding the prior incision it was clear that a proximal transmetatarsal amputation would not be viable due to the and healthy wound bed distal medial as well as the loss of medial soft tissue which would have made bony coverage and possible. I therefore then made plans to do a chopart type amputation. Longitudinal incisions were made on the medial lateral borders of the foot and dorsal and plantar skin flaps were planned out. The dorsal skin flap was made at about the level of the tarsometatarsal articulation. Plantarly I carried it out to the metatarsal heads. The dorsal incision was then made. The extensor tendons were transected and then pulled into the wound cut and allowed to retract. The tibialis anterior and peroneus brevis tendons were identified and released from their attachments. Care was taken at all times with handling of the skin. I then subperiosteally dissected proximally without elevating the skin flap and identified the calcaneocuboid and talonavicular joints. The joint capsule for these joints was then incised. Distally I made the incision through the fat pad and the metatarsal phalangeal joint area. I then carried this full-thickness down to the bone and working proximally and distally remove the toes metatarsals and distal midfoot. Previously the first 2 rays have been partially resected. No jatin purulence was noted. There was fairly decent bleeding through several small arterioles laterally. The medial soft tissue bed showed some early fat necrosis and unhealthy nonbleeding noncontractile muscle.. Prior to the start of the procedure the wound bed was irrigated with pulse lavage. After the foot had been amputated I reirrigated the entire wound with 3 L of pulse lavage containing antibiotics and then did a Betadine lavage. Surgeon assistance changed gloves and the instruments from the amputation were passed off and a new set of instruments and drapes were utilized. The tibialis anterior tendon was identified and thinned at its distal extent. Sized to fit through 5 mm tunnel. Over the ami medial talar neck a guidepin was placed was exited out the distal plantar head of the talus. Overreamed with a 5 mm reamer. 0 PDS whipstitches were placed through the tendon which was then passed dorsal to plantar through this tunnel. In a likewise fashion the peroneus brevis tendon was prepared and passed through a tunnel in the calcaneus which went from the dorsal proximal portion out the distal articular surface. At this time through a percutaneous incision the Achilles tendon was completely transected. This was then closed with 3-0 nylon. The ankle was then held in maximum dorsiflexion. The cyst sutures and tendon passed through the bone were then doubled back onto themselves and retired back to the tendon itself. Jde Developer x-ray was obtained showing the foot was in a plantigrade position and that the amputation had been performed through the Chopart joint. Irrigation reperformed. Meticulous hemostasis was done with electrocautery. There was one bleeding area over the plantar musculature which required a 2-0 Vicryl stitch to stop the calcified vessel from bleeding. The lateral PDS stitch was tied back down to the soft tissue. I then made some provisional wound approximations medially and laterally. I then amputated the distal plantar soft tissue back to a level just proximal to the prior incision. I then shaped and contoured this. I debulked some of the muscle. The flexor tendons were pulled into the wound and transected and allowed to retract. The peroneal longus tendon was resected. Flexor hallucis longus tendon resected. The medial muscle which did not appear to be as healthy or viable was debrided as much as possible. Plantar fat which appeared to be unhealthy was also largely debrided with removal of the skin flap. Irrigation again was performed. I then mixed up stimulant beads with 1 g of vancomycin and a 10 g size +240 mg of gentamicin. About 30-50 beads were then placed into the wound. Hemovac drain was inserted exiting laterally. I then contoured the remainder of the distal flap and brought it up and closed it with a combination of horizontal mattress and simple stitches in a near far far near stitches using #2 #1 and 2-0 and 3-0 nylon. Care was taken to margie the skin edges. Leg was cleaned with a dry sponges and a bulky soft sterile dressing was applied Xeroform 4 x 4's ABD cast padding and a posterior splint with the ankle in maximum dorsiflexion contoured up over the distal stump. Patient was then awakened from anesthesia of the difficulty taken to the recovery room in stable condition. There were no complications. Counts were correct. Blood loss estimated to be 30 cc. Culture was obtained at the beginning of the operation and the wound bed. The foot was sent for specimen. At the conclusion of the operation spoke patient's family informed of my findings. He will need to be splinted and will be nonweightbearing on the left leg. I attest to the content of the Intraoperative Record and any orders documented therein. Any exceptions are noted below.
--- NOTE | 2018-11-23 11:10 | Anesthesiology Progress Note ---
Date of Service November 23, 2018 Anesthesia Post Procedure Vital Signs Vital Signs: Temp Pulse Pulse Pulse Resp BP BP 11/23/18 11:00 59 L 16 159/71 H 11/23/18 10:50 59 L 16 161/71 H 11/23/18 10:40 62 16 155/65 H 11/23/18 10:30 65 16 171/68 H 11/23/18 10:20 37.0 C 75 16 182/82 H 11/23/18 06:31 37 C 65 16 137/67 11/23/18 05:43 37 C 60 18 133/63 11/22/18 23:38 36.9 C 66 18 129/65 11/22/18 17:02 66 11/22/18 15:00 36.9 C 70 18 112/57 L Pulse Ox 11/23/18 11:00 100 11/23/18 10:50 99 11/23/18 10:40 100 11/23/18 10:30 100 11/23/18 10:20 100 11/23/18 06:31 96 11/23/18 05:43 98 11/22/18 23:38 98 11/22/18 17:02 11/22/18 15:00 96 Pain Intensity Left Foot: Pain Intensity: 3 Transfer of Care Handoff Completed per policy Notes Mental Status: alert / awake / arousable Patient Amnestic to Procedure: Yes Nausea / Vomiting: adequately controlled Pain: adequately controlled Airway Patency, RR, SpO2: stable & adequate BP & HR: stable & adequate Hydration State: stable & adequate Anesthetic Complications: no major complications apparent and Pt Satisfied with anesthetic care
[2018-11-23 11:26] LABS: Hemoglobin 8.4 g/dL (14.0-18.0)
--- NOTE | 2018-11-23 11:32 | Fluoroscopy Report ---
FL foot LT 2V CLINICAL HISTORY: REVISION LEFT TRANSMETATARSAL AMPUTATION COMPARISON STUDY: None FLUOROSCOPY TIME: 11 seconds NUMBER OF FLUOROSCOPIC IMAGES: 2 FINDINGS: Image intensifier was utilized intraoperatively for an orthopedic procedure IMPRESSION: Image intensifier usage intraoperatively The above report was generated using voice recognition software. It may contain grammatical, syntax or spelling errors. Electronically signed by: Marcial Johnson M.D. 11/23/2018 11:31 AM
[2018-11-23] MEDS ORDERED: METOCLOPRAMIDE HCL INJ 5 MG/ML 2 ML VIAL IV PRN (11:35)
[2018-11-23] MEDS ORDERED: MAGNESIUM HYDROXIDE SUSP 30 ML UDC PO PRN (11:35)
[2018-11-23] MEDS ORDERED: NALOXONE HCL 0.4 MG/1 ML VIAL/CARP IV PRN (11:35)
[2018-11-23] MEDS ORDERED: BISACODYL 10 MG SUPP PR PRN (11:35)
[2018-11-23] MEDS: SODIUM CHLORIDE 0.9% 1000ML 1,000 ML IV SCH (12:49)
[2018-11-23] MEDS: CLOPIDOGREL BISULFATE 75 MG TAB PO SCH (13:09)
[2018-11-23] MEDS: SENNA 8.6 MG TAB PO SCH ×2 (13:09→21:31)
[2018-11-23] MEDS: AMIODARONE 200 MG TAB PO SCH ×2 (13:09→21:48)
[2018-11-23] MEDS: dilTIAZem HCL 120 MG CAPCR PO SCH (13:10)
[2018-11-23] MEDS: SACCHAROMYCES BOULARDII 250 MG CAP PO SCH (13:10)
[2018-11-23] MEDS: ATORVASTATIN 40 MG TAB PO SCH (13:10)
[2018-11-23] MEDS: ASPIRIN 325 MG ECTAB PO SCH (13:11)
[2018-11-23] MEDS: INSULIN GLARGINE SOLOSTAR 100 UNITS/ML 3 ML PEN SC SCH ×2 (13:14→21:28)
--- NOTE | 2018-11-23 13:20 | Operative Report ---
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 Post-Op Diagnosis: Left Foot Gas Gangrene Status Post Left Big Toe Amputation Operation Date: 11/11/18 09:50 <No data on this case meets the specified criteria> Operation Date: 11/14/18 09:20 <No data on this case meets the specified criteria> Operation Date: 11/16/18 08:00 Pre-Op Diagnosis: Peripheral Artery Disease Post-Op Diagnosis: Peripheral Artery Disease Operation Date: 11/18/18 13:20 <No data on this case meets the specified criteria> Operation Date: 11/18/18 15:40 Pre-Op Diagnosis: peripheral artery disease Post-Op Diagnosis: peripheral artery disease Operation Date: 11/23/18 07:00 Pre-Op Diagnosis: GANGRENE,OSTEOMYELITIS Post-Op Diagnosis: GANGRENE,OSTEOMYELITIS Procedure Operation Date: 11/08/18 21:15 Actual Procedures p Amputation of Left Toe(Left) - Adarsh Mirza MD Operation Date: 11/10/18 10:00 Actual Procedures p Cardioversion(Not Applicable) - Escobar Page MD Operation Date: 11/10/18 10:30 Actual Procedures p Left Foot Incision and Drainage, Wound Closure(Left) - Adarsh Mriza MD s Left 2nd Transmetatarsal Amputation(Left) - Adarsh Mirza MD Operation Date: 11/11/18 09:50 Actual Procedures p Cancelled Left Lower Extremity Angiogram (Not Applicable) - Richie Miller MD Operation Date: 11/14/18 09:20 <No data on this case meets the specified criteria> Operation Date: 11/16/18 08:00 Actual Procedures p Bilateral Lower Extremity Angiogram, Percutaneous Transluminal Angioplasty Left Perineal Artery, Mechanical Closure Right Femoral Artery, Moderate Concious Sedation 0847 to 1059(Right) - Hakan Guillen MD Operation Date: 11/18/18 13:20 Actual Procedures p case delayed, no procedures done(Left) - Hakan Guillen MD Operation Date: 11/18/18 15:40 Actual Procedures p Left Lower Extremity Angiogram, Percutaneous Transluminal Angioplasty of posterior tibial artery and perineal artery, stenting of posterior tibial artery, Mechanical closure left femoral artery, ultrasound guided access left posterior tibial artery, Moderate Concious Sedation 1415 to 1800(Left) - Hakan Guillen MD Operation Date: 11/23/18 07:00 Actual Procedures p Left Foot Chopart Amputation(Left) - Adarsh Mirza MD Surgeon Adarsh Mirza MD Bucket Chucker lorrie monsivais Estimated Blood Loss 30 Findings Consistent with Post-Op Diagnosis Specimens Necrotic left foot tissue Complications none Description of Procedure I was present for the first portion of the case assisting using retraction devices and wound irrigation. Please see Dr. Mirza's procedure note for specifics of the case. I attest to the content of the Intraoperative Record and any orders documented therein. Any exceptions are noted below.
[2018-11-23] MEDS: OXYCODONE HCL IR 5 MG TAB (IMMEDIATE RELEASE) PO PRN (13:28)
[2018-11-23] MEDS: POLYETHYLENE (MIRALAX) 17 GM PACK PO SCH ×2 (13:28→21:48)
--- NOTE | 2018-11-23 14:56 | Hospitalist Progress Note ---
Date of Service November 23, 2018 Assessment & Plan (1) Gangrene of left foot: - S/p left great toe amputation on 11/08/[address] Mirza. - S/p TMA of left 2nd digit on 11/10/[address] Mirza. - S/p left foot chopart amputation today by Dr. Mirza. - Wound culture positive for E. coli, Staph aureus, Enterococcus faecalis, Bacteroides fragilis. - Continue Zosyn IV, treatment course per ID recs. - Also s/p 2 angioplasty procedures of the left lower extremity by cardiology (11/16 and 11/18). - PT/OT is ordered for evaluation -- will likely require rehab at discharge. (2) Atrial flutter with rapid ventricular response: - Cardiology following, has been difficult to manage. - Continue Digoxin, Diltiazem, Amiodarone as prescribed. - Holding Eliquis for procedure; can resume per ortho recs, possibly POD#1. (3) Atrial fibrillation with rapid ventricular response: - Continue cardiac meds as prescribed. - Holding Eliquis for procedure, resume per ortho recs. - TTE showed preserved ejection fraction. (4) Peripheral arterial disease: - S/p 2 angioplasty procedures via cardiology on 11/16 and 11/18. - Repeat CHELI on 11/19 was improved; CHELI 11/21 showed slight interval worsening. - Cardiology following, appreciate input. - Continue aspirin, plavix; added Atorvastatin 40 mg daily. (5) Sepsis: - Secondary to gangrene of left foot. IV abx as noted above. (6) Osteomyelitis: - Treatment as noted above. (7) Diabetes mellitus type 2, uncontrolled: - Hemoglobin A1C was 13 during this admission. - Basal/bolus insulin -- BG has been well controlled. (8) CKD (chronic kidney disease), stage III: - Renally dose all meds. (9) Acute anemia: - Hgb ~9-11 at baseline; is below baseline but stable. - Consider iron studies. (10) DVT prophylaxis: - Holding Eliquis for procedure. Dispo: Med/surg for treatment of gangrene of the left foot. Discharge pending PT/OT evaluation post op -- may require SNF vs. acute rehab placement. Supervising Physician Co-Signing Physician Notes Attending Attestation: Chart reviewed, care plan d/w NEY Turner. I agree w/ the lambert components of her documentation. 78yo male - poorly controlled DM for many years - with left foot gangrene s/p multiple procedures to date including amputation of great toe, TMA of 2nd toe, vascular intervention LLE x 2, and repeat revision of foot today. Remains on zosyn for polymicrobial infection. Labs/vitals acceptable at this time post-op. A.fib/flutter controlled. Masoud Cade MD Subjective Pt. is doing well post op. Denies significant pain in foot, chest pain, SOB, LE edema, N/V. Review of Systems Review of Systems: All systems reviewed & are unremarkable except as noted in HPI & below Constitutional: no fever, no chills, no fatigue and no weakness Respiratory: no cough, no dyspnea, no dyspnea on exertion and no wheezing Cardiovascular: no chest pain, no palpitations and no edema Gastrointestinal: no abdominal pain, no nausea, no vomiting, no constipation and no diarrhea/loose stools Genitourinary: no difficulty urinating Musculoskeletal: no back pain and no joint pain Integumentary: + non-healing lesions Allergy / Immunological: no rash Physical Exam Physical Exam: General: Resting comfortably in no apparent distress HEENT: NC/AT; PERRLA with EOMI; [place] conjunctiva, MMM. No erythema of posterior pharynx Neck: Supple and nontender Cardiac: Irregular, rate controlled Lungs: CTA bilaterally; No rhonchi, wheezing, or rales Abdomen: Bowel normoactive X 4; Nontender to palpation Extremities: Warm. No edema present. Dressing in place over left foot. Neuro: No focal weakness Skin: No rash Results & Data Vital Signs (Past 12 Hours) Vital Signs Temp Pulse Pulse Resp BP BP Pulse Ox 11/23/18 13:23 61 16 133/56 L 99 11/23/18 12:30 36.4 C L 68 13 117/66 99 11/23/18 12:00 36.4 C L 58 L 13 132/63 100 11/23/18 11:37 36.5 C 56 L 16 118/60 100 11/23/18 11:10 36.8 C 58 L 16 142/78 H 100 11/23/18 11:00 59 L 16 159/71 H 100 11/23/18 10:50 59 L 16 161/71 H 99 11/23/18 10:40 62 16 155/65 H 100 11/23/18 10:30 65 16 171/68 H 100 11/23/18 10:20 37.0 C 75 16 182/82 H 100 11/23/18 06:31 37 C 65 16 137/67 96 11/23/18 05:43 37 C 60 18 133/63 98 Laboratory Results 11/23/18 11/23/18 11/23/18 Range/Units 11:52 11:45 10:57 WBC (4.8-10.8) K/uL RBC (4.7-6.1) M/uL Hgb 8.4 L (14.0-18.0) g/dL Hct 26.0 L (42-52) % MCV (80-100) fL MCH (25-34) pg MCHC (32-36) g/dL RDW Std Deviation (36.4-46.3) fL RDW Coeff of Deepak (11.5-14.5) % Plt Count (130-400) K/uL MPV (7.4-10.4) fL Sodium (136-145) mmol/L Potassium (3.5-5.1) mmol/L Chloride (98-107) mmol/L Carbon Dioxide (21-32) mmol/L Anion Gap (3-11) BUN (7-18) mg/dl Creatinine (0.6-1.4) mg/dl Est Cr Clr Drug Dosing ml/min Est GFR ( Amer) Est GFR (Non-Af Amer) BUN/Creatinine Ratio (10-20) Glucose (70-99) mg/dl POC Glucose 148 H (70-99) Calcium (8.5-10.1) mg/dl Magnesium (1.8-2.4) mg/dl 25-OH Vitamin D Total 13.8 L (30-100) ng/ml Blood Type Antibody Screen 11/23/18 11/23/18 11/23/18 Range/Units 10:28 06:12 06:09 WBC (4.8-10.8) K/uL RBC (4.7-6.1) M/uL Hgb (14.0-18.0) g/dL Hct (42-52) % MCV (80-100) fL MCH (25-34) pg MCHC (32-36) g/dL RDW Std Deviation (36.4-46.3) fL RDW Coeff of Deepak (11.5-14.5) % Plt Count (130-400) K/uL MPV (7.4-10.4) fL Sodium 141 (136-145) mmol/L Potassium 3.6 (3.5-5.1) mmol/L Chloride 108 H (98-107) mmol/L Carbon Dioxide 27 (21-32) mmol/L Anion Gap 6.0 (3-11) BUN 18 (7-18) mg/dl Creatinine 1.58 H (0.6-1.4) mg/dl Est Cr Clr Drug Dosing 43.1 ml/min Est GFR ( Amer) 47.8 Est GFR (Non-Af Amer) 41.3 BUN/Creatinine Ratio 11.3 (10-20) Glucose 89 (70-99) mg/dl POC Glucose 120 H 92 (70-99) Calcium 8.5 (8.5-10.1) mg/dl Magnesium 2.2 (1.8-2.4) mg/dl 25-OH Vitamin D Total (30-100) ng/ml Blood Type Antibody Screen 11/23/18 11/23/18 11/23/18 Range/Units 06:09 05:37 00:32 WBC 7.75 (4.8-10.8) K/uL RBC 3.26 L (4.7-6.1) M/uL Hgb 9.1 L (14.0-18.0) g/dL Hct 28.1 L (42-52) % MCV 86.2 (80-100) fL MCH 27.9 (25-34) pg MCHC 32.4 (32-36) g/dL RDW Std Deviation 45.0 (36.4-46.3) fL RDW Coeff of Deepak 14.3 (11.5-14.5) % Plt Count 391 (130-400) K/uL MPV 9.1 (7.4-10.4) fL Sodium (136-145) mmol/L Potassium (3.5-5.1) mmol/L Chloride (98-107) mmol/L Carbon Dioxide (21-32) mmol/L Anion Gap (3-11) BUN (7-18) mg/dl Creatinine (0.6-1.4) mg/dl Est Cr Clr Drug Dosing ml/min Est GFR ( Amer) Est GFR (Non-Af Amer) BUN/Creatinine Ratio (10-20) Glucose (70-99) mg/dl POC Glucose 86 122 H (70-99) Calcium (8.5-10.1) mg/dl Magnesium (1.8-2.4) mg/dl 25-OH Vitamin D Total (30-100) ng/ml Blood Type Antibody Screen 11/22/18 11/22/18 11/22/18 Range/Units 20:53 17:03 16:15 WBC (4.8-10.8) K/uL RBC (4.7-6.1) M/uL Hgb (14.0-18.0) g/dL Hct (42-52) % MCV (80-100) fL MCH (25-34) pg MCHC (32-36) g/dL RDW Std Deviation (36.4-46.3) fL RDW Coeff of Deepak (11.5-14.5) % Plt Count (130-400) K/uL MPV (7.4-10.4) fL Sodium (136-145) mmol/L Potassium (3.5-5.1) mmol/L Chloride (98-107) mmol/L Carbon Dioxide (21-32) mmol/L Anion Gap (3-11) BUN (7-18) mg/dl Creatinine (0.6-1.4) mg/dl Est Cr Clr Drug Dosing ml/min Est GFR ( Amer) Est GFR (Non-Af Amer) BUN/Creatinine Ratio (10-20) Glucose (70-99) mg/dl POC Glucose 171 H 145 H (70-99) Calcium (8.5-10.1) mg/dl Magnesium (1.8-2.4) mg/dl 25-OH Vitamin D Total (30-100) ng/ml Blood Type O Negative Antibody Screen NEGATIVE (1) Diabetes mellitus type 2, uncontrolled Glycemic state: with hyperglycemia Qualified Code(s): E11.65 - Type 2 diabetes mellitus with hyperglycemia (2) Sepsis Sepsis type: sepsis due to unspecified organism Qualified Code(s): A41.9 - Sepsis, unspecified organism (3) Osteomyelitis Laterality: left Osteomyelitis location: foot Osteomyelitis type: unspecified type Qualified Code(s): M86.9 - Osteomyelitis, unspecified
[2018-11-23] MEDS: DIGOXIN 0.125 MG TAB PO SCH (15:10)
[2018-11-23] MEDS: TRAMADOL HCL 50 MG TABLET PO PRN (16:59)
[2018-11-23] MEDS: FERROUS GLUCONATE 324 MG TAB PO SCH (17:46)
--- NOTE | 2018-11-23 17:52 | Progress Note ---
DATE: 11/23/2018 No problems. Some pain. Discussed surgery. Dressing is clean and dry. Leg is elevated. He is afebrile. His vital signs are stable. H and H is noted at 8 and 26. Blood pressure okay, afebrile, and heart rate not tachycardic. PLAN: Continue antibiotics, elevation. We will monitor wound, probably pull the drain tomorrow depending on output. Nonweightbearing on the left leg.
[2018-11-23] MEDS: GABAPENTIN 100 MG CAP PO SCH (21:31)
[2018-11-24] MEDS: PIPERACILLIN/TAZOBACTAM 4.5 GM in DEXTROSE 5% 100 ML IV SCH ×3 (00:14→15:56)
[2018-11-24] MEDS: SODIUM CHLORIDE 0.9% 1000ML 1,000 ML IV SCH ×2 (01:11→15:11)
[2018-11-24] MEDS: HYDROmorphone INJ 0.5 MG/0.5 ML SYR IV PRN ×2 (06:35→11:33)
[2018-11-24 07:22] LABS: Hematocrit (blood only) 24.3 % (42-52); Hemoglobin 7.9 g/dL (14.0-18.0); Mean Corpuscular Hgb Conc 32.5 g/dL (32-36); Mean Corpuscular Volume 87.7 fL (80-100); Mean Platelet Volume 9.4 fL (7.4-10.4); Platelet Count 336 K/uL (130-400); RDW Coefficient of Variation 14.6 % (11.5-14.5); RDW Standard Deviation 46.3 fL (36.4-46.3); Red Blood Count 2.77 M/uL (4.7-6.1); White Blood Count 9.94 K/uL (4.8-10.8)
[2018-11-24 07:59] LABS: BUN Creatinine Ratio 11.3 (10-20); Calcium 8.3 mg/dl (8.5-10.1); Est GFR (African American) 57.4; Est GFR (Non-African American) 49.5; Potassium 3.9 mmol/L (3.5-5.1)
--- NOTE | 2018-11-24 09:28 | Cardiology Progress Note ---
Date of Service November 24, 2018 Assessment & Plan (1) Atrial flutter with rapid ventricular response: He has been identified as having fibrillation and flutter (at times it looks very regular like atrial flutter but other times quite irregular like atrial fibrillation) but quite fast even on an amiodarone drip initially. His symptoms are very difficult to sort out, he was not having a lot of typical symptoms during atrial fibrillation or flutter and what he describes as "hyperventilating" preadmission which he relates to his heart and which has evidently occurred ever since his carotid surgery a year and a half ago could be paroxysmal atrial arrhythmias. On the morning of November 10, 2018 we converted his rhythm, it took several tries to maintain sinus rhythm even for short time but even then he quickly reverted back to atrial fibrillation. On IV Cardizem and IV amiodarone we were able to control his rate well enough for him to go to surgery. After surgery with discontinuation of his IV amiodarone he remained in sinus rhythm overnight but in the morning went back into atrial fibrillation or flutter, he continued to have the regular rates which might actually be some form of SVT. We therefore restarted amiodarone. As a long-term consideration he should be on an anticoagulant, he was on warfarin past and that could be used or one of the newer agents. For now I would continue oral amiodarone to try to control his arrhythmia. I am going to continue 200 mg twice daily for now. I did add digoxin to his regimen (his level was 0.8 on his current dose, but that can increase on amiodarone) and I started oral diltiazem as well. I would continue his amiodarone, digoxin and Cardizem for now, this will help protect him from rapid heart rates if he goes back into atrial fibrillation, flutter or his SVT. I am not sure what we should continue the amiodarone over the long run but it seems quite effective now. I want to check another digoxin level on amiodarone, I also want to get liver function tests since he is on amiodarone and atorvastatin which can cause liver abnormalities, especially together. His heart rate has been under very good control for about 4 days, several days on oral amiodarone. 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 Although he has not had a myocardial infarction based on symptoms, echocardiography and electrocardiography I suspect he probably has coronary artery disease to some extent. At this point I do not think we need to do stress testing since he does not have symptoms, he should be on risk factor modification for his atherosclerosis. This would normally include high-dose statins and aspirin, he is now on aspirin and Lipitor 40 mg daily. His liver function tests were normal November 08, 2018 on admission, but now on amiodarone for several weeks and on Lipitor I am going to repeat them. Subjective From the cardiovascular standpoint he is feeling quite well. He has no awareness of his rhythm, but is not noticed atrial fibrillation. He has no chest discomfort. He has some discomfort following his surgery on his left fo ot, but it is manageable. He seems to be in quite good spirits. Physical Exam Physical Exam: Constitutional: Alert, cooperative and in no distress. Pulmonary: Clear to auscultation bilaterally. Cardiac: Regular rhythm with no murmur, gallop or rub. Abdomen: Soft, nontender with normal bowel sounds. Extremities: No edema. Left foot bandaged. Skin: No rash, ecchymoses or petechiae. Results & Data Vital Signs (Past 12 Hours) Vital Signs Temp Pulse Resp BP BP Pulse Ox 11/24/18 06:59 36.9 C 66 16 108/55 L 93 11/24/18 03:26 37 C 72 18 118/58 L 95 11/23/18 23:34 37.1 C 66 18 103/48 L 96 11/23/18 21:34 60 113/56 L
[2018-11-24] MEDS: AMIODARONE 200 MG TAB PO SCH ×2 (09:44→20:25)
[2018-11-24] MEDS: CLOPIDOGREL BISULFATE 75 MG TAB PO SCH (09:45)
[2018-11-24] MEDS: FERROUS GLUCONATE 324 MG TAB PO SCH ×2 (09:45→18:21)
[2018-11-24] MEDS: SENNA 8.6 MG TAB PO SCH ×2 (09:45→20:26)
[2018-11-24] MEDS: ATORVASTATIN 40 MG TAB PO SCH (09:45)
[2018-11-24] MEDS: dilTIAZem HCL 120 MG CAPCR PO SCH (09:46)
[2018-11-24] MEDS: CHOLECALCIFEROL 1,000 UNITS TAB PO SCH (09:46)
[2018-11-24] MEDS: SACCHAROMYCES BOULARDII 250 MG CAP PO SCH (09:46)
[2018-11-24] MEDS: ASPIRIN 325 MG ECTAB PO SCH (09:46)
[2018-11-24] MEDS: INSULIN GLARGINE SOLOSTAR 100 UNITS/ML 3 ML PEN SC SCH ×2 (09:48→21:21)
[2018-11-24] MEDS: INSULIN ASPART 100 UNITS/ML 3 ML PEN SC SCH ×4 (09:50→21:04)
--- NOTE | 2018-11-24 10:30 | Hospitalist Progress Note ---
Date of Service November 24, 2018 Assessment & Plan (1) Gangrene of left foot: - S/p left great toe amputation on 11/08/[address] Mirza. - S/p TMA of left 2nd digit on 11/10/[address] Mirza. - S/p left foot chopart amputation 11/23/[address] Mirza. - Wound culture positive for E. coli, Staph aureus, Enterococcus faecalis, Bacteroides fragilis. - Continue Zosyn IV, treatment course per ID recs. - Also s/p 2 angioplasty procedures of the left lower extremity by cardiology (11/16 and 11/18). - PT/OT -- will require rehab at discharge. (2) Atrial flutter with rapid ventricular response: - Cardiology following, has been difficult to manage. - Continue Digoxin, Diltiazem, Amiodarone. 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 newer agent. (3) Atrial fibrillation with rapid ventricular response: - Continue cardiac meds as prescribed. - Held Eliquis for procedure; will need to start agent post op and continue senior living following discharge. - TTE showed preserved ejection fraction. (4) Peripheral arterial disease: - S/p 2 angioplasty procedures via cardiology on 11/16 and 11/18. - Repeat CHELI on 11/19 was improved; CHELI 11/21 showed slight interval worsening. - Cardiology following, appreciate input. - Continue aspirin, plavix (will need Plavix for at least 3 months); added Atorvastatin 40 mg daily. (5) Sepsis: - Secondary to gangrene of left foot. IV abx as noted above. (6) Osteomyelitis: - Treatment as noted above. (7) Diabetes mellitus type 2, uncontrolled: - Hemoglobin A1C was 13 during this admission. - Basal/bolus insulin -- BG has been well controlled. (8) CKD (chronic kidney disease), stage III: - Renally dose all meds. (9) Acute anemia: - Hgb ~9-11 at baseline. - Hgb is trending down, was 7.9 this morning - related to intra op blood loss. - Will repeat level at 15:00; transfuse for hgb <7. (10) DVT prophylaxis: - Held Eliquis for procedure; resume per ortho team recs. Dispo: Med/surg for treatment of gangrene of the left foot. Discharge pending PT/OT evaluation -- will likely require rehab placement. Supervising Physician Co-Signing Physician Notes Attending Attestation: Chart reviewed, care plan d/w NEY Turner. I agree w/ the lambert components of her documentation. 78yo male - poorly controlled DM for many years - with left foot gangrene s/p multiple procedures to date including amputation of great toe, TMA of 2nd toe, vascular intervention LLE x 2, and repeat revision of left foot (POD #1 from latter). Remains on zosyn for polymicrobial infection. Labs/vitals acceptable today. DM under good control. Masoud Cade MD Subjective Pt. is doing well post op. Does complain of left foot pain, has been requiring prn pain medications. Is fatigued during morning rounds. Had BM over last 24 hours, denies constipation or difficulty urinating. Review of Systems Review of Systems: All systems reviewed & are unremarkable except as noted in HPI & below Constitutional: no fever, no chills, no fatigue, no weakness and no anorexia Respiratory: no cough, no dyspnea, no dyspnea on exertion and no wheezing Cardiovascular: no chest pain, no palpitations, no lightheadedness and no edema Gastrointestinal: no abdominal pain, no nausea, no vomiting and no constipation Genitourinary: no difficulty urinating Musculoskeletal: + joint pain (Left foot ); no back pain Integumentary: + non-healing lesions (Left foot ) Allergy / Immunological: no rash Physical Exam Physical Exam: General: Resting comfortably in no apparent distress HEENT: NC/AT; PERRLA with EOMI; Mather conjunctiva, MMM. No erythema of posterior pharynx Neck: Supple and nontender Cardiac: Irregular, rate controlled Lungs: CTA bilaterally; No rhonchi, wheezing, or rales Abdomen: Bowel normoactive X 4; Nontender to palpation Extremities: Warm. No edema present. Dressing on left foot, did not visualize. Neuro: No focal weakness Skin: No rash Results & Data Vital Signs (Past 12 Hours) Vital Signs Temp Pulse Resp BP BP Pulse Ox 11/24/18 06:59 36.9 C 66 16 108/55 L 93 11/24/18 03:26 37 C 72 18 118/58 L 95 11/23/18 23:34 37.1 C 66 18 103/48 L 96 Laboratory Results 11/24/18 11/24/18 11/23/18 Range/Units 07:03 07:03 21:17 WBC 9.94 (4.8-10.8) K/uL RBC 2.77 L (4.7-6.1) M/uL Hgb 7.9 L (14.0-18.0) g/dL Hct 24.3 L (42-52) % MCV 87.7 (80-100) fL MCH 28.5 (25-34) pg MCHC 32.5 (32-36) g/dL RDW Std Deviation 46.3 (36.4-46.3) fL RDW Coeff of Deepak 14.6 H (11.5-14.5) % Plt Count 336 (130-400) K/uL MPV 9.4 (7.4-10.4) fL Sodium 140 (136-145) mmol/L Potassium 3.9 (3.5-5.1) mmol/L Chloride 109 H (98-107) mmol/L Carbon Dioxide 26 (21-32) mmol/L Anion Gap 5.0 (3-11) BUN 15 (7-18) mg/dl Creatinine 1.36 (0.6-1.4) mg/dl Est Cr Clr Drug Dosing 50.0 ml/min Est GFR ( Amer) 57.4 Est GFR (Non-Af Amer) 49.5 BUN/Creatinine Ratio 11.3 (10-20) Glucose 127 H (70-99) mg/dl POC Glucose 173 H (70-99) Calcium 8.3 L (8.5-10.1) mg/dl 25-OH Vitamin D Total (30-100) ng/ml 11/23/18 11/23/18 11/23/18 Range/Units 17:18 11:52 11:45 WBC (4.8-10.8) K/uL RBC (4.7-6.1) M/uL Hgb (14.0-18.0) g/dL Hct (42-52) % MCV (80-100) fL MCH (25-34) pg MCHC (32-36) g/dL RDW Std Deviation (36.4-46.3) fL RDW Coeff of Deepak (11.5-14.5) % Plt Count (130-400) K/uL MPV (7.4-10.4) fL Sodium (136-145) mmol/L Potassium (3.5-5.1) mmol/L Chloride (98-107) mmol/L Carbon Dioxide (21-32) mmol/L Anion Gap (3-11) BUN (7-18) mg/dl Creatinine (0.6-1.4) mg/dl Est Cr Clr Drug Dosing ml/min Est GFR ( Amer) Est GFR (Non-Af Amer) BUN/Creatinine Ratio (10-20) Glucose (70-99) mg/dl POC Glucose 195 H 148 H (70-99) Calcium (8.5-10.1) mg/dl 25-OH Vitamin D Total 13.8 L (30-100) ng/ml 11/23/18 11/23/18 Range/Units 10:57 10:28 WBC (4.8-10.8) K/uL RBC (4.7-6.1) M/uL Hgb 8.4 L (14.0-18.0) g/dL Hct 26.0 L (42-52) % MCV (80-100) fL MCH (25-34) pg MCHC (32-36) g/dL RDW Std Deviation (36.4-46.3) fL RDW Coeff of Deepak (11.5-14.5) % Plt Count (130-400) K/uL MPV (7.4-10.4) fL Sodium (136-145) mmol/L Potassium (3.5-5.1) mmol/L Chloride (98-107) mmol/L Carbon Dioxide (21-32) mmol/L Anion Gap (3-11) BUN (7-18) mg/dl Creatinine (0.6-1.4) mg/dl Est Cr Clr Drug Dosing ml/min Est GFR ( Amer) Est GFR (Non-Af Amer) BUN/Creatinine Ratio (10-20) Glucose (70-99) mg/dl POC Glucose 120 H (70-99) Calcium (8.5-10.1) mg/dl 25-OH Vitamin D Total (30-100) ng/ml (1) Diabetes mellitus type 2, uncontrolled Glycemic state: with hyperglycemia Qualified Code(s): E11.65 - Type 2 diabetes mellitus with hyperglycemia (2) Sepsis Sepsis type: sepsis due to unspecified organism Qualified Code(s): A41.9 - Sepsis, unspecified organism (3) Osteomyelitis Laterality: left Osteomyelitis location: foot Osteomyelitis type: unspecified type Qualified Code(s): M86.9 - Osteomyelitis, unspecified
--- NOTE | 2018-11-24 10:40 | Infectious Disease Progress Nt ---
Date of Service November 24, 2018 Assessment & Plan (1) Gangrene of left foot: s/p tma, will continue zosyn. follow wound healing. (2) Osteomyelitis: Subjective pt s/p tma, tolerated well. afebrile overnight. remains on zoysn, tolerating well. Repeat wound culture from 11/23 remains negative. wbc 9.9, creat 1.3 Results & Data Vital Signs (Past 12 Hours) Vital Signs Temp Pulse Resp BP BP Pulse Ox 11/24/18 06:59 36.9 C 66 16 108/55 L 93 11/24/18 03:26 37 C 72 18 118/58 L 95 11/23/18 23:34 37.1 C 66 18 103/48 L 96 Laboratory Results Microbiology 11/23/18 07:30 Foot,Left Gram Stain - Final 11/08/18 22:50 Toe,Left Great Gram Stain - Final 11/08/18 22:50 Toe,Left Great Aerobic and Anaerobic Culture - Final Escherichia coli Staphylococcus aureus Enterococcus faecalis Bacteroides fragilis 11/08/18 17:32 Blood Blood Culture - Final No growth 11/08/18 17:25 Blood Blood Culture - Final No growth 11/11/18 17:10 Urine,Clean Catch Urine Culture - Final No growth - less than 1,000 colonies/mL. 11/08/18 17:40 Foot Gram Stain - Final 11/08/18 17:40 Foot Wound Culture - Final Staphylococcus aureus Enterococcus faecalis (1) Osteomyelitis Laterality: left Osteomyelitis location: foot Osteomyelitis type: unspecified type Qualified Code(s): M86.9 - Osteomyelitis, unspecified
--- NOTE | 2018-11-24 10:55 | Orthopedic Progress Note ---
Date of Service November 24, 2018 Assessment & Plan (1) S/P transmetatarsal amputation of foot: Patient was seen in his room this morning. Drain will be removed later today by Dr. Mirza. Patient will continue nonweightbearing status on the left foot. Continue diabetic management. I will talk with Dr. Mirza later today about intentions for discharge and consult with the hospitalist service and social service technician. Subjective Patient is seen in his room this morning. He states he had significant pain last night. It is currently controlled. He is sitting up in a chair and just finished getting cleaned up for the morning. No other complaints. No chest pain, shortness of breath, or abdominal pain. He is inquiring about when he may be discharged. Physical Exam Physical Exam: General: Well-developed, elderly white male, in no acute distress. Sitting in the chair. Alert and oriented. Musculoskeletal: Left lower extremity is in a splint. This was not taken down. Drain is intact. There is minimal drainage within the reservoir. Dressings are dry. Intact motor function to the knee. Neurologic: Not assessed in the lower leg or foot due to splint placement. Results & Data Vital Signs (Past 12 Hours) Vital Signs Temp Pulse Resp BP BP Pulse Ox 11/24/18 06:59 36.9 C 66 16 108/55 L 93 11/24/18 03:26 37 C 72 18 118/58 L 95 11/23/18 23:34 37.1 C 66 18 103/48 L 96
[2018-11-24] MEDS: POLYETHYLENE (MIRALAX) 17 GM PACK PO SCH ×2 (12:05→20:31)
--- NOTE | 2018-11-24 12:19 | Anesthesiology Progress Note ---
Date of Service November 24, 2018 Anesthesia Post Procedure Vital Signs Vital Signs: Temp Pulse Pulse Pulse Resp BP BP 11/24/18 12:11 37.8 C H 71 16 125/63 11/24/18 06:59 36.9 C 66 16 108/55 L 11/24/18 03:26 37 C 72 18 118/58 L 11/23/18 23:34 37.1 C 66 18 103/48 L 11/23/18 21:34 60 113/56 L 11/23/18 19:46 36.9 C 58 L 16 110/61 11/23/18 15:19 36.3 C L 61 16 106/56 L 11/23/18 15:10 60 11/23/18 13:23 61 16 133/56 L 11/23/18 12:30 36.4 C L 68 13 117/66 Pulse Ox 11/24/18 12:11 92 11/24/18 06:59 93 11/24/18 03:26 95 11/23/18 23:34 96 11/23/18 21:34 11/23/18 19:46 97 11/23/18 15:19 93 11/23/18 15:10 11/23/18 13:23 99 11/23/18 12:30 99 Pain Intensity Left Foot: Pain Intensity: 5 Notes Mental Status: alert / awake / arousable and participated in evaluation Patient Amnestic to Procedure: Yes Nausea / Vomiting: adequately controlled Pain: adequately controlled Airway Patency, RR, SpO2: stable & adequate BP & HR: stable & adequate Hydration State: stable & adequate Anesthetic Complications: no major complications apparent
[2018-11-24 15:05] LABS: Hematocrit (blood only) 25.8 % (42-52); Hemoglobin 8.2 g/dL (14.0-18.0)
[2018-11-24] MEDS: OXYCODONE HCL IR 5 MG TAB (IMMEDIATE RELEASE) PO PRN ×2 (15:14→21:27)
[2018-11-24] MEDS: DIGOXIN 0.125 MG TAB PO SCH (15:16)
[2018-11-24] MEDS ORDERED: ERGOCALCIFEROL 50,000 UNITS CAP PO STA (16:52)
[2018-11-24] MEDS ORDERED: ENOXAPARIN INJ 40 MG/0.4 ML SYR SQ STA (16:53)
--- NOTE | 2018-11-24 19:03 | Progress Note ---
DATE: 11/24/2018 Had some pain last night, which has been controlled. Otherwise, he has been sitting up a fair amount. Did not do any ambulating with PT, but otherwise generally is in good spirits and offers no other significant complaint. Drainage at this point is minimal and the drain is pulled. The dressing is intact. Cultures are growing gram-negative rods. Vitamin D level is low and he is replaced with 50,000 units weekly. I will start him back on Lovenox 40 mg subQ daily. Tomorrow we will plan on changing the dressing. Continue IV antibiotics, nonweightbearing on the left leg.
[2018-11-24] MEDS: GABAPENTIN 100 MG CAP PO SCH (20:25)
[2018-11-25] MEDS: PIPERACILLIN/TAZOBACTAM 4.5 GM in DEXTROSE 5% 100 ML IV SCH ×4 (00:34→23:40)
[2018-11-25] MEDS: OXYCODONE HCL IR 5 MG TAB (IMMEDIATE RELEASE) PO PRN ×3 (04:17→12:56)
[2018-11-25 07:30] LABS: Hematocrit (blood only) 22.9 % (42-52); Hemoglobin 7.4 g/dL (14.0-18.0); Mean Corpuscular Hgb Conc 32.3 g/dL (32-36); Mean Corpuscular Volume 87.4 fL (80-100); Mean Platelet Volume 9.4 fL (7.4-10.4); Platelet Count 285 K/uL (130-400); RDW Coefficient of Variation 14.8 % (11.5-14.5); RDW Standard Deviation 46.3 fL (36.4-46.3); Red Blood Count 2.62 M/uL (4.7-6.1); White Blood Count 9.89 K/uL (4.8-10.8)
[2018-11-25 08:01] LABS: BUN Creatinine Ratio 10.1 (10-20); Bilirubin Direct 0.2 mg/dl (0-0.2); Calcium 8.8 mg/dl (8.5-10.1); Creatinine Clr Calc Pharmacy 46.9 ml/min; Est GFR (African American) 53.1; Est GFR (Non-African American) 45.8; Potassium 3.8 mmol/L (3.5-5.1)
[2018-11-25] MEDS ORDERED: SODIUM CHLORIDE 0.9% 250 ML IV PRN (08:03)
[2018-11-25 08:04] LABS: Bilirubin,Total 0.5 mg/dl (0.2-1); Total Protein 6.4 gm/dl (6.4-8.2)
[2018-11-25] MEDS: ATORVASTATIN 40 MG TAB PO SCH (08:53)
[2018-11-25] MEDS: ASPIRIN 325 MG ECTAB PO SCH (08:53)
[2018-11-25] MEDS: CHOLECALCIFEROL 1,000 UNITS TAB PO SCH (08:53)
[2018-11-25] MEDS: CLOPIDOGREL BISULFATE 75 MG TAB PO SCH (08:53)
[2018-11-25] MEDS: SACCHAROMYCES BOULARDII 250 MG CAP PO SCH (08:53)
[2018-11-25] MEDS: AMIODARONE 200 MG TAB PO SCH ×2 (08:53→20:24)
[2018-11-25] MEDS: FERROUS GLUCONATE 324 MG TAB PO SCH ×2 (08:53→17:53)
[2018-11-25] MEDS: dilTIAZem HCL 120 MG CAPCR PO SCH (08:53)
[2018-11-25] MEDS: SENNA 8.6 MG TAB PO SCH ×2 (08:54→20:26)
[2018-11-25] MEDS: INSULIN GLARGINE SOLOSTAR 100 UNITS/ML 3 ML PEN SC SCH ×2 (08:59→21:02)
[2018-11-25] MEDS: POLYETHYLENE (MIRALAX) 17 GM PACK PO SCH ×2 (08:59→20:52)
[2018-11-25] MEDS: INSULIN ASPART 100 UNITS/ML 3 ML PEN SC SCH ×4 (09:00→21:01)
--- NOTE | 2018-11-25 10:19 | Orthopedic Progress Note ---
Date of Service November 25, 2018 Assessment & Plan (1) Gangrene of left foot: POD 2 - s/p I&D, Chopart amputation of Left foot performed by Dr. Mirza 11/23/18 May be out of bed, weight bear as tolerated left lower extremity Post op shoe on left foot at all times. Use walker to assist with ambulation. PT/OT. Regular diet as ordered. Encouraged strict elevation left foot Dressings will be changed today by Dr. Mirza. Findings discussed with Dr. Mirza. Pain medication as ordered. All questions answered. Will continue to follow during hospitalization. Subjective Patient is seen in his room this morning. He states he had significant pain last night. It is currently controlled. He is sitting up in bed resting comfortable. No other complaints. No chest pain, shortness of breath, or abdominal pain. No fever, chills, sweats, nausea, vomiting or fatigue. Very happy that he did not lose his leg. Review of Systems Review of Systems: All systems reviewed & are unremarkable except as noted in HPI & below Physical Exam Physical Exam: Left lower extremity: Dressing clean, dry and intact. Knee ROM 0-90. Able to easily perform SLRT. N/V intact. Calf soft and supple. Good quad tone/strength. Results & Data Vital Signs (Past 12 Hours) Vital Signs Temp Pulse Pulse Pulse Resp BP BP 11/25/18 10:00 37.7 C H 74 15 122/62 11/25/18 09:45 37.7 C H 77 15 114/63 11/25/18 09:25 37.4 C 86 20 131/58 L 11/25/18 08:00 37.5 C 80 16 112/54 L 11/24/18 23:13 37.7 C H 76 16 111/57 L Pulse Ox 11/25/18 10:00 94 11/25/18 09:45 91 11/25/18 09:25 96 11/25/18 08:00 97 11/24/18 23:13 93 Laboratory Results 11/25/18 11/25/18 11/25/18 Range/Units 07:26 07:12 07:12 WBC 9.89 (4.8-10.8) K/uL RBC 2.62 L (4.7-6.1) M/uL Hgb 7.4 L (14.0-18.0) g/dL Hct 22.9 L (42-52) % MCV 87.4 (80-100) fL MCH 28.2 (25-34) pg MCHC 32.3 (32-36) g/dL RDW Std Deviation 46.3 (36.4-46.3) fL RDW Coeff of Deepak 14.8 H (11.5-14.5) % Plt Count 285 (130-400) K/uL MPV 9.4 (7.4-10.4) fL Sodium (136-145) mmol/L Potassium (3.5-5.1) mmol/L Chloride (98-107) mmol/L Carbon Dioxide (21-32) mmol/L Anion Gap (3-11) BUN (7-18) mg/dl Creatinine (0.6-1.4) mg/dl Est Cr Clr Drug Dosing ml/min Est GFR ( Amer) Est GFR (Non-Af Amer) BUN/Creatinine Ratio (10-20) Glucose (70-99) mg/dl POC Glucose (70-99) Calcium (8.5-10.1) mg/dl Total Bilirubin (0.2-1) mg/dl Direct Bilirubin (0-0.2) mg/dl AST (15-37) U/L ALT (12-78) U/L Alkaline Phosphatase (45-117) U/L Total Protein (6.4-8.2) gm/dl Albumin (3.4-5.0) gm/dl Digoxin 0.8 (0.8-2.0) ng/ml Blood Type Blood Type Recheck O Negative Antibody Screen Crossmatch 11/25/18 11/24/18 11/24/18 Range/Units 07:12 20:48 17:25 WBC (4.8-10.8) K/uL RBC (4.7-6.1) M/uL Hgb (14.0-18.0) g/dL Hct (42-52) % MCV (80-100) fL MCH (25-34) pg MCHC (32-36) g/dL RDW Std Deviation (36.4-46.3) fL RDW Coeff of Deepak (11.5-14.5) % Plt Count (130-400) K/uL MPV (7.4-10.4) fL Sodium 137 (136-145) mmol/L Potassium 3.8 (3.5-5.1) mmol/L Chloride 107 (98-107) mmol/L Carbon Dioxide 26 (21-32) mmol/L Anion Gap 5.0 (3-11) BUN 15 (7-18) mg/dl Creatinine 1.45 H (0.6-1.4) mg/dl Est Cr Clr Drug Dosing 46.9 ml/min Est GFR ( Amer) 53.1 Est GFR (Non-Af Amer) 45.8 BUN/Creatinine Ratio 10.1 (10-20) Glucose 83 (70-99) mg/dl POC Glucose 116 H 179 H (70-99) Calcium 8.8 (8.5-10.1) mg/dl Total Bilirubin 0.5 (0.2-1) mg/dl Direct Bilirubin 0.2 (0-0.2) mg/dl AST 15 (15-37) U/L ALT 16 (12-78) U/L Alkaline Phosphatase 66 (45-117) U/L Total Protein 6.4 (6.4-8.2) gm/dl Albumin 2.0 L (3.4-5.0) gm/dl Digoxin (0.8-2.0) ng/ml Blood Type Blood Type Recheck Antibody Screen Crossmatch 11/24/18 11/24/18 11/24/18 Range/Units 14:50 12:09 08:01 WBC (4.8-10.8) K/uL RBC (4.7-6.1) M/uL Hgb 8.2 L (14.0-18.0) g/dL Hct 25.8 L (42-52) % MCV (80-100) fL MCH (25-34) pg MCHC (32-36) g/dL RDW Std Deviation (36.4-46.3) fL RDW Coeff of Deepak (11.5-14.5) % Plt Count (130-400) K/uL MPV (7.4-10.4) fL Sodium (136-145) mmol/L Potassium (3.5-5.1) mmol/L Chloride (98-107) mmol/L Carbon Dioxide (21-32) mmol/L Anion Gap (3-11) BUN (7-18) mg/dl Creatinine (0.6-1.4) mg/dl Est Cr Clr Drug Dosing ml/min Est GFR ( Amer) Est GFR (Non-Af Amer) BUN/Creatinine Ratio (10-20) Glucose (70-99) mg/dl POC Glucose 121 H 127 H (70-99) Calcium (8.5-10.1) mg/dl Total Bilirubin (0.2-1) mg/dl Direct Bilirubin (0-0.2) mg/dl AST (15-37) U/L ALT (12-78) U/L Alkaline Phosphatase (45-117) U/L Total Protein (6.4-8.2) gm/dl Albumin (3.4-5.0) gm/dl Digoxin (0.8-2.0) ng/ml Blood Type Blood Type Recheck Antibody Screen Crossmatch 11/22/18 Range/Units 16:15 WBC (4.8-10.8) K/uL RBC (4.7-6.1) M/uL Hgb (14.0-18.0) g/dL Hct (42-52) % MCV (80-100) fL MCH (25-34) pg MCHC (32-36) g/dL RDW Std Deviation (36.4-46.3) fL RDW Coeff of Deepak (11.5-14.5) % Plt Count (130-400) K/uL MPV (7.4-10.4) fL Sodium (136-145) mmol/L Potassium (3.5-5.1) mmol/L Chloride (98-107) mmol/L Carbon Dioxide (21-32) mmol/L Anion Gap (3-11) BUN (7-18) mg/dl Creatinine (0.6-1.4) mg/dl Est Cr Clr Drug Dosing ml/min Est GFR ( Amer) Est GFR (Non-Af Amer) BUN/Creatinine Ratio (10-20) Glucose (70-99) mg/dl POC Glucose (70-99) Calcium (8.5-10.1) mg/dl Total Bilirubin (0.2-1) mg/dl Direct Bilirubin (0-0.2) mg/dl AST (15-37) U/L ALT (12-78) U/L Alkaline Phosphatase (45-117) U/L Total Protein (6.4-8.2) gm/dl Albumin (3.4-5.0) gm/dl Digoxin (0.8-2.0) ng/ml Blood Type O Negative Blood Type Recheck Antibody Screen NEGATIVE Crossmatch See Detail
--- NOTE | 2018-11-25 10:58 | Infectious Disease Progress Nt ---
Date of Service November 25, 2018 Assessment & Plan (1) Gangrene of left foot: s/p tma, will continue zosyn. 11/23 culture now growing gnr x 2, await final. follow wound healing, hopefully will not need additional surgery. continue abx. (2) Osteomyelitis: Subjective pt seen in followup, doing well. some pain post op tma. for dressing change later today. fever overnight, tmax37.7. Remain on zosyn 11/23 wound culture - GNR x 2, final pending. wbc 9.8. states pain overnight, now improved after meds. no cp, sob, cough. no abd pain, no n/v/d. Review of Systems Review of Systems: All systems reviewed & are unremarkable except as noted in HPI & below Physical Exam Constitutional: WD/WN, vitals as above Eyes: PERRL, conjunctivae normal, anicteric sclerae ENMT: external ear and nose normal, oropharynx normal Neck: normal visual inspection Respiratory: normal respiratory effort, lungs clear to auscultation Cardiovascular: RRR, no murmur, no edema Gastrointestinal (Abdomen): normal bowel sounds, soft, nontender, no hepatosplenomegaly Musculoskeletal: no cyanosis or clubbing, extremities motor strength 5/5 Skin: no rashes, warm and dry lle dressing c/d/i Psychiatric: A+Ox3, euthymic affect Results & Data Vital Signs (Past 12 Hours) Vital Signs Temp Pulse Pulse Pulse Resp BP BP 11/25/18 10:30 37.8 C H 73 15 116/65 11/25/18 10:00 37.7 C H 74 15 122/62 11/25/18 09:45 37.7 C H 77 15 114/63 11/25/18 09:25 37.4 C 86 20 131/58 L 11/25/18 08:00 37.5 C 80 16 112/54 L 11/24/18 23:13 37.7 C H 76 16 111/57 L Pulse Ox 11/25/18 10:30 92 11/25/18 10:00 94 11/25/18 09:45 91 11/25/18 09:25 96 11/25/18 08:00 97 11/24/18 23:13 93 Laboratory Results Microbiology 11/23/18 07:30 Foot,Left Gram Stain - Final 11/23/18 07:30 Foot,Left Aerobic and Anaerobic Culture - Preliminary Gram negative bacilli Gram negative bacilli#2 11/08/18 22:50 Toe,Left Great Gram Stain - Final 11/08/18 22:50 Toe,Left Great Aerobic and Anaerobic Culture - Final Escherichia coli Staphylococcus aureus Enterococcus faecalis Bacteroides fragilis 11/08/18 17:32 Blood Blood Culture - Final No growth 11/08/18 17:25 Blood Blood Culture - Final No growth 11/11/18 17:10 Urine,Clean Catch Urine Culture - Final No growth - less than 1,000 colonies/mL. 11/08/18 17:40 Foot Gram Stain - Final 11/08/18 17:40 Foot Wound Culture - Final Staphylococcus aureus Enterococcus faecalis (1) Osteomyelitis Laterality: left Osteomyelitis location: foot Osteomyelitis type: unspecified type Qualified Code(s): M86.9 - Osteomyelitis, unspecified
--- NOTE | 2018-11-25 13:20 | Hospitalist Progress Note ---
Date of Service November 25, 2018 Assessment & Plan (1) Gangrene of left foot: - S/p left great toe amputation on 11/08/[address] Mirza. - S/p TMA of left 2nd digit on 11/10/[address] Mirza. - S/p left foot chopart amputation 11/23/[address] Mirza. - Wound culture positive for E. coli, Staph aureus, Enterococcus faecalis, Bacteroides fragilis. - Continue Zosyn IV, will likely need total of 10 days post op. - Also s/p 2 angioplasty procedures of the left lower extremity by cardiology (11/16 and 11/18). - PT/OT -- will require rehab at discharge, plan for [facility]. (2) Atrial flutter with rapid ventricular response: - Cardiology following, has been difficult to manage. - Continue Digoxin, Diltiazem, Amiodarone. - Will need terminal manager anticoagulant at discharge -- Eliquis vs. Xarelto vs. other agent. - Currently receiving Lovenox ppx per ortho. (3) Atrial fibrillation with rapid ventricular response: - Continue cardiac meds as prescribed. - Held anticoagulation for procedure; will need to start agent at discharge and continue lifelong anticoagulation. - TTE showed preserved ejection fraction. (4) Peripheral arterial disease: - S/p 2 angioplasty procedures via cardiology on 11/16 and 11/18. - Repeat CHELI on 11/19 & 11/21 showed improvement. - Cardiology following, appreciate input. - Continue aspirin, plavix (will need Plavix for at least 3 months); Atorvastatin 40 mg daily. (5) Sepsis: - Secondary to gangrene of left foot. IV abx as noted above. (6) Osteomyelitis: - Treatment as noted above. (7) Diabetes mellitus type 2, uncontrolled: - Hemoglobin A1C was 13 during this admission. - Basal/bolus insulin -- BG has been well controlled. (8) CKD (chronic kidney disease), stage III: - Renally dose all meds. (9) Acute anemia: - Hgb trending down, was 7.4 this morning; likely related to intra op blood loss. - Will transfuse 1 unit pRBCs. - Repeat H/H this afternoon, then monitor qAM. (10) DVT prophylaxis: - Held anticoagulation for procedure; currently receiving Lovenox 40 mg subQ q24hr. Will require treatment dosing anticoagulation at discharge. Dispo: Med/surg for treatment of gangrene of the left foot. Discharge to [facility] on Wednesday. Supervising Physician Co-Signing Physician Notes Attending Attestation: Chart reviewed, care plan d/w NEY Turner. I agree w/ the lambert components of her documentation. 78yo male with prolonged hospitalization due to left foot gangrene. s/p multiple procedures to date including amputation of left great toe, TMA of 2nd toe, vascular intervention LLE x 2, and repeat revision of left foot (POD #2 from latter). Remains on zosyn for polymicrobial infection. Labs/vitals acceptable. DM under good control. Agree with Tx of 1u of PRBCs today. Will need rehab - to go there next week. Masoud Cade MD Subjective Pt. is doing well overall. Does have pain in left foot, has been using pain medication. Had increased pain this morning due to lack of pain meds last night. Denies chest pain, SOB, N/V, constipation or diarrhea. Review of Systems Review of Systems: All systems reviewed & are unremarkable except as noted in HPI & below Constitutional: no fever, no chills, no fatigue and no weakness Respiratory: no cough, no dyspnea, no dyspnea on exertion and no wheezing Cardiovascular: no chest pain, no palpitations, no lightheadedness and no edema Gastrointestinal: no abdominal pain, no nausea, no vomiting, no constipation and no diarrhea/loose stools Genitourinary: no difficulty urinating Musculoskeletal: + joint pain (Left foot ); no back pain Integumentary: + non-healing lesions Allergy / Immunological: no rash Physical Exam Physical Exam: General: Resting comfortably in no apparent distress HEENT: NC/AT; PERRLA with EOMI; [place] conjunctiva, MMM. No erythema of posterior pharynx Neck: Supple and nontender Cardiac: Irregular, rate controlled Lungs: CTA bilaterally; No rhonchi, wheezing, or rales Abdomen: Bowel normoactive X 4; Nontender to palpation Extremities: Warm. No edema present. Dressing on left foot. Neuro: No focal weakness Skin: No rash Results & Data Vital Signs (Past 12 Hours) Vital Signs Temp Pulse Pulse Resp BP BP Pulse Ox 11/25/18 12:25 37.9 C H 84 16 116/57 L 96 11/25/18 12:00 37.9 C H 93 H 17 138/66 97 11/25/18 11:00 37.5 C 74 15 129/64 93 11/25/18 10:30 37.8 C H 73 15 116/65 92 11/25/18 10:00 37.7 C H 74 15 122/62 94 11/25/18 09:45 37.7 C H 77 15 114/63 91 11/25/18 09:25 37.4 C 86 20 131/58 L 96 11/25/18 08:00 37.5 C 80 16 112/54 L 97 Laboratory Results 11/25/18 11/25/18 11/25/18 Range/Units 11:57 08:10 07:26 WBC (4.8-10.8) K/uL RBC (4.7-6.1) M/uL Hgb (14.0-18.0) g/dL Hct (42-52) % MCV (80-100) fL MCH (25-34) pg MCHC (32-36) g/dL RDW Std Deviation (36.4-46.3) fL RDW Coeff of Deepak (11.5-14.5) % Plt Count (130-400) K/uL MPV (7.4-10.4) fL Sodium (136-145) mmol/L Potassium (3.5-5.1) mmol/L Chloride (98-107) mmol/L Carbon Dioxide (21-32) mmol/L Anion Gap (3-11) BUN (7-18) mg/dl Creatinine (0.6-1.4) mg/dl Est Cr Clr Drug Dosing ml/min Est GFR ( Amer) Est GFR (Non-Af Amer) BUN/Creatinine Ratio (10-20) Glucose (70-99) mg/dl POC Glucose 76 84 (70-99) Calcium (8.5-10.1) mg/dl Total Bilirubin (0.2-1) mg/dl Direct Bilirubin (0-0.2) mg/dl AST (15-37) U/L ALT (12-78) U/L Alkaline Phosphatase (45-117) U/L Total Protein (6.4-8.2) gm/dl Albumin (3.4-5.0) gm/dl Digoxin (0.8-2.0) ng/ml Blood Type Blood Type Recheck O Negative Antibody Screen Crossmatch 11/25/18 11/25/18 11/25/18 Range/Units 07:12 07:12 07:12 WBC 9.89 (4.8-10.8) K/uL RBC 2.62 L (4.7-6.1) M/uL Hgb 7.4 L (14.0-18.0) g/dL Hct 22.9 L (42-52) % MCV 87.4 (80-100) fL MCH 28.2 (25-34) pg MCHC 32.3 (32-36) g/dL RDW Std Deviation 46.3 (36.4-46.3) fL RDW Coeff of Deepak 14.8 H (11.5-14.5) % Plt Count 285 (130-400) K/uL MPV 9.4 (7.4-10.4) fL Sodium 137 (136-145) mmol/L Potassium 3.8 (3.5-5.1) mmol/L Chloride 107 (98-107) mmol/L Carbon Dioxide 26 (21-32) mmol/L Anion Gap 5.0 (3-11) BUN 15 (7-18) mg/dl Creatinine 1.45 H (0.6-1.4) mg/dl Est Cr Clr Drug Dosing 46.9 ml/min Est GFR ( Amer) 53.1 Est GFR (Non-Af Amer) 45.8 BUN/Creatinine Ratio 10.1 (10-20) Glucose 83 (70-99) mg/dl POC Glucose (70-99) Calcium 8.8 (8.5-10.1) mg/dl Total Bilirubin 0.5 (0.2-1) mg/dl Direct Bilirubin 0.2 (0-0.2) mg/dl AST 15 (15-37) U/L ALT 16 (12-78) U/L Alkaline Phosphatase 66 (45-117) U/L Total Protein 6.4 (6.4-8.2) gm/dl Albumin 2.0 L (3.4-5.0) gm/dl Digoxin 0.8 (0.8-2.0) ng/ml Blood Type Blood Type Recheck Antibody Screen Crossmatch 11/24/18 11/24/18 11/24/18 Range/Units 20:48 17:25 14:50 WBC (4.8-10.8) K/uL RBC (4.7-6.1) M/uL Hgb 8.2 L (14.0-18.0) g/dL Hct 25.8 L (42-52) % MCV (80-100) fL MCH (25-34) pg MCHC (32-36) g/dL RDW Std Deviation (36.4-46.3) fL RDW Coeff of Deepak (11.5-14.5) % Plt Count (130-400) K/uL MPV (7.4-10.4) fL Sodium (136-145) mmol/L Potassium (3.5-5.1) mmol/L Chloride (98-107) mmol/L Carbon Dioxide (21-32) mmol/L Anion Gap (3-11) BUN (7-18) mg/dl Creatinine (0.6-1.4) mg/dl Est Cr Clr Drug Dosing ml/min Est GFR ( Amer) Est GFR (Non-Af Amer) BUN/Creatinine Ratio (10-20) Glucose (70-99) mg/dl POC Glucose 116 H 179 H (70-99) Calcium (8.5-10.1) mg/dl Total Bilirubin (0.2-1) mg/dl Direct Bilirubin (0-0.2) mg/dl AST (15-37) U/L ALT (12-78) U/L Alkaline Phosphatase (45-117) U/L Total Protein (6.4-8.2) gm/dl Albumin (3.4-5.0) gm/dl Digoxin (0.8-2.0) ng/ml Blood Type Blood Type Recheck Antibody Screen Crossmatch 11/22/18 Range/Units 16:15 WBC (4.8-10.8) K/uL RBC (4.7-6.1) M/uL Hgb (14.0-18.0) g/dL Hct (42-52) % MCV (80-100) fL MCH (25-34) pg MCHC (32-36) g/dL RDW Std Deviation (36.4-46.3) fL RDW Coeff of Deepak (11.5-14.5) % Plt Count (130-400) K/uL MPV (7.4-10.4) fL Sodium (136-145) mmol/L Potassium (3.5-5.1) mmol/L Chloride (98-107) mmol/L Carbon Dioxide (21-32) mmol/L Anion Gap (3-11) BUN (7-18) mg/dl Creatinine (0.6-1.4) mg/dl Est Cr Clr Drug Dosing ml/min Est GFR ( Amer) Est GFR (Non-Af Amer) BUN/Creatinine Ratio (10-20) Glucose (70-99) mg/dl POC Glucose (70-99) Calcium (8.5-10.1) mg/dl Total Bilirubin (0.2-1) mg/dl Direct Bilirubin (0-0.2) mg/dl AST (15-37) U/L ALT (12-78) U/L Alkaline Phosphatase (45-117) U/L Total Protein (6.4-8.2) gm/dl Albumin (3.4-5.0) gm/dl Digoxin (0.8-2.0) ng/ml Blood Type O Negative Blood Type Recheck Antibody Screen NEGATIVE Crossmatch See Detail (1) Diabetes mellitus type 2, uncontrolled Glycemic state: with hyperglycemia Qualified Code(s): E11.65 - Type 2 diabetes mellitus with hyperglycemia (2) Sepsis Sepsis type: sepsis due to unspecified organism Qualified Code(s): A41.9 - Sepsis, unspecified organism (3) Osteomyelitis Laterality: left Osteomyelitis location: foot Osteomyelitis type: unspecified type Qualified Code(s): M86.9 - Osteomyelitis, unspecified
[2018-11-25 15:00] LABS: Hematocrit (blood only) 25.5 % (42-52); Hemoglobin 8.4 g/dL (14.0-18.0)
[2018-11-25] MEDS: DIGOXIN 0.125 MG TAB PO SCH (16:05)
[2018-11-25] MEDS: TRAMADOL HCL 50 MG TABLET PO PRN (16:21)
[2018-11-25] MEDS: ENOXAPARIN INJ 40 MG/0.4 ML SYR SQ SCH (17:54)
[2018-11-25] MEDS: GABAPENTIN 100 MG CAP PO SCH (20:23)
[2018-11-26] MEDS: TRAMADOL HCL 50 MG TABLET PO PRN ×2 (03:46→08:57)
[2018-11-26 06:33] LABS: Hematocrit (blood only) 24.9 % (42-52); Hemoglobin 8.2 g/dL (14.0-18.0); Mean Corpuscular Hgb Conc 32.9 g/dL (32-36); Mean Corpuscular Volume 87.4 fL (80-100); Mean Platelet Volume 9.7 fL (7.4-10.4); Platelet Count 302 K/uL (130-400); RDW Coefficient of Variation 14.6 % (11.5-14.5); RDW Standard Deviation 46.4 fL (36.4-46.3); Red Blood Count 2.85 M/uL (4.7-6.1); White Blood Count 10.29 K/uL (4.8-10.8)
[2018-11-26 07:03] LABS: BUN Creatinine Ratio 10.2 (10-20); Calcium 8.3 mg/dl (8.5-10.1); Creatinine Clr Calc Pharmacy 53.2 ml/min; Est GFR (African American) 61.7; Est GFR (Non-African American) 53.3; Potassium 3.9 mmol/L (3.5-5.1)
[2018-11-26] MEDS: PIPERACILLIN/TAZOBACTAM 4.5 GM in DEXTROSE 5% 100 ML IV SCH ×3 (08:47→23:25)
[2018-11-26] MEDS: FERROUS GLUCONATE 324 MG TAB PO SCH ×2 (08:50→17:44)
[2018-11-26] MEDS: CLOPIDOGREL BISULFATE 75 MG TAB PO SCH (08:50)
[2018-11-26] MEDS: ASPIRIN 325 MG ECTAB PO SCH (08:50)
[2018-11-26] MEDS: SENNA 8.6 MG TAB PO SCH ×2 (08:50→20:46)
[2018-11-26] MEDS: CHOLECALCIFEROL 1,000 UNITS TAB PO SCH (08:50)
[2018-11-26] MEDS: ATORVASTATIN 40 MG TAB PO SCH (08:50)
[2018-11-26] MEDS: dilTIAZem HCL 120 MG CAPCR PO SCH (08:51)
[2018-11-26] MEDS: SACCHAROMYCES BOULARDII 250 MG CAP PO SCH (08:51)
[2018-11-26] MEDS: AMIODARONE 200 MG TAB PO SCH ×2 (08:51→20:46)
[2018-11-26] MEDS: INSULIN GLARGINE SOLOSTAR 100 UNITS/ML 3 ML PEN SC SCH ×2 (08:54→20:43)
[2018-11-26] MEDS: INSULIN ASPART 100 UNITS/ML 3 ML PEN SC SCH ×4 (08:55→20:44)
[2018-11-26] MEDS: POLYETHYLENE (MIRALAX) 17 GM PACK PO SCH ×2 (08:57→20:56)
--- NOTE | 2018-11-26 13:44 | Hospitalist Progress Note ---
Date of Service November 26, 2018 Assessment & Plan (1) Gangrene of left foot: - S/p left great toe amputation on 11/08/[address] Mirza. - S/p TMA of left 2nd digit on 11/10/[address] Mirza. - S/p left foot chopart amputation 11/23/[address] Mirza. - Wound culture +E. coli, Staph aureus, Enterococcus faecalis, Bacteroides fragilis. - Continue Zosyn IV (will likely need total of 10 days post op) - Also s/p 2 angioplasty procedures of the left lower extremity by cardiology (11/16 and 11/18). - PT/OT -- will require rehab at discharge, plan for [facility] next week. (2) Atrial flutter with rapid ventricular response: - Cardiology following, has been difficult to manage. - Continue Digoxin, Diltiazem, Amiodarone. - Will need adjunct faculty for medical terminology anticoagulant at discharge -- discussed with Dr. Mirza; will hold on starting agent until early next week, will need to verify that another procedure is not indicated. - Currently receiving Lovenox ppx. (3) Atrial fibrillation with rapid ventricular response: - Continue cardiac meds as prescribed. - Will need to start agent at discharge and continue lifelong anticoagulation. - TTE showed preserved ejection fraction. (4) Peripheral arterial disease: - S/p 2 angioplasty procedures via cardiology on 11/16 and 11/18. - Repeat CHELI on 11/19 & 11/21 showed improvement. - Cardiology following, appreciate input. - Continue aspirin, plavix (will need Plavix for at least 3 months); Atorvastatin 40 mg daily. (5) Sepsis: - Secondary to gangrene of left foot. IV abx as noted above. (6) Osteomyelitis: - Treatment as noted above. (7) Diabetes mellitus type 2, uncontrolled: - Hemoglobin A1C was 13 during this admission. - Basal/bolus insulin -- has been hypoglycemic, will decrease SSI and basal coverage. (8) CKD (chronic kidney disease), stage III: - Renally dose all meds. (9) Acute anemia: - Received pRBCs on 11/25 for anemia, now improved. - Monitor CBC qAM. (10) DVT prophylaxis: - Held anticoagulation for procedure; currently receiving Lovenox 40 mg subQ q24hr. Will require treatment dosing anticoagulation at discharge. Dispo: Med/surg for treatment of gangrene of the left foot. Discharge to [facility] next week, earliest discharge date would be Wednesday. Supervising Physician Co-Signing Physician Notes Attending Attestation: Chart reviewed, care plan d/w NEY Turner. I agree w/ the lambert components of her documentation. 78yo male with prolonged hospitalization due to left foot gangrene. s/p multiple procedures to date including amputation of left great toe, TMA of 2nd toe, vascular intervention LLE x 2, and repeat revision of left foot on 11/23/18. Remains on zosyn for polymicrobial infection. Vitals acceptable. H/H acceptable today. Cont Fe supplementation. Cardiac status stable. Masoud Cade MD Subjective Pt. is doing well, has been using pain meds as needed. Denies chest pain, SOB, nausea, constipation. Review of Systems Review of Systems: All systems reviewed & are unremarkable except as noted in HPI & below Constitutional: no fever, no chills, no fatigue and no weakness Respiratory: no cough, no dyspnea and no dyspnea on exertion Cardiovascular: no chest pain, no palpitations and no edema Gastrointestinal: no abdominal pain, no nausea, no vomiting, no constipation and no diarrhea/loose stools Genitourinary: no difficulty urinating Musculoskeletal: + joint pain; no back pain Integumentary: no non-healing lesions Physical Exam Physical Exam: General: Resting comfortably HEENT: NC/AT; PERRLA with EOMI; [place] conjunctiva, MMM. Neck: Supple and nontender Cardiac: Irregular, rate controlled. Lungs: CTA bilaterally; No rhonchi, wheezing, or rales Abdomen: Bowel normoactive X 4; Nontender to palpation Extremities: Warm. No edema present. Dressing on left foot in place. Neuro: No focal weakness Skin: No rash Results & Data Vital Signs (Past 12 Hours) Vital Signs Temp Pulse Resp BP Pulse Ox 11/26/18 08:33 37.4 C 69 18 142/67 H 91 Laboratory Results 11/26/18 11/26/18 11/26/18 Range/Units 12:09 08:00 06:03 WBC (4.8-10.8) K/uL RBC (4.7-6.1) M/uL Hgb (14.0-18.0) g/dL Hct (42-52) % MCV (80-100) fL MCH (25-34) pg MCHC (32-36) g/dL RDW Std Deviation (36.4-46.3) fL RDW Coeff of Deepak (11.5-14.5) % Plt Count (130-400) K/uL MPV (7.4-10.4) fL Sodium 135 L (136-145) mmol/L Potassium 3.9 (3.5-5.1) mmol/L Chloride 103 (98-107) mmol/L Carbon Dioxide 28 (21-32) mmol/L Anion Gap 4.0 (3-11) BUN 13 (7-18) mg/dl Creatinine 1.28 (0.6-1.4) mg/dl Est Cr Clr Drug Dosing 53.2 ml/min Est GFR ( Amer) 61.7 Est GFR (Non-Af Amer) 53.3 BUN/Creatinine Ratio 10.2 (10-20) Glucose 134 H (70-99) mg/dl POC Glucose 143 H 151 H (70-99) Calcium 8.3 L (8.5-10.1) mg/dl 11/26/18 11/25/18 11/25/18 Range/Units 06:03 21:21 20:59 WBC 10.29 (4.8-10.8) K/uL RBC 2.85 L (4.7-6.1) M/uL Hgb 8.2 L (14.0-18.0) g/dL Hct 24.9 L (42-52) % MCV 87.4 (80-100) fL MCH 28.8 (25-34) pg MCHC 32.9 (32-36) g/dL RDW Std Deviation 46.4 H (36.4-46.3) fL RDW Coeff of Deepak 14.6 H (11.5-14.5) % Plt Count 302 (130-400) K/uL MPV 9.7 (7.4-10.4) fL Sodium (136-145) mmol/L Potassium (3.5-5.1) mmol/L Chloride (98-107) mmol/L Carbon Dioxide (21-32) mmol/L Anion Gap (3-11) BUN (7-18) mg/dl Creatinine (0.6-1.4) mg/dl Est Cr Clr Drug Dosing ml/min Est GFR ( Amer) Est GFR (Non-Af Amer) BUN/Creatinine Ratio (10-20) Glucose (70-99) mg/dl POC Glucose 102 H 79 (70-99) Calcium (8.5-10.1) mg/dl 11/25/18 11/25/18 11/25/18 Range/Units 20:45 20:44 17:18 WBC (4.8-10.8) K/uL RBC (4.7-6.1) M/uL Hgb (14.0-18.0) g/dL Hct (42-52) % MCV (80-100) fL MCH (25-34) pg MCHC (32-36) g/dL RDW Std Deviation (36.4-46.3) fL RDW Coeff of Deepak (11.5-14.5) % Plt Count (130-400) K/uL MPV (7.4-10.4) fL Sodium (136-145) mmol/L Potassium (3.5-5.1) mmol/L Chloride (98-107) mmol/L Carbon Dioxide (21-32) mmol/L Anion Gap (3-11) BUN (7-18) mg/dl Creatinine (0.6-1.4) mg/dl Est Cr Clr Drug Dosing ml/min Est GFR ( Amer) Est GFR (Non-Af Amer) BUN/Creatinine Ratio (10-20) Glucose (70-99) mg/dl POC Glucose 66 L* 69 L* 145 H (70-99) Calcium (8.5-10.1) mg/dl 11/25/18 Range/Units 14:52 WBC (4.8-10.8) K/uL RBC (4.7-6.1) M/uL Hgb 8.4 L (14.0-18.0) g/dL Hct 25.5 L (42-52) % MCV (80-100) fL MCH (25-34) pg MCHC (32-36) g/dL RDW Std Deviation (36.4-46.3) fL RDW Coeff of Deepak (11.5-14.5) % Plt Count (130-400) K/uL MPV (7.4-10.4) fL Sodium (136-145) mmol/L Potassium (3.5-5.1) mmol/L Chloride (98-107) mmol/L Carbon Dioxide (21-32) mmol/L Anion Gap (3-11) BUN (7-18) mg/dl Creatinine (0.6-1.4) mg/dl Est Cr Clr Drug Dosing ml/min Est GFR ( Amer) Est GFR (Non-Af Amer) BUN/Creatinine Ratio (10-20) Glucose (70-99) mg/dl POC Glucose (70-99) Calcium (8.5-10.1) mg/dl (1) Diabetes mellitus type 2, uncontrolled Glycemic state: with hyperglycemia Qualified Code(s): E11.65 - Type 2 diabetes mellitus with hyperglycemia (2) Sepsis Sepsis type: sepsis due to unspecified organism Qualified Code(s): A41.9 - Sepsis, unspecified organism (3) Osteomyelitis Laterality: left Osteomyelitis location: foot Osteomyelitis type: unspecified type Qualified Code(s): M86.9 - Osteomyelitis, unspecified
[2018-11-26] MEDS: DIGOXIN 0.125 MG TAB PO SCH (15:21)
[2018-11-26] MEDS: ENOXAPARIN INJ 40 MG/0.4 ML SYR SQ SCH (17:45)
[2018-11-26] MEDS: OXYCODONE HCL IR 5 MG TAB (IMMEDIATE RELEASE) PO PRN (17:51)
[2018-11-26] MEDS: GABAPENTIN 100 MG CAP PO SCH (20:47)
[2018-11-27 06:23] LABS: Hematocrit (blood only) 24.5 % (42-52); Hemoglobin 8.4 g/dL (14.0-18.0); Mean Corpuscular Hgb Conc 34.3 g/dL (32-36); Mean Corpuscular Volume 85.7 fL (80-100); Mean Platelet Volume 9.7 fL (7.4-10.4); Platelet Count 329 K/uL (130-400); RDW Coefficient of Variation 14.6 % (11.5-14.5); RDW Standard Deviation 45.9 fL (36.4-46.3); Red Blood Count 2.86 M/uL (4.7-6.1); White Blood Count 9.17 K/uL (4.8-10.8)
[2018-11-27] MEDS: OXYCODONE HCL IR 5 MG TAB (IMMEDIATE RELEASE) PO PRN ×3 (08:41→19:55)
[2018-11-27] MEDS: PIPERACILLIN/TAZOBACTAM 4.5 GM in DEXTROSE 5% 100 ML IV SCH ×3 (08:43→23:59)
[2018-11-27] MEDS: SENNA 8.6 MG TAB PO SCH ×2 (08:45→20:00)
[2018-11-27] MEDS: SACCHAROMYCES BOULARDII 250 MG CAP PO SCH (08:45)
[2018-11-27] MEDS: ATORVASTATIN 40 MG TAB PO SCH (08:46)
[2018-11-27] MEDS: CHOLECALCIFEROL 1,000 UNITS TAB PO SCH (08:46)
[2018-11-27] MEDS: ASPIRIN 325 MG ECTAB PO SCH (08:46)
[2018-11-27] MEDS: AMIODARONE 200 MG TAB PO SCH ×2 (08:46→19:56)
[2018-11-27] MEDS: dilTIAZem HCL 120 MG CAPCR PO SCH (08:46)
[2018-11-27] MEDS: CLOPIDOGREL BISULFATE 75 MG TAB PO SCH (08:46)
[2018-11-27] MEDS: FERROUS GLUCONATE 324 MG TAB PO SCH ×2 (08:46→16:08)
[2018-11-27] MEDS: INSULIN GLARGINE SOLOSTAR 100 UNITS/ML 3 ML PEN SC SCH ×2 (08:48→21:11)
[2018-11-27] MEDS: INSULIN ASPART 100 UNITS/ML 3 ML PEN SC SCH ×4 (08:50→21:12)
[2018-11-27] MEDS: POLYETHYLENE (MIRALAX) 17 GM PACK PO SCH ×2 (08:53→20:07)
[2018-11-27] MEDS: SULFAMETHOXAZOLE/TRIMETHOPRIM DS 800/160MG TAB PO SCH ×2 (12:14→20:00)
--- NOTE | 2018-11-27 12:19 | Hospitalist Progress Note ---
Date of Service November 27, 2018 Assessment & Plan (1) Gangrene of left foot: - S/p left great toe amputation on 11/08/[address] Mirza. - S/p TMA of left 2nd digit on 11/10/[address] Mirza. - S/p left foot chopart amputation 11/23/[address] Mirza. - Most recent wound culture +E. coli and Stenotrophomonas maltophilia. - Continue Zosyn IV (will likely need total of 10 days post op); will add Bactrim for treatment of Stenotrophomonas. - Also s/p 2 angioplasty procedures of the left lower extremity by cardiology (11/16 and 11/18). - PT/OT -- will require rehab at discharge, plan for [facility] next week. (2) Atrial flutter with rapid ventricular response: - Cardiology following, has been difficult to manage. - Continue Digoxin, Diltiazem, Amiodarone. Most recent Dig level was WNL. - Will need group home anticoagulant at discharge -- discussed with Dr. Mirza, will hold on starting agent until early next week to verify that another procedure is not indicated. - Currently receiving Lovenox ppx. (3) Atrial fibrillation with rapid ventricular response: - Continue cardiac meds as prescribed. - Will need to start agent at discharge and continue lifelong anticoagulation. - TTE showed preserved ejection fraction. (4) Peripheral arterial disease: - S/p 2 angioplasty procedures via cardiology on 11/16 and 11/18. - Repeat CHELI on 11/19 & 11/21 showed improvement. - Cardiology following, appreciate input. - Continue aspirin, plavix (will need Plavix for at least 3 months); Atorvastatin 40 mg daily. (5) Sepsis: - Secondary to gangrene of left foot. IV abx as noted above. (6) Osteomyelitis: - Treatment as noted above. (7) Diabetes mellitus type 2, uncontrolled: - Hemoglobin A1C was 13 during this admission. - Basal/bolus insulin -- decreased coverage on 11/26 due to hypoglycemia. (8) CKD (chronic kidney disease), stage III: - Renally dose all meds. (9) Acute anemia: - Received pRBCs on 11/25 for anemia, now improved. - Monitor CBC qAM. (10) DVT prophylaxis: - Held anticoagulation for procedure; currently receiving Lovenox 40 mg subQ q24hr. Will require treatment dosing anticoagulation at discharge. Dispo: Med/surg for treatment of gangrene of the left foot. Discharge to [facility] next week, earliest discharge date would be Wednesday. Supervising Physician Co-Signing Physician Notes Attending Attestation: Chart reviewed, care plan d/w NEY Turner. I agree w/ the lambert components of her documentation. 78yo male with prolonged hospitalization due to left foot gangrene. s/p multiple procedures to date including amputation of left great toe, TMA of 2nd toe, vascular intervention LLE x 2, and repeat revision of left foot on 11/23/18. Remains on zosyn for polymicrobial infection. Unfortunately cultures from 11/23 grew stenotrophamonas in addition to e.coli. Agree w/ addition of bactrim. Await final abx recommendations from ID. Vitals acceptable. H/H acceptable. Awaiting dispo ([facility]). Masoud Cade MD Subjective Pt. is doing well overall. Pain in foot is well controlled. Denies chest pain, SOB, N/V, constipation. Review of Systems Review of Systems: All systems reviewed & are unremarkable except as noted in HPI & below Constitutional: no fever, no chills, no fatigue, no weakness and no anorexia Respiratory: no cough, no dyspnea, no dyspnea on exertion and no wheezing Cardiovascular: no chest pain, no palpitations and no edema Gastrointestinal: no abdominal pain, no nausea and no constipation Genitourinary: no difficulty urinating Musculoskeletal: + joint pain; no back pain Integumentary: + non-healing lesions Allergy / Immunological: no rash Physical Exam Physical Exam: General: Resting comfortably HEENT: NC/AT; PERRLA with EOMI; [place] conjunctiva, MMM. Neck: Supple and nontender Cardiac: Irregular, rate controlled. Lungs: CTA bilaterally; No rhonchi, wheezing, or rales Abdomen: Bowel normoactive X 4; Nontender to palpation Extremities: Warm. No edema present. Dressing on left foot in place. Neuro: No focal weakness Skin: No rash Results & Data Vital Signs (Past 12 Hours) Vital Signs Temp Pulse Resp BP Pulse Ox 11/27/18 07:03 37.4 C 75 17 126/68 96 Laboratory Results 11/27/18 11/27/18 11/27/18 Range/Units 11:54 08:16 05:50 WBC 9.17 (4.8-10.8) K/uL RBC 2.86 L (4.7-6.1) M/uL Hgb 8.4 L (14.0-18.0) g/dL Hct 24.5 L (42-52) % MCV 85.7 (80-100) fL MCH 29.4 (25-34) pg MCHC 34.3 (32-36) g/dL RDW Std Deviation 45.9 (36.4-46.3) fL RDW Coeff of Deepak 14.6 H (11.5-14.5) % Plt Count 329 (130-400) K/uL MPV 9.7 (7.4-10.4) fL POC Glucose 147 H 137 H (70-99) 11/26/18 11/26/18 11/26/18 Range/Units 20:24 17:33 12:09 WBC (4.8-10.8) K/uL RBC (4.7-6.1) M/uL Hgb (14.0-18.0) g/dL Hct (42-52) % MCV (80-100) fL MCH (25-34) pg MCHC (32-36) g/dL RDW Std Deviation (36.4-46.3) fL RDW Coeff of Deepak (11.5-14.5) % Plt Count (130-400) K/uL MPV (7.4-10.4) fL POC Glucose 168 H 213 H 143 H (70-99) (1) Diabetes mellitus type 2, uncontrolled Glycemic state: with hyperglycemia Qualified Code(s): E11.65 - Type 2 diabetes mellitus with hyperglycemia (2) Sepsis Sepsis type: sepsis due to unspecified organism Qualified Code(s): A41.9 - Sepsis, unspecified organism (3) Osteomyelitis Laterality: left Osteomyelitis location: foot Osteomyelitis type: unspecified type Qualified Code(s): M86.9 - Osteomyelitis, unspecified
[2018-11-27] MEDS: DIGOXIN 0.125 MG TAB PO SCH (15:38)
[2018-11-27] MEDS: ENOXAPARIN INJ 40 MG/0.4 ML SYR SQ SCH (16:07)
[2018-11-27] MEDS: GABAPENTIN 100 MG CAP PO SCH (19:59)
[2018-11-28 06:08] LABS: Hematocrit (blood only) 28.1 % (42-52); Hemoglobin 9.5 g/dL (14.0-18.0); Mean Corpuscular Hgb Conc 33.8 g/dL (32-36); Mean Corpuscular Volume 85.7 fL (80-100); Mean Platelet Volume 9.1 fL (7.4-10.4); Platelet Count 416 K/uL (130-400); RDW Coefficient of Variation 14.7 % (11.5-14.5); RDW Standard Deviation 45.9 fL (36.4-46.3); Red Blood Count 3.28 M/uL (4.7-6.1); White Blood Count 9.08 K/uL (4.8-10.8)
[2018-11-28 06:39] LABS: Albumin Level 2.2 gm/dl (3.4-5.0); BUN Creatinine Ratio 7.6 (10-20); Calcium 8.9 mg/dl (8.5-10.1); Creatinine Clr Calc Pharmacy 44.5 ml/min; Est GFR (African American) 49.7; Est GFR (Non-African American) 42.9; Magnesium 2.1 mg/dl (1.8-2.4); Potassium 3.4 mmol/L (3.5-5.1)
[2018-11-28 06:41] LABS: Albumin Globulin Ratio 0.4 (0.9-2); Bilirubin,Total 0.4 mg/dl (0.2-1); Globulin 5.6 gm/dl (2.5-4.0); Total Protein 7.8 gm/dl (6.4-8.2)
[2018-11-28] MEDS: POLYETHYLENE (MIRALAX) 17 GM PACK PO SCH ×2 (09:01→21:29)
[2018-11-28] MEDS: CHOLECALCIFEROL 1,000 UNITS TAB PO SCH (09:04)
[2018-11-28] MEDS: CLOPIDOGREL BISULFATE 75 MG TAB PO SCH (09:04)
[2018-11-28] MEDS: SULFAMETHOXAZOLE/TRIMETHOPRIM DS 800/160MG TAB PO SCH ×2 (09:04→21:18)
[2018-11-28] MEDS: SENNA 8.6 MG TAB PO SCH ×2 (09:04→21:17)
[2018-11-28] MEDS: AMIODARONE 200 MG TAB PO SCH ×2 (09:04→21:17)
[2018-11-28] MEDS: ASPIRIN 325 MG ECTAB PO SCH (09:04)
[2018-11-28] MEDS: ATORVASTATIN 40 MG TAB PO SCH (09:04)
[2018-11-28] MEDS: dilTIAZem HCL 120 MG CAPCR PO SCH (09:05)
[2018-11-28] MEDS: FERROUS GLUCONATE 324 MG TAB PO SCH ×2 (09:05→16:54)
[2018-11-28] MEDS: SACCHAROMYCES BOULARDII 250 MG CAP PO SCH (09:05)
[2018-11-28] MEDS: PIPERACILLIN/TAZOBACTAM 4.5 GM in DEXTROSE 5% 100 ML IV SCH ×3 (09:07→23:44)
[2018-11-28] MEDS: INSULIN ASPART 100 UNITS/ML 3 ML PEN SC SCH ×4 (09:10→21:09)
[2018-11-28] MEDS: INSULIN GLARGINE SOLOSTAR 100 UNITS/ML 3 ML PEN SC SCH ×2 (09:11→21:07)
[2018-11-28] MEDS: OXYCODONE HCL IR 5 MG TAB (IMMEDIATE RELEASE) PO PRN ×2 (11:31→17:10)
--- NOTE | 2018-11-28 15:26 | Hospitalist Progress Note ---
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 coli and stenotrophomonas maltophilia - Continue Zosyn (per ID recommendations for 14 days post-operatively which would be December 07); Bactrim added for Stenotrophomonas - PT/OT - planning on [facility] - ID following - appreciate input - can discuss duration at this time or continue for total of 14 days - Orthopedics following - appreciate input Present on Admission?: Yes (2) Osteomyelitis: - Treatment as noted above. (3) Sepsis: - Secondary to gangrene of left foot. IV abx as noted above. (4) Atrial flutter with rapid ventricular response: - Some findings to suggest A Flutter vs A Fib; seems irregular on exam but is rate controlled - Continue Amiodarone 200 mg BID, Digoxin 0.125 mg daily, and Diltiazem 120 mg daily - Discussed anticoagulation - patient states he would take what is recommended for him - can run cost of NOAC vs Coumadin - Awaiting final determination for need of additional procedures before starting AC - Cardiology following - appreciate input Present on Admission?: Yes (5) Peripheral arterial disease: - S/P angioplasty on 11/16 and 11/18; Repeat CHELI showing improvement - Continue ASA 325 mg AM and Plavix 75 mg daily (Plavix for at least 3 months); Atorvastatin 40 mg daily Present on Admission?: Yes (6) Diabetes mellitus type 2, uncontrolled: - Hemoglobin A1C was 13 during this admission. - Basal/bolus insulin Present on Admission?: Yes (7) CKD (chronic kidney disease), stage III: - STABLE; Baseline appears around 1.3-1.6 - Renally dose medications; avoid nephrotoxins (8) Acute anemia: - Received PRBCs on 11/25 for anemia, now improved; continue to monitor (9) DVT prophylaxis: - Held anticoagulation for procedure; currently receiving Lovenox 40 mg SC daily. Will require treatment dosing anticoagulation at discharge. Dispo: Awaiting insurance authorization; will need to assess if Lisa can continue Zosyn for remaining days vs alternative meds? Subjective Reports overall doing well. Pain is beginning to increase in foot today and hasn't had any pain medications prior to my visit for the day. Is anticipating rehab on discharge. Continues to participate with therapy. Denies feelings of CP, palpitations, dizziness. Review of Systems Constitutional: + weakness; no fever and no chills Ear, Nose, Mouth, Throat: no dry mouth, no sore throat and no dysphagia Respiratory: no cough and no dyspnea Cardiovascular: no chest pain, no palpitations, no lightheadedness and no edema Gastrointestinal: no abdominal pain, no nausea, no vomiting, no constipation and no diarrhea/loose stools Genitourinary: no dysuria Musculoskeletal: + joint pain (L foot) Integumentary: no rash Physical Exam Constitutional: WD/WN, vitals as above Eyes: + anicteric sclerae ENMT: Ears: no hearing impairment Neck: normal visual inspection and trachea midline Respiratory: normal respiratory effort, lungs clear to auscultation Cardiovascular: Rate/Rhythm: regular rate; + abnormal rhythm Gastrointestinal (Abdomen): Inspection/Auscultation: normal bowel sounds Percussion/Palpation: abdomen soft; abdomen nontender Musculoskeletal: Head/Neck/Chest: normocephalic and head atraumatic L foot with large STACI wrap applied C/D/I Skin: no rashes, warm and dry Neurologic: moves all extremities Psychiatric: A+Ox3, euthymic affect Results & Data Vital Signs (Past 12 Hours) Vital Signs Temp Pulse Resp BP Pulse Ox 11/28/18 15:10 36.9 C 66 16 131/61 93 11/28/18 06:53 37.2 C 67 18 137/74 96 (1) Sepsis Sepsis type: sepsis due to unspecified organism Qualified Code(s): A41.9 - Sepsis, unspecified organism (2) Osteomyelitis Laterality: left Osteomyelitis location: foot Osteomyelitis type: unspecified type Qualified Code(s): M86.9 - Osteomyelitis, unspecified (3) Diabetes mellitus type 2, uncontrolled Glycemic state: with hyperglycemia Qualified Code(s): E11.65 - Type 2 diabetes mellitus with hyperglycemia
[2018-11-28] MEDS: DIGOXIN 0.125 MG TAB PO SCH (16:52)
[2018-11-28] MEDS: ENOXAPARIN INJ 40 MG/0.4 ML SYR SQ SCH (16:54)
[2018-11-28] MEDS: GABAPENTIN 100 MG CAP PO SCH (21:17)
[2018-11-29] MEDS: dilTIAZem HCL 120 MG CAPCR PO SCH (08:59)
[2018-11-29] MEDS: AMIODARONE 200 MG TAB PO SCH (08:59)
[2018-11-29] MEDS: SENNA 8.6 MG TAB PO SCH ×2 (08:59→20:54)
[2018-11-29] MEDS: FERROUS GLUCONATE 324 MG TAB PO SCH ×2 (08:59→16:27)
[2018-11-29] MEDS: ASPIRIN 325 MG ECTAB PO SCH (09:00)
[2018-11-29] MEDS: ATORVASTATIN 40 MG TAB PO SCH (09:00)
[2018-11-29] MEDS: SULFAMETHOXAZOLE/TRIMETHOPRIM DS 800/160MG TAB PO SCH ×2 (09:00→20:52)
[2018-11-29] MEDS: CHOLECALCIFEROL 1,000 UNITS TAB PO SCH (09:00)
[2018-11-29] MEDS: SACCHAROMYCES BOULARDII 250 MG CAP PO SCH (09:00)
[2018-11-29] MEDS: CLOPIDOGREL BISULFATE 75 MG TAB PO SCH (09:00)
[2018-11-29] MEDS: INSULIN GLARGINE SOLOSTAR 100 UNITS/ML 3 ML PEN SC SCH ×2 (09:01→20:56)
[2018-11-29] MEDS: POLYETHYLENE (MIRALAX) 17 GM PACK PO SCH ×2 (09:05→20:54)
[2018-11-29] MEDS: INSULIN ASPART 100 UNITS/ML 3 ML PEN SC SCH ×4 (09:05→20:57)
[2018-11-29] MEDS: PIPERACILLIN/TAZOBACTAM 4.5 GM in DEXTROSE 5% 100 ML IV SCH ×3 (09:08→23:35)
--- NOTE | 2018-11-29 10:07 | Infectious Disease Progress Nt ---
Date of Service November 29, 2018 Assessment & Plan (1) Gangrene of left foot: s/p tma, will continue zosyn and bactrim. can stop zosyn upon d/c. would give 10 days total bactrim, this will treat E.coli and MSSA growing from initial wound culture as well. ok for d/c from ID standpoint when otherwise stable. (2) Osteomyelitis: Subjective 11/23 wound culture growing E. coli and stenotrophomonas. bactrim added ,remains on zosyn - has had prolonged course, pending d/c to snf. afebrile. wbc 11/28 9.0. no new micro. Results & Data Vital Signs (Past 12 Hours) Vital Signs Temp Pulse Resp BP BP Pulse Ox 11/29/18 06:49 36.9 C 61 18 142/67 H 95 11/28/18 22:53 37.3 C 65 16 141/63 H 94 Laboratory Results Microbiology 11/23/18 07:30 Foot,Left Gram Stain - Final 11/23/18 07:30 Foot,Left Aerobic and Anaerobic Culture - Final Escherichia coli Stenotrophomonas maltophilia 11/08/18 22:50 Toe,Left Great Gram Stain - Final 11/08/18 22:50 Toe,Left Great Aerobic and Anaerobic Culture - Final Escherichia coli Staphylococcus aureus Enterococcus faecalis Bacteroides fragilis 11/08/18 17:32 Blood Blood Culture - Final No growth 11/08/18 17:25 Blood Blood Culture - Final No growth 11/11/18 17:10 Urine,Clean Catch Urine Culture - Final No growth - less than 1,000 colonies/mL. 11/08/18 17:40 Foot Gram Stain - Final 11/08/18 17:40 Foot Wound Culture - Final Staphylococcus aureus Enterococcus faecalis (1) Osteomyelitis Laterality: left Osteomyelitis location: foot Osteomyelitis type: unspecified type Qualified Code(s): M86.9 - Osteomyelitis, unspecified
--- NOTE | 2018-11-29 10:18 | Progress Note ---
DATE: 11/29/2018 SUBJECTIVE: He reports no problems. Pain is well controlled. He has had no fevers. His rate is controlled and vital signs are stable. OBJECTIVE: The dressing is changed. There is some dried fluid on the dressing; however, there is no active drainage from the wound. There is some mild erythema around the wound margins. Medially along the incision on the plantar flap, there is an area about a 0.5 to 1 cm wide and 2-3 cm in length where there is some at least superficial necrosis. The wound margins are well approximated and appear to be healing. Plantar to this is a small area of superficial necrosis and around that an area where the epidermis has been sloughed. There appears to be healthy viable tissue underneath and the remainder of the wound looks fine. IMPRESSION: 1. Status post Chopart amputation of the left foot. 2. Diabetes and peripheral vascular disease. PLAN: Findings are discussed. He can be transferred to [facility] at any time. He should follow up with me in my office next Wednesday. He should continue on intravenous antibiotics per infectious disease recommendations. He may be transitioned from Lovenox to either Eliquis or Pradaxa, whatever is appropriate for his vascular anticoagulation and combined DVT prophylaxis. He is to elevate the leg, keep the splint on, clean and dry. Dressing changes and wound care are not needed. He is not to put any weight on the left leg and will use a knee walker, wheelchair or regular walker.
[2018-11-29] MEDS: OXYCODONE HCL IR 5 MG TAB (IMMEDIATE RELEASE) PO PRN ×3 (10:56→20:53)
--- NOTE | 2018-11-29 15:23 | Cardiology Progress Note ---
Date of Service November 29, 2018 Assessment & Plan (1) Atrial flutter with rapid ventricular response: He has been identified as having fibrillation and flutter (at times it looks very regular like atrial flutter but other times quite irregular like atrial fibrillation) but quite fast even on an amiodarone drip initially. His symptoms are very difficult to sort out, he was not having a lot of typical symptoms during atrial fibrillation or flutter and what he describes as "hyperventilating" preadmission which he relates to his heart and which has evidently occurred ever since his carotid surgery a year and a half ago could be paroxysmal atrial arrhythmias. On the morning of November 10, 2018 we converted his rhythm, it took several tries to maintain sinus rhythm even for short time but even then he quickly reverted back to atrial fibrillation. On IV Cardizem and IV amiodarone we were able to control his rate well enough for him to go to surgery. After surgery with discontinuation of his IV amiodarone he remained in sinus rhythm overnight but in the morning went back into atrial fibrillation or flutter, he continued to have the regular rates which might actually be some form of SVT. We therefore restarted amiodarone. As a long-term consideration he should be on an anticoagulant, he was on warfarin past and that could be used or one of the newer agents. For now I would continue oral amiodarone to try to control his arrhythmia. I am going to continue 200 mg twice daily for now. I did add digoxin to his regimen (his level was 0.8 on his current dose) and I started oral diltiazem as well. With his electrocardiographic abnormalities I am going to stop the digoxin. I would continue his amiodarone, however I am going to reduce the dose. I would continue Cardizem for now, this will help protect him from rapid heart rates if he goes back into atrial fibrillation, flutter or his SVT. I am not sure that we should continue the amiodarone over the long run but it seems quite effective now. Liver function tests on amiodarone and atorvastatin were good. His heart rate has been under very good control for about 4 days, several days on oral amiodarone. 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 Although he has not had a myocardial infarction initially based on symptoms, echocardiography and electrocardiography I suspect he probably has coronary artery disease to some extent. His current electrocardiographic abnormalities are worrisome. At this point I do not think we need to do stress testing since he does not have symptoms, he should be on risk factor modification for his atherosclerosis. This would normally include high-dose statins and aspirin, he is now on aspirin and Lipitor 40 mg daily. His liver function tests were normal November 08, 2018 on admission, on amiodarone and on Lipitor they remained normal. (3) Abnormal ECG: His electrocardiogram is quite different than one done 10 days ago, he has T wave inversion as well as QT prolongation. I cannot tell if this is just a medication response (he is not on medications it typically do this) or if it is an issue with ischemia. I would like to repeat the echocardiogram, if he has wall motion abnormalities we should look for ischemia, if not it may just be drug related. I am going to reduce his amiodarone dose to 200 mg daily and discontinue his digoxin but neither of these will result in a quick change in levels. I will repeat his electrocardiogram tomorrow as well. Subjective When I saw him this morning he was feeling well other than some minor pain. He had no cardiovascular symptoms. It had been observed in 1 of the notes that his rhythm was irregular so I ordered an electrocardiogram although when I examined him his rhythm was regular. Physical Exam Physical Exam: Constitutional: Alert, cooperative and in no distress. Pulmonary: Clear to auscultation bilaterally. Cardiac: Regular rhythm with no murmur, gallop or rub. Abdomen: Soft, nontender with normal bowel sounds. Extremities: No edema. Skin: No rash, ecchymoses or petechiae. Results & Data Vital Signs (Past 12 Hours) Vital Signs Temp Pulse Resp BP Pulse Ox 11/29/18 15:05 37.1 C 70 17 123/54 L 96 11/29/18 06:49 36.9 C 61 18 142/67 H 95 Diagnostic Findings His electrocardiogram today is quite abnormal, he has diffuse T wave abnormalities including anterolateral T wave inversion and a prolonged QT.
[2018-11-29] MEDS: ENOXAPARIN INJ 40 MG/0.4 ML SYR SQ SCH (16:27)
[2018-11-29] MEDS ORDERED: WARFARIN SOD 5 MG TAB PO SCH (16:45)
--- NOTE | 2018-11-29 18:13 | Hospitalist Progress Note ---
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 coli and stenotrophomonas maltophilia - Continue Zosyn with D/C on discharge; Continue Bactrim x 10 days total (completion December 06) - ID and Ortho following - input appreciated - F/U next Wednesday with Ortho (2) Osteomyelitis: - Treatment as noted above. (3) Sepsis: - Secondary to gangrene of left foot. IV abx as noted above. (4) Atrial flutter with rapid ventricular response: - Some findings to suggest A Flutter vs A Fib; seems like this may have a chronic element from 2017 as he reports fluttering/palpations and fatigue/SOB in the past with faster HRs -- Examines regular today; EKG did show some nonspecific ST-T wave changes; Echocardiogram performed with no wall motion abnormalities - Further adjustments with cardiac meds as follows: Reduced Amiodarone to 200 mg daily; Continue Diltiazem 120 mg daily; Stopped Digoxin - Discussed anticoagulation with patient - Eliquis would be $42/month with one month free but patient does express he rationed some medications due to cost and was leaning towards warfarin - Start Coumadin 5 mg daily and trend INR; did fill out referral for Coumadin clinic for monitoring - Cardiology following - appreciate input Present on Admission?: Yes (5) Peripheral arterial disease: - S/P angioplasty on 11/16 and 11/18; Repeat CHELI showing improvement - Continue ASA 325 mg AM and Plavix 75 mg daily (Plavix for at least 3 months); Atorvastatin 40 mg daily (6) Diabetes mellitus type 2, uncontrolled: - Hemoglobin A1C was 13 during this admission. - Discussed with patient that he was rationing his Humalog as the last Rx he picked up was double his normal co-pay. He does endorse that he more snacks through the day and has usually only one maybe two large meals - may explain his A1c especially if rationing his insulin to get more length of use - Did advise him to discuss with his family doctor about adjusting a regimen to maybe utilize an increased dose of Lantus in favor of reduced Humalog if that could improve cost - patient states his Lantus has always been around $40 where as the humalog was up to $80 on last refill - Basal/bolus insulin (7) CKD (chronic kidney disease), stage III: - STABLE; Baseline appears around 1.3-1.6 - Renally dose medications; avoid nephrotoxins (8) Acute anemia: - Received PRBCs on 11/25 for anemia, now improved; continue to monitor (9) DVT prophylaxis: - Held anticoagulation for procedure; currently receiving Lovenox 40 mg SC daily. Will require treatment dosing anticoagulation at discharge. Dispo: Approved for [facility]; await any further cardiac adjustments; hopefully can D/C to [facility] tomorrow Subjective Reports doing well today. Reports some fatigue but states his normal routine is to be awake at night and sleeps/naps intermittently through the day so his normal sleep pattern is off States he is having better control of pain but is nervous of it increasing on him. Updated family members at bedside. Anticipating discharge to [facility] for rehab prior to return home. Review of Systems Constitutional: + weakness; no fever and no chills Respiratory: no cough and no dyspnea Cardiovascular: no chest pain, no palpitations, no lightheadedness and no edema Gastrointestinal: no abdominal pain, no nausea, no vomiting, no constipation and no diarrhea/loose stools Genitourinary: no dysuria Musculoskeletal: + joint pain (L foot - intermittent - better controlled) Integumentary: no rash Physical Exam Constitutional: WD/WN, vitals as above Eyes: + anicteric sclerae ENMT: Ears: no hearing impairment Neck: normal visual inspection and trachea midline Respiratory: normal respiratory effort, lungs clear to auscultation Cardiovascular: Rate/Rhythm: regular rate; + abnormal rhythm Gastrointestinal (Abdomen): Inspection/Auscultation: normal bowel sounds Percussion/Palpation: abdomen soft; abdomen nontender Musculoskeletal: Head/Neck/Chest: normocephalic and head atraumatic Skin: no rashes, warm and dry Neurologic: moves all extremities Psychiatric: A+Ox3, euthymic affect Results & Data Vital Signs (Past 12 Hours) Vital Signs Temp Pulse Resp BP Pulse Ox 11/29/18 15:05 37.1 C 70 17 123/54 L 96 11/29/18 06:49 36.9 C 61 18 142/67 H 95 (1) Osteomyelitis Laterality: left Osteomyelitis location: foot Osteomyelitis type: unspecified type Qualified Code(s): M86.9 - Osteomyelitis, unspecified (2) Sepsis Sepsis type: sepsis due to unspecified organism Qualified Code(s): A41.9 - Se psis, unspecified organism (3) Diabetes mellitus type 2, uncontrolled Glycemic state: with hyperglycemia Qualified Code(s): E11.65 - Type 2 diabetes mellitus with hyperglycemia
[2018-11-29] MEDS: GABAPENTIN 100 MG CAP PO SCH (20:52)
[2018-11-30 07:14] LABS: Hematocrit (blood only) 25.3 % (42-52); Hemoglobin 8.5 g/dL (14.0-18.0); Mean Corpuscular Hgb Conc 33.6 g/dL (32-36); Mean Corpuscular Volume 86.3 fL (80-100); Mean Platelet Volume 8.9 fL (7.4-10.4); Platelet Count 336 K/uL (130-400); RDW Coefficient of Variation 14.9 % (11.5-14.5); Red Blood Count 2.93 M/uL (4.7-6.1); White Blood Count 5.93 K/uL (4.8-10.8)
[2018-11-30 07:25] LABS: INR 1.6 (0.9-1.1); Prothrombin Time 15.8 Seconds (9.0-12.0)
[2018-11-30 07:46] LABS: Albumin Level 1.9 gm/dl (3.4-5.0); BUN Creatinine Ratio 8.7 (10-20); Calcium 8.8 mg/dl (8.5-10.1); Creatinine Clr Calc Pharmacy 47.6 ml/min; Est GFR (Non-African American) 46.6; Magnesium 2.2 mg/dl (1.8-2.4); Potassium 3.6 mmol/L (3.5-5.1)
[2018-11-30] MEDS: OXYCODONE HCL IR 5 MG TAB (IMMEDIATE RELEASE) PO PRN (07:46)
[2018-11-30 07:49] LABS: Albumin Globulin Ratio 0.4 (0.9-2); Bilirubin,Total 0.3 mg/dl (0.2-1); Globulin 4.7 gm/dl (2.5-4.0); Total Protein 6.6 gm/dl (6.4-8.2)
[2018-11-30] MEDS: PIPERACILLIN/TAZOBACTAM 4.5 GM in DEXTROSE 5% 100 ML IV SCH (08:34)
[2018-11-30] MEDS ORDERED: AMIODARONE 200 MG TAB PO SCH (09:00)
[2018-11-30] MEDS: dilTIAZem HCL 120 MG CAPCR PO SCH (09:11)
[2018-11-30] MEDS: CLOPIDOGREL BISULFATE 75 MG TAB PO SCH (09:13)
[2018-11-30] MEDS: ATORVASTATIN 40 MG TAB PO SCH (09:13)
[2018-11-30] MEDS: SENNA 8.6 MG TAB PO SCH (09:13)
[2018-11-30] MEDS: CHOLECALCIFEROL 1,000 UNITS TAB PO SCH (09:13)
[2018-11-30] MEDS: ASPIRIN 325 MG ECTAB PO SCH (09:13)
[2018-11-30] MEDS: FERROUS GLUCONATE 324 MG TAB PO SCH (09:13)
[2018-11-30] MEDS: SACCHAROMYCES BOULARDII 250 MG CAP PO SCH (09:14)
[2018-11-30] MEDS: INSULIN GLARGINE SOLOSTAR 100 UNITS/ML 3 ML PEN SC SCH (09:14)
[2018-11-30] MEDS: INSULIN ASPART 100 UNITS/ML 3 ML PEN SC SCH ×2 (09:15→13:01)
[2018-11-30] MEDS: SULFAMETHOXAZOLE/TRIMETHOPRIM DS 800/160MG TAB PO SCH (09:21)
[2018-11-30] MEDS: POLYETHYLENE (MIRALAX) 17 GM PACK PO SCH (09:24)
--- NOTE | 2018-11-30 18:26 | Discharge Summary ---
Date of Service November 30, 2018 Admission HPI Per Admitting Provider Mr. Jacobo is a 78yo C male with history of DM on insulin presenting with gangrene of the left great toe. Patient states that on 10/15/18 after fishing he noted a small black spot on his toe. Denies trauma or break in the skin of his foot. He reports soaking his feet in iodine solution and bandaging his toe twice daily since that time, however, the black spot continued to expand. Also with redness on the dorsum of the foot. Minimal amount of pain. +foul smell and occasional discharge. Patient had episode of fever and rigors today. Otherwise no complaints. ER Course: Tylenol, Clindamycin, Daptomycin, Zosyn, Dilaudid, NSS, Zofran Principal Diagnosis L Great Toe Gangrene/Osteomyelitis Discharge Exam Constitutional WD/WN, vitals as above Eyes + anicteric sclerae ENMT Ears: no hearing impairment Neck normal visual inspection and trachea midline Respiratory normal respiratory effort, lungs clear to auscultation Cardiovascular Rate/Rhythm: regular rate and regular rhythm Gastrointestinal (Abdomen) Inspection/Auscultation: normal bowel sounds Percussion/Palpation: abdomen soft; abdomen nontender Musculoskeletal Head/Neck/Chest: normocephalic and head atraumatic L foot with splint and STACI wrap applied and elevated on the bed Skin no rashes, warm and dry Neurologic moves all extremities Psychiatric A+Ox3, euthymic affect Discharge Data Allergies Allergy/AdvReac Type Severity Reaction Status Date / Time No Known Allergies Allergy Verified 11/18/18 10:08 Consultations 11/08/18 19:15 ED Decision to Admit Stat 11/08/18 23:16 Consult Case Management - Discharge Planning Routine Consult Infectious Diseases Routine Consult Orthopedic Surgery Routine Consult Vascular Surgery Routine 11/08/18 23:31 Consult Case Management - Discharge Planning Routine 11/10/18 08:20 Consult Cardiology Routine 11/10/18 08:55 Consult Anesthesiology Routine 11/15/18 09:40 Consult Physician Routine 11/15/18 10:01 Consult Vascular Surgery Routine 11/23/18 11:35 Consult Case Management - Discharge Planning Routine Procedures Performed Operation Date: 11/08/18 21:15 Actual Procedures p Amputation of Left Toe(Left) - Adarsh Mirza MD Operation Date: 11/10/18 10:00 Actual Procedures p Cardioversion(Not Applicable) - Escobar Page MD Operation Date: 11/10/18 10:30 Actual Procedures p Left Foot Incision and Drainage, Wound Closure(Left) - Adarsh Mirza MD s Left 2nd Transmetatarsal Amputation(Left) - Adarsh Mirza MD Operation Date: 11/11/18 09:50 Actual Procedures p Cancelled Left Lower Extremity Angiogram (Not Applicable) - Richie Miller MD Operation Date: 11/14/18 09:20 <No data on this case meets the specified criteria> Operation Date: 11/16/18 08:00 Actual Procedures p Bilateral Lower Extremity Angiogram, Percutaneous Transluminal Angioplasty Left Perineal Artery, Mechanical Closure Right Femoral Artery, Moderate Concious Sedation 0847 to 1059(Right) - Hakan Guillen MD Operation Date: 11/18/18 13:20 Actual Procedures p case delayed, no procedures done(Left) - Hakan Guillen MD Operation Date: 11/18/18 15:40 Actual Procedures p Left Lower Extremity Angiogram, Percutaneous Transluminal Angioplasty of posterior tibial artery and perineal artery, stenting of posterior tibial artery, Mechanical closure left femoral artery, ultrasound guided access left posterior tibial artery, Moderate Concious Sedation 1415 to 1800(Left) - Hakan Guillen MD Operation Date: 11/23/18 07:00 Actual Procedures p Left Foot Chopart Amputation(Left) - Adarsh Mirza MD Ordered Studies 11/08/18 10:05 FL toe LT 2V Routine 11/08/18 17:30 CT foot LT wo con Stat 11/09/18 07:44 US arterial duplex LE BI Routine 11/10/18 10:30 FL fluoroscopy <1hr Routine FL foot LT 2V Routine 11/16/18 07:23 EV angio LE BI Routine 11/18/18 07:14 EV angio LE BI Routine US guide vascular access Routine 11/19/18 10:06 US ankle/brachial index comp Routine 11/21/18 11:56 US ankle/brachial index comp Routine 11/22/18 09:40 US guide vascular access Routine 11/23/18 07:00 FL fluoroscopy <1hr Routine FL foot LT 2V Routine Hospital Course (1) Gangrene of left foot: - S/P L great toe amputation 11/08; S/P TMA of L 2nd digit on 11/10; S/P angioplasty on 11/16 and 11/18; S/P L foot chopart amputation on 11/23 - Most recent wound cx with e. coli and stenotrophomonas maltophilia - Treated with Zosyn during admission and completed a long course during hospi talization; Continue Bactrim x 10 days total (completion December 06) - ID and Ortho following - input appreciated - F/U next Wednesday with Ortho (2) Osteomyelitis: - Treatment as noted above. (3) Sepsis: - Secondary to gangrene of left foot. Treatment as noted above. (4) Atrial flutter with rapid ventricular response: - Some findings to suggest A Flutter vs A Fib maybe some element of SVT; seems like this may have a chronic element from 2017 as he reports fluttering/p alpations and fatigue/SOB in the past with faster HRs -- Examines regular today; EKG did show some nonspecific ST-T wave changes; Echocardiogram performed with no wall motion abnormalities - Further adjustments with cardiac meds as follows: Reduced Amiodarone to 200 mg daily; Continue Diltiazem 120 mg daily; Stopped Digoxin - Discussed anticoagulation with patient - Eliquis would be $42/month with one month free but patient does express he rationed some medications due to cost and was leaning towards warfarin - Start Coumadin 2.5 mg daily (given several more days of Bactrim) and trend INR; did fill out referral for Coumadin clinic for monitoring - Cardiology following - appreciate input - discussed with Dr. Matthews today - he would like to F/U with patient in near future unless patient would prefer to see Cardiology closer to home (5) Peripheral arterial disease: - S/P angioplasty on 11/16 and 11/18; Repeat CHELI showing improvement - Continue Plavix 75 mg daily (Plavix for at least 3 months); Atorvastatin 40 mg daily (6) Diabetes mellitus type 2, uncontrolled: - Hemoglobin A1C was 13 during this admission. - Discussed with patient that he was rationing his Humalog as the last Rx he picked up was double his normal co-pay. He does endorse that he more snacks through the day and has usually only one maybe two large meals - may explain his A1c especially if rationing his insulin to get more length of use - Did advise him to discuss with his family doctor about adjusting a regimen to maybe utilize an increased dose of Lantus in favor of reduced Humalog if that could improve cost - patient states his Lantus has always been around $40 where as the humalog was up to $80 on last refill (7) CKD (chronic kidney disease), stage III: - STABLE; Baseline appears around 1.3-1.6 - Renally dose medications; avoid nephrotoxins (8) Acute anemia: - Received PRBCs on 11/25 for anemia, now improved - Continue iron supplementation Total Time Total Time Spent Total Time Spent (In Minutes): Greater than 30 minutes Discharge Plan Discharge Items Patient Disposition: Transfer Inpatient Rehab Fac Reason For Visit: GAS GANGRENE,OSTEOMYELITIS Discharge Diagnosis: left foot osteomyelitis Discharge Goals: Decrease discomfort, Improve function and Increase independence Activity: Per 'Additional Instructions' section Weightbearing: Left non-weightbearing Non-emergency contact: Surgeon Call non-emergency contact if: your pain is concerning for you, you have a fever, your temperature is above 100.5, your wound has increased redness, your wound has increased drainage and your wound pain has increased Follow-up/Referrals: Roz Walker PA-C [Physician [employer]] - 11/18/18 10:00 am (Please, follow up at [facility] with Roz Walker PA-C on WednesdayNovember 18 at 10:00 am. *The office is located in [address] of [facility]. This is the big building next to this [facility]. If you need to change this appointment, call the office at [phone].) José Manuel Esparza [Primary Care Provider] - Adarsh Mirza MD [Surgeon] - 12/06/18 9:00 am Diet: Carb Consistent or DM2 Addtl Provider Instructions: Gangrene of Left Foot with Osteomyelitis/Bone Infection: - You had multiple surgeries/amputation to help with this foot infection by Dr. Mirza. - Your culture is growing E. coli and stenotrophomonas and you have received a long course of IV antibiotics during your admission here. You have completed the IV antibiotics but will need to continue Bactrim for the time being -- Bactrim twice a day until December 06. You had the morning dose today so you will just need to take one dose this evening then twice a day starting on 12/01 - The orthopedic surgeons would like to see you next Wednesday with an appointment set. Please follow the instructions given at the bottom of these instructions Atrial Fibrillation/Flutter: - You had this irregular heart rhythm while you were in the hospital but currently in a normal rhythm - You were started on medicines to help control this rhythm. The pediatric geneticist may change this in the future depending on how your rhythm goes - For now the medications are as follows: -- Amiodarone 200 mg daily (this is a medicine to help prevent the rhythm) -- Diltiazem 120 mg daily (this is a medicine to help prevent the heart rate from being too fast) - It is recommended to be on a blood thinner due to this rhythm to prevent stroke. After discussion, Coumadin will be started. This will require blood checks to make sure you are in a good Coumadin range and will be adjusted based on your Coumadin level. The goal is to have a Coumadin level between 2-3 and right now you are 1.6. This can take a couple days to get to a good level. Please have your Coumadin level rechecked on 12/02 -- For now you will start with Coumadin 2.5 mg daily and this dose will be adjusted as needed. Will use a lower dose while on Bactrim your antibiotic but this dose will likely need increased when you come off your antibiotic -- We did run the cost of the newer medication Eliquis which would be $40/month if you would change your mind about - Recommend to follow up with Dr. Matthews ([facility]) or can follow-up with a heart doctor near your home. Recommend seeing a heart doctor in the next 2-3 weeks for monitoring - Reports getting some acid reflux like symptoms with multiple medications. Can trial Pantoprazole 40 mg daily x 14 days to see if this helps symptoms Peripheral Arterial Disease: - You and procedures on this to help get better blood flow - You will need to continue Plavix (the Plavix will be used for 3 months); You were also started on Atorvastatin which is a cholesterol medication Diabetes mellitus type 2, uncontrolled: - Hemoglobin A1C was 13 which means your sugars are running high and should be rechecked in 3 months - Please discuss with your doctor about adjusting this regimen especially if the cost of the Novolog is going to be more expensive as it was the last time. - For healing and infection prevention we would like to see this A1c start to trend down over the next couple months to maybe the 10-11 range and then with time maybe even get it closer to the 7 range CKD (chronic kidney disease), stage III: - STABLE; Baseline appears around 1.3-1.6 Acute anemia: - Received PRBCs on 11/25 for anemia, now improved; continue to monitor intermittently - Has baseline anemia - has been around 8-10 during admission x almost 1 month - Continue iron supplementation INSTRUCTIONS FROM ORTHOPEDICS: NON WEIGHT BEARING LEFT lower extremity Elevate left foot as needed for pain/swelling left lower extremity Keep splint and dressings on left foot at all times until follow up with Dr. Mirza Keep splint and dressings clean and dry. If any increased drainage, or soiling of dressings please call Dr. Mirza's office at [phone]. Follow up with Dr. Mirza next week as scheduled. Continue antibiotics as instructed DVT prophylaxis as ordered No dressing changes needed at this time Knee walker or wheelchair or standard walker to assist with ambulation. Prescriptions: New sulfamethoxazole-trimethoprim 800-160 mg Tablet 1 tab PO Q12 Qty: 13 RF: 0 clopidogrel 75 mg Tablet 75 mg PO QAM 30 Days Qty: 30 RF: 0 ferrous gluconate 324 mg (38 mg iron) Tablet 324 mg PO BIDM 30 Days Qty: 60 RF: 0 warfarin [Coumadin] 5 mg Tablet 2.5 mg PO DAILY@1600 30 Days Qty: 15 RF: 0 atorvastatin 40 mg Tablet 40 mg PO QAM 30 Days Qty: 30 RF: 0 amiodarone 200 mg Tablet 200 mg PO QAM 30 Days Qty: 30 RF: 0 diltiazem HCl 120 mg Capsule,Extended Release 24hr 120 mg PO QAM 30 Days Qty: 30 RF: 0 gabapentin 100 mg Capsule 100 mg PO HS 30 Days Qty: 30 RF: 0 oxycodone 5 mg Tablet 10 mg PO Q4H PRN (Reason: pain) 3 Days Qty: 10 RF: 0 Florastor 250 mg Capsule 250 mg PO DAILY 14 Days Qty: 14 RF: 0 cholecalciferol (vitamin D3) [Vitamin D3] 1,000 unit Tablet 1,000 unit PO QAM 30 Days Qty: 30 RF: 0 sennosides [Senokot] 8.6 mg Tablet 17.2 mg PO BID 14 Days Qty: 56 RF: 0 pantoprazole 40 mg tablet,delayed release (DR/EC) 40 mg PO DAILY 14 Days Qty: 14 RF: 0 Continued Lantus U-100 Insulin 100 unit/mL Solution 22 unit SUBCUT HS RF: 0 acetaminophen [Tylenol Extra Strength] 500 mg Tablet 500 - 1,000 mg PO DIRECTED PRN (Reason: Pain) RF: 0 Novolog U-100 Insulin aspart 100 unit/mL Solution 10 - 12 unit SUBCUT TIDM RF: 0 Discontinued ibuprofen [Advil] 200 mg Tablet 200 - 400 mg PO DIRECTED PRN (Reason: Pain) RF: 0 Stand-Alone Forms: [employer]/Other Patient Handouts: Coumadin, Diabetes Carbs, Diabetes Eating Out, Diabetes Body Care Discharge Orders: Discharge Order (Routine); Ordered 11/30/18 Ordered By: Reyna Ramírez Skilled Items Patient informed of condition?: Yes DNR: No Discharge Level of Care: Acute rehab Communicable Disease: No Discharge Prognosis: Stable Admission Data Admit Date/Time: 11/08/18 23:31 Attending Provider: Flavio Stevenson Admit Provider: Adarsh Mirza Primary Care Provider: José Manuel Esparza Other Providers: Masoud Cade ; Hakan Guillen ; Melva Gao ; Sarwat Castillo ; Anay Ortega ; Adarsh Mirza ; Richie Miller ; Escobar Page ; Aneta Fernández ; Rosa Stone ; Joanie Brock ; Brit Delcid ; Martha Rowley ; Sammie Hall ; Homero Garcia ; Blas Snider ; Tip Coppola ; Naty Coppola ; Jacques Barrientos ; Anay Marie ; Hernesto Abrams James D ; Ludwin García ; Richard Schumacher ; Jairo Medrano ; Elisa Chambers ; Marcial Arrieta ; Mari Houser ; Isabell Arrieta ; Bonifacio Le ; Reyna Alvarez ; Kris Goode ; Nini Hendricks ; Kaity Stevenson ; Jarocho Santoyo ; Melva Malin ; Myriam Riddle ; Lupis Masters ; Dorie Gonzalez ; Terry Gonzalez V ; Favian Davalos ; Joanie Cantu ; [place] ; Anjelica Cohen V ; Arsh Chandler ; Lydia Andrew ; Marisa Colon ; Corrina Cantu ; Terry Persaud ; Brandon Chambers ; Najma Ledezma ; Lupis Mcfarland ; Blas Membreno ; Carli Rodriguez ; Cj Medrano ; Jessica Garcia ; Hakan Durand Service: Surgical Services Other Interventions: Discharge Summary Assessment (RN) Last Done: 11/30/18 13:04 Pending Studies at Discharge: No DC Date/Time DO NOT enter until pt leaves facility: 11/30/18 13:30 Supervising Physician Co-Signing Physician Notes Attending note: patient seen and examined with Reyna Ramírez PA-C. I agree with her discharge summary. Patient feeling well, ready to go to rehab. He feels weak after being in the hospital for three weeks. No pain in foot. No chest pain, no fevers. - Left toe, gangrene and osteomyelitis treated with great toe and then second toe amputation no success with wound healing despite angioplasty and interventions in peripheral stenoses s/p partial foot amputation will continue Bactrim for 10 day course d/c to rehab today for full details see the full d/c summary
== END 2018-11-30 13:30 | DRG 853 ==
LOC: ED 16:32 → OR 21:41 → 2E 23:31 → SUATTDRO 23:31 → 3W 11-20 14:15
DX: Z79.4 Long term (current) use of insulin; I73.9 Peripheral vascular disease, unspecified; E11.52 Type 2 diabetes mellitus with diabetic peripheral angiopathy with gangrene; I48.92 Unspecified atrial flutter; A41.9 Sepsis, unspecified organism; Z83.3 Family history of diabetes mellitus; Z82.49 Family history of ischemic heart disease and other diseases of the circulatory system; A48.0 Gas gangrene; M86.9 Osteomyelitis, unspecified

== ENCOUNTER 2021-07-09 19:59 | Inpatient (IN) ==
[2021-07-09 20:44] LABS: Basophils # (auto) 0.01 K/uL (0-0.2); Basophils % (auto) 0.1 %; Eosinophils # (auto) 0.01 K/uL (0-0.5); Eosinophils % (auto) 0.1 %; Hemoglobin 11.9 g/dL (14.0-18.0); Lymphocytes # (auto) 0.59 K/uL (1.2-3.4); Lymphocytes % (auto) 8.8 %; Mean Corpuscular Hemoglobin 29.2 pg (25-34); Mean Corpuscular Hgb Conc 33.1 g/dL (32-36); Mean Corpuscular Volume 88.5 fL (80-100); Mean Platelet Volume 10.7 fL (7.4-10.4); Monocytes # (auto) 0.53 K/uL (0.11-0.59); Monocytes % (auto) 7.9 %; Neutrophils % (auto) 83.1 %; Platelet Count 185 K/uL (130-400); RDW Coefficient of Variation 15.1 % (11.5-14.5); Red Blood Count 4.07 M/uL (4.7-6.1); White Blood Count 6.74 K/uL (4.8-10.8)
[2021-07-09 21:01] LABS: Alanine Aminotransferase 69 (12-78); Albumin Level 2.8 gm/dl (3.4-5.0); Aspartate Aminotransferase 66 U/L (15-37); BUN Creatinine Ratio 10.4 (10-20); Blood Urea Nitrogen 18 mg/dl (7-18); Calcium 8.6 mg/dl (8.5-10.1); Carbon Dioxide 26 mmol/L (21-32); Chloride 99 mmol/L (98-107); Est GFR (African American) 40.6 ml/min; Glucose 229 mg/dl (70-99); Lipase 157 U/L (73-393); Potassium 4.2 mmol/L (3.5-5.1); Sodium 131 mmol/L (136-145)
[2021-07-09 21:06] LABS: Albumin Globulin Ratio 0.6 (0.9-2); Alkaline Phosphatase 86 U/L (45-117); Bilirubin,Total 0.5 mg/dl (0.2-1); Globulin 4.4 gm/dl (2.5-4.0); Total Protein 7.2 gm/dl (6.4-8.2); Troponin I < 0.015 ng/ml (0-0.045)
--- NOTE | 2021-07-09 21:51 | Emergency Department Note ---
History of Present Illness General Chief complaint: Nausea Stated complaint: FLU Time Seen by Provider: 07/09/21 21:33 Source: patient and family (Daughter) History of Present Illness Provider complaint: Flulike symptoms Onset (ago): week(s) Location: chest and abdomen Pain Consistency: + constant Maximum Pain Intensity: 8 Quality: + other (Dry heaves, cough and diarrhea) Relieved By: + medication (Imodium and Compazine) Associated symptoms: + cough and + nausea/vomiting; no chest pain, no fever/chills or no shortness of breath This is an 81-year-old male who presents with flulike symptoms for about a week. He states that he got it after visiting his family's house. His daughters son-in-law is a wrestler and he developed similar symptoms and then gave it to his [id number]. The patient then visited his family and developed similar symptoms. He started having a cough with phlegm production about a week ago. He then developed dry heaves from all the phlegm production and also had diarrhea which he stated was mild. It did get better after he took Imodium. He is not vomiting but he feels like he wants to throw up. He has been taking Compazine without relief. He denies any fever, chest pain, shortness of breath, loss of taste or smell or urinary symptoms. He is not vaccinated for COVID-19 and neither is anyone in his family. He denies any abdominal pain other than th e feeling of needing to throw up. He denies any abdominal distention. Home Medications Medication Instructions Recorded Confirmed Type atorvastatin 40 mg tablet 40 mg PO DAILY #90 tab 04/14/19 07/09/21 Rx docusate sodium 100 mg capsule 200 mg PO QAM 04/24/19 07/09/21 History blood-glucose meter (OneTouch #1 ea 03/29/20 06/16/21 Rx Verio Meter) ferrous gluconate 324 mg (37.5 mg 324 mg PO DAILY #60 tab 10/01/20 07/09/21 Rx iron) tablet diltiazem HCl 120 mg 120 mg PO QAM #90 cap 11/06/20 07/09/21 Rx capsule,extended release 24 hr, controlled (DILT-XR) amiodarone 200 mg tablet 200 mg PO DAILY #90 tab 11/12/20 07/09/21 Rx insulin syringe-needle U-100 0.5 #100 ea 11/19/20 06/16/21 Rx mL 31 gauge x 5/16" (BD Insulin Syringe Ultra-Fine) apixaban 2.5 mg tablet 2.5 mg PO BID #180 tab 12/03/20 07/09/21 Rx cholecalciferol (vitamin D3) 25 1,000 unit PO DAILY cap 04/17/21 07/09/21 History mcg (1,000 unit) capsule insulin lispro 100 unit/mL 14 unit SQ TID 90 Days #40 ml 05/28/21 07/09/21 Rx subcutaneous solution (Humalog U-100 Insulin) lisinopril 5 mg tablet 5 mg PO DAILY #90 tab 06/12/21 07/09/21 Rx clopidogrel 75 mg tablet (Plavix) 75 mg PO DAILY #90 tab 06/13/21 07/09/21 Rx Lantus U-100 Insulin 100 unit/mL 42 unit SQ HS 90 Days #40 ml NS 06/16/21 07/09/21 Rx subcutaneous solution (insulin glargine) blood sugar diagnostic (Ress[employer] TechnologiesTouch #400 ea 06/16/21 Rx Verio test strips) insulin syringe-needle U-100 0.3 #300 ea 06/16/21 Rx mL 31 gauge x 5/16" (BD SafetyGlide Insulin Syringe) lancets 33 gauge (OneTouch Delica #120 ea 06/16/21 Rx Plus Lancet) Allergies Allergy/AdvReac Type Severity Reaction Status Date / Time No Known Drug Allergies Allergy Unknown Verified 07/09/21 22:40 Past Med/Surg History Medical History Atrial flutter with RVR. Requiring cardioversion Being followed by Dr. Page. Currently on regimen of amiodarone, cardizem and digoxin Cellulitis of left foot Diabetes Poorly controlled. Diabetes mellitus Diabetes mellitus type 2, uncontrolled Edema of right lower extremity Gangrene of left foot Hypoglycemia Ingrown nail Obesity Osteomyelitis PVD (peripheral vascular disease) Sepsis Surgical wound, non healing Swelling of both lower extremities T2DM (type 2 diabetes mellitus) Tibial artery disease URI (upper respiratory infection) Surgical History H/O lumbar discectomy History of cardioversion 11/10/18x 3. 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 Mac 3, gr I Status post incision and drainage Left great toe Family History Family/Other Coronary heart disease Diabetes Heart disease Brother Colorectal cancer Heart disease Father Myocardial infarction Heart disease Denies family history of Ovarian cancer Prostate cancer Breast cancer Social History Smoking Status: Never smoker Second Hand Exposure: No; Hx Alcohol Use: No Hx Substance Use: No Preferred Language: Macedonian Communication Ability: Effective Visual Impairment: No Limitations Beliefs That Will Affect Care: Advent Advent Beliefs: orthodox marital status: Current Living Situation: Family current occupational status: retired Feels Safe at Home: Yes Dental Care, Regularly: No Physical Activity Frequency: 3-4 Times per Week Physical Activity Frequency Comment: stretching and arm weights Seatbelt Use: always Sunscreen Use: No Assistive Devices: Glasses and Walker Review of Systems See HPI for pertinent positives & negatives. and A total of 10 systems reviewed and were otherwise negative Physical Exam Vital Signs Vital Signs - 24 hr 07/09/21 20:04 07/09/21 22:07 07/09/21 22:22 Temperature 36.5 C Temperature Source Temporal Artery Scan Pulse Rate 80 75 Pulse Rate [Right Finger] 74 Pulse Rhythm [Right Finger] Regular Pulse Strength [Right Finger] Normal Respiratory Rate 18 21 15 Respiratory Effort / Characteristics Non-Labored Spontaneous Non-Labored Respiratory Depth Normal Normal Respiratory Pattern Regular Regular Blood Pressure 121/58 L Blood Pressure [Right Arm] 144/82 H Blood Pressure Mean 79 Blood Pressure Mean [Right Arm] 102 Blood Pressure Position Sitting Blood Pressure Position [Right Arm] Sitting Pulse Oximetry 90 94 93 Oxygen Delivery Method Room Air Room Air Room Air Oxygen Flow Rate Sepsis Recent Fever Within 48 Hours No Sepsis New/Unexplained Change in Mental Status No Sepsis Action Taken by Nursing No Action Required 07/09/21 22:30 07/09/21 22:40 07/09/21 22:50 Temperature Temperature Source Pulse Rate 76 77 78 Pulse Rate [Right Finger] Pulse Rhythm [Right Finger] Pulse Strength [Right Finger] Respiratory Rate 22 21 15 Respiratory Effort / Characteristics Respiratory Depth Respiratory Pattern Blood Pressure Blood Pressure [Right Arm] Blood Pressure Mean Blood Pressure Mean [Right Arm] Blood Pressure Position Blood Pressure Position [Right Arm] Pulse Oximetry 92 92 92 Oxygen Delivery Method Room Air Room Air Room Air Oxygen Flow Rate Sepsis Recent Fever Within 48 Hours Sepsis New/Unexplained Change in Mental Status Sepsis Action Taken by Nursing 07/09/21 23:00 07/09/21 23:10 07/09/21 23:20 Temperature Temperature Source Pulse Rate 75 75 75 Pulse Rate [Right Finger] Pulse Rhythm [Right Finger] Pulse Strength [Right Finger] Respiratory Rate 15 13 20 Respiratory Effort / Characteristics Respiratory Depth Respiratory Pattern Blood Pressure 152/70 H Blood Pressure [Right Arm] Blood Pressure Mean 97 Blood Pressure Mean [Right Arm] Blood Pressure Position Blood Pressure Position [Right Arm] Pulse Oximetry 92 91 91 Oxygen Delivery Method Room Air Room Air Room Air Oxygen Flow Rate Sepsis Recent Fever Within 48 Hours Sepsis New/Unexplained Change in Mental Status Sepsis Action Taken by Nursing 07/09/21 23:30 07/09/21 23:40 07/09/21 23:50 Temperature Temperature Source Pulse Rate 73 76 76 Pulse Rate [Right Finger] Pulse Rhythm [Right Finger] Pulse Strength [Right Finger] Respiratory Rate 17 16 14 Respiratory Effort / Characteristics Respiratory Depth Respiratory Pattern Blood Pressure Blood Pressure [Right Arm] Blood Pressure Mean Blood Pressure Mean [Right Arm] Blood Pressure Position Blood Pressure Position [Right Arm] Pulse Oximetry 90 93 91 Oxygen Delivery Method Room Air Room Air Room Air Oxygen Flow Rate Sepsis Recent Fever Within 48 Hours Sepsis New/Unexplained Change in Mental Status Sepsis Action Taken by Nursing 07/10/21 00:00 07/10/21 00:04 07/10/21 00:10 Temperature Temperature Source Pulse Rate 77 77 76 Pulse Rate [Right Finger] Pulse Rhythm [Right Finger] Pulse Strength [Right Finger] Respiratory Rate 22 24 22 Respiratory Effort / Characteristics Respiratory Depth Respiratory Pattern Blood Pressure 153/83 H Blood Pressure [Right Arm] Blood Pressure Mean 106 Blood Pressure Mean [Right Arm] Blood Pressure Position Blood Pressure Position [Right Arm] Pulse Oximetry 89 L 89 L 98 Oxygen Delivery Method Room Air Room Air Nasal Cannula Oxygen Flow Rate 2 Sepsis Recent Fever Within 48 Hours Sepsis New/Unexplained Change in Mental Status Sepsis Action Taken by Nursing Constitutional: Vital signs reviewed. Eyes: Pupils are equal round reactive to light. Conjunctiva are noninjected. ENT: Pharynx is clear without erythema or exudate. Mucous membranes are slightly dry. Neck supple without meningeal signs. Respiratory: Clear to auscultation bilaterally. Breath sounds are equal bilaterally. Cardiovascular: Regular rate and rhythm. No rubs or gallops. GI: Soft, nondistended and nontender. Bowel sounds are present. Musculoskeletal: Left leg in a brace with partial amputation of foot No lower extremity tenderness. Integumentary: No cyanosis. or jaundice. Neurological: The patient is awake and alert. No focal deficits. Psychiatric: Normal affect. Not anxious appearing. Course Administered Medications Sodium Chloride (Nss) 500 mls @ 125 mls/hr IV .Q4H EMELINA Stop: 08/08/21 21:44 Last Admin: 07/09/21 22:00 Dose: 125 mls/hr Documented by: [id number] Discontinued Medications Dexamethasone Sodium Phosphate (DexamethasonePf 10 Mg/Ml Vial) 6 mg IV NOW ONE Stop: 07/09/21 23:50 Last Admin: 07/10/21 00:05 Dose: 6 mg Documented by: [id number] Medical Decision Making Differential Diagnosis Gastroenteritis, foodborne illness, dehydration, electrolyte abnormality, hyperglycemia, influenza, COVID-19 Medical Records Attestation: I reviewed the patient's medical records. I did perform a limited focused review of portions of the patient's old chart on the electronic medical record. The patient has had no recent pertinent visits to this hospital. Home Medications Current Medication List: was personally reviewed by me Laboratory Data Attestation: I reviewed the patient's lab results. Result diagrams: 07/09/21 20:32 07/09/21 20:32 Lab Results 07/09/21 07/09/21 07/09/21 Range/Units 20:32 20:32 Unknown WBC 6.74 (4.8-10.8) K/uL RBC 4.07 L (4.7-6.1) M/uL Hgb 11.9 L (14.0-18.0) g/dL Hct 36.0 L (42-52) % MCV 88.5 (80-100) fL MCH 29.2 (25-34) pg MCHC 33.1 (32-36) g/dL RDW Std Deviation 49.0 H (36.4-46.3) fL RDW Coeff of Deepak 15.1 H (11.5-14.5) % Plt Count 185 (130-400) K/uL MPV 10.7 H (7.4-10.4) fL Immature Gran % (Auto) 0.0 % Neut % (Auto) 83.1 % Lymph % (Auto) 8.8 % Carlton % (Auto) 7.9 % Eos % (Auto) 0.1 % Baso % (Auto) 0.1 % Neut # (Auto) 5.60 (1.4-6.5) K/uL Lymph # (Auto) 0.59 L (1.2-3.4) K/uL Carlton # (Auto) 0.53 (0.11-0.59) K/uL Eos # (Auto) 0.01 (0-0.5) K/uL Baso # (Auto) 0.01 (0-0.2) K/uL Immature Gran # (Auto) 0.00 (0.00-0.02) K/uL Sodium 131 L (136-145) mmol/L Potassium 4.2 (3.5-5.1) mmol/L Chloride 99 (98-107) mmol/L Carbon Dioxide 26 (21-32) mmol/L Anion Gap 6.0 (3-11) BUN 18 (7-18) mg/dl Creatinine 1.78 H (0.6-1.4) mg/dl Est Cr Clr Drug Dosing Not Reportable Est GFR ( Amer) 40.6 ml/min Est GFR (Non-Af Amer) 35.0 ml/min BUN/Creatinine Ratio 10.4 (10-20) Glucose 229 H (70-99) mg/dl Calcium 8.6 (8.5-10.1) mg/dl Total Bilirubin 0.5 (0.2-1) mg/dl AST 66 H (15-37) U/L ALT 69 (12-78) Alkaline Phosphatase 86 (45-117) U/L Troponin I < 0.015 (0-0.045) ng/ml C-Reactive Protein 6.88 H (0-0.29) mg/dl Total Protein 7.2 (6.4-8.2) gm/dl Albumin 2.8 L (3.4-5.0) gm/dl Globulin 4.4 H (2.5-4.0) gm/dl Albumin/Globulin Ratio 0.6 L (0.9-2) Lipase 157 (73-393) U/L SARS-CoV-2 (PCR) POSITIVE A* (Negative) Influenza Type A (PCR) Negative (Neg) Influenza Type B (PCR) Negative (Neg) RSV (RT-PCR) Negative (Neg) Imaging Data Attestation: I personally reviewed and interpreted this imaging study as follows: My Impression: Acute abdominal series x-rays per my interpretation shows mild infiltrates at the left base. There is no evidence of free air or bowel obstruction. ECG Data Attestation: I personally reviewed and interpreted this ECG as follows: Indication: + nausea Rate (beats per minute): 75 Rhythm: + normal sinus ECG [place]: + Normal ECG ST segments: no ST elevation ECG Findings: no PVCs MDM Narrative I did evaluate the patient as noted above. The patient is presenting with a week of flulike symptoms. He is vaccinated for influenza but not COVID-19. His family has been sick with similar symptoms and he visited them and developed the same symptoms. He mostly feels nauseated and has cough with phlegm production. He did have some diarrhea which seems to be better after taking Imodium. He has no abdominal pain or tenderness on exam. IV access was established. I did treat him with normal saline IV.I did place an order for continuous cardiac monitori . The monitor showed normal sinus rhythm at a rate of 80 bpm. did order and personally review the patient's 12-lead EKG as described above. He has no acute ischemic changes. I did order and personally reviewed the images of the patient's chest and abdominal x-rays as described above. He does appear to have a possible developing pneumonia on the left base. He has a nonobstructive bowel gas pattern. I did order a urine analysis. I did order and review the patient's blood work as noted in the electronic medical record. CBC demonstrates a white count of 6.7. Hemoglobin is 11.9 and platelet count is 185. Hemoglobin is up from 11 from last month. His sodium is 131 but otherwise his electrolytes are unremarkable. Creatinine is 1.78 which is just very slightly above baseline for him. Glucose is 229. He does not have any signs of acidosis or anion gap. LFTs are unremarkable other than AST of 66. Lipase is 157. Troponin is negative. CRP is 6.8. His COVID-19 test came back positive. I did reassess the patient. I did discuss the test results with patient and his [id number]. His O2 saturation dropped down to 91 to 90%. I considered monoclonal antibodies. As I observed him further his O2 saturation dropped to 89%. At this time I did feel it would be in his best interest to be hospitalized and started on oxygen as well as Decadron. I did place the patient on oxygen via nasal cannula. He went up to 98% on 2 L. He was given Decadron 6 mg IV. I did discuss case with the hospitalist and case operator. Impression & Plan Hypoxia, COVID-19, Acute dehydration, Chronic kidney disease, Acute hyponatrem ia Discharge Plan Visit Data Chief Complaint: Nausea Stated Complaint: FLU ED Provider: Graham Bagley Discharge Problem: Hypoxia, COVID-19, Acute dehydration, Chronic kidney disease, Acute hyponatremia Patient Disposition: Being Evaluated by Hospitalist Forms Stand Alone Forms: My [facility] Prescriptions Prescriptions: No Action cholecalciferol (vitamin D3) 25 mcg (1,000 unit) capsule 1,000 unit PO DAILY RF: 0 atorvastatin 40 mg tablet 40 mg PO DAILY Qty: 90 RF: 1 ferrous gluconate 324 mg (37.5 mg iron) tablet 324 mg PO DAILY Qty: 60 RF: 5 diltiazem HCl [DILT-XR] 120 mg capsule,ext.rel 24h degradable 120 mg PO QAM Qty: 90 RF: 3 amiodarone 200 mg tablet 200 mg PO DAILY Qty: 90 RF: 3 (DME) insulin syringe-needle U-100 [BD Insulin Syringe Ultra-Fine] 0.5 mL 31 gauge x 5/16" syringe See Rx Instructions .ROUTE .MEDSUPPLY Qty: 100 RF: 3 apixaban 2.5 mg tablet 2.5 mg PO BID Qty: 180 RF: 3 insulin lispro [Humalog U-100 Insulin] 100 unit/mL solution 14 unit SQ TID 90 Days Qty: 40 RF: 3 clopidogrel [Plavix] 75 mg tablet 75 mg PO DAILY Qty: 90 RF: 3 Lantus U-100 Insulin 100 unit/mL solution 42 unit SQ HS 90 Days Qty: 40 RF: 3 (DME) lancets [OneTouch Delica Plus Lancet] 33 gauge misc See Dose Instructions [id number] .MEDSUPPLY Qty: 120 RF: 11 (DME) insulin syringe-needle U-100 [BD SafetyGlide Insulin Syringe] 0.3 mL 31 gauge x 5/16" syringe See Rx Instructions .ROUTE .MEDSUPPLY Qty: 300 RF: 3 (DME) OneTouch Verio test strips Strip See Dose Instructions .ROUTE .MEDSUPPLY Qty: 400 RF: 3 lisinopril 5 mg tablet 5 mg PO DAILY Qty: 90 RF: 3 docusate sodium 100 mg capsule 200 mg PO QAM RF: 0 (DME) blood-glucose meter [OneTouch Verio Meter] Misc See Dose Instructions [id number] .MEDSUPPLY Qty: 1 RF: 0 Referrals Referrals: Douglas Sultana MD [Primary Care Provider] -
[2021-07-09] MEDS: SODIUM CHLORIDE 0.9% 500 ML IV SCH (22:00)
[2021-07-09 23:01] LABS: Influenza A virus by PCR Negative (Neg); Influenza B virus by PCR Negative (Neg); RSV by PCR Negative (Neg)
[2021-07-09 23:34] LABS: SARS CoV2 RNA(COVID-19) InHosp POSITIVE (Negative)
[2021-07-09] MEDS ORDERED: dexAMETHasone**PF** 10 MG/ML VIAL IV ONE (23:49)
[2021-07-10 00:03] LABS: C Reactive Protein 6.88 mg/dl (0-0.29)
[2021-07-10] MEDS ORDERED: REMDESIVIR 200 MG in SODIUM CHLORIDE 0.9% 210 ML IV STA (00:35)
--- NOTE | 2021-07-10 00:36 | History & Physical Report ---
Date of Service July 10, 2021 Assessment & Plan (1) COVID-19: Plan: COVID-19 pneumonia with hypoxia- Pulse ox 90% on room air Dexamethasone 6 mg IV every morning, with first dose now Remdesivir IV per protocol Azithromycin 500 mg IV daily Guaifenesin extended release 1200 mg p.o. twice daily Vitamin D 5000 international units p.o. every morning Zinc sulfate 220 mg p.o. every morning Nasal cannula oxygen, titrate to keep pulse ox 94-95% (2) Hypoxia: Plan: See above (3) CKD (chronic kidney disease), stage III: Plan: Creatinine 1.78 upon admission, with range 1.62-1.95 (4) Atrial fibrillation with rapid ventricular response: Plan: Atrial fibrillation/hypertension/PAD- Continue amiodarone, apixaban, clopidogrel, diltiazem XR and lisinopril. (5) HTN (hypertension): Plan: See above (6) Dyslipidemia: Plan: Continue atorvastatin 40 mg daily (7) T2DM (type 2 diabetes mellitus): Plan: Continue Lantus insulin 42 units subcu at bedtime Hold lispro 14 units subcu [address] on Accu-Cheks before meals and at bedtime with NovoLog coverage per scale check hemoglobin A1c (8) Acute hyponatremia: Plan: Sodium 131 upon admission Likely associated with COVID-19 infection Check a serum osmolality and urine osmolality Fluid restriction if SIADH (9) Peripheral arterial disease: Plan: See above History of Present Illness Chief Complaint: The patient is brought to the emergency department due to family concerns regarding cough productive of large volumes of mucus leading to nausea and dry heaves, shortness of breath and dyspnea on exertion Primary Care Provider: Douglas Sultana MD The patient is an 81-year-old male with a past medical history including CKD stage III, chronic venous insufficiency, diabetes mellitus type 2, obesity, venous stasis ulcers, tubular adenoma, dyslipidemia, hypertension, tibial artery disease, diabetic ulcer of heel, status post transmetatarsal amputation of foot, atrial fibrillation with RVR, status post CEA, status post lumbar discectomy, status post knee surgery, atrial flutter with rapid ventricular response and PAD. Patient reports that he was exposed to a sick relative, and began to develop symptoms 1 week ago. Significant laboratories: Hemoglobin 11.9, hematocrit 36.0, sodium 131, glucose 229, creatinine 1.78, AST 66, albumin 2.8 Pulse ox is 90% on room air COVID-19 testing was positive Allergies Allergy/AdvReac Type Severity Reaction Status Date / Time No Known Drug Allergies Allergy Unknown Verified 07/09/21 22:40 Home Medications Medication Instructions Recorded Confirmed Type atorvastatin 40 mg tablet 40 mg PO DAILY #90 tab 04/14/19 07/09/21 Rx docusate sodium 100 mg capsule 200 mg PO QAM 04/24/19 07/09/21 History blood-glucose meter (OneTouch #1 ea 03/29/20 06/16/21 Rx Verio Meter) ferrous gluconate 324 mg (37.5 mg 324 mg PO DAILY #60 tab 10/01/20 07/09/21 Rx iron) tablet diltiazem HCl 120 mg 120 mg PO QAM #90 cap 11/06/20 07/09/21 Rx capsule,extended release 24 hr, controlled (DILT-XR) amiodarone 200 mg tablet 200 mg PO DAILY #90 tab 11/12/20 07/09/21 Rx insulin syringe-needle U-100 0.5 #100 ea 11/19/20 06/16/21 Rx mL 31 gauge x 5/16" (BD Insulin Syringe Ultra-Fine) apixaban 2.5 mg tablet 2.5 mg PO BID #180 tab 12/03/20 07/09/21 Rx cholecalciferol (vitamin D3) 25 1,000 unit PO DAILY cap 04/17/21 07/09/21 History mcg (1,000 unit) capsule insulin lispro 100 unit/mL 14 unit SQ TID 90 Days #40 ml 05/28/21 07/09/21 Rx subcutaneous solution (Humalog U-100 Insulin) lisinopril 5 mg tablet 5 mg PO DAILY #90 tab 06/12/21 07/09/21 Rx clopidogrel 75 mg tablet (Plavix) 75 mg PO DAILY #90 tab 06/13/21 07/09/21 Rx Lantus U-100 Insulin 100 unit/mL 42 unit SQ HS 90 Days #40 ml NS 06/16/21 07/09/21 Rx subcutaneous solution (insulin glargine) blood sugar diagnostic (OneTouch #400 ea 06/16/21 Rx Verio test strips) insulin syringe-needle U-100 0.3 #300 ea 06/16/21 Rx mL 31 gauge x 5/16" (BD SafetyGlide Insulin Syringe) lancets 33 gauge (OneTouch Delica #120 ea 06/16/21 Rx Plus Lancet) Past Med/Surg History Medical History Atrial flutter with RVR. Requiring cardioversion Being followed by Dr. Page. Currently on regimen of amiodarone, cardizem and digoxin Cellulitis of left foot Diabetes Poorly controlled. Diabetes mellitus Diabetes mellitus type 2, uncontrolled Edema of right lower extremity Gangrene of left foot Hypoglycemia Ingrown nail Obesity Osteomyelitis PVD (peripheral vascular disease) Sepsis Surgical wound, non healing Swelling of both lower extremities T2DM (type 2 diabetes mellitus) Tibial artery disease URI (upper respiratory infection) Surgical History H/O lumbar discectomy History of cardioversion 11/10/18x 3. Pt back in AFib and on cardizem drip S/P angiogram of extremity Left lower 11/18/18 S/P carotid endarterectomy 2016 S/P knee surgery Right knee Status post amputation of left great toe 11/08/18 under GETA. Mac 3, gr I Status post incision and drainage Left great toe Family History Family/Other Coronary heart disease Diabetes Heart disease Brother Colorectal cancer Heart disease Father Myocardial infarction Heart disease Denies family history of Ovarian cancer Prostate cancer Breast cancer Social History Smoking Status: Never smoker Second Hand Exposure: No; Hx Alcohol Use: No Hx Substance Use: No Preferred Language: Romansh Communication Ability: Effective Visual Impairment: No Limitations Beliefs That Will Affect Care: Pentecostalism Pentecostalism Beliefs: synagogue marital status: Current Living Situation: Family current occupational status: retired Feels Safe at Home: Yes Dental Care, Regularly: No Physical Activity Frequency: 3-4 Times per Week Physical Activity Frequency Comment: stretching and arm weights Seatbelt Use: always Sunscreen Use: No Assistive Devices: Glasses and Walker Review of Systems Review of Systems: The patient denies chest pain, palpitations, lower extremity swelling, sore throat, fevers, chills, sweats, vomiting, diarrhea , constipation, abdominal pain, pelvic pain, blood in urine or stool, dysuria, urinary frequency or urgency, lightheadedness, dizziness, headache, loss of consciousness, rash, abnormal bruising or bleeding, focal weakness, numbness or tingling in arms or legs, generalized arthralgias or myalgias, back or neck pain, or night sweats. The review of systems is otherwise negative other than for that already noted above, and at least 10 systems have been reviewed. Physical Exam Physical Exam: The patient is awake, alert and oriented 3, well developed and well nourished, normocephalic and atraumatic, lying in bed and in no acute distress. HEENT--PERRL, EOMI, mucous membranes and oropharynx dry. Neck--supple. No JVD. No bruits. Thyroid normal, trachea midline, no adenopathy. Heart--normal S1 and S2. No murmurs, rubs or gallops. Lungs--few coarse breath sounds bilaterally. No respiratory distress, no access ory muscle use. Abdomen--normal bowel sounds and soft. Nontender. Nondistended, no hernias or masses, no organomegaly. Extremities--no cyanosis or clubbing. No edema. Dermatologic--normal skin turgor, normal color, no abnormal lymph nodes, no rash. Neurologic--cranial nerves II through XII grossly intact. Rheumatologic--normal range of motion. Psychiatric--normal affect. Results & Data Results & Data ([facility]) Vital Signs (Past 12 Hours) Vital Signs Temp Pulse Pulse Resp BP BP Pulse Ox 07/10/21 00:10 76 22 98 07/10/21 00:04 77 24 89 L 07/10/21 00:00 77 22 153/83 H 89 L 07/09/21 23:50 76 14 91 07/09/21 23:40 76 16 93 07/09/21 23:30 73 17 90 07/09/21 23:20 75 20 91 07/09/21 23:10 75 13 91 07/09/21 23:00 75 15 152/70 H 92 07/09/21 22:50 78 15 92 07/09/21 22:40 77 21 92 07/09/21 22:30 76 22 92 07/09/21 22:22 75 15 93 07/09/21 22:07 74 21 144/82 H 94 07/09/21 20:04 36.5 C 80 18 121/58 L 90 Laboratory Results Laboratory Results WBC 6.74 K/uL (4.8-10.8) 07/09/21 20:32 RBC 4.07 M/uL (4.7-6.1) L 07/09/21 20:32 Hgb 11.9 g/dL (14.0-18.0) L 07/09/21 20:32 Hct 36.0 % (42-52) L 07/09/21 20:32 MCV 88.5 fL (80-100) 07/09/21 20: MCH 29.2 pg (25-34) 07/09/21 20: MCHC 33.1 g/dL (32-36) 07/09/21 20: RDW Std Deviation 49.0 fL (36.4-46.3) H 07/09/21 20: RDW Coeff of Deepak 15.1 % (11.5-14.5) H 07/09/21 20:32 Plt Count 185 K/uL (130-400) 07/09/21 20: MPV 10.7 fL (7.4-10.4) H 07/09/21 20:32 Immature Gran % (Auto) 0.0 % 07/09/21 20: Neut % (Auto) 83.1 % 07/09/21 20: Lymph % (Auto) 8.8 % 07/09/21 20: [place] % (Auto) 7.9 % 07/09/21 20: Eos % (Auto) 0.1 % 07/09/21 20:32 Baso % (Auto) 0.1 % 07/09/21 20:32 Neut # (Auto) 5.60 K/uL (1.4-6.5) 07/09/21 20: Lymph # (Auto) 0.59 K/uL (1.2-3.4) L 07/09/21 20:32 [place] # (Auto) 0.53 K/uL (0.11-0.59) 07/09/21 20: Eos # (Auto) 0.01 K/uL (0-0.5) 07/09/21 20:32 Baso # (Auto) 0.01 K/uL (0-0.2) 07/09/21 20:32 Immature Gran # (Auto) 0.00 K/uL (0.00-0.02) 07/09/21 20:32 Sodium 131 mmol/L (136-145) L 07/09/21 20:32 Potassium 4.2 mmol/L (3.5-5.1) 07/09/21 20:32 Chloride 99 mmol/L (98-107) 07/09/21 20:32 Carbon Dioxide 26 mmol/L (21-32) 07/09/21 20:32 Anion Gap 6.0 (3-11) 07/09/21 20: BUN 18 mg/dl (7-18) 07/09/21 20: Creatinine 1.78 mg/dl (0.6-1.4) H 07/09/21 20:32 Est Cr Clr Drug Dosing Not Reportable 07/09/21 20:32 Est GFR ( Amer) 40.6 ml/min 07/09/21 20: Est GFR (Non-Af Amer) 35.0 ml/min 07/09/21 20:32 BUN/Creatinine Ratio 10.4 (10-20) 07/09/21 20:32 Glucose 229 mg/dl (70-99) H 07/09/21 20: POC Glucose 189 mg/dl (70-99) H 07/10/21 00:42 Calcium 8.6 mg/dl (8.5-10.1) 07/09/21 20: Total Bilirubin 0.5 mg/dl (0.2-1) 07/09/21 20:32 AST 66 U/L (15-37) H 07/09/21 20:32 ALT 69 (12-78) 07/09/21 20:32 Alkaline Phosphatase 86 U/L (45-117) 07/09/21 20:32 Troponin I < 0.015 ng/ml (0-0.045) 07/09/21 20:32 C-Reactive Protein 6.88 mg/dl (0-0.29) H 07/09/21 20:32 Total Protein 7.2 gm/dl (6.4-8.2) 07/09/21 20:32 Albumin 2.8 gm/dl (3.4-5.0) L 07/09/21 20:32 Globulin 4.4 gm/dl (2.5-4.0) H 07/09/21 20:32 Albumin/Globulin Ratio 0.6 (0.9-2) L 07/09/21 20:32 Lipase 157 U/L (73-393) 07/09/21 20:32 Urine Color Yellow 07/10/21 Unknown Urine Appearance Clear (Clear) 07/10/21 Unknown Urine pH 5.0 (4.5-7.5) 07/10/21 Unknown Ur Specific [place] 1.017 (1.000-1.030) 07/10/21 Unknown Urine Protein 2+ (Negative) H 07/10/21 Unknown Urine Glucose (UA) 2+ (Negative) H 07/10/21 Unknown Urine Ketones Negative (Negative) 07/10/21 Unknown Urine Blood 1+ (Negative) H 07/10/21 Unknown Urine Nitrite Negative (Negative) 07/10/21 Unknown Urine Bilirubin Negative (Negative) 07/10/21 Unknown Urine Urobilinogen Negative (Negative) 07/10/21 Unknown Ur Leukocyte Esterase Negative (Negative) 07/10/21 Unknown Urine WBC (Auto) 1-5 /hpf (0-5) 07/10/21 Unknown Urine RBC (Auto) 0-4 /hpf (0-4) 07/10/21 Unknown U Hyaline Cast (Auto) 5-10 /lpf (0-5) H 07/10/21 Unknown U Epithel Cells (Auto) 5-10 /lpf (0-5) H 07/10/21 Unknown Urine Bacteria (Auto) Negative (Negative) 07/10/21 Unknown SARS-CoV-2 (PCR) POSITIVE (Negative) A* 07/09/21 Unknown Influenza Type A (PCR) Negative (Neg) 07/09/21 Unknown Influenza Type B (PCR) Negative (Neg) 07/09/21 Unknown RSV (RT-PCR) Negative (Neg) 07/09/21 Unknown Code Status & VTE Plan Code Status Full code VTE Prophylaxis Plan VTE Prophylaxis will be ordered: Yes PG Care Time/CCT Total # of Minutes Spent Total Time Spent with Patient: Total time spent is greater than 50% in coordination of care (as documented) at patient's floor/unit and/or counseling patient: Coding Level of Care Code 56435 Initial Inpt Care Lvl 3 Diagnoses COVID-19 U07.1 Hypoxia R09.02 CKD (chronic kidney disease), stage III N18.3 HTN (hypertension) I10 Dyslipidemia E78.5 T2DM (type 2 diabetes mellitus) E11.9 Acute hyponatremia E87.1 Atrial fibrillation with rapid ventricular response I48.91 Peripheral arterial disease I73.9
[2021-07-10] MEDS: SODIUM CHLORIDE 0.9% 500 ML IV SCH (02:05)
[2021-07-10 03:00] LABS: Appearance Urine Clear (Clear); Bacteria Urine Automated Negative (Negative); Bilirubin Urine Negative (Negative); Blood Urine 1+ (Negative); Color Urine Yellow; Glucose Urine UA 2+ (Negative); Ketones Urine Negative (Negative); Leukocyte Esterase Urine Negative (Negative); Nitrite Urine Negative (Negative); Protein Urine 2+ (Negative); RBC Urine Automated 0-4 /hpf (0-4); Specific Gravity Urine 1.017 (1.000-1.030); Urobilinogen Urine Negative (Negative)
[2021-07-10] MEDS ORDERED: ACETAMINOPHEN 325 MG TAB PO PRN (03:44)
[2021-07-10] MEDS ORDERED: GLUCOSE 10 TABS/TUBE PO PRN (03:44)
[2021-07-10] MEDS ORDERED: CARBOHYDRATES FOR HYPOGLYCEMIA PO PRN (03:44)
[2021-07-10] MEDS ORDERED: DEXTROSE 50% 50 ML SYRINGE IV PRN (03:44)
[2021-07-10] MEDS ORDERED: GLUCOSE 40% GEL 15 GM TUBE PO PRN (03:44)
[2021-07-10] MEDS ORDERED: GLUCAGON FOR INJ 1 MG VIAL SQ PRN (03:44)
[2021-07-10] MEDS: INSULIN GLARGINE SOLOSTAR 100 UNITS/ML 3 ML PEN SQ SCH ×2 (05:00→20:59)
[2021-07-10] MEDS: APIXABAN 2.5 MG TAB PO SCH ×3 (05:05→21:12)
[2021-07-10] MEDS: AZITHROMYCIN 500 MG in DEXTROSE 5% 250 ML IV SCH (05:54)
[2021-07-10] MEDS ORDERED: SODIUM CHLORIDE 0.9% 10ML FLUSH IV SCH (06:00)
[2021-07-10 06:09] LABS: Hematocrit (blood only) 35.5 % (42-52); Hemoglobin 11.5 g/dL (14.0-18.0); Lymphocytes # (auto) 0.36 K/uL (1.2-3.4); Lymphocytes % (auto) 6.2 %; Mean Corpuscular Hemoglobin 28.8 pg (25-34); Mean Corpuscular Hgb Conc 32.4 g/dL (32-36); Mean Corpuscular Volume 88.8 fL (80-100); Mean Platelet Volume 11.3 fL (7.4-10.4); Monocytes # (auto) 0.17 K/uL (0.11-0.59); Monocytes % (auto) 2.9 %; Neutrophils # (auto) 5.31 K/uL (1.4-6.5); Neutrophils % (auto) 90.9 %; Platelet Count 176 K/uL (130-400); RDW Coefficient of Variation 14.9 % (11.5-14.5); RDW Standard Deviation 48.9 fL (36.4-46.3); White Blood Count 5.84 K/uL (4.8-10.8)
[2021-07-10 06:39] LABS: Alanine Aminotransferase 66 (12-78); Albumin Globulin Ratio 0.6 (0.9-2); Albumin Level 2.6 gm/dl (3.4-5.0); Alkaline Phosphatase 78 U/L (45-117); Aspartate Aminotransferase 62 U/L (15-37); BUN Creatinine Ratio 11.1 (10-20); Bilirubin,Total 0.5 mg/dl (0.2-1); Blood Urea Nitrogen 20 mg/dl (7-18); Calcium 8.3 mg/dl (8.5-10.1); Carbon Dioxide 24 mmol/L (21-32); Chloride 101 mmol/L (98-107); Creatinine Clr Calc Pharmacy 37.6 ml/min; Est GFR (Non-African American) 34.5 ml/min; Globulin 4.4 gm/dl (2.5-4.0); Glucose 305 mg/dl (70-99); Potassium 4.7 mmol/L (3.5-5.1); Sodium 131 mmol/L (136-145); Troponin I < 0.015 ng/ml (0-0.045)
[2021-07-10 06:54] LABS: Beta-Hydroxybutyrate 1.75 mg/dl (0.2-2.81)
[2021-07-10 07:14] LABS: Estimated Average Glucose 163 mg/dl; Hemoglobin A1C 7.3 % (4.5-5.6)
--- NOTE | 2021-07-10 07:43 | XRay Report ---
XR abdomen 2V w PA chest HISTORY: 81 years-old Male vomiting eval for obstruction acute vomiting with chest pain COMPARISON: Chest radiograph 11/08/2018 TECHNIQUE: PA view the chest with erect and supine views of the abdomen FINDINGS: Cardiac silhouette is enlarged. Mild interstitial coarsening with subtle ill-defined opacities of the left lung base and midlung distributions. No pneumothorax or large pleural effusion. Degenerative ch anges of the shoulders and spine. Mild gaseous distention of the large bowel with several air-filled loops of small bowel measuring up to 2.5 cm. No pneumatosis or pneumoperitoneum. No urolith. No acute fracture. IMPRESSION: 1. Subtle interstitial opacities of the left greater than right lungs. Correlate clinically to exclud e a developing interstitial pneumonitis. 2. Nonobstructive bowel gas pattern. 3. Air-filled loops of large and small bowel may be physiologic or represent a mild ileus. ACT 112: Negative or not required by law. The above report was generated using voice recognition software. It may contain grammatical, syntax o r spelling errors. Electronically signed by: Elton Crooks M.D. 07/10/2021 7:42 AM
[2021-07-10] MEDS: CHOLECALCIFEROL 5,000 UNITS 125 MCG TAB PO SCH (09:25)
[2021-07-10] MEDS: CLOPIDOGREL BISULFATE 75 MG TAB PO SCH (09:25)
[2021-07-10] MEDS: ATORVASTATIN 40 MG TAB PO SCH (09:25)
[2021-07-10] MEDS: AMIODARONE 200 MG TAB PO SCH (09:25)
[2021-07-10] MEDS: ZINC SULFATE 220 MG CAPSULE PO SCH (09:26)
[2021-07-10] MEDS: lisinopril 5 MG TAB PO SCH (09:26)
[2021-07-10] MEDS: DOCUSATE SODIUM 100 MG CAP PO SCH (09:26)
[2021-07-10] MEDS: guaiFENesin 600 MG TABCR PO SCH ×2 (09:26→21:10)
[2021-07-10] MEDS: FERROUS GLUCONATE 324 MG TAB PO SCH (09:26)
[2021-07-10] MEDS: dilTIAZem ER 120 MG CAPCR PO SCH (09:26)
[2021-07-10] MEDS: INSULIN HUMAN NPH SC SCH (09:27)
[2021-07-10] MEDS: INSULIN ASPART PER UNIT SC SCH ×4 (09:58→21:03)
[2021-07-10] MEDS ORDERED: FUROSEMIDE INJ 20 MG/2 ML VIAL IV ONE (14:00)
[2021-07-10] MEDS ORDERED: bisacodyL 10 MG SUPP PR ONE (14:05)
[2021-07-10] MEDS ORDERED: FUROSEMIDE 40 MG/4 ML VIAL IV ONE (16:24)
[2021-07-10] MEDS: dexAMETHasone 6 MG in SYRINGE 0 ML IV SCH (16:45)
[2021-07-10] MEDS ORDERED: guaiFENesin 600 MG TABCR PO SCH (21:00)
[2021-07-10] MEDS: REMDESIVIR 100 MG in SODIUM CHLORIDE 0.9% 230 ML IV SCH (21:05)
[2021-07-10] MEDS: FAMOTIDINE 20 MG TAB PO SCH (21:12)
--- NOTE | 2021-07-10 22:01 | Electrocardiogram Report ---
Test Reason : Blood Pressure : / mmHG Vent. Rate : 075 BPM Atrial Rate : 075 BPM P-R Int : 208 ms QRS Dur : 084 ms QT Int : 424 ms P-R-T Axes : 057 016 066 degrees QTc Int : 473 ms Poor data quality, interpretation may be adversely affected Sinus rhythm with 1st degree A-V block When compared with ECG of 30-NOV-2018 07:11, T wave inversion no longer evident in Anterior leads Confirmed by Jona Basurto ([id number]) on 07/10/2021 10:00:37 PM Referred By: REFERRED SELF Confirmed By:Jona Basurto
[2021-07-10] MEDS: SODIUM CHLORIDE 0.9% 10ML FLUSH IV SCH (23:16)
[2021-07-11] MEDS: BENZONATATE 100 MG CAPSULE PO PRN ×2 (02:33→09:45)
[2021-07-11] MEDS: AZITHROMYCIN 500 MG in DEXTROSE 5% 250 ML IV SCH (05:48)
[2021-07-11 06:43] LABS: Hematocrit (blood only) 37.5 % (42-52); Hemoglobin 12.4 g/dL (14.0-18.0); Mean Corpuscular Hemoglobin 29.1 pg (25-34); Mean Corpuscular Hgb Conc 33.1 g/dL (32-36); Mean Platelet Volume 11.2 fL (7.4-10.4); Platelet Count 209 K/uL (130-400); RDW Standard Deviation 48.3 fL (36.4-46.3); Red Blood Count 4.26 M/uL (4.7-6.1); White Blood Count 13.87 K/uL (4.8-10.8)
[2021-07-11 07:07] LABS: Basophils # (auto) 0.01 K/uL (0-0.2); Basophils % (auto) 0.1 %; Immature Granulocytes # (auto) 0.03 K/uL (0.00-0.02); Immature Granulocytes % (auto) 0.2 %; Lymphocytes # (auto) 0.65 K/uL (1.2-3.4); Lymphocytes % (auto) 4.7 %; Monocytes # (auto) 0.64 K/uL (0.11-0.59); Monocytes % (auto) 4.6 %; Neutrophils # (auto) 12.54 K/uL (1.4-6.5); Neutrophils % (auto) 90.4 %
[2021-07-11 07:24] LABS: Albumin Level 2.7 gm/dl (3.4-5.0); BUN Creatinine Ratio 16.1 (10-20); Calcium 8.8 mg/dl (8.5-10.1); Creatinine Clr Calc Pharmacy 32.3 ml/min; Est GFR (African American) 32.8 ml/min; Est GFR (Non-African American) 28.3 ml/min
[2021-07-11 07:26] LABS: Albumin Globulin Ratio 0.6 (0.9-2); Bilirubin,Total 0.4 mg/dl (0.2-1); Globulin 4.7 gm/dl (2.5-4.0); Total Protein 7.4 gm/dl (6.4-8.2)
[2021-07-11] MEDS ORDERED: BENZONATATE 100 MG CAPSULE PO SCH (09:00)
[2021-07-11] MEDS: dexAMETHasone 6 MG in SYRINGE 0 ML IV SCH (09:37)
[2021-07-11] MEDS: APIXABAN 2.5 MG TAB PO SCH ×2 (09:37→20:42)
[2021-07-11] MEDS: FAMOTIDINE 20 MG TAB PO SCH ×2 (09:37→20:42)
[2021-07-11] MEDS: guaiFENesin 600 MG TABCR PO SCH ×2 (09:37→20:42)
[2021-07-11] MEDS: DOCUSATE SODIUM 100 MG CAP PO SCH (09:37)
[2021-07-11] MEDS: AMIODARONE 200 MG TAB PO SCH (09:38)
[2021-07-11] MEDS: lisinopril 5 MG TAB PO SCH (09:38)
[2021-07-11] MEDS: CHOLECALCIFEROL 5,000 UNITS 125 MCG TAB PO SCH (09:38)
[2021-07-11] MEDS: ZINC SULFATE 220 MG CAPSULE PO SCH (09:38)
[2021-07-11] MEDS: INSULIN HUMAN NPH SC SCH (09:38)
[2021-07-11] MEDS: ATORVASTATIN 40 MG TAB PO SCH (09:38)
[2021-07-11] MEDS: FERROUS GLUCONATE 324 MG TAB PO SCH (09:38)
[2021-07-11] MEDS: CLOPIDOGREL BISULFATE 75 MG TAB PO SCH (09:38)
[2021-07-11] MEDS: dilTIAZem ER 120 MG CAPCR PO SCH (09:38)
[2021-07-11] MEDS: INSULIN ASPART PER UNIT SC SCH ×4 (09:45→21:45)
--- NOTE | 2021-07-11 16:05 | Hospitalist Progress Note ---
Date of Service July 11, 2021 Assessment & Plan (1) COVID-19: Plan: 81 y/o WM with an underlying PMX of CKD (baseline 1.7-1.9), DM-2, HTN, PAD, A.Fib on Eliquis presented to the ED cc flu-like symptoms x7 days REINFORCING ROD LAYER * unvaccinated * covid positive * CXR showing subtle interstitial opacities left greater than right consistent with pneumonia * Initial pulse ox 88 to 89% on room air * Has been requiring 2 L up until the morning of 07/11. Currently 88 to 90% on 6 L thus will transition to high flow nasal cannula as he desaturates with very minimal movement * CRP initially 6.88 but now up to 8.1 qualifying him for baricitinib thus will initiate * Continue Decadronday #2 * Continue remdesivirday #2. Lengthy discussion with daughters regarding this as they believe this is what is making him require increased oxygen supplementation. Explained that it is not the remdesivir but a progression in the viral course. Explained in detail how this medications works and that it may not provide additional help at this point as already on symptoms day #7 but certainly will not cause a need for increased oxygen supplementation. We are monitoring his HR and LFT's with this med * Continue mucolytic agents * Pepcid on board for GI prophylaxis and H2 blockade cascade * Started on empiric antibiotic therapy (azithromycin) by admitting provider. Continue this for now for possible underlying secondary bacterial infection but likely related to Covid * Continue zinc * Patient takes routine Eliquis which will provide adequate DVT/PE prophylaxis as well * 1 dose lasix given yesterday. appears euvolemic. Cr. up to 2.1 today. hold off on additional lasix for now. * Lengthy discussion had with both daughters today regarding patient's status. They are ultimately upset and considering signing the patient out AMA to transfer him to the [facility]. I highly advised against this given the fact that he is currently requiring 6 L of oxygen and while on room air today, pulse ox was in the 70s. I explained that he would not survive this trip and there would be a high risk of cardiac arrest/respiratory arrest. They understand and Radha reports "I would rather take him to the top doctors". In addition, she is upset about the visitation policy and not being able to see her dad. I offered an Ipad conference and she said "I would rather bring him home and let him with his family". At any rate, I explained that we are doing everything for her dad and unfortunately, some patients get worse before getting better. He is unvaccinated and does not have this level of protection and there is no way of knowing how he will do. She is agreeable to letting him stay overnight. (2) Hypoxia: Plan: See above (3) Ileus: Plan: * Patient presented with abdominal distention, nausea with dry heaves and abdominal pain * KUB done in the ED that showed a nonobstructive pattern but evidence of an ileus * Patient has since had a bowel movement X2. He is passing flatus. He denies abdominal pain, nausea or dry heaves. No abdominal pain * No need for follow-up imaging unless clinical status changes (4) CKD (chronic kidney disease), stage III: Plan: Creatinine 1.78 upon admission, with range 1.62-1.95 * Currently 2.1 following 1 dose of Lasix * Hold lisinopril for now due to EVERARDO (mild) * Continue to monitor (5) Atrial fibrillation with rapid ventricular response: Plan: Atrial fibrillation/hypertension/PAD- Continue amiodarone, apixaban, clopidogrel, diltiazem XR Hold lisinopril for now (6) HTN (hypertension): Plan: See above (7) Dyslipidemia: Plan: Continue atorvastatin 40 mg daily (8) T2DM (type 2 diabetes mellitus): Plan: continue lantus/log along with Regular insulin with decadron (to combat steroid induced hyperglycemia) (9) Acute hyponatremia: Plan: Sodium 131 upon admission 135 follow 1 dose lasix continue to trend (10) Peripheral arterial disease: Plan: See above Plan: plan of care D/W dr. Bello and did call to update patient's PCP as the request of the family Again, family notified that there is no medical reason to transfer to the [facility] at this time and would STRONGLY ADVISE AGAISNT THEM SIGNING HIM OUT AMA. Last, Radha wanting Dr. Mirza to be involved (orthopedic surgeon). Explained no reason for this at this time but should there be a need for an Orth opedic consult, I will gladly reach out to him Admission and Anticipated Discharge Date Admission Date: July 10, 2021 Supervising Physician Co-Signing Physician Notes chart reviewed, case d/w J Susie PAC. also d/w Dr Tyler, Dr Mirza. agree w above Subjective Patient seen on daily rounds today. Seen just after toileting. Did not have his oxygen on while in the bathroom and when he got back to the bed he seemed slightly winded although he denies feeling SOB. He was placed on O2 and titrated to 5L as his pulse ox was in the 70's. HE did recover. Per his nurse, his pulse ox has been 88-90% on 6L. With limited movement, he does desaturate briefly but is stable at rest. Overall, he reports that he feels well. Denies F/C, CP, abd pain, N/V. Both Izzy and Radha (his daughters) have called and are very upset with the fact that he is being given remdesivir. They report that "this is killing people and making them require more oxygen". They are talking about signing him out AGAINST MEDICAL ADVICE to take him to the [facility]. Radha reports "my [id number] is a route delivery driver and you are not going to kill my father". In regards to the ileus, he denies any nausea or vomiting. He is moving his bowels and passing flatus. He is tolerating oral intake. Review of Systems Review of Systems: All systems reviewed and are unremarkable except as noted in HPI and below Denies fevers, chills, headache, nasal congestion, sore throat, cough, chest pain, shortness of breath, palpitations, orthopnea, PND, abdominal pain, nausea, vomiting, diarrhea, constipation, dysuria, hematuria, frequency, back pain, joint pain or swelling, easy bruising or bleeding, skin lesions or rashes. Physical Exam Physical Exam: General: Resting comfortably in his bedside. When initially seen, he had just gotten back to the bed after toileting without his supplemental oxygen and his pulse ox was in the low 70s. He appeared slightly dyspneic without accessory muscle use or labored breathing. Placed back on oxygen and his pulse ox improved to 90%. HEENT: Head is AT/NC buccal mucosa is moist and pink Neck: No JVD. Negative hepatojugular reflex Cardiac: RRR with 1/6 LUCAS Lungs: Again, slight dyspnea noted after toileting without his oxygen but once placed back on oxygen, his breathing was nonlabored. He has no accessory muscle use. Diminished breath sounds at the bases without wheezes, rales or rhonchi Abdomen: Normoactive X4. Soft and nontender in all quadrants. Extremities: No peripheral clubbing cyanosis or edema Neuro: A&O X4 cranial nerves II through XII are grossly intact no focal neuro deficits Skin: No obvious skin lesions or rashes Psych: Appropriate affect pleasant and cooperative Results & Data Results & Data ([facility]) Vital Signs (Past 12 Hours) Vital Signs Temp Pulse Pulse Resp BP Pulse Ox Pulse Ox 07/11/21 15:07 36.6 C 64 18 118/56 L 90 07/11/21 14:20 75 07/11/21 13:54 89 L 07/11/21 11:33 89 L 07/11/21 10:53 36.9 C 82 18 126/69 90 07/11/21 07:23 36.8 C 74 18 137/73 91 07/11/21 07:00 76 Pulse Ox 07/11/21 15:07 07/11/21 14:20 07/11/21 13:54 77 L 07/11/21 11:33 07/11/21 10:53 07/11/21 07:23 07/11/21 07:00 Diagnostic Findings 07/11/21 05:52 07/11/21 05:52 TB: 0.4 AST: 57 ALT: 64 PG Care Time/CCT Total # of Minutes Spent Total Time Spent with Patient: Total time spent is greater than 50% in coordination of care (as documented) at patient's floor/unit and/or counseling patient: Prolonged Care Time 60 min Coding Level of Care Code 93642 Subseq Hosp Care Lvl 3 Diagnoses COVID-19 U07.1 Hypoxia R09.02 CKD (chronic kidney disease), stage III N18.3 Atrial fibrillation with rapid ventricular response I48.91 HTN (hypertension) I10 Dyslipidemia E78.5 T2DM (type 2 diabetes mellitus) E11.9 Acute hyponatremia E87.1 Peripheral arterial disease I73.9 Ileus K56.7
[2021-07-11] MEDS ORDERED: BARICITINIB COMMUNICATION ONE (16:58)
[2021-07-11] MEDS ORDERED: BARICITINIB 1 MG TAB PO SCH (17:30)
[2021-07-11] MEDS: REMDESIVIR 100 MG in SODIUM CHLORIDE 0.9% 230 ML IV SCH (20:39)
[2021-07-11] MEDS: INSULIN GLARGINE SOLOSTAR 100 UNITS/ML 3 ML PEN SQ SCH (21:45)
[2021-07-11] MEDS: SODIUM CHLORIDE 0.9% 10ML FLUSH IV SCH (22:10)
[2021-07-12] MEDS: AZITHROMYCIN 500 MG in DEXTROSE 5% 250 ML IV SCH (05:22)
[2021-07-12 06:25] LABS: Basophils # (auto) 0.01 K/uL (0-0.2); Basophils % (auto) 0.1 %; Hematocrit (blood only) 36.7 % (42-52); Hemoglobin 12.3 g/dL (14.0-18.0); Immature Granulocytes # (auto) 0.05 K/uL (0.00-0.02); Immature Granulocytes % (auto) 0.3 %; Lymphocytes # (auto) 0.66 K/uL (1.2-3.4); Lymphocytes % (auto) 4.1 %; Mean Corpuscular Hemoglobin 28.8 pg (25-34); Mean Corpuscular Hgb Conc 33.5 g/dL (32-36); Mean Corpuscular Volume 85.9 fL (80-100); Mean Platelet Volume 10.9 fL (7.4-10.4); Monocytes % (auto) 4.4 %; Neutrophils # (auto) 14.53 K/uL (1.4-6.5); Neutrophils % (auto) 91.1 %; Platelet Count 234 K/uL (130-400); RDW Coefficient of Variation 15.2 % (11.5-14.5); Red Blood Count 4.27 M/uL (4.7-6.1); White Blood Count 15.95 K/uL (4.8-10.8)
[2021-07-12 06:34] LABS: Albumin Level 2.4 gm/dl (3.4-5.0); BUN Creatinine Ratio 23.3 (10-20); Calcium 8.4 mg/dl (8.5-10.1); Creatinine Clr Calc Pharmacy 39.9 ml/min; Est GFR (African American) 42.6 ml/min; Est GFR (Non-African American) 36.7 ml/min; Potassium 4.1 mmol/L (3.5-5.1)
[2021-07-12 06:37] LABS: Albumin Globulin Ratio 0.6 (0.9-2); Globulin 4.3 gm/dl (2.5-4.0); Total Protein 6.7 gm/dl (6.4-8.2)
[2021-07-12] MEDS ORDERED: Nursing to Pharmacy Communication SCH (07:30)
[2021-07-12] MEDS: dexAMETHasone 6 MG in SYRINGE 0 ML IV SCH ×2 (07:46→21:05)
[2021-07-12] MEDS: APIXABAN 2.5 MG TAB PO SCH ×2 (07:47→21:06)
[2021-07-12] MEDS: FAMOTIDINE 20 MG TAB PO SCH ×2 (07:47→21:06)
[2021-07-12] MEDS: guaiFENesin 600 MG TABCR PO SCH ×2 (07:47→21:07)
[2021-07-12] MEDS: FERROUS GLUCONATE 324 MG TAB PO SCH (07:48)
[2021-07-12] MEDS: CHOLECALCIFEROL 5,000 UNITS 125 MCG TAB PO SCH (07:48)
[2021-07-12] MEDS: ZINC SULFATE 220 MG CAPSULE PO SCH (07:48)
[2021-07-12] MEDS: dilTIAZem ER 120 MG CAPCR PO SCH (07:48)
[2021-07-12] MEDS: CLOPIDOGREL BISULFATE 75 MG TAB PO SCH (07:49)
[2021-07-12] MEDS: AMIODARONE 200 MG TAB PO SCH (07:49)
[2021-07-12 08:47] LABS: Bilirubin,Total 0.4 mg/dl (0.2-1)
[2021-07-12] MEDS: DOCUSATE SODIUM 100 MG CAP PO SCH (09:03)
[2021-07-12] MEDS: INSULIN ASPART PER UNIT SC SCH ×4 (09:03→21:30)
[2021-07-12] MEDS: INSULIN HUMAN NPH SC SCH ×2 (09:04→21:30)
--- NOTE | 2021-07-12 10:47 | Hospitalist Progress Note ---
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 has since progressed/declined and is not requiring HHFNC- maxed out (100%/40L) * CRP initially 6.88 but now up to 8.1 qualifying him for baricitinib thus will initiate * Continue Decadronday #3 but will increase to Q12h dosing given decline * Continue remdesivirday #3. * Continue mucolytic agents * Pepcid on board for GI prophylaxis and H2 blockade cascade * Started on empiric antibiotic therapy (azithromycin) by admitting provider. Continue this for now for possible underlying secondary bacterial infection but likely related to Covid * Continue zinc * Patient takes routine Eliquis which will provide adequate DVT/PE prophylaxis as well * continue with lasix trials (watching renal function closely) * repeat CXR and CRP today (given change in status) * Lengthy discussion with patient regarding CODE STATUS. Nurse at bedside. He ultimately under no circumstances once ventilatory support or CPR. At this time, patient was considering signing out AGAINST MEDICAL ADVICE. He has called his daughter Radha who I have now spoken to who initially was going to take patient home AGAINST MEDICAL ADVICE. I explained that he is requiring significant amounts of oxygen and would most certainly pass away at home. Ultimately, he may still pass in the hospital but there is a chance that he will stabilize and start to improve over the next several days. I was asked to call Izzy (the other sister) and I explained this to her as well and for now, they would like us to continue with our efforts. Izzy reports that her is a manufacturing software engineer on the board at [facility] and has run the case by multiple doctors there who agree with our current treatment plan and family at this time seems to be excepting to treatment being offered * May need transitioned to BiPAP if pulse ox drops less than 88% on the heated high flow. Will allow for at low-dose if this transition is required * Patient unable to prone due to abdominal girth but encouraged to lay on side and get rest (2) Hypoxia: Plan: See above (3) Ileus: Plan: * Patient presented with abdominal distention, nausea with dry heaves and ab dominal pain * KUB done in the ED that showed a nonobstructive pattern but evidence of an ileus * Patient has since had a bowel movement X2. He is passing flatus. He denies abdominal pain, nausea or dry heaves. No abdominal pain * No need for follow-up imaging unless clinical status changes (4) CKD (chronic kidney disease), stage III: Plan: Creatinine 1.78 upon admission, with range 1.62-1.95 * did bump to 2.1 following lasix * lisinopril on hold * back to 1.7 now. * will watch closely with lasix trials (5) Atrial fibrillation with rapid ventricular response: Plan: Atrial fibrillation/hypertension/PAD- * Continue amiodarone, apixaban, clopidogrel, diltiazem XR * seems to be in a NSR with CVR (6) HTN (hypertension): Plan: See above * continue holding lisinopril (7) Dyslipidemia: Plan: * hold statin for now given risk of elevated LFTS with this (and with the Remdesevir on board) * Continue to monitor LFTs closely (8) T2DM (type 2 diabetes mellitus): Plan: * continue lantus/log along with Regular insulin with decadron (to combat steroid induced hyperglycemia) * increase NPH to BID given increased dose of decadron (9) Acute hyponatremia: Plan: Sodium 131 upon admission 138 follow 1 dose lasix continue to trend (10) Peripheral arterial disease: Plan: See above Plan: plan of care to be D/W dr. Bello. Lengthy D/W both daughters (Izzy and Janet mckinney) Patient is a DNR Admission and Anticipated Discharge Date Admission Date: July 10, 2021 Supervising Physician Co-Signing Physician Notes chart reviewed, case d/w Sanjana Richards PAC. agree w above Subjective Patient seen on daily rounds today. 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 He has transitioned to heated high flow and is since maxed out on 100% FiO2 at 40 L. With this, his pulse ox is between eighty and 90% and with minimal exertion, he desaturates. Lengthy discussion with him today regarding his CODE STATUS and he did notes under no circumstances will he be intubated. Nurse was in the room when we had this discussion. Despite his low oxygen levels, he denies feeling short of breath and is upset that he remains in the hospital. Claims "he was told he would only be here for a day or two and he is leaving". I did speak to his daughter Radha who is aware of the situation and is considering bringing him home knowing that his ultimate prognosis is poor at best. She is going to reach out to her sister and asked that I call here shortly. Patient tolerating oral intake. Is moving his bowels and passing flatus. Review of Systems Review of Systems: All systems reviewed and are unremarkable except as noted in HPI and below Denies fevers, chills, headache, nasal congestion, sore throat, cough, chest pain, shortness of breath, palpitations, orthopnea, PND, abdominal pain, nausea, vomiting, diarrhea, constipation, dysuria, hematuria, frequency, back pain, joint pain or swelling, easy bruising or bleeding, skin lesions or rashes. Physical Exam Physical Exam: General: Resting comfortably in his hospital bed. Sitting at the bedside. Breathing comfortably. Gets easily agitated and with this, he desaturates to the high 80's HEENT: Head is AT/NC buccal mucosa is moist and pink Neck: No JVD. Negative hepatojugular reflex Cardiac: RRR but very distant heart sounds Lungs: Despite lower oxygen levels, he does not appear dyspneic. His breathing is nonlabored. He does have diminished breath sounds at the bases without W/R/R Abdomen: Normoactive X4. Soft and nontender in all quadrants. Extremities: No peripheral clubbing cyanosis or edema Neuro: A&O X4 cranial nerves II through XII are grossly intact no focal neuro deficits Skin: No obvious skin lesions or rashes Psych: Appropriate affect pleasant and cooperative Results & Data Results & Data ([facility]) Vital Signs (Past 12 Hours) Vital Signs Temp Pulse Pulse Pulse Resp BP Pulse Ox 07/12/21 10:02 76 24 90 07/12/21 07:42 36.4 C L 74 28 H 157/69 H 89 L 07/12/21 03:00 36.7 C 73 18 135/86 94 07/11/21 23:00 70 Laboratory Results 07/12/21 05:57 07/12/21 05:57 TB: 0.4 AST: 56 ALT: 57 PG Care Time/CCT Total # of Minutes Spent Total Time Spent with Patient: Total time spent is greater than 50% in coordination of care (as documented) at patient's floor/unit and/or counseling patient: Coding Level of Care Code 41849 Subseq Hosp Care Lvl 3 Diagnoses COVID-19 U07.1 Hypoxia R09.02 Ileus K56.7 CKD (chronic kidney disease), stage III N18.3 Atrial fibrillation with rapid ventricular response I48.91 HTN (hypertension) I10 Dyslipidemia E78.5 T2DM (type 2 diabetes mellitus) E11.9 Acute hyponatremia E87.1 Peripheral arterial disease I73.9
[2021-07-12] MEDS ORDERED: LORazepam 0.5 MG TAB PO PRN (11:29)
[2021-07-12] MEDS ORDERED: FUROSEMIDE INJ 20 MG/2 ML VIAL IV ONE (11:41)
--- NOTE | 2021-07-12 11:58 | XRay Report ---
XR chest 1V portable CLINICAL HISTORY: Atypical chest pain TECHNIQUE: Single frontal radiograph of the chest was obtained. Comparison: Comparison is made to chest and abdomen radiographs 07/09/2021 FINDINGS: No lines and tubes are seen. Calcified aortic knob is seen. Interval development of right upper lung and left lower lung predominant airspace opacities. Lungs are underinflated. No evidence of pleural e ffusion or pneumothorax. IMPRESSION: Right upper and left lower lung predominant airspace opacities, increased from prior exam, likely rep resent atelectasis with or without superimposed aspiration/pneumonia in this patient with underinflat ed lungs. ACT 112: Negative or not required by law. Electronically signed by: Flavio Patel M.D. 07/12/2021 11:57 AM
[2021-07-12] MEDS: BARICITINIB 2 MG TAB PO SCH (17:48)
[2021-07-12] MEDS: INSULIN GLARGINE SOLOSTAR 100 UNITS/ML 3 ML PEN SQ SCH (21:30)
[2021-07-12] MEDS: SODIUM CHLORIDE 0.9% 10ML FLUSH IV SCH (22:17)
[2021-07-13] MEDS ORDERED: COUGH DROP (SUGAR FREE) LOZ 24 LOZ/1 BOX BUCCAL STA (02:01)
[2021-07-13] MEDS ORDERED: COUGH DROP (SUGAR FREE) LOZ 24 LOZ/1 BOX BUCCAL ONE (02:03)
[2021-07-13] MEDS: AZITHROMYCIN 500 MG in DEXTROSE 5% 250 ML IV SCH (06:16)
[2021-07-13 07:52] LABS: Basophils # (auto) 0.01 K/uL (0-0.2); Basophils % (auto) 0.1 %; Hematocrit (blood only) 37.4 % (42-52); Hemoglobin 12.5 g/dL (14.0-18.0); Immature Granulocytes # (auto) 0.06 K/uL (0.00-0.02); Immature Granulocytes % (auto) 0.3 %; Lymphocytes % (auto) 4.9 %; Mean Corpuscular Hgb Conc 33.4 g/dL (32-36); Mean Corpuscular Volume 86.8 fL (80-100); Monocytes # (auto) 0.91 K/uL (0.11-0.59); Neutrophils # (auto) 16.46 K/uL (1.4-6.5); Neutrophils % (auto) 89.7 %; Platelet Count 291 K/uL (130-400); RDW Coefficient of Variation 15.4 % (11.5-14.5); RDW Standard Deviation 49.6 fL (36.4-46.3); Red Blood Count 4.31 M/uL (4.7-6.1); White Blood Count 18.34 K/uL (4.8-10.8)
[2021-07-13 08:08] LABS: Albumin Level 2.4 gm/dl (3.4-5.0); BUN Creatinine Ratio 25.2 (10-20); Calcium 8.5 mg/dl (8.5-10.1); Creatinine Clr Calc Pharmacy 39.9 ml/min; Est GFR (African American) 42.6 ml/min; Est GFR (Non-African American) 36.7 ml/min; Potassium 4.1 mmol/L (3.5-5.1)
[2021-07-13 08:11] LABS: Albumin Globulin Ratio 0.5 (0.9-2); Globulin 4.4 gm/dl (2.5-4.0); Total Protein 6.8 gm/dl (6.4-8.2)
[2021-07-13] MEDS: INSULIN ASPART PER UNIT SC SCH ×4 (08:59→22:05)
[2021-07-13] MEDS: guaiFENesin 600 MG TABCR PO SCH ×2 (09:00→21:50)
[2021-07-13] MEDS: FAMOTIDINE 20 MG TAB PO SCH ×2 (09:00→21:50)
[2021-07-13] MEDS: APIXABAN 2.5 MG TAB PO SCH ×2 (09:00→21:50)
[2021-07-13] MEDS: CHOLECALCIFEROL 5,000 UNITS 125 MCG TAB PO SCH (09:01)
[2021-07-13] MEDS: FERROUS GLUCONATE 324 MG TAB PO SCH (09:01)
[2021-07-13] MEDS: AMIODARONE 200 MG TAB PO SCH (09:01)
[2021-07-13] MEDS: dilTIAZem ER 120 MG CAPCR PO SCH (09:01)
[2021-07-13] MEDS: ZINC SULFATE 220 MG CAPSULE PO SCH (09:01)
[2021-07-13] MEDS: CLOPIDOGREL BISULFATE 75 MG TAB PO SCH (09:01)
[2021-07-13] MEDS: dexAMETHasone 6 MG in SYRINGE 0 ML IV SCH ×2 (09:02→21:50)
[2021-07-13] MEDS: INSULIN HUMAN NPH SC SCH ×2 (09:03→22:06)
[2021-07-13 09:38] LABS: Bilirubin,Total 0.4 mg/dl (0.2-1)
[2021-07-13] MEDS: DOCUSATE SODIUM 100 MG CAP PO SCH (09:41)
[2021-07-13] MEDS ORDERED: LORazepam 0.5 MG TAB PO PRN (11:11)
--- NOTE | 2021-07-13 13:58 | Hospitalist Progress Note ---
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 has since progressed/declined and was requiring HHFNC- maxed out (100%/40L) * CRP up to 8.1-- baricitinib #3 --> CRP currently up to 10.0. Continue to follow this * Continue Junadron #4 (with decline in status, was increased to Q12h on 07/11) * Received 3 doses of IV remdesivir but family demanded that this be stopped on 07/12 * Continue mucolytic agents * Pepcid on board for GI prophylaxis and H2 blockade cascade * Started on empiric antibiotic therapy (azithromycin) by admitting provider. Issues likely Covid but with repeat CXR showing increased density in the RUL and concern for Aspiration-- transition to Augmentin (family requesting no abx's be given IV and that they be given only orally) * Continue zinc * Patient takes routine Eliquis which will provide adequate DVT/PE prophylaxis as well * continue with lasix trials (watching renal function closely)-- doses given 07/10, 07/12 and 07/13 * repeat CXR showing increased density in the RUL-- ? aspiration * Patient is a DNR but seems to be showing favorable response * although not ideal, patient did receive 1 dose oral ativan (as pt easily agitated and with this, he takes off his oxygen). I do not want to further suppress his respiratory drive but without calming him, he is an increased risk of worsening respiratory failure. -- lenghty D/W family members throughout his hospital course (Radha and Izzy the daughters and Maxime the grandson). Initially, they were very skeptical about the care being provided to him (mostly the Remdesivir) and believed that it was our treatments causing his decline and need for increased oxygen requirements. After lengthy discuss and explaining that it was a progression of the virus, they seemed to understand but were still skeptical. Initially, they were going to sign this patient out AMA and take him to the [facility]. Patient had significant oxygen needs at that time and I voiced my concern that he likely would not survive this transport/trip. Izzy is to a construction worker who is on the board at the [facility]. Finally, they agreed to allow patient to stay in-house and wanted updated treatments being provided. Izzy's did cooperate our plan with doctors at the [facility] who reassured them that we are doing everything for the patient that they would be providing him there. There is no medical necessity for transfer and family aware that he would likely not survive him being signed out AGAINST MEDICAL ADVICE to go by private vehicle. Family was adamant that the remdesivir be stopped but they are agreeable to other treatment options as outlined above. He did request that no antibiotics be given via IV to avoid "extra fluid". After lengthy and multiple discussion with family-they are happy with his care and agreeable for him to stay. (2) Hypoxia: Plan: See above (3) Ileus: Plan: * Patient presented with abdominal distention, nausea with dry heaves and abdominal pain * KUB done in the ED that showed a nonobstructive pattern but evidence of an ileus * Patient has since had multiple BM's. He is passing flatus. He denies abdominal pain, nausea or dry heaves. No abdominal pain * No need for follow-up imaging unless clinical status changes (4) CKD (chronic kidney disease), stage III: Plan: Creatinine 1.78 upon admission, with range 1.62-1.95 * did bump to 2.1 following lasix * lisinopril on hold * back to 1.7 now. * will watch closely with continued lasix trials as renal function will allow (5) Atrial fibrillation with rapid ventricular response: Plan: Atrial fibrillation/hypertension/PAD- * Continue amiodarone, apixaban, clopidogrel, diltiazem XR * seems to be in a NSR with CVR (6) HTN (hypertension): Plan: See above * continue holding lisinopril (7) Dyslipidemia: Plan: * statin was on hold with Remdesivir given risk of elevated LFTS. okay to resume this as family requesting Remds. be stopped (8) T2DM (type 2 diabetes mellitus): Plan: * continue lantus/log along with NPH in conjunction with decadron (to combat steroid induced hyperglycemia) * BS acceptable (177 - 130 - 112) (9) Acute hyponatremia: Plan: Sodium 131 upon admission 138 follow 1 dose lasix continue to trend (10) Peripheral arterial disease: Plan: See above Plan: plan of care to be D/W dr. Bello. Lengthy D/W both daughters (Izzy and Radha) Patient is a DNR Admission and Anticipated Discharge Date Admission Date: July 10, 2021 Supervising Physician Co-Signing Physician Notes chart reviewed, case d/w J Susie PAC. agree w above Subjective Patient seen on daily rounds today. When initially seen, had his oxygen off and his pulse ox was in the 60s. He was very dusky. Respiratory was in the room and placing him back on his oxygen as they had noticed this on the monitor. He recovered rather quickly. Was placed back on 100% FiO2 and has been downtitrated by staff and is currently on 60% FiO2 with a sat of 96% Review of Systems Review of Systems: All systems reviewed and are unremarkable except as noted in HPI and below Denies fevers, chills, headache, nasal congestion, sore throat, cough, chest pain, shortness of breath, palpitations, orthopnea, PND, abdominal pain, nausea, vomiting, diarrhea, constipation, dysuria, hematuria, frequency, back pain, joint pain or swelling, easy bruising or bleeding, skin lesions or rashes. Physical Exam Physical Exam: General: Resting comfortably at bedside. initially dusky in color but breathing was not labored. Placed back on supplemental O2. He is Breathing comfortably. HEENT: Head is AT/NC buccal mucosa is moist and pink Neck: No JVD. Negative hepatojugular reflex Cardiac: RRR but very distant heart sounds Lungs: normal respiratory effort. He does have diminished breath sounds at the bases without W/R/R Abdomen: Normoactive X4. Soft and nontender in all quadrants. Extremities: No peripheral clubbing cyanosis or edema Neuro: A&O X4 cranial nerves II through XII are grossly intact no focal neuro deficits Skin: No obvious skin lesions or rashes Psych: Appropriate affect pleasant and cooperative Results & Data Results & Data ([facility]) Vital Signs (Past 12 Hours) Vital Signs Temp Pulse Resp BP Pulse Ox 07/13/21 11:45 36.4 C L 70 20 132/65 95 07/13/21 11:43 71 17 95 07/13/21 08:39 19 96 07/13/21 07:54 36.3 C L 69 18 110/64 88 L 07/13/21 03:20 68 24 92 07/13/21 03:00 36.7 C 66 18 133/86 90 Laboratory Results 07/13/21 07:32 07/13/21 07:32 PG Care Time/CCT Total # of Minutes Spent Total Time Spent with Patient: Total time spent is greater than 50% in coordination of care (as documented) at patient's floor/unit and/or counseling patient: Coding Level of Care Code 01507 Subseq Hosp Care Lvl 2 Diagnoses COVID-19 U07.1 Hypoxia R09.02 Ileus K56.7 CKD (chronic kidney disease), stage III N18.3 Atrial fibrillation with rapid ventricular response I48.91 HTN (hypertension) I10 Dyslipidemia E78.5 T2DM (type 2 diabetes mellitus) E11.9 Acute hyponatremia E87.1 Peripheral arterial disease I73.9
[2021-07-13] MEDS ORDERED: ALBUT/IPRATROP 3MG/0.5MG NEB 3 ML VIAL NEB PRN (14:19)
[2021-07-13] MEDS: FORMOTEROL 20 MCG/2 ML VIAL NEB SCH ×2 (15:22→19:18)
[2021-07-13] MEDS: AMOXICILLIN/CLAVULANATE 875 MG TAB PO SCH (17:29)
[2021-07-13] MEDS: BARICITINIB 2 MG TAB PO SCH (17:29)
[2021-07-13] MEDS: BUDESONIDE 0.5 MG/2 ML VIAL (PULMICORT) NEB SCH (19:18)
[2021-07-13] MEDS: SODIUM CHLORIDE 0.9% 10ML FLUSH IV SCH (22:06)
[2021-07-13] MEDS: INSULIN GLARGINE SOLOSTAR 100 UNITS/ML 3 ML PEN SQ SCH (22:06)
[2021-07-14] MEDS: AMOXICILLIN/CLAVULANATE 875 MG TAB PO SCH ×2 (07:55→17:42)
[2021-07-14] MEDS: dexAMETHasone 6 MG in SYRINGE 0 ML IV SCH (07:55)
[2021-07-14] MEDS: APIXABAN 2.5 MG TAB PO SCH ×2 (07:56→20:47)
[2021-07-14] MEDS: FAMOTIDINE 20 MG TAB PO SCH ×2 (07:56→20:47)
[2021-07-14] MEDS: CHOLECALCIFEROL 5,000 UNITS 125 MCG TAB PO SCH (07:57)
[2021-07-14] MEDS: CLOPIDOGREL BISULFATE 75 MG TAB PO SCH (07:57)
[2021-07-14] MEDS: FERROUS GLUCONATE 324 MG TAB PO SCH (07:57)
[2021-07-14] MEDS: guaiFENesin 600 MG TABCR PO SCH ×2 (07:57→20:48)
[2021-07-14] MEDS: AMIODARONE 200 MG TAB PO SCH (07:58)
[2021-07-14] MEDS: ZINC SULFATE 220 MG CAPSULE PO SCH (07:58)
[2021-07-14] MEDS: dilTIAZem ER 120 MG CAPCR PO SCH (07:58)
[2021-07-14] MEDS: ONDANSETRON INJ 2 MG/ML 2 ML VIAL IV PRN ×2 (08:07→19:17)
[2021-07-14] MEDS: DOCUSATE SODIUM 100 MG CAP PO SCH (08:07)
[2021-07-14] MEDS: BUDESONIDE 0.5 MG/2 ML VIAL (PULMICORT) NEB SCH ×2 (08:16→19:21)
[2021-07-14] MEDS: FORMOTEROL 20 MCG/2 ML VIAL NEB SCH ×2 (08:16→19:22)
[2021-07-14] MEDS ORDERED: ATORVASTATIN 40 MG TAB PO SCH (09:00)
[2021-07-14] MEDS ORDERED: AZITHROMYCIN 250 MG TAB PO SCH (09:00)
[2021-07-14] MEDS: INSULIN ASPART PER UNIT SC SCH ×4 (09:41→20:35)
[2021-07-14] MEDS: INSULIN HUMAN NPH SC SCH ×2 (09:42→21:27)
[2021-07-14 09:53] LABS: Basophils # (auto) 0.01 K/uL (0-0.2); Basophils % (auto) 0.1 %; Hematocrit (blood only) 36.4 % (42-52); Immature Granulocytes # (auto) 0.06 K/uL (0.00-0.02); Immature Granulocytes % (auto) 0.4 %; Lymphocytes # (auto) 0.28 K/uL (1.2-3.4); Lymphocytes % (auto) 1.7 %; Mean Corpuscular Hemoglobin 28.6 pg (25-34); Mean Corpuscular Volume 86.7 fL (80-100); Mean Platelet Volume 10.9 fL (7.4-10.4); Monocytes # (auto) 0.92 K/uL (0.11-0.59); Monocytes % (auto) 5.6 %; Neutrophils # (auto) 15.03 K/uL (1.4-6.5); Neutrophils % (auto) 92.2 %; Platelet Count 296 K/uL (130-400); RDW Coefficient of Variation 15.6 % (11.5-14.5); RDW Standard Deviation 49.7 fL (36.4-46.3)
[2021-07-14 10:26] LABS: Albumin Level 2.4 gm/dl (3.4-5.0); BUN Creatinine Ratio 23.9 (10-20); Calcium 8.7 mg/dl (8.5-10.1); Creatinine Clr Calc Pharmacy 40.1 ml/min; Est GFR (African American) 43.2 ml/min; Est GFR (Non-African American) 37.3 ml/min; Magnesium 2.6 mg/dl (1.8-2.4); Potassium 4.7 mmol/L (3.5-5.1)
[2021-07-14 10:29] LABS: Albumin Globulin Ratio 0.6 (0.9-2); Bilirubin,Total 0.8 mg/dl (0.2-1); C Reactive Protein 8.62 mg/dl (0-0.29); Globulin 4.3 gm/dl (2.5-4.0); Total Protein 6.7 gm/dl (6.4-8.2)
--- NOTE | 2021-07-14 14:21 | Hospitalist Progress Note ---
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 He is unvaccinated Chest x-ray showing subtle interstitial opacities left greater than right consistent with COVID-19 pneumonia With acute respiratory failure with hypoxia Initial pulse ox 88 to 89% on room air Initially requiring 2L up until the morning of 07/11. has since progressed/declined and was requiring HHFNC- maxed out (100%/40L) CRP up to 10 and was started on baricitinib on 07/12-complete 14-day course or continue until off oxygen or day of discharge Continue Decadron-decrease back to 6 mg IV once daily as he is on baricitinib and this is the dose that was studied Received 3 doses of IV remdesivir but family asked that this be stopped on 07/12 as they felt it was making him worse-I do not think this is the case, nonetheless Remdesivir likely of no benefit anyway CRP trending downward today back to 8 He is titrated down a little bit on his high flow nasal cannula to 35 L and 80% FiO2, pulse ox 91% at rest -Continue mucolytic agents with guaifenesin 1200 mg p.o. twice daily -Continue budesonide nebs twice daily, albuterol neb as needed, formoterol neb twice daily -Continue baricitinib and dexamethasone as above -Started on empiric antibiotic therapy (azithromycin) by admitting provider. With repeat CXR showing increased density in the RUL and concern for Aspiration-- transitioned to Augmentin (family requesting no abx's be given IV and that they be given only orally to reduce volume overload -Continue zinc although unclear benefit to this -Patient takes routine Eliquis which will provide adequate DVT/PE prophylaxis as well -Continue with lasix trials as needed (watching renal function closely)-- doses given 07/10, 07/12 and 07/13-hold for today -Follow CBC, CMP, CRP in the morning (2) Hypoxia: Plan: See above (3) Ileus: Plan: Patient presented with abdominal distention, nausea with dry heaves and abdominal pain KUB done in the ED that showed a nonobstructive pattern but evidence of an ileus has since had multiple BM's. He is passing flatus. He denies abdominal pain, nausea or dry heaves. No abdominal pain No need for follow-up imaging unless clinical status changes No bowel movement now in 2 days-add on senna to his docusate and follow (4) CKD (chronic kidney disease), stage III: Plan: Creatinine 1.78 upon admission, with range 1.62-1.95 Creatinine did bump to 2.1 following lasix -Lisinopril on hold -Creatinine back to 1.7 now. -Will watch closely with continued lasix trials as renal function will allow (5) Atrial fibrillation with rapid ventricular response: Plan: Patient in sinus rhythm here -Continue amiodarone, apixaban,diltiazem XR -Continue telemetry monitoring (6) HTN (hypertension): Plan: Blood pressures are stable -Continue holding lisinopril for acute kidney injury -Continue diltiazem (7) Dyslipidemia: Plan: -Continue atorvastatin, Plavix With a history of CEA and PAD (8) T2DM (type 2 diabetes mellitus): Plan: Blood sugars are acceptable Hemoglobin A1c well controlled at 7.3% Pharmacy is managing insulin -Continue Lantus, NovoLog, and NPH in conjunction with decadron (to combat steroid induced hyperglycemia) (9) Acute hyponatremia: Plan: Sodium 131 upon admission Now normal (10) Peripheral arterial disease: Plan: With a history of PAD in the legs, CVA Continue Plavix, statin Plan: DVT prophylaxis-renally dosed apixaban Disposition-continued stay on PCU, COVID unit Discussed his care with his daughter Radha and grandson in law Rojas on the phone on 07/14 Will plan to give daily update at the request DNR/DNI Admission and Anticipated Discharge Date Admission Date: July 10, 2021 Subjective Patient initially told me he was feeling "miserable." But after we get to talking 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 He remains on high flow nasal cannula but has been weaned down since this morning to 35 L and 80% FiO2. He seems comfortable with this and pulse ox was 91% while we were talking for quite some time. He denies chest pain. He does report that he was able to cough up a large amount of sputum today. He is working on his incentive spirometer and flutter valve which was ordered today. He is making urine. No bowel movement in 2 days. Telemetry with sinus rhythm, first-degree AV block, rates in the 60s to 70s Review of Systems Review of Systems: All systems reviewed & are unremarkable except as noted in HPI & below Physical Exam Constitutional: WD/WN, vitals as above Eyes: + anicteric sclerae and EOM intact bilaterally ENMT: external ear and nose normal, oropharynx normal Neck: trachea midline, no thyromegaly Respiratory: normal respiratory effort; no cough Auscultation: + crackles (Bilateral lower and middle lung herbert); no rhonchi and no wheezes Cardiovascular: RRR, no murmur, no edema Chest (Breasts): Chest: normal inspection of chest Gastrointestinal (Abdomen): normal bowel sounds, soft, nontender, no hepatosplenomegaly Musculoskeletal: Extremities: extremities normal to inspection; no cyanosis and no clubbing Skin: no rashes, warm and dry Neurologic: moves all extremities and awake; no focal motor deficits Psychiatric: A+Ox3, euthymic affect Lymphatic: no lymphedema Results & Data Results & Data ([facility]) Vital Signs (Past 12 Hours) Vital Signs Temp Pulse Pulse Pulse Resp BP BP 07/14/21 12:18 20 07/14/21 11:58 36.6 C 72 22 154/54 H 07/14/21 08:16 71 18 07/14/21 07:50 36.7 C 70 22 153/70 H 07/14/21 07:00 66 07/14/21 03:41 36.7 C 77 21 158/76 H Pulse Ox 07/14/21 12:18 94 07/14/21 11:58 93 07/14/21 08:16 90 07/14/21 07:50 95 07/14/21 07:00 07/14/21 03:41 96 Laboratory Results 07/14/21 07/14/21 07/14/21 Range/Units 16:35 12:01 09:35 WBC (4.8-10.8) K/uL RBC (4.7-6.1) M/uL Hgb (14.0-18.0) g/dL Hct (42-52) % MCV (80-100) fL MCH (25-34) pg MCHC (32-36) g/dL RDW Std Deviation (36.4-46.3) fL RDW Coeff of Deepak (11.5-14.5) % Plt Count (130-400) K/uL MPV (7.4-10.4) fL Immature Gran % (Auto) % Neut % (Auto) % Lymph % (Auto) % Crowley % (Auto) % Eos % (Auto) % Baso % (Auto) % Neut # (Auto) (1.4-6.5) K/uL Lymph # (Auto) (1.2-3.4) K/uL Crowley # (Auto) (0.11-0.59) K/uL Eos # (Auto) (0-0.5) K/uL Baso # (Auto) (0-0.2) K/uL Immature Gran # (Auto) (0.00-0.02) K/uL Sodium 137 (136-145) mmol/L Potassium 4.7 (3.5-5.1) mmol/L Chloride 106 (98-107) mmol/L Carbon Dioxide 27 (21-32) mmol/L Anion Gap 4.0 (3-11) BUN 40 H (7-18) mg/dl Creatinine 1.69 H (0.6-1.4) mg/dl Est Cr Clr Drug Dosing 40.1 ml/min Est GFR ( Amer) 43.2 ml/min Est GFR (Non-Af Amer) 37.3 ml/min BUN/Creatinine Ratio 23.9 H (10-20) Glucose 137 H (70-99) mg/dl POC Glucose 108 H 138 H (70-99) mg/dl Calcium 8.7 (8.5-10.1) mg/dl Magnesium 2.6 H (1.8-2.4) mg/dl Total Bilirubin 0.8 (0.2-1) mg/dl AST 41 H (15-37) U/L ALT 47 (12-78) Alkaline Phosphatase 96 (45-117) U/L C-Reactive Protein 8.62 H (0-0.29) mg/dl Total Protein 6.7 (6.4-8.2) gm/dl Albumin 2.4 L (3.4-5.0) gm/dl Globulin 4.3 H (2.5-4.0) gm/dl Albumin/Globulin Ratio 0.6 L (0.9-2) 07/14/21 07/14/21 07/13/21 Range/Units 09:35 07:48 20:20 WBC 16.30 H (4.8-10.8) K/uL RBC 4.20 L (4.7-6.1) M/uL Hgb 12.0 L (14.0-18.0) g/dL Hct 36.4 L (42-52) % MCV 86.7 (80-100) fL MCH 28.6 (25-34) pg MCHC 33.0 (32-36) g/dL RDW Std Deviation 49.7 H (36.4-46.3) fL RDW Coeff of Deepak 15.6 H (11.5-14.5) % Plt Count 296 (130-400) K/uL MPV 10.9 H (7.4-10.4) fL Immature Gran % (Auto) 0.4 % Neut % (Auto) 92.2 % Lymph % (Auto) 1.7 % Crowley % (Auto) 5.6 % Eos % (Auto) 0.0 % Baso % (Auto) 0.1 % Neut # (Auto) 15.03 H (1.4-6.5) K/uL Lymph # (Auto) 0.28 L (1.2-3.4) K/uL Crowley # (Auto) 0.92 H (0.11-0.59) K/uL Eos # (Auto) 0.00 (0-0.5) K/uL Baso # (Auto) 0.01 (0-0.2) K/uL Immature Gran # (Auto) 0.06 H (0.00-0.02) K/uL Sodium (136-145) mmol/L Potassium (3.5-5.1) mmol/L Chloride (98-107) mmol/L Carbon Dioxide (21-32) mmol/L Anion Gap (3-11) BUN (7-18) mg/dl Creatinine (0.6-1.4) mg/dl Est Cr Clr Drug Dosing ml/min Est GFR ( Amer) ml/min Est GFR (Non-Af Amer) ml/min BUN/Creatinine Ratio (10-20) Glucose (70-99) mg/dl POC Glucose 78 144 H (70-99) mg/dl Calcium (8.5-10.1) mg/dl Magnesium (1.8-2.4) mg/dl Total Bilirubin (0.2-1) mg/dl AST (15-37) U/L ALT (12-78) Alkaline Phosphatase (45-117) U/L C-Reactive Protein (0-0.29) mg/dl Total Protein (6.4-8.2) gm/dl Albumin (3.4-5.0) gm/dl Globulin (2.5-4.0) gm/dl Albumin/Globulin Ratio (0.9-2) PG Care Time/CCT Total # of Minutes Spent Total Time Spent with Patient: Total time spent is greater than 50% in coordination of care (as documented) at patient's floor/unit and/or counseling patient: Coding Level of Care Code 25562 Subseq Hosp Care Lvl 3 Diagnoses COVID-19 U07.1 Hypoxia R09.02 Ileus K56.7 CKD (chronic kidney disease), stage III N18.3 Atrial fibrillation with rapid ventricular response I48.91 HTN (hypertension) I10 Dyslipidemia E78.5 T2DM (type 2 diabetes mellitus) E11.9 Acute hyponatremia E87.1 Peripheral arterial disease I73.9
[2021-07-14] MEDS ORDERED: SENNA 8.6 MG TAB PO SCH (14:30)
[2021-07-14] MEDS: BARICITINIB 2 MG TAB PO SCH (17:46)
[2021-07-14] MEDS: INSULIN GLARGINE SOLOSTAR 100 UNITS/ML 3 ML PEN SQ SCH (21:26)
[2021-07-14] MEDS ORDERED: PROMETHAZINE HCL 12.5 MG in SODIUM CHLORIDE 0.9% 50 ML IV STA (23:38)
[2021-07-15] MEDS: ONDANSETRON INJ 2 MG/ML 2 ML VIAL IV PRN (04:45)
[2021-07-15] MEDS ORDERED: PROMETHAZINE HCL 25 MG in SODIUM CHLORIDE 0.9% 50 ML IV STA (05:14)
--- NOTE | 2021-07-15 06:33 | XRay Report ---
KUB CLINICAL HISTORY: increased nausea COMPARISON STUDY: Abdominal series July 09, 2021. FINDINGS: Bowel gas pattern is within normal limits. There is no evidence for a bowel obstruction. Am ount stool is also within normal limits. 8 mm radiodensity projected over the right upper quadrant. IMPRESSION: No radiographic evidence for a bowel obstruction. ACT 112: Negative or not required by law. Electronically signed by: Ruben Tenorio M.D. 07/15/2021 6:32 AM
--- NOTE | 2021-07-15 06:33 | Communication Note ---
Date of Service: July 15, 2021 Called to bedside at 0630 for concerns of rapid desaturations, nursing staff at bedside noted that patient was found with high-flow nasal cannula off of his face upon their presentation to his room, with an oxygen saturation of 20%. Upon my presentation to bedside, patient was back on high-flow nasal cannula at 40LPM with 100% FiO2 and supplemental oxymask at 15LPM with oxygen saturations in the 90s. It appears that patient had tried to roll-over in his bed and the oxygen had come off of his face. Patient was alert and oriented at this time, in no acute distress and following simple commands. Upon review of chart patient is noted to be DNR/DNI in the event of cardiac arrest; given the rapid desaturations with potentially unintentional removal of oxygen supplementation, this provider asked the patient about his desires should his breathing status continue to worsen; specifically asking if he would want to have a ventilator or breathing machine breath for him if his breathing worsened. His response was "For how long?", upon the expression that we would be unable to determine the timeline of how long he would be on the ventilator he voiced that he would want this done for his breathing only. To further clarify, the question of decision regarding potential intubation was repeated and he endorsed that he would want to be intubated for this instance. Given this change in his condition, listed primary contact was contacted and informed of the temporary worsening of his oxygen saturations with incidental removal of oxygen supplementation following rolling over. Additionally, this provider expressed the extent to my conversation with the patient regarding potential intubation with the family to which they vehemently expressed their displeasure with this conversation. This provider informed them that at this time he does not need intubation; however, as he voiced understanding and was able to repeat back significant portions of t he conversation to the provider that we would have to go with his expressed wishes until he otherwise changed his mind or was deemed to not have the capacity to make his own decisions. Family expressed high frustrations with this notion, and expressed that they "would rather see him placed on a morphine drip than be put on a ventilator" and that "litigation would be involved" if this was followed. Additional conversations on this matter were had with patient's daughter in [place] regarding this potential change in his status, to which she expressed that she would not want this to be done. This provider again informed family that as it currently stands he would not require this intervention but that he expressed wishes that were different than they had previously discussed with him. During this time that the conversations with family were occurring, patient again rolled over to his side removing the oxygen support from his nose and desaturated to the 70s. Upon returning to laying on his back with oxygen support his oxygen saturations again improved into the 90s. It was at this time that he was placed in soft limb restraints in order to maintain the oxygen supplementation on. With these he seemingly settled down and was much more comfortable without medications. After conclusion of conversations with family, the night time attending provider was called and informed of the extent of all conversations as above. Based off the patient's expressed wishes to this provider, nursing staff was informed that until patient changes his wishes or it is determined that he does not have the capacity to make his own decisions that his wishes should be respected. As such his code status for cardiac arrest will remain DNR/DNI, but he would be accepting of intubation for respiratory failure at this time. Given the high ethical complexity of this situation, and the perceived change in the patient's expressed wishes, this was further communicated with day-team provider to better continue these conversations with both patient and family. Attending cosign: Situation above discussed with Dr. Pereira as well as primary day team provider. I agree with documentation above.
[2021-07-15 07:04] LABS: Basophils # (auto) 0.02 K/uL (0-0.2); Basophils % (auto) 0.1 %; Hematocrit (blood only) 36.7 % (42-52); Hemoglobin 12.4 g/dL (14.0-18.0); Immature Granulocytes % (auto) 0.5 %; Lymphocytes # (auto) 0.36 K/uL (1.2-3.4); Lymphocytes % (auto) 1.9 %; Mean Corpuscular Hemoglobin 29.1 pg (25-34); Mean Corpuscular Hgb Conc 33.8 g/dL (32-36); Mean Corpuscular Volume 86.2 fL (80-100); Mean Platelet Volume 10.7 fL (7.4-10.4); Monocytes # (auto) 1.14 K/uL (0.11-0.59); Monocytes % (auto) 6.1 %; Neutrophils % (auto) 91.4 %; Platelet Count 338 K/uL (130-400); RDW Coefficient of Variation 15.7 % (11.5-14.5); RDW Standard Deviation 49.4 fL (36.4-46.3); Red Blood Count 4.26 M/uL (4.7-6.1); White Blood Count 18.62 K/uL (4.8-10.8)
[2021-07-15 07:11] LABS: Base Excess ABG -0.4 mEq/L (-9-1.8); HCO3 ABG 24 mmol/L (19-24); Oxygen Saturation ABG 94.3 % (90-95); PCO2 ABG 37 mmHg (35-46); PO2 ABG 67 mmHg (80-95); pH ABG 7.42 (7.35-7.45)
[2021-07-15 07:16] LABS: Allen Test Pos (Pos)
[2021-07-15 07:40] LABS: Albumin Level 2.5 gm/dl (3.4-5.0); BUN Creatinine Ratio 23.5 (10-20); Calcium 8.8 mg/dl (8.5-10.1); Creatinine Clr Calc Pharmacy 40.1 ml/min; Est GFR (African American) 43.2 ml/min; Est GFR (Non-African American) 37.3 ml/min; Magnesium 2.7 mg/dl (1.8-2.4); Potassium 4.2 mmol/L (3.5-5.1)
[2021-07-15 07:41] LABS: Albumin Globulin Ratio 0.6 (0.9-2); Bilirubin,Total 0.9 mg/dl (0.2-1); Globulin 4.3 gm/dl (2.5-4.0); Total Protein 6.8 gm/dl (6.4-8.2)
[2021-07-15] MEDS: BUDESONIDE 0.5 MG/2 ML VIAL (PULMICORT) NEB SCH (07:56)
[2021-07-15] MEDS: FORMOTEROL 20 MCG/2 ML VIAL NEB SCH (07:56)
[2021-07-15] MEDS ORDERED: FUROSEMIDE 40 MG/4 ML VIAL IV ONE (08:38)
[2021-07-15] MEDS ORDERED: dexAMETHasone 6 MG in SYRINGE 0 ML IV SCH (09:00)
--- NOTE | 2021-07-15 09:13 | Death Pronouncement Note ---
Date of Service July 15, 2021 Pronouncement Note Admission Date Admission Date: July 10, 2021 Date and Time of Date of : 07/15/21 Time of : 08:58 PCOD Preliminary cause of : Myocardial Infarction Contributing Factors (1) COVID-19: (2) Hypoxia: (3) Ileus: (4) CKD (chronic kidney disease), stage III: (5) Atrial fibrillation with rapid ventricular response: (6) HTN (hypertension): (7) Dyslipidemia: (8) T2DM (type 2 diabetes mellitus): (9) Acute hyponatremia: (10) Peripheral arterial disease: Hospital Course Hospital Course: See discharge summary Additional Data Confirmation of : no pulse, no respirations, no heart sounds and pupils fixed and dilated Family: contacted Attending/PCP notified?: Yes Attending physician: Zenaida White MD Was code activated?: No Coding Level of Care Code None Diagnoses COVID-19 U07.1 Hypoxia R09.02 Ileus K56.7 CKD (chronic kidney disease), stage III N18.3 Atrial fibrillation with rapid ventricular response I48.91 HTN (hypertension) I10 Dyslipidemia E78.5 T2DM (type 2 diabetes mellitus) E11.9 Acute hyponatremia E87.1 Peripheral arterial disease I73.9
--- NOTE | 2021-07-15 09:14 | Discharge Summary ---
Date of Service July 15, 2021 Admission HPI Per Admitting Provider The patient is an 81-year-old male with a past medical history including CKD stage III, chronic venous insufficiency, diabetes mellitus type 2, obesity, venous stasis ulcers, tubular adenoma, dyslipidemia, hypertension, tibial artery disease, diabetic ulcer of heel, status post transmetatarsal amputation of foot, atrial fibrillation with RVR, status post CEA, status post lumbar discectomy, status post knee surgery, atrial flutter with rapid ventricular response and PAD. Patient reports that he was exposed to a sick relative, and began to develop symptoms 1 week ago. Significant laboratories: Hemoglobin 11.9, hematocrit 36.0, sodium 131, glucose 229, creatinine 1.78, AST 66, albumin 2.8 Pulse ox is 90% on room air COVID-19 testing was positive Principal Diagnosis COVID-19 Pneumonia, acute hypoxic respiratory failure, suspected myocardial infarction causing sudden Discharge Exam Pronounced Discharge Data Allergies Allergy/AdvReac Type Severity Reaction Status Date / Time No Known Drug Allergies Allergy Unknown Verified 07/09/21 22:40 Consultations 07/09/21 23:49 ED Decision to Admit Stat Hospital Course (1) COVID-19: 81 y/o WM with an underlying PMH of CKD stage III (baseline creatinine 1.7), DM-2, HTN, PAD, A.Fib on Eliquis presented to the ED with flu-like sym ptoms x7 days 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 He is unvaccinated Chest x-ray showing subtle interstitial opacities left greater than right consistent with COVID-19 pneumonia With acute respiratory failure with hypoxia Initial pulse ox 88 to 89% on room air Initially requiring 2L up until the morning of 07/11. He thenprogressed/declined and was requiring HHFNC- maxed out (100%/40L) CRP up to 10 and was started on baricitinib on 07/12 He was continued on Decadron daily Received 3 doses of IV remdesivir but family asked that this be stopped on 07/12 as they felt it was making him worse-I do not think this is the case, nonetheless Remdesevir likely of no benefit anyway CRP trended downward back to 8, but then increased again on the morning that he to 10 He was treated with mucolytic's, bronchodilators and inhaled corticosteroids. He was also treated with oral azithromycin and then Augmentin for secondary bacterial pneumonia. He remained on Eliquis throughout which also provided VTE prophylaxis He was treated with IV Lasix periodically to keep him in a negative fluid balance in case of acute on chronic diastolic CHF On the day that he , he was noted to be off of his oxygen earlier that morning with rapid decline of his pulse oximeter-I discussed his case with the overnight physician at morning signout. Nursing reports that the patient was able to get his oxygen levels back up once the got his high flow nasal cannula back in place. The patient stated to the nurse that he wanted to be done with his treatment and to pass away. Shortly after the patient made the statement, he was noted to go into a junctional rhythm on telemetry and then had bradycardia down into the 20s and when the nurses ran back to his room, he had no palpable pulse and was in PEA. Due to his desire to not be resuscitated, no CPR was performed. I was contacted at this point and came up to see him right away and unfortunately pronounced him . I contacted the patient's daughter by phone to inform her that he and to give my condolences. All questions that she had were answered at that time. I offered to call the patient's other daughter in [place], but his daughter Radha said that she would contact the rest of the family. (2) Hypoxia: See above (3) Ileus: Patient presented with abdominal distention, nausea with dry heaves and abdominal pain KUB done in the ED that showed a nonobstructive pattern but evidence of an ileus has since had multiple BM's. He denies abdominal pain, but was still having some occasional nausea (4) CKD (chronic kidney disease), stage III: Creatinine 1.78 upon admission, with range 1.62-1.95 Creatinine did bump to 2.1 following lasix -Lisinopril was placed on hold and he was able to be given several more doses of IV Lasix without rising creatinine -Creatinine back to 1.6 (5) Atrial fibrillation with rapid ventricular response: Patient remained in sinus rhythm here -He was continued on his amiodarone, apixaban,diltiazem XR (6) HTN (hypertension): His lisinopril was held for acute kidney injury -He was continued on his diltiazem (7) Dyslipidemia: -Continued on his atorvastatin, Plavix With a history of CEA and PAD (8) T2DM (type 2 diabetes mellitus): Blood sugars were acceptable. He did have some very mild hypoglycemia on the morning that he with a blood sugar of 59. He was given D50 and it came up into the 90s. Hemoglobin A1c well controlled at 7.3% Pharmacy was managing insulin -He was treated with Lantus, NovoLog, and NPH in conjunction with decadron (to combat steroid induced hyperglycemia) (9) Acute hyponatremia: Sodium 131 upon admission-normalized (10) Peripheral arterial disease: With a history of PAD in the legs, CVA He was continued on Plavix, statin DVT prophylaxis-renally dosed apixaban Disposition- suddenly on the morning of 07/15-suspected myocardial infarction DNR/DNI Total Time Total Time Spent Total Time Spent (In Minutes): 30 minutes Discharge Plan Discharge Items Patient Disposition: Other Date/Time: 07/15/21 08:58 Coding Level of Care Code D/C DAY MANAGEMENT <30 MINS Diagnoses COVID-19 U07.1 Hypoxia R09.02 Ileus K56.7 CKD (chronic kidney disease), stage III N18.3 Atrial fibrillation with rapid ventricular response I48.91 HTN (hypertension) I10 Dyslipidemia E78.5 T2DM (type 2 diabetes mellitus) E11.9 Acute hyponatremia E87.1 Peripheral arterial disease I73.9
== END 2021-07-15 13:00 | disposition expired | DRG 177 ==
LOC: ED 19:59 → SUATTDRO 07-10 00:35 → EDINP 07-10 00:35 → 2W 07-10 17:27 → 2S 07-11 18:56